=== PATIENT | female | born 1940 | race Caucasian/White ===

== ENCOUNTER → 2017-09-18 07:49 | Day surgery (SDC) | payer MEDICARE, OTHER, SELFPAY ==
--- NOTE | 2017-09-18 | PATH_ITS ---
[facility] Accession Number: [id number] . 01 Material submitted: . PART A: ASCENDING COLON PART B: RECTO-SIGMOID POLYP . 02 Diagnosis: A. Ascending Colon, Biopsy: Colonic mucosa with prominent benign lymphoid aggregate. Negative for active inflammation, granulomata, serrated lesion, dysplasia or malignancy. . B. Rectosigmoid Colon Polyp, Biopsy: Tubular adenoma. MRV/09/20/2017 . 02 Electronically signed: . Kingston Napoles MD, PhD, Pathologist NPI- [id number] . 01 Gross description: . Part A: ASCENDING COLON : Received in formalin is 1 fragment(s) of chou, soft tissue measuring 0.3 x 0.3 x 0.1 cm submitted entirely in 1 cassette(s) Part B: RECTO-SIGMOID POLYP: Received in formalin is 1 fragment(s) of chou, soft tissue measuring 0.8 x 0.5 x 0.4 cm which is inked, bisected and submitted entirely in 1 cassette(s) /TRC /TRC . 02 Pathologist provided ICD-10: D12.7, K63.5 . 02 CPT . 459309, [id number] Performed at: 01 [facility] [address], [place], [place] [id number] MD Manuel Thompson MD Phone: [phone] Performed at: 02 [facility] [address] [place], [place] [id number] MD Pierre Paz MD Phone: [phone]
[2017-09-18 08:07] VITALS: BMI 26.0
[2017-09-18] MEDS: SODIUM CHLORIDE 0.9% 1,000 ML 70 ML IV (08:30)
[2017-09-18 08:39] VITALS: BP 159/82; PULSE 66; RESP 15; TEMP 36; O2SAT 100
--- NOTE | 2017-09-18 09:26 | P.HP_ITS ---
History of Present Illness Chief complaint: [id number] COLONOSCOPY WITH BIOPSY Narrative: Ruth Cornelius is a 77 year old female here for polyp surveillance. The patient was seen on 07/03/2017 at our office due to changes in bowel habit which have now resolved with modifications in her diet [facility] Surgical History History of salpingo-oophorectomy (Resolved 08/19/17) History of knee replacement History of third molar tooth extraction Status post appendectomy Status post hysterectomy Status post tonsillectomy and adenoidectomy Social History household members: spouse Smoking Status: Former smoker Meds Home Medications Medication Instructions Recorded Confirmed Type CA PANTOTHENATE/FOLIC ACID/VIT 1 tab PO Q DAY #0 08/27/11 09/18/17 History (MULTIVITAMIN) Fluticasone Propionate (FLONASE) 1 spray INTRANASAL QDAY #0 08/27/11 09/18/17 History VITAMIN D (Vitamin D3) 1,000 unit PO QDAY #0 08/27/11 09/18/17 History [VITAMIN C] 1,000 mg PO Q DAY #0 08/27/11 09/18/17 History lorazepam [Ativan] 1 mg PO PRN #0 08/28/11 09/18/17 History pravastatin 20 mg PO QDAY #0 08/16/17 09/18/17 History oxybutynin chloride 2.5 mg PO Q DAY 09/18/17 09/18/17 History Generic Name Dose Route Start Last Admin Trade Name Freq PRN Reason Stop Dose Admin Sodium Chloride 1,000 mls @ 70 mls/hr 09/18/17 09:30 Normal Saline 0.9% IV CONT JAIME Allergies Allergy/AdvReac Type Severity Reaction Status Date / Time propranolol [PROPRANOLOL] Allergy Mild TONGUE Unverified 08/19/17 09:14 SWELLING Review of Systems Review of Systems All systems reviewed & are unremarkable except as noted in HPI and below Exam Vital Signs (past 8 hours): Vital Signs - 8 hr 3 09/18/17 08:39 Temperature 96.8 F L Pulse Rate 66 Respiratory Rate 15 Blood Pressure 159/82 H Pulse Oximetry 100 Pulse Oximetry 100 Oxygen Delivery Method Room Air Narrative Exam Narrative: General: Patient is well developed, not in apparent distress Cardiovascular: Regular rate and rhythm, no murmurs, rubs, or gallops; no evidence of edema; no palpable abdominal aortic aneurysm Gastrointestinal: Normoactive bowel sounds, soft, nontender, nondistended, no rebound tenderness, no hepatosplenomegaly, no evidence of hernia Assessment & Plan Plan: Plan: Colonoscopy today
--- NOTE | 2017-09-18 10:02 | PM.OP.ENDO ---
Operative Date/Time/Diagnoses - Date of procedure: 09/18/17 Time of procedure: 09:15 Pre-op diagnosis: Colon polyp surveillance Post-op diagnosis: other (Colon polyp status post polypectomy, sigmoid diverticulosis, grade 1 internal hemorrhoids) Procedure Notes Procedure in detail: Surgeon: Tobin Santiago MD Procedure: Colonoscopy Medications: Conscious sedation using 5 mg IV of Midazolam and 150 mcg IV of Fentanyl Preanesthesia Assessment An H and P was performed/updated and the Px???s ASA class is 2. The procedure was discussed in detail with the patient. The potential risks and complications including infection, bleeding, missed lesions, perforation, need for surgery in case of perforation, prolonged hospital stay, and were explained. A brief question and answer period was allotted and once all questions were answered, informed consent was obtained. The patient was brought back to the procedure room and placed on standard monitoring. The patient???s vital signs were monitored continuously throughout the entire procedure. Prior to starting, a timeout was performed to confirm the patient???s identity, allergies, medications, and procedure. Procedure in detail The patient was placed in left lateral decubitus position and once adequate sedation was obtained a OSCAR was performed. The colonoscope was placed in the anal canal and advanced to the rectosigmoid area where there was difficulty due to fixation of the colon. This area of the colon was eventually traversed with manual pressure in the suprapubic area as well as shortening and torsion of the scope. The cecum was identified by the appendiceal orifice and ileocecal valve. The terminal ileum was intubated to a distance of 5 cm from the ileocecal valve. Careful examination of all villasenor of the colon was performed with irrigation of any residual stool. In the ascending colon there is note of a 3 mm sessile polyp which was removed in its entirety by means of the cold Jumbo forceps with minimal bleeding. Further examination of the colon revealed multiple medium-sized diverticula in the sigmoid colon. In the rectosigmoid colon there was note of a pedunculated polyp measuring 10 mm which was removed by means of a hot snare with no bleeding. Retroflexion was then performed in the rectum which revealed grade 1 internal hemorrhoids. The procedure was then terminated The patient tolerated the procedure well and will be brought back to the recovery area to be discharged once criteria are met. The prep was judged to be good/excellent and adequate to identify polyps less than 5 mm. The withdrawal time was 10 min. The total procedure time from initial sedation was 44 min. Complications There were no complications and estimated blood loss was minimal. Recommendations: Resume previous diet Continue outPx medications Follow up pathology results Repeat colonoscopy in 3 years if polyps are adenomatous An emergency contact number was given to the patient for any complications related to the procedure
[2017-09-18] MEDS: fentaNYL 250 MCG/5 ML INJ IV (10:05)
[2017-09-18] MEDS: MIDAZOLAM 5 MG/5 ML VIAL IV (10:08)
[2017-09-18 10:09] VITALS: BP 132/69; PULSE 80; RESP 16; TEMP 36.9; O2SAT 99
--- NOTE | 2017-09-18 10:16 | SUR.PHASEII ---
Bypassed Phase one due to LOC.
--- NOTE | 2017-09-18 10:16 | PM.DS.1 ---
History of Present Illness Chief complaint: [id number] COLONOSCOPY WITH BIOPSY Narrative: Ruth Cornelius is a 77 year old female who is here for colon polyp surveillance Discharge Providers Primary care physician: Grant Phillips MD Discharge provider: Tobin Santiago MD Summary Time Spent with Patient Total time spent providing and/or coordinating discharge services: Exam Vital Signs (past 8 hours): Vital Signs - 8 hr 09/18/17 08:39 09/18/17 10:09 Temperature 96.8 F L 98.4 F Pulse Rate 66 80 Respiratory Rate 15 16 Blood Pressure 159/82 H 132/69 H Pulse Oximetry 100 99 Pulse Oximetry 99 Oxygen Delivery Method Room Air Narrative Exam Narrative: General: Patient is well developed, not in apparent distress Cardiovascular: Regular rate and rhythm, no murmurs, rubs, or gallops; no evidence of edema; no palpable abdominal aortic aneurysm Gastrointestinal: Normoactive bowel sounds, soft, nontender, nondistended, no rebound tenderness, no hepatosplenomegaly, no evidence of hernia Discharge Plan Discharge Plan Patient Disposition: Home, Self-Care Discharge comment: Remove IV prior to discharge Discharge to home with escort, once the vital signs are stable Discharge Med Rec/Prescriptions Prescriptions: Continue CA PANTOTHENATE/FOLIC ACID/VIT (MULTIVITAMIN) 1 tab PO Q DAY Qty: 0 RF: 0 VITAMIN D (Vitamin D3) 1,000 unit PO QDAY Qty: 0 RF: 0 [VITAMIN C] 1,000 mg PO Q DAY Qty: 0 RF: 0 Fluticasone Propionate (FLONASE) 1 spray Intranasal QDAY Qty: 0 RF: 0 lorazepam [Ativan] 1 MG tablet 1 mg PO PRN Qty: 0 RF: 0 pravastatin 20 MG tablet 20 mg PO QDAY Qty: 0 RF: 0 oxybutynin chloride 5 MG tablet 2.5 mg PO Q DAY RF: 0 Provider Discharge Instructions Diet: Diet as Tolerated Visit Report/Discharge Packet Stand Alone Forms: Surgery Discharge Discharge Data Primary Care Provider: Grant Phillips V Attending Provider: Tobin Santiago
--- NOTE | 2017-09-18 10:19 | SUR.PHASEII ---
Hard copy discharge instructions for colonoscopy given to patient on discharge. She desires discharge home. Is awake and alert.
--- NOTE | 2017-09-18 10:23 | P.DS_ITS ---
History of Present Illness Chief complaint: [id number] COLONOSCOPY WITH BIOPSY Narrative: Ruth Cornelius is a 77 year old female who is here for colon polyp surveillance Discharge Providers Primary care physician: Grant Phillips MD Discharge provider: Tobin Santiago MD Summary Time Spent with Patient Total time spent providing and/or coordinating discharge services: Exam Vital Signs (past 8 hours): Vital Signs - 8 hr 3 09/18/17 08:39 09/18/17 10:09 Temperature 96.8 F L 98.4 F Pulse Rate 66 80 Respiratory Rate 15 16 Blood Pressure 159/82 H 132/69 H Pulse Oximetry 100 99 Pulse Oximetry 99 Oxygen Delivery Method Room Air Narrative Exam Narrative: General: Patient is well developed, not in apparent distress Cardiovascular: Regular rate and rhythm, no murmurs, rubs, or gallops; no evidence of edema; no palpable abdominal aortic aneurysm Gastrointestinal: Normoactive bowel sounds, soft, nontender, nondistended, no rebound tenderness, no hepatosplenomegaly, no evidence of hernia Discharge Plan Discharge Plan Patient Disposition: Home, Self-Care Discharge comment: Remove IV prior to discharge Discharge to home with escort, once the vital signs are stable Discharge Med Rec/Prescriptions Prescriptions: Continue CA PANTOTHENATE/FOLIC ACID/VIT (MULTIVITAMIN) 1 tab PO Q DAY Qty: 0 RF: 0 VITAMIN D (Vitamin D3) 1,000 unit PO QDAY Qty: 0 RF: 0 [VITAMIN C] 1,000 mg PO Q DAY Qty: 0 RF: 0 Fluticasone Propionate (FLONASE) 1 spray Intranasal QDAY Qty: 0 RF: 0 lorazepam [Ativan] 1 MG tablet 1 mg PO PRN Qty: 0 RF: 0 pravastatin 20 MG tablet 20 mg PO QDAY Qty: 0 RF: 0 oxybutynin chloride 5 MG tablet 2.5 mg PO Q DAY RF: 0 Provider Discharge Instructions Diet: Diet as Tolerated Visit Report/Discharge Packet Stand Alone Forms: Surgery Discharge Discharge Data Primary Care Provider: Grant Phillips V Attending Provider: Tobin Santiago
== END | disposition home or self-care (01) ==
PROVIDERS: Family Provider Obstetrics & Gynecology; PCP Internal Medicine; Visit Provider Internal Medicine Gastroenterology
PROC: 0DJD8ZZ Inspection of Lower Intestinal Tract, Via Natural or Artificial Opening Endoscopic (ICD-10-PCS; CPT 45378; principal; 2017-09-18 09:00)
DX: Z12.11 Encounter for screening for malignant neoplasm of colon (principal); K64.0 First degree hemorrhoids; K57.30 Diverticulosis of large intestine without perforation or abscess without bleeding; D12.7 Benign neoplasm of rectosigmoid junction; D12.2 Benign neoplasm of ascending colon
CPT/HCPCS: 45385; 45380; 88305; J2250; J3010

== ENCOUNTER → 2017-10-31 08:00 | Outpatient (CLI) | payer MEDICARE, OTHER, SELFPAY ==
--- NOTE | 2017-10-31 | DI.MG.S_ITS ---
BILATERAL DIGITAL SCREENING MAMMOGRAM 3D/2D WITH CAD: 10/31/2017 CLINICAL: Routine screening. Family history of breast cancer. Comparison is made to exams dated: 10/24/2016 mammogram, 10/19/2015 mammogram, and 10/11/2014 mammogram - [facility]. There are scattered fibroglandular elements in both breasts. Current study was also evaluated with a Computer Aided Detection (CAD) system. No significant masses, calcifications, or other findings are seen in either breast. There has been no significant interval change. IMPRESSION: NEGATIVE There is no mammographic evidence of malignancy. A 1 year screening mammogram is recommended. NOTE: For mammograms, a report in lay terms will be sent to the patient. Approximately 15% of breast malignancies will not be visualized mammographically. In the management of a palpable breast mass, a negative mammogram must not discourage biopsy of a clinically suspicious lesion. Electronically Signed By: Karissa velasquez/wesley:10/31/2017 10:47:57 letter sent: Normal Exam ACR BI-RADS Category 1: Negative [id number]
== END ==
PROVIDERS: Family Provider Obstetrics & Gynecology; PCP Internal Medicine; Visit Provider Internal Medicine
DX: Z12.31 Encounter for screening mammogram for malignant neoplasm of breast (principal); Z80.3 Family history of malignant neoplasm of breast
CPT/HCPCS: 77063; 77067

== ENCOUNTER 2017-12-26 11:15 | Outpatient (RCR) | payer MEDICARE, OTHER, SELFPAY ==
--- NOTE | 2017-11-26 16:00 | PT.OIE ---
Current Diagnoses Unspecified abnormalities of gait and mobility (11/26/17) Past Surgical History (Last Updated 09/09/17 @ 15:27 by Jody Bernstein LPN) History of salpingo-oophorectomy (Resolved 08/19/17) History of knee replacement History of third molar tooth extraction Status post appendectomy Status post hysterectomy Status post tonsillectomy and adenoidectomy Provider Visit Care Team Role Provider Type Berna Mcmahon MD Family Provider Physician Specialty: SNUFF BLENDER Address: [address] [place] [address], [id number] Email: [email or web address] Grant Phillips MD Attending Provider Physician Primary Care Provider Specialty: Internal Medicine Address: [address] [place] [address], [id number] Email: Physical Therapy Initial Evaluation PT-OP-A Visit Information Start: 11/26/17 17:36 Freq: Status: Active Protocol: Document 11/26/17 15:15 DCW (Rec: 11/26/17 17:54 DCW [id number]) Out-Patient Physical Therapy Visit Information Visit Information Visit Type Initial Evaluation Visit Start Time 15:15 Visit Stop Time 16:00 Total Visit Minutes 45 Visit Number 1 Number of OSHA INSPECTOR Visits 0 Evaluation Information Evaluation Date 11/26/17 PT-OP-B Current Condition Start: 11/26/17 17:36 Freq: Status: Active Protocol: Document 11/26/17 15:15 DCW (Rec: 11/26/17 17:54 DC [id number]) Current Condition History of Current Condition Onset Date complains of two year history of declining balance Current Complaints Instability, near falls, imbalance History of Current Condition Pt is a 77 year old female who was seen at this clinic during the free balance screens on 10/22/17. At that time, pt struggled enough that it was recommended she return to skilled therapy for a full evaluation and balance training. Pt reports she has had vertigo in the past, but is not currently symptomatic. Prior Treatments and Tests Balance screen Treatment Goals Patient/Caregiver Goals I want to feel more stable when I'm walking. PT-OP-D Balance Start: 11/26/17 17:36 Freq: Status: Active Protocol: Document 11/26/17 15:15 DCW (Rec: 11/26/17 17:54 DCW [id number]) OP-PT Balance Assessment Standing Balance Static Standing Balance Ability Normal Dynamic Standing Balance Ability Good Balance Tests Vázquez Balance Test Vázquez Balance Test Score 52/56 Vázquez Impairment Rating 1 to 19% Impaired (Score 45-55 ) CTSIB CTSIB Position 1 Mild Sway CTSIB Position 2 Severe Sway CTSIB Position 3 Moderate Sway CTSIB Position 4 Moderate Sway CTSIB Position 5 Fall Reaction CTSIB Position 6 Fall Reaction Vázquez Balance Assessment Evaluation Sitting to Standing Ability Independent w/out Hands Unsupported Stance Safely- 2 minutes Sitting Unsupported, Feet on Floor Safely- 2 minutes Standing to Sitting Ability Safely, Minimal Hand Use Transfer Ability Safely, Minimal Hand Use Unsupported Stance- Eyes Closed Safely, 10 seconds Unsupported Stance- Eyes Open Independent, 1 minute Reaching Forward Standing Safely, 5 inches Pick- Up Object From Floor Independent/Safe Look Behind Shoulder - Standing Shifts Weight Well Turning 360 Degrees Turns Bilateral, < 4 secs Unsupported Stance, Alternating Feet on (I)- 8 Steps in 20 secs Stair Unsupported Tandem Stance Holds Tandem- 30 seconds Unilateral Leg Stance Lifts Leg/Holds > 3 secs Total Score Vázquez Total Score (out of 56 points) 52 Vázquez Impairment Rating 1 to 19% Impaired (Score 45-55 ) Mitchell Fall Scale Copyright Permission Stephen REDDY, Stephen RM, Yanelis SJ. Development of a scale to identify the fall- prone patient. Can J Aging 1989;8;366-7. Abdiel Mitchell (2009). Preventing patient falls. (2nd ed). [place]: Gue[place]. PT-OP-E Functional Tests Start: 11/26/17 17:55 Freq: Status: Active Protocol: Document 11/26/17 15:15 DCW (Rec: 11/27/17 10:53 DCW [id number]) Functional Tests Dynamic Gait Index (DGI) Score 19/24 DGI Impairment Rating 20 to <40% Impaired (Score 15- 19) Functional Gait Assessment Score 19/30 Functional Gait Assessment Impairment 20 to <40% Impaired (Score 19- Rating 24) PT-OP-G Mobility & Gait Start: 11/26/17 17:36 Freq: Status: Active Protocol: Document 11/26/17 15:15 DCW (Rec: 11/27/17 10:53 [facility] [id number]) Stair Climbing Evaluation Evaluation Level of Assist On Stairs Independent Devices Stair Climbing Assistive Devices Right Railing Technique/Endurance Stair Climbing Direction Ascend and Descend Stair Climbing Technique Step Over Step PT-OP-M Strength Start: 11/26/17 17:36 Freq: Status: Active Protocol: Document 11/26/17 15:15 DCW (Rec: 11/27/17 10:53 [facility] [id number]) Hip Strength Hip Manual Muscle Testing Right Flexion (L2) 4+ Good+ Extension (S1) 4+ Good+ Abduction 4+ Good+ Adduction 4+ Good+ External Rotation 4+ Good+ Internal Rotation 4+ Good+ Left Flexion (L2) 4+ Good+ Extension (S1) 4+ Good+ Abduction 4 Good Adduction 4+ Good+ External Rotation 4+ Good+ Internal Rotation 4+ Good+ Knee Strength Knee Manual Muscle Testing Right Flexion (S2) 4+ Good+ Extension (L3) 4+ Good+ Left Flexion (S2) 4+ Good+ Extension (L3) 4+ Good+ PT-OP-Q Treatments Start: 11/26/17 17:36 Freq: Status: Active Protocol: Document 11/26/17 15:15 DCW (Rec: 11/27/17 10:53 [facility] [id number]) Neuro Re-Education Treatment Balance Activities 3 Details Single-leg stance Surface Non-compliant 2 Details Small step stance, eyes closed Surface Non-compliant 1 Details Semi-tandem stance at railing Surface Non-compliant PT-OP-T Assessment and Plan Start: 11/26/17 17:36 Freq: Status: Active Protocol: Document 11/26/17 15:15 DCW (Rec: 11/27/17 10:53 [facility] [id number]) Physical Therapy Assessment Rehab Potential Rehabilitation Potential Good Evaluation Complexity Number of Personal Factors/Comorbidities 1-2 Number of Body Systems Impaired 1-2 Clinical Presentation at Evaluation Stable Impairments Impairments Balance Coordination Strength Goals Three Impairment CTSIB Lead Inspector Goal (LTG) Pt to exhibit at worst Moderate sway in positions II, V, and LTG Duration 12/24/17 Two Impairment Objective balance testing Short Term Goal (STG) Pt to score 22/24 on DGI STG Duration 12/10/17 Prison Goal (LTG) Pt to score 25/30 on FGA LTG Duration 12/24/17 One Impairment Functional Mobility Short Term Goal (STG) Pt to report ability to ambulate around [facility] with no complaints of instability STG Duration 12/10/17 Assessment Summary Assessment Pt testing today revealed that her dynamic balance puts her at an increased falls risk, per her scoring on the DGI and FGA. Pt's Vázquez Balance scale shows she had good static balance. Pt should benefit from skilled therapy focusing on balance training and work toward an independent HEP. Physical Therapy Plan Frequency and Duration Frequency of Treatment 2x/Week Duration of Treatment 8 weeks Plan of Care Start Date 11/26/17 Plan of Care End Date 01/21/18 Therapeutic Interventions Therapeutic Interventions Balance Training Coordination Training Home Exercise Program Manual Therapy Therapeutic Exercises Next Visit Focus/Plan Next Note Type Treatment Note Next Visit Plan Balance training, strengthening
--- NOTE | 2017-11-27 10:54 | PT.OPPOC ---
Current Diagnoses Unspecified abnormalities of gait and mobility (11/26/17) Provider Visit Care Team Role Provider Type Berna Mcmahon MD Family Provider Physician Specialty: CREDIT SUPPORT SPECIALIST Address: [address] [place] [address], [id number] Email: [email or web address] Grant Phillips MD Attending Provider Physician Primary Care Provider Specialty: Internal Medicine Address: [address] [place] [address], [phone] Email: Plan Of Care PT-OP-T Assessment and Plan Start: 11/26/17 17:36 Freq: Status: Active Protocol: Document 11/26/17 15:15 DCW (Rec: 11/27/17 10:53 DCW [id number]) Physical Therapy Assessment Rehab Potential Rehabilitation Potential Good Evaluation Complexity Number of Personal Factors/Comorbidities 1-2 Number of Body Systems Impaired 1-2 Clinical Presentation at Evaluation Stable Impairments Impairments Balance Coordination Strength Goals Three Impairment CTSIB Roller Mill Operator Goal (LTG) Pt to exhibit at worst Moderate sway in positions II, V, and LTG Duration 12/24/17 Two Impairment Objective balance testing Short Term Goal (STG) Pt to score 22/24 on DGI STG Duration 12/10/17 Roller Mill Operator Goal (LTG) Pt to score 25/30 on FGA LTG Duration 12/24/17 One Impairment Functional Mobility Short Term Goal (STG) Pt to report ability to ambulate around [facility] with no complaints of instability STG Duration 12/10/17 Assessment Summary Assessment Pt testing today revealed that her dynamic balance puts her at an increased falls risk, per her scoring on the DGI and FGA. Pt's Vázquez Balance scale shows she had good static balance. Pt should benefit from skilled therapy focusing on balance training and work toward an independent HEP. Physical Therapy Plan Frequency and Duration Frequency of Treatment 2x/Week Duration of Treatment 8 weeks Plan of Care Start Date 11/26/17 Plan of Care End Date 01/21/18 Therapeutic Interventions Therapeutic Interventions Balance Training Coordination Training Home Exercise Program Manual Therapy Therapeutic Exercises Next Visit Focus/Plan Next Note Type Treatment Note Next Visit Plan Balance training, strengthening Plan of Care Dates Plan of Care Start Date 11/26/17 Plan of Care End Date 01/21/18 Please Sign and Return: I have reviewed this Plan of Care and certify that the skilled therapy services above are required to meet the patient?s needs. Physician Signature Date Printed Name and Credentials Clinical Instructor Signature Printed Name and Credentials
--- NOTE | 2017-12-12 16:57 | PT.OTN ---
Current Diagnoses Unspecified abnormalities of gait and mobility (12/12/17) Physical Therapy Treatment Note PT-OP-A Visit Information Start: 11/26/17 17:36 Freq: Status: Active Protocol: Document 12/12/17 13:00 SAK (Rec: 12/12/17 13:08 [facility] [id number]) Out-Patient Physical Therapy Visit Information Visit Information Visit Type Treatment Note Visit Start Time 13:00 Visit Stop Time 13:45 Total Visit Minutes 45 Visit Number 2 Number of STEEL DIVISION SUPERVISOR Visits 0 Evaluation Information Evaluation Date 11/26/17 PT-OP-B Current Condition Start: 11/26/17 17:36 Freq: Status: Active Protocol: Document 11/26/17 15:15 DCW (Rec: 11/26/17 17:54 DCW [id number]) Current Condition History of Current Condition Onset Date complains of two year history of declining balance Current Complaints Instability, near falls, imbalance History of Current Condition Pt is a 77 year old female who was seen at this clinic during the free balance screens on 10/22/17. At that time, pt struggled enough that it was recommended she return to skilled therapy for a full evaluation and balance training. Pt reports she has had vertigo in the past, but is not currently symptomatic. Prior Treatments and Tests Balance screen Treatment Goals Patient/Caregiver Goals I want to feel more stable when I'm walking. PT-OP-C Subjective Start: 11/26/17 17:36 Freq: Status: Active Protocol: Document 12/12/17 13:00 SAK (Rec: 12/12/17 13:08 [facility] [id number]) OP-PT Subjective Patient Comments Patient Comments no new c/o. Can my balance really get better? compliant to HEP. PT-OP-D Balance Start: 11/26/17 17:36 Freq: Status: Active Protocol: Document 11/26/17 15:15 DCW (Rec: 11/26/17 17:54 DCW [id number]) OP-PT Balance Assessment Standing Balance Static Standing Balance Ability Normal Dynamic Standing Balance Ability Good Balance Tests Vázquez Balance Test Vázquez Balance Test Score 52/56 Vázquez Impairment Rating 1 to 19% Impaired (Score 45-55 ) CTSIB CTSIB Position 1 Mild Sway CTSIB Position 2 Severe Sway CTSIB Position 3 Moderate Sway CTSIB Position 4 Moderate Sway CTSIB Position 5 Fall Reaction CTSIB Position 6 Fall Reaction Vázquez Balance Assessment Evaluation Sitting to Standing Ability Independent w/out Hands Unsupported Stance Safely- 2 minutes Sitting Unsupported, Feet on Floor Safely- 2 minutes Standing to Sitting Ability Safely, Minimal Hand Use Transfer Ability Safely, Minimal Hand Use Unsupported Stance- Eyes Closed Safely, 10 seconds Unsupported Stance- Eyes Open Independent, 1 minute Reaching Forward Standing Safely, 5 inches Pick- Up Object From Floor Independent/Safe Look Behind Shoulder - Standing Shifts Weight Well Turning 360 Degrees Turns Bilateral, < 4 secs Unsupported Stance, Alternating Feet on (I)- 8 Steps in 20 secs Stair Unsupported Tandem Stance Holds Tandem- 30 seconds Unilateral Leg Stance Lifts Leg/Holds > 3 secs Total Score Vázquez Total Score (out of 56 points) 52 Vázquez Impairment Rating 1 to 19% Impaired (Score 45-55 ) Stephen Fall Scale Copyright Permission Stephen REDDY, Stephen RM, Yanelis SJ. Development of a scale to identify the fall- prone patient. Can J Aging 1989;8;366-7. Abdiel Mitchell (2009). Preventing patient falls. (2nd ed). [place]: Guevara. PT-OP-E Functional Tests Start: 11/26/17 17:55 Freq: Status: Active Protocol: Document 11/26/17 15:15 DCW (Rec: 11/27/17 10:53 DCW [id number]) Functional Tests Dynamic Gait Index (DGI) Score 19/24 DGI Impairment Rating 20 to <40% Impaired (Score 15- 19) Functional Gait Assessment Score 19/30 Functional Gait Assessment Impairment 20 to <40% Impaired (Score 19- Rating 24) PT-OP-G Mobility & Gait Start: 11/26/17 17:36 Freq: Status: Active Protocol: Document 11/26/17 15:15 DCW (Rec: 11/27/17 10:53 DCW [id number]) Stair Climbing Evaluation Evaluation Level of Assist On Stairs Independent Devices Stair Climbing Assistive Devices Right Railing Technique/Endurance Stair Climbing Direction Ascend and Descend Stair Climbing Technique Step Over Step PT-OP-M Strength Start: 11/26/17 17:36 Freq: Status: Active Protocol: Document 11/26/17 15:15 DCW (Rec: 11/27/17 10:53 DCW [id number]) Hip Strength Hip Manual Muscle Testing Right Flexion (L2) 4+ Good+ Extension (S1) 4+ Good+ Abduction 4+ Good+ Adduction 4+ Good+ External Rotation 4+ Good+ Internal Rotation 4+ Good+ Left Flexion (L2) 4+ Good+ Extension (S1) 4+ Good+ Abduction 4 Good Adduction 4+ Good+ External Rotation 4+ Good+ Internal Rotation 4+ Good+ Knee Strength Knee Manual Muscle Testing Right Flexion (S2) 4+ Good+ Extension (L3) 4+ Good+ Left Flexion (S2) 4+ Good+ Extension (L3) 4+ Good+ PT-OP-Q Treatments Start: 11/26/17 17:36 Freq: Status: Active Protocol: Document 12/12/17 13:00 [facility] (Rec: 12/12/17 16:57 [facility] [id number]) Cardio Equipment Recumbent Elliptical (Biodex) Duration (Minutes) 5 Resistance 1 Gym Equipment Shuttle Balance 1 Details Balance EO, EC, head turns, with perturbations Comments chains yellow Therapeutic Exercises Standing Exercises 1 Standing Exercise Name HC stretch Reps/Minutes 2x Neuro Re-Education Treatment Balance Activities 7 Details tandem gait Comments CGA, minimal UE support 6 Details grapevine walk Comments Patient had difficulty with sequencing of feet, mod UE support 5 Details high steps forward and side Equipment hurdles Comments CGA, minimal UE support 4 Details standing bal EO and EC Equipment foam, tiltboard Comments CGA, minimal UE support 3 Details Single-leg stance Surface Non-compliant 2 Details Small step stance, eyes closed Surface Non-compliant 1 Details Semi-tandem stance at railing Surface Non-compliant PT-OP-T Assessment and Plan Start: 11/26/17 17:36 Freq: Status: Active Protocol: Document 12/12/17 13:00 [facility] (Rec: 12/12/17 16:57 [facility] [id number]) Physical Therapy Assessment Goals Three Impairment CTSIB Senior Care Goal (LTG) Pt to exhibit at worst Moderate sway in positions II, V, and LTG Duration 12/24/17 Two Impairment Objective balance testing Short Term Goal (STG) Pt to score 22/24 on DGI STG Duration 12/10/17 Appliquer Goal (LTG) Pt to score 25/30 on FGA LTG Duration 12/24/17 One Impairment Functional Mobility Short Term Goal (STG) Pt to report ability to ambulate around [facility] with no complaints of instability STG Duration 12/10/17 Assessment Summary Assessment Patient tolerated progression of balance exercises and activities well, with moderate cues for performance, especially with grapevine walk . Compliant to HEP. Physical Therapy Plan Frequency and Duration Frequency of Treatment 2x/Week Duration of Treatment 8 weeks Plan of Care Start Date 11/26/17 Plan of Care End Date 01/21/18 Therapeutic Interventions Therapeutic Interventions Balance Training Coordination Training Home Exercise Program Manual Therapy Therapeutic Exercises Next Visit Focus/Plan Next Note Type Treatment Note Next Visit Plan Evalute response to last treatment, progression ther ex as indicated for balance and strengthening.
--- NOTE | 2017-12-19 12:00 | PT.OTN ---
Current Diagnoses Unspecified abnormalities of gait and mobility (12/19/17) Physical Therapy Treatment Note PT-OP-A Visit Information Start: 11/26/17 17:36 Freq: Status: Active Protocol: Document 12/19/17 11:15 DCW (Rec: 12/19/17 12:00 DCW [id number]) Out-Patient Physical Therapy Visit Information Visit Information Visit Type Treatment Note Visit Start Time 11:15 Visit Stop Time 12:00 Total Visit Minutes 45 Visit Number 3 Number of DEPILATORY PAINTER Visits 0 Evaluation Information Evaluation Date 11/26/17 PT-OP-B Current Condition Start: 11/26/17 17:36 Freq: Status: Active Protocol: Document 11/26/17 15:15 DCW (Rec: 11/26/17 17:54 DCW [id number]) Current Condition History of Current Condition Onset Date complains of two year history of declining balance Current Complaints Instability, near falls, imbalance History of Current Condition Pt is a 77 year old female who was seen at this clinic during the free balance screens on 10/22/17. At that time, pt struggled enough that it was recommended she return to skilled therapy for a full evaluation and balance training. Pt reports she has had vertigo in the past, but is not currently symptomatic. Prior Treatments and Tests Balance screen Treatment Goals Patient/Caregiver Goals I want to feel more stable when I'm walking. PT-OP-C Subjective Start: 11/26/17 17:36 Freq: Status: Active Protocol: Document 12/19/17 11:15 DCW (Rec: 12/19/17 12:00 DCW [id number]) OP-PT Subjective Patient Comments Patient Comments Pt doing well with HEP PT-OP-D Balance Start: 11/26/17 17:36 Freq: Status: Active Protocol: Document 11/26/17 15:15 DCW (Rec: 11/26/17 17:54 DCW [id number]) OP-PT Balance Assessment Standing Balance Static Standing Balance Ability Normal Dynamic Standing Balance Ability Good Balance Tests Vázquez Balance Test Vázquez Balance Test Score 52/56 Vázquez Impairment Rating 1 to 19% Impaired (Score 45-55 ) CTSIB CTSIB Position 1 Mild Sway CTSIB Position 2 Severe Sway CTSIB Position 3 Moderate Sway CTSIB Position 4 Moderate Sway CTSIB Position 5 Fall Reaction CTSIB Position 6 Fall Reaction Vázquez Balance Assessment Evaluation Sitting to Standing Ability Independent w/out Hands Unsupported Stance Safely- 2 minutes Sitting Unsupported, Feet on Floor Safely- 2 minutes Standing to Sitting Ability Safely, Minimal Hand Use Transfer Ability Safely, Minimal Hand Use Unsupported Stance- Eyes Closed Safely, 10 seconds Unsupported Stance- Eyes Open Independent, 1 minute Reaching Forward Standing Safely, 5 inches Pick- Up Object From Floor Independent/Safe Look Behind Shoulder - Standing Shifts Weight Well Turning 360 Degrees Turns Bilateral, < 4 secs Unsupported Stance, Alternating Feet on (I)- 8 Steps in 20 secs Stair Unsupported Tandem Stance Holds Tandem- 30 seconds Unilateral Leg Stance Lifts Leg/Holds > 3 secs Total Score Vázquez Total Score (out of 56 points) 52 Vázquez Impairment Rating 1 to 19% Impaired (Score 45-55 ) Mitchell Fall Scale Copyright Permission Stephen REDDY, Stephen RM, Yanelis SJ. Development of a scale to identify the fall- prone patient. Can J Aging 1989;8;366-7. Abdiel Mitchell (2009). Preventing patient falls. (2nd ed). [place]: Guevara. PT-OP-E Functional Tests Start: 11/26/17 17:55 Freq: Status: Active Protocol: Document 11/26/17 15:15 DCW (Rec: 11/27/17 10:53 DCW [id number]) Functional Tests Dynamic Gait Index (DGI) Score 19/24 DGI Impairment Rating 20 to <40% Impaired (Score 15- 19) Functional Gait Assessment Score 19/30 Functional Gait Assessment Impairment 20 to <40% Impaired (Score 19- Rating 24) PT-OP-G Mobility & Gait Start: 11/26/17 17:36 Freq: Status: Active Protocol: Document 11/26/17 15:15 DCW (Rec: 11/27/17 10:53 DCW [id number]) Stair Climbing Evaluation Evaluation Level of Assist On Stairs Independent Devices Stair Climbing Assistive Devices Right Railing Technique/Endurance Stair Climbing Direction Ascend and Descend Stair Climbing Technique Step Over Step PT-OP-M Strength Start: 11/26/17 17:36 Freq: Status: Active Protocol: Document 11/26/17 15:15 DCW (Rec: 11/27/17 10:53 DCW [id number]) Hip Strength Hip Manual Muscle Testing Right Flexion (L2) 4+ Good+ Extension (S1) 4+ Good+ Abduction 4+ Good+ Adduction 4+ Good+ External Rotation 4+ Good+ Internal Rotation 4+ Good+ Left Flexion (L2) 4+ Good+ Extension (S1) 4+ Good+ Abduction 4 Good Adduction 4+ Good+ External Rotation 4+ Good+ Internal Rotation 4+ Good+ Knee Strength Knee Manual Muscle Testing Right Flexion (S2) 4+ Good+ Extension (L3) 4+ Good+ Left Flexion (S2) 4+ Good+ Extension (L3) 4+ Good+ PT-OP-Q Treatments Start: 11/26/17 17:36 Freq: Status: Active Protocol: Document 12/19/17 11:15 DCW (Rec: 12/19/17 12:00 DCW [id number]) Gym Equipment Shuttle Balance 1 Details Red - Wide ARON, Staggered Stance Therapeutic Exercises Other Exercises 1 Other Exercise Name Resisted Side-stepping Side bilateral Resistance Green Equipment Used T-band Neuro Re-Education Treatment Balance Activities 7 Details tandem gait Comments CGA, minimal UE support 6 Details grapevine walk Comments Patient had difficulty with sequencing of feet, mod UE support 4 Details standing bal EO and EC Equipment foam Comments CGA, minimal UE support 3 Details Single-leg stance Surface Non-compliant 2 Details Small step stance, eyes closed Surface Non-compliant 1 Details Semi-tandem stance, horizontal /vertical head turns Surface Non-compliant PT-OP-T Assessment and Plan Start: 11/26/17 17:36 Freq: Status: Active Protocol: Document 12/19/17 11:15 DCW (Rec: 12/19/17 12:00 DCW [id number]) Physical Therapy Assessment Impairments Impairments Balance Coordination Strength Goals Three Impairment CTSIB Safety Investigator/Cause Analyst Goal (LTG) Pt to exhibit at worst Moderate sway in positions II, V, and LTG Duration 12/24/17 Two Impairment Objective balance testing Short Term Goal (STG) Pt to score 22/24 on DGI STG Duration 12/10/17 Safety Investigator/Cause Analyst Goal (LTG) Pt to score 25/30 on FGA LTG Duration 12/24/17 One Impairment Functional Mobility Short Term Goal (STG) Pt to report ability to ambulate around [facility] with no complaints of instability STG Duration 12/10/17 Assessment Summary Assessment Pt required fewer cues, and was able to perform exercises away from the railing. Physical Therapy Plan Frequency and Duration Frequency of Treatment 2x/Week Duration of Treatment 8 weeks Plan of Care Start Date 11/26/17 Plan of Care End Date 01/21/18 Therapeutic Interventions Therapeutic Interventions Balance Training Coordination Training Home Exercise Program Manual Therapy Therapeutic Exercises Next Visit Focus/Plan Next Note Type Treatment Note Next Visit Plan Evalute response to last treatment, progression ther ex as indicated for balance and strengthening.
--- NOTE | 2017-12-23 12:48 | PT.OTN ---
Current Diagnoses Unspecified abnormalities of gait and mobility (12/23/17) Physical Therapy Treatment Note PT-OP-A Visit Information Start: 11/26/17 17:36 Freq: Status: Active Protocol: Document 12/23/17 12:00 DCW (Rec: 12/23/17 12:48 DCW [id number]) Out-Patient Physical Therapy Visit Information Visit Information Visit Type Treatment Note Visit Start Time 12:00 Visit Stop Time 12:45 Total Visit Minutes 45 Visit Number 4 Number of COMMUNICATIONS ENGINEER Visits 0 Evaluation Information Evaluation Date 11/26/17 PT-OP-B Current Condition Start: 11/26/17 17:36 Freq: Status: Active Protocol: Document 11/26/17 15:15 DCW (Rec: 11/26/17 17:54 DCW [id number]) Current Condition History of Current Condition Onset Date complains of two year history of declining balance Current Complaints Instability, near falls, imbalance History of Current Condition Pt is a 77 year old female who was seen at this clinic during the free balance screens on 10/22/17. At that time, pt struggled enough that it was recommended she return to skilled therapy for a full evaluation and balance training. Pt reports she has had vertigo in the past, but is not currently symptomatic. Prior Treatments and Tests Balance screen Treatment Goals Patient/Caregiver Goals I want to feel more stable when I'm walking. PT-OP-C Subjective Start: 11/26/17 17:36 Freq: Status: Active Protocol: Document 12/23/17 12:00 DCW (Rec: 12/23/17 12:48 DCW [id number]) OP-PT Subjective Patient Comments Patient Comments Pt notes that she works hard at her [employer] strength class this morning. PT-OP-D Balance Start: 11/26/17 17:36 Freq: Status: Active Protocol: Document 11/26/17 15:15 DCW (Rec: 11/26/17 17:54 DCW [id number]) OP-PT Balance Assessment Standing Balance Static Standing Balance Ability Normal Dynamic Standing Balance Ability Good Balance Tests Vázquez Balance Test Vázquez Balance Test Score 52/56 Vázquez Impairment Rating 1 to 19% Impaired (Score 45-55 ) CTSIB CTSIB Position 1 Mild Sway CTSIB Position 2 Severe Sway CTSIB Position 3 Moderate Sway CTSIB Position 4 Moderate Sway CTSIB Position 5 Fall Reaction CTSIB Position 6 Fall Reaction Vázquez Balance Assessment Evaluation Sitting to Standing Ability Independent w/out Hands Unsupported Stance Safely- 2 minutes Sitting Unsupported, Feet on Floor Safely- 2 minutes Standing to Sitting Ability Safely, Minimal Hand Use Transfer Ability Safely, Minimal Hand Use Unsupported Stance- Eyes Closed Safely, 10 seconds Unsupported Stance- Eyes Open Independent, 1 minute Reaching Forward Standing Safely, 5 inches Pick- Up Object From Floor Independent/Safe Look Behind Shoulder - Standing Shifts Weight Well Turning 360 Degrees Turns Bilateral, < 4 secs Unsupported Stance, Alternating Feet on (I)- 8 Steps in 20 secs Stair Unsupported Tandem Stance Holds Tandem- 30 seconds Unilateral Leg Stance Lifts Leg/Holds > 3 secs Total Score Vázquez Total Score (out of 56 points) 52 Vázquez Impairment Rating 1 to 19% Impaired (Score 45-55 ) Mitchell Fall Scale Copyright Permission Stephen REDDY, Stephen RM, Yanelis SJ. Development of a scale to identify the fall- prone patient. Can J Aging 1989;8;366-7. Abdiel Mitchell (2009). Preventing patient falls. (2nd ed). [place]: Guevara. PT-OP-E Functional Tests Start: 11/26/17 17:55 Freq: Status: Active Protocol: Document 11/26/17 15:15 DCW (Rec: 11/27/17 10:53 DCW [id number]) Functional Tests Dynamic Gait Index (DGI) Score 19/24 DGI Impairment Rating 20 to <40% Impaired (Score 15- 19) Functional Gait Assessment Score 19/30 Functional Gait Assessment Impairment 20 to <40% Impaired (Score 19- Rating 24) PT-OP-G Mobility & Gait Start: 11/26/17 17:36 Freq: Status: Active Protocol: Document 11/26/17 15:15 DCW (Rec: 11/27/17 10:53 DCW [id number]) Stair Climbing Evaluation Evaluation Level of Assist On Stairs Independent Devices Stair Climbing Assistive Devices Right Railing Technique/Endurance Stair Climbing Direction Ascend and Descend Stair Climbing Technique Step Over Step PT-OP-M Strength Start: 11/26/17 17:36 Freq: Status: Active Protocol: Document 11/26/17 15:15 DCW (Rec: 11/27/17 10:53 DCW [id number]) Hip Strength Hip Manual Muscle Testing Right Flexion (L2) 4+ Good+ Extension (S1) 4+ Good+ Abduction 4+ Good+ Adduction 4+ Good+ External Rotation 4+ Good+ Internal Rotation 4+ Good+ Left Flexion (L2) 4+ Good+ Extension (S1) 4+ Good+ Abduction 4 Good Adduction 4+ Good+ External Rotation 4+ Good+ Internal Rotation 4+ Good+ Knee Strength Knee Manual Muscle Testing Right Flexion (S2) 4+ Good+ Extension (L3) 4+ Good+ Left Flexion (S2) 4+ Good+ Extension (L3) 4+ Good+ PT-OP-Q Treatments Start: 11/26/17 17:36 Freq: Status: Active Protocol: Document 12/23/17 12:00 DCW (Rec: 12/23/17 12:48 DCW [id number]) Gym Equipment Shuttle Balance 1 Details Red - Wide ARON, Staggered Stance, Lateral weight shift Therapeutic Exercises Other Exercises 2 Other Exercise Name Resisted forward/retro walking Side bilateral Resistance Green Equipment Used T-band 1 Other Exercise Name Resisted Side-stepping Side bilateral Resistance Green Equipment Used T-band Neuro Re-Education Treatment Balance Activities 8 Details Foam stepping stones 7 Details tandem gait Comments CGA, minimal UE support 6 Details grapevine walk 4 Details standing bal EO and EC, X1 viewing Equipment Chaparro foam 3 Details Single-leg stance Surface Green Foam 2 Details Small step stance, eyes closed Surface Non-compliant PT-OP-T Assessment and Plan Start: 11/26/17 17:36 Freq: Status: Active Protocol: Document 12/23/17 12:00 DCW (Rec: 12/23/17 12:48 DCW [id number]) Physical Therapy Assessment Impairments Impairments Balance Coordination Strength Goals Three Impairment CTSIB Mcc Goal (LTG) Pt to exhibit at worst Moderate sway in positions II, V, and LTG Duration 12/24/17 Two Impairment Objective balance testing Short Term Goal (STG) Pt to score 22/24 on DGI STG Duration 12/10/17 Barrel Endshake Adjuster Goal (LTG) Pt to score 25/30 on FGA LTG Duration 12/24/17 One Impairment Functional Mobility Short Term Goal (STG) Pt to report ability to ambulate around [facility] with no complaints of instability STG Duration 12/10/17 Assessment Summary Assessment Pt again showed improvement with ability to perform balance activities with less UE support and increased confidence Physical Therapy Plan Frequency and Duration Frequency of Treatment 2x/Week Duration of Treatment 8 weeks Plan of Care Start Date 11/26/17 Plan of Care End Date 01/21/18 Therapeutic Interventions Therapeutic Interventions Balance Training Coordination Training Home Exercise Program Manual Therapy Therapeutic Exercises Next Visit Focus/Plan Next Note Type Treatment Note Next Visit Plan progression ther ex as indicated for balance and strengthening.
--- NOTE | 2017-12-26 15:17 | PT.OTN ---
Current Diagnoses Unspecified abnormalities of gait and mobility (12/26/17) Physical Therapy Treatment Note PT-OP-A Visit Information Start: 11/26/17 17:36 Freq: Status: Active Protocol: Document 12/26/17 11:15 DCW (Rec: 12/26/17 15:16 DCW [id number]) Out-Patient Physical Therapy Visit Information Visit Information Visit Type Treatment Note Visit Start Time 12:00 Visit Stop Time 12:45 Total Visit Minutes 45 Visit Number 4 Number of TEMPLER HEAD Visits 0 Evaluation Information Evaluation Date 11/26/17 PT-OP-B Current Condition Start: 11/26/17 17:36 Freq: Status: Active Protocol: Document 11/26/17 15:15 DCW (Rec: 11/26/17 17:54 DCW [id number]) Current Condition History of Current Condition Onset Date complains of two year history of declining balance Current Complaints Instability, near falls, imbalance History of Current Condition Pt is a 77 year old female who was seen at this clinic during the free balance screens on 10/22/17. At that time, pt struggled enough that it was recommended she return to skilled therapy for a full evaluation and balance training. Pt reports she has had vertigo in the past, but is not currently symptomatic. Prior Treatments and Tests Balance screen Treatment Goals Patient/Caregiver Goals I want to feel more stable when I'm walking. PT-OP-C Subjective Start: 11/26/17 17:36 Freq: Status: Active Protocol: Document 12/26/17 11:15 DCW (Rec: 12/26/17 15:16 DCW [id number]) OP-PT Subjective Patient Comments Patient Comments Pt concerned that her balance issues may be due to an inner ear problem PT-OP-D Balance Start: 11/26/17 17:36 Freq: Status: Active Protocol: Document 11/26/17 15:15 DCW (Rec: 11/26/17 17:54 DCW [id number]) OP-PT Balance Assessment Standing Balance Static Standing Balance Ability Normal Dynamic Standing Balance Ability Good Balance Tests Vázquez Balance Test Vázquez Balance Test Score 52/56 Vázquez Impairment Rating 1 to 19% Impaired (Score 45-55 ) CTSIB CTSIB Position 1 Mild Sway CTSIB Position 2 Severe Sway CTSIB Position 3 Moderate Sway CTSIB Position 4 Moderate Sway CTSIB Position 5 Fall Reaction CTSIB Position 6 Fall Reaction Vázquez Balance Assessment Evaluation Sitting to Standing Ability Independent w/out Hands Unsupported Stance Safely- 2 minutes Sitting Unsupported, Feet on Floor Safely- 2 minutes Standing to Sitting Ability Safely, Minimal Hand Use Transfer Ability Safely, Minimal Hand Use Unsupported Stance- Eyes Closed Safely, 10 seconds Unsupported Stance- Eyes Open Independent, 1 minute Reaching Forward Standing Safely, 5 inches Pick- Up Object From Floor Independent/Safe Look Behind Shoulder - Standing Shifts Weight Well Turning 360 Degrees Turns Bilateral, < 4 secs Unsupported Stance, Alternating Feet on (I)- 8 Steps in 20 secs Stair Unsupported Tandem Stance Holds Tandem- 30 seconds Unilateral Leg Stance Lifts Leg/Holds > 3 secs Total Score Vázquez Total Score (out of 56 points) 52 Vázquez Impairment Rating 1 to 19% Impaired (Score 45-55 ) Mitchell Fall Scale Copyright Permission Stephen REDDY, Stephen RM, Yanelis SJ. Development of a scale to identify the fall- prone patient. Can J Aging 1989;8;366-7. Abdiel Mitchell (2009). Preventing patient falls. (2nd ed). [place]: Guevara. PT-OP-E Functional Tests Start: 11/26/17 17:55 Freq: Status: Active Protocol: Document 11/26/17 15:15 DCW (Rec: 11/27/17 10:53 DCW [id number]) Functional Tests Dynamic Gait Index (DGI) Score 19/24 DGI Impairment Rating 20 to <40% Impaired (Score 15- 19) Functional Gait Assessment Score 19/30 Functional Gait Assessment Impairment 20 to <40% Impaired (Score 19- Rating 24) PT-OP-G Mobility & Gait Start: 11/26/17 17:36 Freq: Status: Active Protocol: Document 11/26/17 15:15 DCW (Rec: 11/27/17 10:53 DCW [id number]) Stair Climbing Evaluation Evaluation Level of Assist On Stairs Independent Devices Stair Climbing Assistive Devices Right Railing Technique/Endurance Stair Climbing Direction Ascend and Descend Stair Climbing Technique Step Over Step PT-OP-M Strength Start: 11/26/17 17:36 Freq: Status: Active Protocol: Document 11/26/17 15:15 DCW (Rec: 11/27/17 10:53 DCW [id number]) Hip Strength Hip Manual Muscle Testing Right Flexion (L2) 4+ Good+ Extension (S1) 4+ Good+ Abduction 4+ Good+ Adduction 4+ Good+ External Rotation 4+ Good+ Internal Rotation 4+ Good+ Left Flexion (L2) 4+ Good+ Extension (S1) 4+ Good+ Abduction 4 Good Adduction 4+ Good+ External Rotation 4+ Good+ Internal Rotation 4+ Good+ Knee Strength Knee Manual Muscle Testing Right Flexion (S2) 4+ Good+ Extension (L3) 4+ Good+ Left Flexion (S2) 4+ Good+ Extension (L3) 4+ Good+ PT-OP-O Vestibular Start: 12/26/17 15:11 Freq: Status: Active Protocol: Document 12/26/17 11:15 DCW (Rec: 12/26/17 15:16 INW [id number]) Vestibular Assessment Screening Tests Vestibular Artery Screen Negative Auditory Tests Bennett Test Negative Rinne Test Negative Air Conduction Results Equal Visual Testing Smooth Pursuits Horizontal WNL Saccades Horizontal WNL Heave Test Negative Thrust Head Negative PT-OP-Q Treatments Start: 11/26/17 17:36 Freq: Status: Active Protocol: Document 12/26/17 11:15 DCW (Rec: 12/26/17 15:16 DCW [id number]) Gym Equipment Shuttle Balance 1 Details Red - Wide ARON, Staggered Stance, Lateral weight shift Therapeutic Exercises Other Exercises 2 Other Exercise Name Resisted forward/retro walking Side bilateral Resistance Green Equipment Used T-band 1 Other Exercise Name Resisted Side-stepping Side bilateral Resistance Green Equipment Used T-band Neuro Re-Education Treatment Balance Activities 7 Details tandem gait Comments CGA, minimal UE support 6 Details grapevine walk 4 Details standing bal EO and EC, X1 viewing Equipment BOSU PT-OP-T Assessment and Plan Start: 11/26/17 17:36 Freq: Status: Active Protocol: Document 12/26/17 11:15 DCW (Rec: 12/26/17 15:16 INW [id number]) Physical Therapy Assessment Impairments Impairments Balance Coordination Strength Goals Three Impairment CTSIB Trade Economist Goal (LTG) Pt to exhibit at worst Moderate sway in positions II, V, and LTG Duration 12/24/17 Two Impairment Objective balance testing Short Term Goal (STG) Pt to score 22/24 on DGI STG Duration 12/10/17 Alf Goal (LTG) Pt to score 25/30 on FGA LTG Duration 12/24/17 One Impairment Functional Mobility Short Term Goal (STG) Pt to report ability to ambulate around [facility] with no complaints of instability STG Duration 12/10/17 Assessment Summary Assessment Pt vestibular screen negative, will continue with balance training Physical Therapy Plan Frequency and Duration Frequency of Treatment 2x/Week Duration of Treatment 8 weeks Plan of Care Start Date 11/26/17 Plan of Care End Date 01/21/18 Therapeutic Interventions Therapeutic Interventions Balance Training Coordination Training Home Exercise Program Manual Therapy Therapeutic Exercises Next Visit Focus/Plan Next Note Type Treatment Note Next Visit Plan progression ther ex as indicated for balance and strengthening.
--- NOTE | 2018-03-18 11:36 | PT.OPDS ---
Current Diagnoses Unspecified abnormalities of gait and mobility (12/26/17) Provider Visit Care Team Role Provider Type Berna Mcmahon MD Family Provider Physician Specialty: COOK CANDY Address: [address] [place] [address], [id number] Email: [email or web address] Grant Phillips MD Attending Provider Physician Primary Care Provider Specialty: Internal Medicine Address: [address] [place] [address], [id number] Email: Visit Number Visit Number 4 Discharge Summary PT-OP-B Current Condition Start: 11/26/17 17:36 Freq: Status: Active Protocol: Document 11/26/17 15:15 DCW (Rec: 11/26/17 17:54 DCW [id number]) Current Condition History of Current Condition Onset Date complains of two year history of declining balance Current Complaints Instability, near falls, imbalance History of Current Condition Pt is a 77 year old female who was seen at this clinic during the free balance screens on 10/22/17. At that time, pt struggled enough that it was recommended she return to skilled therapy for a full evaluation and balance training. Pt reports she has had vertigo in the past, but is not currently symptomatic. Prior Treatments and Tests Balance screen Treatment Goals Patient/Caregiver Goals I want to feel more stable when I'm walking. PT-OP-D Balance Start: 11/26/17 17:36 Freq: Status: Active Protocol: Document 11/26/17 15:15 DCW (Rec: 11/26/17 17:54 DCW [id number]) OP-PT Balance Assessment Standing Balance Static Standing Balance Ability Normal Dynamic Standing Balance Ability Good Balance Tests Vázquez Balance Test Vázquez Balance Test Score 52/56 Vázquez Impairment Rating 1 to 19% Impaired (Score 45-55 ) CTSIB CTSIB Position 1 Mild Sway CTSIB Position 2 Severe Sway CTSIB Position 3 Moderate Sway CTSIB Position 4 Moderate Sway CTSIB Position 5 Fall Reaction CTSIB Position 6 Fall Reaction Vázquez Balance Assessment Evaluation Sitting to Standing Ability Independent w/out Hands Unsupported Stance Safely- 2 minutes Sitting Unsupported, Feet on Floor Safely- 2 minutes Standing to Sitting Ability Safely, Minimal Hand Use Transfer Ability Safely, Minimal Hand Use Unsupported Stance- Eyes Closed Safely, 10 seconds Unsupported Stance- Eyes Open Independent, 1 minute Reaching Forward Standing Safely, 5 inches Pick- Up Object From Floor Independent/Safe Look Behind Shoulder - Standing Shifts Weight Well Turning 360 Degrees Turns Bilateral, < 4 secs Unsupported Stance, Alternating Feet on (I)- 8 Steps in 20 secs Stair Unsupported Tandem Stance Holds Tandem- 30 seconds Unilateral Leg Stance Lifts Leg/Holds > 3 secs Total Score Vázquez Total Score (out of 56 points) 52 Vázquez Impairment Rating 1 to 19% Impaired (Score 45-55 ) Mitchell Fall Scale Copyright Permission Stephen JM, Stephen RM, Yanelis SJ. Development of a scale to identify the fall- prone patient. Can J Aging 1989;8;366-7. Abdiel Mitchell (2009). Preventing patient falls. (2nd ed). [place]: Guevara. PT-OP-E Functional Tests Start: 11/26/17 17:55 Freq: Status: Active Protocol: Document 11/26/17 15:15 DCW (Rec: 11/27/17 10:53 DCW [id number]) Functional Tests Dynamic Gait Index (DGI) Score 19/24 DGI Impairment Rating 20 to <40% Impaired (Score 15- 19) Functional Gait Assessment Score 19/30 Functional Gait Assessment Impairment 20 to <40% Impaired (Score 19- Rating 24) PT-OP-G Mobility & Gait Start: 11/26/17 17:36 Freq: Status: Active Protocol: Document 11/26/17 15:15 DCW (Rec: 11/27/17 10:53 DCW [id number]) Stair Climbing Evaluation Evaluation Level of Assist On Stairs Independent Devices Stair Climbing Assistive Devices Right Railing Technique/Endurance Stair Climbing Direction Ascend and Descend Stair Climbing Technique Step Over Step PT-OP-M Strength Start: 11/26/17 17:36 Freq: Status: Active Protocol: Document 11/26/17 15:15 DCW (Rec: 11/27/17 10:53 DCW [id number]) Hip Strength Hip Manual Muscle Testing Right Flexion (L2) 4+ Good+ Extension (S1) 4+ Good+ Abduction 4+ Good+ Adduction 4+ Good+ External Rotation 4+ Good+ Internal Rotation 4+ Good+ Left Flexion (L2) 4+ Good+ Extension (S1) 4+ Good+ Abduction 4 Good Adduction 4+ Good+ External Rotation 4+ Good+ Internal Rotation 4+ Good+ Knee Strength Knee Manual Muscle Testing Right Flexion (S2) 4+ Good+ Extension (L3) 4+ Good+ Left Flexion (S2) 4+ Good+ Extension (L3) 4+ Good+ PT-OP-O Vestibular Start: 12/26/17 15:11 Freq: Status: Active Protocol: Document 12/26/17 11:15 DCW (Rec: 12/26/17 15:16 DCW [id number]) Vestibular Assessment Screening Tests Vestibular Artery Screen Negative Auditory Tests Bennett Test Negative Rinne Test Negative Air Conduction Results Equal Visual Testing Smooth Pursuits Horizontal WNL Saccades Horizontal WNL Heave Test Negative Thrust Head Negative PT-OP-T Assessment and Plan Start: 11/26/17 17:36 Freq: Status: Active Protocol: Document 03/18/18 11:33 DCW (Rec: 03/18/18 11:35 DCW [id number]) Physical Therapy Assessment Impairments Impairments Balance Coordination Strength Goals Three Impairment CTSIB Halfway Goal (LTG) Pt to exhibit at worst Moderate sway in positions II, V, and LTG Duration 12/24/17 Two Impairment Objective balance testing Short Term Goal (STG) Pt to score 22/24 on DGI STG Duration 12/10/17 Halfway Goal (LTG) Pt to score 25/30 on FGA LTG Duration 12/24/17 One Impairment Functional Mobility Short Term Goal (STG) Pt to report ability to ambulate around [facility] with no complaints of instability STG Duration 12/10/17 Physical Therapy Plan Discharge Physical Therapy Discharge Reasons No Longer Attending PT Discharge Comments Pt did not schedule any further visits after her last attended visit, and has now not been seen in more than two months. Pt will be discharged from skilled therapy at this time, and will require a new referral in order to return.
== END 2018-04-21 15:01 ==
LOC: PHYS 11:15
PROVIDERS: Family Provider Obstetrics & Gynecology; PCP Internal Medicine; Visit Provider Internal Medicine
DX: R26.9 Unspecified abnormalities of gait and mobility (principal)
CPT/HCPCS: 97110; 97112; 97140; 97161

== ENCOUNTER → 2018-11-05 10:49 | Outpatient (CLI) | payer MEDICARE, OTHER, SELFPAY ==
--- NOTE | 2018-11-05 10:51 | DI.RAD.S_ITS ---
PROCEDURE: XR LUMBAR SPINE MIN 4V INDICATIONS: low back pain TECHNIQUE: 5 views of the lumbar spine were acquired. COMPARISON: [facility], , L-SPINE 2-3 VIEWS, 05/26/2007, 15:33. FINDINGS: Bones: 5 nonrib-bearing vertebrae are present. There is normal bony alignment. Degenerative disc disease is mild superiorly at the thoracolumbar junction and moderately severe at L34 and L5-S1. This is mild at L4-5. Facet osteoarthritis is moderate from L. three fourths through S1. Abnormal subluxation is not present, only mild spinal and foraminal stenosis would be suspected. No vertebral body compression fractures. No suspicious bony lesions. Soft tissues: Overlying bowel gas pattern is normal. No suspicious soft tissue calcifications. Oblique images: No pars defects. IMPRESSION: The degenerative disc disease is relatively mild except at L3-4 and L5-S1. No subluxation is associated. Only a small degree of spinal and foraminal stenosis would be suspected unless a disc herniation is present. Dictated by: Dre Mckinnon M.D. on 11/05/2018 at 12:20 Approved by: Dre Mckinnon M.D. on 11/05/2018 at 12:22
== END ==
PROVIDERS: Family Provider Obstetrics & Gynecology; PCP Internal Medicine; Visit Provider Physical Medicine & Rehabilitation
DX: M47.817 Spondylosis without myelopathy or radiculopathy, lumbosacral region (principal); M54.5 Low back pain; M51.36 Other intervertebral disc degeneration, lumbar region; M51.37 Other intervertebral disc degeneration, lumbosacral region; M48.061 Spinal stenosis, lumbar region without neurogenic claudication; M48.07 Spinal stenosis, lumbosacral region
CPT/HCPCS: 72110

== ENCOUNTER → 2018-11-21 11:40 | Outpatient (CLI) | payer MEDICARE, OTHER, SELFPAY ==
--- NOTE | 2018-11-21 | DI.MG.S_ITS ---
BILATERAL DIGITAL SCREENING MAMMOGRAM 3D/2D WITH CAD: 11/21/2018 CLINICAL: Routine screening. Family history of breast cancer. Comparison is made to exams dated: 10/31/2017 mammogram, 10/24/2016 mammogram, and 10/19/2015 mammogram - [facility]. There are scattered fibroglandular elements in both breasts. Current study was also evaluated with a Computer Aided Detection (CAD) system. There are benign calcifications in both breasts. No significant masses, calcifications, or other findings are seen in either breast. There has been no significant interval change. IMPRESSION: There is no mammographic evidence of malignancy. A 1 year screening mammogram is recommended. This exam was interpreted at Station ID: [id number]. NOTE: For mammograms, a report in lay terms will be sent to the patient. Approximately 15% of breast malignancies will not be visualized mammographically. In the management of a palpable breast mass, a negative mammogram must not discourage biopsy of a clinically suspicious lesion. Electronically Signed By: Belen gamboa/wesley:11/21/2018 12:52:22 copy to: Berna Mcmahon letter sent: Normal Exam ACR BI-RADS Category 2: Benign Finding(s) [id number]
== END ==
PROVIDERS: Family Provider Obstetrics & Gynecology; PCP Internal Medicine; Visit Provider Internal Medicine
DX: Z12.31 Encounter for screening mammogram for malignant neoplasm of breast (principal); Z80.3 Family history of malignant neoplasm of breast
CPT/HCPCS: 77063; 77067

== ENCOUNTER → 2018-12-12 12:37 | Outpatient (CLI) | payer MEDICARE, OTHER, SELFPAY ==
--- NOTE | 2018-12-12 12:39 | DI.MRI.S_ITS ---
PROCEDURE: MR LUMBAR SPINE WO CON INDICATIONS: LOW BACK AND LEFT LEG RADICULAR PAIN TECHNIQUE: Noncontrast sagittal T1 spin echo and T2 fast echo, sagittal STIR, axial T1 and T2 fast spin echo through the lumbar spine. In cases with scoliosis, additional coronal T2 fast spin echo may be performed. COMPARISON: [facility], , L-SPINE WITHOUT CONTRAST, 01/13/2016, 16:39. FINDINGS: Image quality: Excellent. Alignment and Curvature: Levocurvature centered at the L3 level. Straightening of the normal lordotic curvature. Bone Marrow: Marrow is of normal overall signal. No acute vertebral body compression fractures. Scattered chronic appearing small Schmorl's nodes. Multilevel degenerative endplate sclerosis and spurring. Diffuse facet arthropathy. Spinal Cord: Conus medullaris terminates at the L2-L3 level. Visualized cord demonstrates normal signal and size. Paraspinous Soft Tissues: No paravertebral masses. 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 L1-L2: Normal appearance. L2-L3: Broad-based posterior disc bulge and bilateral facet arthropathy. Mild to canal narrowing. Lateral recesses appear grossly patent. Mild left and qjtj-ok-wldmlric right foraminal narrowing. No interval change L3-L4: Broad-based posterior disc bulge bilateral facet disease. No high-grade central canal stenosis. Partial effacement of both lateral recesses with bilaterally symmetric appearance. Mild right and moderate left foraminal narrowing, however no interval change L4-L5: Broad-based posterior disc bulge bilateral facet arthropathy. Mild central canal narrowing. Mild bilateral foraminal stenoses L5-S1: Broad-based posterior disc bulge and bilateral facet arthropathy. No canal stenosis. Partial effacement of both lateral recesses with bilaterally symmetric appearance. Moderate to severe left foraminal narrowing with nerve root compression. Severe right foraminal stenosis with nerve root compression. This is minimally progressed since the prior study on both sides IMPRESSION: Redemonstration of multilevel lumbar spondylosis and facet arthropathy, with minimal progression of bilateral L5-S1 foraminal stenoses. Remainder of the examination grossly unchanged as above. Dictated by: Saeid Montes M.D. on 12/12/2018 at 14:03 Approved by: Saied Montes M.D. on 12/12/2018 at 14:08
== END ==
PROVIDERS: PCP Internal Medicine; Visit Provider Physical Medicine & Rehabilitation
DX: M48.00 Spinal stenosis, site unspecified (principal); M47.817 Spondylosis without myelopathy or radiculopathy, lumbosacral region; G25.0 Essential tremor; M21.619 Bunion of unspecified foot; M20.10 Hallux valgus (acquired), unspecified foot; M47.816 Spondylosis without myelopathy or radiculopathy, lumbar region; M48.061 Spinal stenosis, lumbar region without neurogenic claudication; M48.07 Spinal stenosis, lumbosacral region
CPT/HCPCS: 72148

== ENCOUNTER 2019-02-10 08:06 | Outpatient (CLI) | payer MEDICARE, OTHER, SELFPAY ==
[2019-02-10] VITALS (7 sets, daily range): BP systolic 144–189; BP diastolic 40–87; PULSE 63–78; RESP 16–18; TEMP 36.1; O2SAT 97–99
--- NOTE | 2019-02-10 08:10 | DI.RAD.S_ITS ---
PROCEDURE: PAIN L/S TRANSFORAMINAL INJECT INDICATIONS: SPONDYLOSIS FINDINGS: Fluoroscopic spot filming was performed to verify placement of spinal needles at the L4-L5 level(s), as labeled on the films. Appropriate location(s) of the needle tip(s) was confirmed by injection of iodinated contrast. IMPRESSION: Fluoroscopy guidance for pain management. Dictated by: Jeremy Long M.D. on 02/10/2019 at 13:53 Approved by: Jeremy Long M.D. on 02/10/2019 at 13:53
[2019-02-10] MEDS: MIDAZOLAM 5 MG/5 ML VIAL IV (09:39)
[2019-02-10] MEDS: fentaNYL 100 MCG/2 ML INJ 50 MCG IV (09:39)
[2019-02-10] MEDS: BETAMETHASONE 30 MG/5 ML MDV 6 MG INJ (09:43)
[2019-02-10] MEDS: IOPAMIDOL 15 ML VIAL 3 ML INJ (09:43)
[2019-02-10] MEDS: BUPIVACAINE 0.25% (PF) VIAL 2 ML INJ (09:43)
[2019-02-10] MEDS: DEXAMETHASONE 10 MG/ML VIAL 20 MG INJ (09:43)
--- NOTE | 2019-02-10 09:45 | PC.NURSE ---
ASSISTING PT OFF TABLE AND TRANSPORTING TO POST PROC AREA IN STABLE CONDITION. PASSING RN CARE OFF TO MAYANK Bravo RN.
--- NOTE | 2019-02-10 09:50 | PM.PROC.1 ---
Procedures Date/Time Date of procedure: 02/10/19 Time of procedure: 09:50 General Procedure description: PREOP DIAGNOSIS 1. FORMAINAL STENOSIS WITH LE SYMPTOMS POST OP DIAGNOSIS 1. FORMAINAL STENOSIS WITH LE SYMPTOMS PROCEDURES 1. FLUOROSCOPICALLY GUIDED CONTRAST CONTROLLED TRANSFORAMINAL EPIDURAL STEROID INJECTION - LEFT L4/5 PHYSICIAN: Chuy Mario DO INDICATIONS: Ruth is referred by for treatment of Foraminal Stenosis with Left LE Symptoms FINDINGS Foraminal Nerve Root Compression secondary to disc disease and facet hypertrophy DESCRIPTION OF PROCEDURE: Following review of allergy and review of potential side effects and complications, including, but not necessarily limited to, infection, allergic reaction, local tissue breakdown, stroke, temporary or permanent nerve injury, paralysis, and possible , the patient indicated that the patient understood and agreed to proceed. An informed consent document was signed by the patient, witnessed by a nurse, and placed in the patient's chart. Additionally, other treatment options including medications, modalities, and physical therapy were reviewed with the patient. After review of previous anaesthesic history and IV conscious sedation the patient was deemed safe to proceed with todays procedure with IV conscious sedation as ASA class II designation. Safety time-out was performed to confirm patient ID, procedure to be performed and site of procedure. IV sedation was accomplished with a combination of 2mg of Versed and 50mcg of Fentanyl administered by the RN after DO order, titrated to patient comfort during the course of the procedure while the patient remained responsive to all verbal commands In the prone position following sterile prep and drape of the lumbar region, the left L4/5 posterior neuroforamen was identified fluoroscopically. The skin was anesthetized via a 25-gauge 1.5-inch needle with 1% lidocaine solution. At this point, a 25-gauge 3.5-inch spinal needle was atraumatically introduced and advanced under fluoroscopic guidance through the posterior left L4/5 neuroforamen to approximately the anterior aspect of the canal. Depth was confirmed on lateral view. Following negative aspiration, injection of approximately 1.5 cc of Isovue 200 under live fluoroscopy in the AP view confirmed excellent flow along the nerve root, into the epidural space without vascular or intrathecal uptake observed Radiological data, including multiple fluoroscopic views of the lumbosacral spine, reveal a spinal needle at the left L4/5 posterior neuroforamen. Subsequent views show flow of contrast material flowing superiorly and inferiorly along the nerve root confirming epidural flow. Subsequently, a test dose of 1.5 cc of 1% lidocaine solution was administered and patient was observed for two minutes for signs or symptoms of complications, including abdominal pain, shortness of breath, bilateral upper or lower extremity weakness, nausea and vomiting, prior to steroid injection. At this point, a total of 3cc or 20mg of dexamethasone and 6mg of betamethasone was injected without incident. The procedure tolerated the procedure well without signs or symptoms of complications prior to transfer to the recovery area continued monitoring without incident. The patient was then transferred to the recovery area where they were observed for an appropriate time after the injection. The patient reported a VAS score of 7 prior to the procedure and a post-procedure VAS of 0. Total Fluoroscopy Time: 20.9 seconds Total Conscious Sedation Time: 24min POST OP INSTRUCTIONS The patient was provided a Pain Log to continue to record their response to the target-specific procedure prior to follow-up visit with their referring physician. Additionally, specific post-injection care instructions and a contact number to our office were provided if concerns arise regarding possible complications associated with the procedure are suspected. Chuy Mario DO Complications: none
== END 2019-02-10 10:15 ==
LOC: RAD 08:08
PROVIDERS: PCP Internal Medicine; Visit Provider Physical Medicine & Rehabilitation
DX: M48.061 Spinal stenosis, lumbar region without neurogenic claudication (principal); M51.16 Intervertebral disc disorders with radiculopathy, lumbar region
CPT/HCPCS: 64483; 99152; J0702; J1100; J2250; J3010

== ENCOUNTER → 2019-04-30 11:57 | Outpatient (CLI) | payer MEDICARE, OTHER, SELFPAY ==
--- NOTE | 2019-04-30 | DI.RAD.S_ITS ---
PROCEDURE: XR KNEE RT 1TO2V INDICATIONS: INTERNAL DERANGEMENT OF RIGHT KNEE TECHNIQUE: 2 views of the knee were acquired. COMPARISON: [facility], , KNEE 1-2 VIEWS LEFT, 02/21/2010, 6:06. FINDINGS: Bones: No fractures or dislocations are, and there has been a prior medial unicompartmental right knee hemiarthroplasty. No suspicious bony lesions. Soft tissues: No joint effusion. No suspicious soft tissue calcifications. IMPRESSION: Normal appearance of the medial unicompartmental right knee hemiarthroplasty, no source of new pain is identified. No effusion or loose body found. Dictated by: Dre Mckinnon M.D. on 04/30/2019 at 12:57 Approved by: Dre Mckinnon M.D. on 04/30/2019 at 12:57
== END ==
PROVIDERS: PCP Internal Medicine; Visit Provider Physician Assistant
DX: M25.561 Pain in right knee (principal); M71.21 Synovial cyst of popliteal space [Baker], right knee
CPT/HCPCS: 73560

== ENCOUNTER → 2019-06-03 08:04 | Outpatient (CLI) | payer MEDICARE, OTHER, SELFPAY ==
[2019-06-03 09:10] LABS: Aspartate Aminotransferase 36 IU/L (14-36); Cholesterol 218 mg/dL (140-199); HDL Cholesterol 79 mg/dL (40-60); LDL Cholesterol Calculated 118 mg/dL (<100); Triglycerides 104 mg/dL (35-150)
== END ==
PROVIDERS: PCP Internal Medicine; Visit Provider Internal Medicine
DX: Z00.00 Encounter for general adult medical examination without abnormal findings (principal); E78.2 Mixed hyperlipidemia
CPT/HCPCS: 36415; 80061; 84450

== ENCOUNTER → 2019-09-04 10:53 | Outpatient (CLI) | payer MEDICARE, OTHER, SELFPAY ==
[2019-09-04 12:04] LABS: Add Manual Diff / Slide Review NO; Basophils Absolute Auto 0 /uL (0-100); Basophils Percent Auto 0.9 % (0-2); Eosinophils Absolute Auto 100 /uL (0-450); Eosinophils Percent Auto 3.2 % (2-4); Hematocrit 42.3 % (36-46); Hemoglobin 14.5 g/dL (12.0-16.0); Lymphocytes Absolute Auto 1500 /uL (1100-4500); Lymphocytes Percent Auto 32.4 % (25-40); Mean Corpuscular HGB Conc 34.2 % (30-36); Mean Corpuscular Hemoglobin 34.3 PG (26-34); Mean Corpuscular Volume 100.4 fL (80-100); Monocytes Absolute Auto 400 /uL (0-900); Monocytes Percent Auto 7.9 % (3-14); Neutrophils Absolute Auto 2500 /uL (1500-7000); Neutrophils Percent Auto 55.6 % (50-75); Platelet Count 166 X10^3/uL (150-400); Red Blood Cell Count 4.21 X10^6/uL (4.0-5.2); Red Cell Distribution Width 14.3 % (11.6-14.8); White Blood Cell Count 4.5 X10^3/uL (4.5-11.0)
[2019-09-04 12:09] LABS: Alanine Aminotransferase 24 IU/L (<35); Albumin 4.2 g/dL (3.5-5.0); Albumin Globulin Ratio 1.2 (1.0-2.8); Alkaline Phosphatase 82 U/L (38-126); Aspartate Aminotransferase 39 IU/L (14-36); BUN Creatinine Ratio 23.1 (6-22); Bilirubin Total 0.4 mg/dL (0.2-1.3); Blood Urea Nitrogen 15 mg/dL (7-17); Calcium 9.3 mg/dL (8.4-10.2); Carbon Dioxide 31 mmol/L (22-32); Chloride 101 mmol/L (98-107); Estimated Glomerular Filt Rate > 60.0 mL/min (>60); Globulin 3.6 g/dL (1.7-4.1); Glucose 93 mg/dL (80-110); HEMOLYSIS < 15 (0-50); Magnesium 1.8 mg/dL (1.6-2.3); Potassium 4.6 mmol/L (3.4-5.1); Sodium 136 mmol/L (137-145); Total Protein 7.8 g/dL (6.3-8.2)
[2019-09-04 13:32] LABS: TSH w/ Reflex to FT4 1.63 uIU/mL (0.47-4.68)
== END ==
PROVIDERS: PCP Internal Medicine; Referring Provider Physician Assistant; Visit Provider Physician Assistant
DX: R42 Dizziness and giddiness (principal); E78.2 Mixed hyperlipidemia; R55 Syncope and collapse
CPT/HCPCS: 36415; 80053; 83735; 84443; 85025

== ENCOUNTER → 2019-11-23 11:20 | Outpatient (CLI) | payer MEDICARE, OTHER, SELFPAY ==
--- NOTE | 2019-11-23 | DI.MG.S_ITS ---
BILATERAL DIGITAL SCREENING MAMMOGRAM 3D/2D WITH CAD: 11/23/2019 CLINICAL: Routine screening. Family history of breast cancer. Comparison is made to exams dated: 11/21/2018 mammogram, 10/31/2017 mammogram, and 10/24/2016 mammogram - [facility]. There are scattered fibroglandular elements in both breasts. Current study was also evaluated with a Computer Aided Detection (CAD) system. There are benign calcifications in both breasts. No significant masses, calcifications, or other findings are seen in either breast. There has been no significant interval change. IMPRESSION: There is no mammographic evidence of malignancy. A 1 year screening mammogram is recommended. This exam was interpreted at Station ID: [id number]. NOTE: For mammograms, a report in lay terms will be sent to the patient. Approximately 15% of breast malignancies will not be visualized mammographically. In the management of a palpable breast mass, a negative mammogram must not discourage biopsy of a clinically suspicious lesion. Electronically Signed By: Timothy flores/wesley:11/23/2019 14:30:03 letter sent: Normal Exam ACR BI-RADS Category 2: Benign Finding(s) 3342F
== END ==
PROVIDERS: PCP Internal Medicine; Referring Provider Internal Medicine; Visit Provider Internal Medicine
DX: Z12.31 Encounter for screening mammogram for malignant neoplasm of breast (principal); Z80.3 Family history of malignant neoplasm of breast
CPT/HCPCS: 77063; 77067

== ENCOUNTER → 2019-11-30 14:21 | Outpatient (CLI) | payer MEDICARE, OTHER, SELFPAY ==
[2019-11-30 15:16] LABS: Appearance Urine UA CLEAR; Bilirubin Urine UA NEGATIVE (NEGATIVE); Color Urine UA YELLOW; Glucose Urine UA NEGATIVE (Negative); Ketones Urine UA NEGATIVE (NEGATIVE); Leukocyte Esterase Urine UA NEGATIVE (NEGATIVE); Nitrite Urine UA NEGATIVE (Negative); Occult Blood Urine UA NEGATIVE (Negative); Protein Urine UA NEGATIVE (Negative); Urobilinogen Urine UA 0.2 E.U./dL (0.2)
== END ==
PROVIDERS: PCP Internal Medicine; Referring Provider Specialist; Visit Provider Specialist
DX: R30.0 Dysuria (principal); N39.46 Mixed incontinence; R39.9 Unspecified symptoms and signs involving the genitourinary system; N95.2 Postmenopausal atrophic vaginitis
CPT/HCPCS: 81003; 99214

== ENCOUNTER → 2020-02-18 15:56 | Outpatient (ROUT) | payer MEDICARE, OTHER, SELFPAY ==
[2020-02-18 17:31] LABS: Vitamin D 25 Hydroxy (D3) 46.4 ng/mL (30.0-100.0)
[2020-02-18 18:33] LABS: Vitamin B12 466 pg/mL (239-931)
== END ==
PROVIDERS: PCP Internal Medicine; Visit Provider Internal Medicine
DX: E53.8 Deficiency of other specified B group vitamins (principal); E55.9 Vitamin D deficiency, unspecified
CPT/HCPCS: 82306; 82607

== ENCOUNTER → 2020-05-31 19:11 | Outpatient (ROUT) | payer MEDICARE, OTHER, SELFPAY ==
[2020-05-31 20:26] LABS: Aspartate Aminotransferase 33 IU/L (14-36); BUN Creatinine Ratio 22.2 (6-22); Blood Urea Nitrogen 12 mg/dL (7-17); Calcium 9.3 mg/dL (8.4-10.2); Carbon Dioxide 32 mmol/L (22-32); Chloride 103 mmol/L (98-107); Cholesterol 224 mg/dL (140-199); Estimated Glomerular Filt Rate > 60.0 mL/min (>60); Glucose 86 mg/dL (80-110); HDL Cholesterol 97 mg/dL (40-60); HEMOLYSIS < 15 (0-50); LDL Cholesterol Calculated 104 mg/dL (<100); Potassium 4.8 mmol/L (3.4-5.1); Sodium 138 mmol/L (137-145); Triglycerides 114 mg/dL (35-150)
== END ==
PROVIDERS: PCP Internal Medicine; Visit Provider Internal Medicine
DX: I70.0 Atherosclerosis of aorta (principal); E78.2 Mixed hyperlipidemia
CPT/HCPCS: 80048; 80061; 84450

== ENCOUNTER → 2020-08-22 14:20 | Outpatient (CLI) | payer MEDICARE, OTHER, SELFPAY ==
[2020-08-22 15:18] LABS: COVID19 -Nasal RAPID Negative (Negative)
== END ==
PROVIDERS: PCP Internal Medicine; Visit Provider Physical Medicine & Rehabilitation
DX: Z20.822 Contact with and (suspected) exposure to COVID-19 (principal)
CPT/HCPCS: 87635; C9803

== ENCOUNTER 2020-08-23 13:35 | Outpatient (CLI) | payer MEDICARE, OTHER, SELFPAY ==
[2020-08-23] VITALS (9 sets, daily range): BP systolic 118–167; BP diastolic 63–77; PULSE 64–77; RESP 16–20; TEMP 36.6; O2SAT 95–100
--- NOTE | 2020-08-23 13:39 | DI.RAD.S_ITS ---
PROCEDURE: PAIN L/S TRANSFORAMINAL INJECT INDICATIONS: SPONDYLOSIS COMPARISON: [facility], , PAIN L/S TRANSFORAMINAL INJECT, 02/10/2019, 9:40. FINDINGS: Fluoroscopic spot filming was performed to verify placement of spinal needles at the L5-S1 left neural foramen level(s), as labeled on the films. Appropriate location(s) of the needle tip(s) was confirmed by injection of iodinated contrast. IMPRESSION: Successful needle tip localization for left-sided L5-S1 trans foraminal epidural steroid injection. Dictated by: Dre Mckinnon M.D. on 08/23/2020 at 15:07 Approved by: Dre Mckinnon M.D. on 08/23/2020 at 15:08
[2020-08-23] MEDS: MIDAZOLAM 5 MG/5 ML VIAL IV (14:23)
[2020-08-23] MEDS: fentaNYL 100 MCG/2 ML INJ 50 MCG IV (14:23)
[2020-08-23] MEDS: DEXAMETHASONE 10 MG/ML VIAL 20 MG INJ (14:28)
[2020-08-23] MEDS: BETAMETHASONE 30 MG/5 ML MDV 6 MG INJ (14:28)
[2020-08-23] MEDS: BUPIVACAINE 0.25% (PF) VIAL 2 ML INJ (14:28)
[2020-08-23] MEDS: IOPAMIDOL 15 ML VIAL 3 ML INJ (14:29)
--- NOTE | 2020-08-23 14:39 | P.PCN_ITS ---
Date/Time/Diagnoses Date of procedure: 08/23/20 Time of procedure: 14:39 Pre-procedure diagnosis: 1. FORAMINAL STENOSIS WITH LE SYMPTOMS Post-procedure diagnosis: same Procedure Notes Procedure: 1. FLUOROSCOPICALLY GUIDED CONTRAST CONTROLLED TRANSFORAMINAL EPIDURAL STEROID INJECTION - Left L5/S1 Indications: Ruth is referred by Dr. Phillips for treatment of Foraminal Stenosis with Left LE Symptoms Physician: Chuy Mario Total Fluoroscopy time (seconds): 6 Total sedation minutes: 10 Complications: none Procedure in detail & Post-procedure care: FINDINGS Foraminal Nerve Root Compression secondary to disc disease and facet hypertrophy DESCRIPTION OF PROCEDURE Following review of allergy and review of potential side effects and complications, including, but not necessarily limited to, infection, allergic reaction, local tissue breakdown, stroke, temporary or permanent nerve injury, paralysis, and possible , the patient indicated that the patient understood and agreed to proceed. An informed consent document was signed by the patient, witnessed by a nurse, and placed in the patient's chart. Additionally, other treatment options including medications, modalities, and physical therapy were reviewed with the patient. After review of previous anaesthesic history and IV conscious sedation the patient was deemed safe to proceed with today?s procedure with IV conscious sedation as ASA class II designation. Safety time-out was performed to confirm patient ID, procedure to be performed and site of procedure. IV sedation was accomplished with a combination of 2mg of Versed and 50mcg of Fentanyl was administered by the RN after DO order, titrated to patient comfort during the course of the procedure while the patient remained responsive to all verbal commands In the prone position following sterile prep and drape of the lumbar region, the Left L5/S1 posterior neuroforamen was identified fluoroscopically. The skin was anesthetized via a 25-gauge 1.5-inch needle with 1% lidocaine solution. At this point, a 25-gauge 3.5-inch spinal needle was atraumatically introduced and advanced under fluoroscopic guidance through the posterior Left L5/S1 neurofora men to approximately the anterior aspect of the canal. Depth was confirmed on lateral view. Following negative aspiration, injection of approximately 1.5 cc of Isovue 200 under live fluoroscopy in the AP view confirmed excellent flow along the nerve root, into the epidural space without vascular or intrathecal uptake observed Radiological data, including multiple fluoroscopic views of the lumbosacral spine, reveal a spinal needle at the Left L5/S1 posterior neuroforamen. Subsequent views show flow of contrast material flowing superiorly and inferiorly along the nerve root confirming epidural flow. Subsequently, a test dose of 1.5 cc of 1% lidocaine solution was administered and patient was observed for two minutes for signs or symptoms of complications, including abdominal pain, shortness of breath, bilateral upper or lower extremity weakness, nausea and vomiting, prior to steroid injection. At this point, a total of 3cc or 20mg of dexamethasone and 6mg of betamethasone was i njected without incident. The procedure tolerated the procedure well without signs or symptoms of complications prior to transfer to the recovery area continued monitoring without incident. The patient was then transferred to the recovery area where they were observed for an appropriate time after the injection. The patient reported a VAS score of 7 prior to the procedure and a post-procedure VAS of 0. POST OP INSTRUCTIONS The patient was provided a Pain Log to continue to record their response to the target-specific procedure prior to follow-up visit with their referring physician. Additionally, specific post-injection care instructions and a contact number to our office were provided if concerns arise regarding possible complications associated with the procedure are suspected.
--- NOTE | 2020-08-23 15:03 | PC.NURSE ---
Patient with BLE weakness and numbness. Improved since initial arrival to recovery but remains weak.
--- NOTE | 2020-08-23 15:20 | PC.NURSE ---
Patient is still too weak throught BLE, unsteady when standing and unable to hold weight. Discharge remains delayed.
--- NOTE | 2020-08-23 16:08 | PC.NURSE ---
Dr. Mario assisted patient up from recliner - steady and strong. Able to march in place. Ok to discharge in 10 minutes at 1618.
== END 2020-08-23 16:29 | disposition home or self-care (01) ==
LOC: RAD 13:39
PROVIDERS: PCP Internal Medicine; Referring Provider Physical Medicine & Rehabilitation; Visit Provider Physical Medicine & Rehabilitation
DX: M48.07 Spinal stenosis, lumbosacral region; M51.17 Intervertebral disc disorders with radiculopathy, lumbosacral region
CPT/HCPCS: 64483; 99152; J0702; J1100; J2250; J3010

== ENCOUNTER → 2020-09-28 09:25 | Outpatient (CLI) | payer MEDICARE, OTHER, SELFPAY ==
[2020-09-28 10:13] LABS: COVID19 -Nasal RAPID Negative (Negative)
== END ==
PROVIDERS: PCP Internal Medicine; Visit Provider Surgery
DX: Z01.812 Encounter for preprocedural laboratory examination (principal); Z20.822 Contact with and (suspected) exposure to COVID-19
CPT/HCPCS: 87635; C9803

== ENCOUNTER 2020-09-29 08:04 | Day surgery (SDC) | payer MEDICARE, OTHER, SELFPAY ==
[2020-09-29] VITALS (7 sets, daily range): BP systolic 116–157; BP diastolic 37–84; PULSE 65–79; RESP 13–21; TEMP 36.2–36.8; O2SAT 97–100; BMI 25.4
--- NOTE | 2020-09-29 | PATH_ITS ---
[facility] Accession Number: [id number] . 01 Material submitted: . colon - POLYP @ 45 CM . 01 Clinical history: . DX COLONOSCOPY . 02 Diagnosis: Colon Polyp at 45 cm, Biopsy: Traditional serrated adenoma. MRV 10/05/2020 1044 Local . 02 Electronically signed: . Kingston Napoles MD, PhD, Pathologist NPI- [id number] . 01 Gross description: . The specimen is received in formalin labeled polyp at 45 cm and consists of two chou fragments of soft tissue, measuring 0.3 x 0.3 x 0.2 cm in aggregate. The specimen is entirely submitted in cassette A1. ([id number]) /[facility] 09/30/2020 1652 Local . 02 Pathologist provided ICD-10: D12.6 . 02 CPT . 518139 Performed at: 01 [facility] [address] [facility], [place], [place] [id number] MD Manuel Thompson MD Phone: [phone] Performed at: 02 [facility] [place] [address] [place], [place] [id number] MD Sagrario Bowling MD Phone: [phone]
[2020-09-29] MEDS: SODIUM CHLORIDE 0.9% 1,000 ML 200 ML IV (09:00)
--- NOTE | 2020-09-29 09:01 | PM.PREOP ---
Pre-operative Note COVID-19 COVID-19 status: Negative Result date/Date tested (Pos, Neg/Pending): 09/29/19 Interval Note History & Physical reviewed/Exam performed by Physician: Yes Changes to H&P: No ASA Class (for procedural sedation): II
--- NOTE | 2020-09-29 09:12 | P.OP.ENDO_ITS ---
Operative Date/Time/Diagnoses Date of procedure: 09/29/20 Time of procedure: 09:12 Pre-op diagnosis: Personal history of colon polyps, family history of colon cancer Post-op diagnosis: other (Single small polyp at 45 cm, significant diverticulosis in the descending and sigmoid colon, moderate internal hemorrhoids) Procedure & Clinicians Study performed: Colonoscopy Procedural sedation performed by the endoscopist Polypectomy with Jumbo forceps Same procedure as scheduled: Yes Indications: Personal history of colon polyps found 3 years ago, and 3 years before that. Family history of colon cancer in her father when he was in his 90s. Surgeon: Ange Blankenship Procedure Notes SCOAP/Timeout: Performed Procedure in detail: The patient was brought to the room and placed in left lateral decubitus position with all bony prominences padded. A time-out was performed and then the patient was given procedural sedation starting with 3 mg of Versed and 100 mcg of fentanyl. Vitals were monitored throughout the procedure and remained stable. Once adequately sedated, the procedure was begun. A rectal exam was performed revealing no abnormalities. The colonoscope was then introduced to the rectum and advanced to the cecum in the usual fashion. The cecum was identified by the appendiceal orifice, the mucosal tri- fold, and the ileocecal valve. The scope was then retracted while rotating side to side and examining each mucosal fold. A single polyp was found at 45 cm and removed with Jumbo forceps. Moderate to severe diverticulosis was seen in the descending and sigmoid colon with some chronic fibrosis without stenosis. At the conclusion of the procedure retroflexion was performed and moderate grade 2- 3 internal hemorrhoids without stigmata of bleeding were seen. The scope was then withdrawn from the rectum the procedure was concluded. The patient tolerated the procedure well and was transferred to the PACU in stable condition. Scope withdrawal time: 8 Sedation minutes: 35 Findings: diverticulosis and polyp Specimen(s): other (Polyp from 45 cm) Complications: none Impression: Moderate to severe diverticulosis, single small polyp Post-procedure Recommendations: Colonscopy in 5 years (Due to extensive history. If healthy enough for colonoscopy at that time. Appropriateness based on current state of health should be discussed with primary care doctor prior to referral for scope.) and Other recommendation (Fiber supplement such as Metamucil) Follow up: as needed Disposition: PACU
[2020-09-29] MEDS: fentaNYL 250 MCG/5 ML INJ IV (09:23)
[2020-09-29] MEDS: MIDAZOLAM 5 MG/5 ML VIAL IV (09:23)
== END 2020-09-29 10:35 | disposition home or self-care (01) ==
PROVIDERS: PCP Internal Medicine; Referring Provider Surgery; Visit Provider Surgery
PROC: 0DJD8ZZ Inspection of Lower Intestinal Tract, Via Natural or Artificial Opening Endoscopic (ICD-10-PCS; CPT 45378; principal; 2020-09-29 09:15)
DX: Z12.11 Encounter for screening for malignant neoplasm of colon (principal); Z86.010 Personal history of colon polyps; Z80.0 Family history of malignant neoplasm of digestive organs; K64.1 Second degree hemorrhoids; K57.30 Diverticulosis of large intestine without perforation or abscess without bleeding; D12.6 Benign neoplasm of colon, unspecified
CPT/HCPCS: 45380; 99152; 99153; J2250; J3010

== ENCOUNTER → 2020-11-14 15:11 | Outpatient (CLI) | payer MEDICARE, OTHER, SELFPAY ==
--- NOTE | 2020-11-14 15:14 | DI.MG.S_ITS ---
BILATERAL DIGITAL SCREENING MAMMOGRAM 3D/2D WITH CAD: 11/14/2020 CLINICAL: Routine screening. Family history of breast cancer. Comparison is made to exams dated: 11/23/2019 mammogram, 11/21/2018 mammogram, and 10/31/2017 mammogram - [facility]. The tissue of both breasts is heterogeneously dense. This may lower the sensitivity of mammography. Current study was also evaluated with a Computer Aided Detection (CAD) system. There are benign calcifications in both breasts. No significant masses, calcifications, or other findings are seen in either breast. There has been no significant interval change. IMPRESSION: BENIGN There is no mammographic evidence of malignancy. A 1 year screening mammogram is recommended. This exam was interpreted at Station ID: [id number]. NOTE: For mammograms, a report in lay terms will be sent to the patient. Approximately 15% of breast malignancies will not be visualized mammographically. In the management of a palpable breast mass, a negative mammogram must not discourage biopsy of a clinically suspicious lesion. Electronically Signed By: Manuel eubanks/wesley:11/14/2020 16:37:42 letter sent: Normal Exam ACR BI-RADS Category 2: Benign Finding(s) 3342F
== END ==
PROVIDERS: PCP Internal Medicine; Referring Provider Internal Medicine; Visit Provider Internal Medicine
DX: Z12.31 Encounter for screening mammogram for malignant neoplasm of breast (principal); Z80.3 Family history of malignant neoplasm of breast
CPT/HCPCS: 77063; 77067

== ENCOUNTER → 2021-08-15 15:07 | Outpatient (CLI) | payer MEDICARE, OTHER, SELFPAY | PROVIDERS: PCP Internal Medicine; Referring Provider Internal Medicine; Visit Provider Internal Medicine | DX: Z78.0 Asymptomatic menopausal state (principal); Z13.820 Encounter for screening for osteoporosis; Z92.241 Personal history of systemic steroid therapy; M85.89 Other specified disorders of bone density and structure, multiple sites | CPT/HCPCS: 77080; 77081 ==

== ENCOUNTER → 2021-09-07 09:05 | Outpatient (CLI) | payer MEDICARE, OTHER, SELFPAY ==
[2021-09-07 09:40] LABS: Hemoglobin 13.1 g/dL (12.0-16.0); Mean Corpuscular HGB Conc 34.6 % (30-36); Mean Corpuscular Hemoglobin 33.7 PG (26-34); Mean Corpuscular Volume 97.5 fL (80-100); Platelet Count 191 X10^3/uL (150-400); Red Blood Cell Count 3.89 X10^6/uL (4.0-5.2); Red Cell Distribution Width 12.4 % (11.6-14.8); White Blood Cell Count 5.8 X10^3/uL (4.5-11.0)
[2021-09-07 10:10] LABS: Alanine Aminotransferase 20 IU/L (<35); Albumin 3.9 g/dL (3.5-5.0); Albumin Globulin Ratio 1.1 (1.0-2.8); Alkaline Phosphatase 102 U/L (38-126); Aspartate Aminotransferase 27 IU/L (14-36); BUN Creatinine Ratio 21.5 (6-22); Bilirubin Total 0.5 mg/dL (0.2-1.3); Blood Urea Nitrogen 14 mg/dL (7-17); Calcium 9.2 mg/dL (8.4-10.2); Carbon Dioxide 28 mmol/L (22-32); Chloride 107 mmol/L (98-107); Cholesterol 219 mg/dL (140-199); Estimated Glomerular Filt Rate > 60 mL/min (>60); Globulin 3.5 g/dL (1.7-4.1); Glucose 94 mg/dL (80-110); HDL Cholesterol 107 mg/dL (40-60); HEMOLYSIS < 15 (0-50); LDL Cholesterol Calculated 86 mg/dL (<100); Potassium 4.1 mmol/L (3.4-5.1); Sodium 141 mmol/L (137-145); Total Protein 7.4 g/dL (6.3-8.2); Triglycerides 129 mg/dL (35-150)
[2021-09-07 10:41] LABS: TSH w/ Reflex to FT4 2.39 uIU/mL (0.47-4.68)
== END ==
PROVIDERS: PCP Internal Medicine; Referring Provider Internal Medicine; Visit Provider Internal Medicine
DX: E78.2 Mixed hyperlipidemia (principal); I10 Essential (primary) hypertension; K58.0 Irritable bowel syndrome with diarrhea
CPT/HCPCS: 36415; 80053; 80061; 84443; 85027

== ENCOUNTER → 2021-09-11 13:38 | Outpatient (CLI) | payer MEDICARE, OTHER, SELFPAY | PROVIDERS: PCP Internal Medicine; Referring Provider Internal Medicine; Visit Provider Internal Medicine | DX: R19.7 Diarrhea, unspecified (principal) | CPT/HCPCS: 87493 ==

== ENCOUNTER → 2021-09-26 12:51 | Outpatient (CLI) | payer MEDICARE, OTHER, SELFPAY ==
--- NOTE | 2021-09-26 | DI.RAD.S_ITS ---
PROCEDURE: XR ABDOMEN MIN 2V INDICATIONS: Diarrhea TECHNIQUE: 2 views of the abdomen were acquired. COMPARISON: None. FINDINGS: Surgical changes and devices: None. Bowel: No pneumoperitoneum. The bowel gas pattern is normal. Soft tissues: No masses; visualized solid organ contours appear normal in size. No suspicious abdominal calcifications. Bones: No suspicious bony abnormalities. Right were scoliosis of lumbar spine centered at L2-3 level is seen. Degenerative disc disease throughout lumbar spine is also noted. IMPRESSION: No bowel obstruction or gross free air. No abnormal renal calcifications. Dictated by: Sandeep Wright M.D. on 09/26/2021 at 13:55 Approved by: Sandeep Wright M.D. on 09/26/2021 at 13:55
== END ==
PROVIDERS: PCP Internal Medicine; Referring Provider Internal Medicine Gastroenterology; Visit Provider Internal Medicine Gastroenterology
DX: R19.7 Diarrhea, unspecified (principal); R19.4 Change in bowel habit
CPT/HCPCS: 74019

== ENCOUNTER → 2021-11-10 11:07 | Outpatient (CLI) | payer MEDICARE, OTHER, SELFPAY ==
[2021-11-10 14:07] LABS: COVID19 -Nasal RAPID Negative (Negative)
== END ==
PROVIDERS: PCP Internal Medicine; Visit Provider Surgery
DX: Z20.822 Contact with and (suspected) exposure to COVID-19 (principal); Z01.812 Encounter for preprocedural laboratory examination
CPT/HCPCS: 87635; C9803

== ENCOUNTER 2021-11-13 08:43 | Day surgery (SDC) | payer MEDICARE, OTHER, SELFPAY ==
--- NOTE | 2021-11-13 | PATH_ITS ---
[facility] Accession Number: [id number] . 01 Material submitted: . PART A: colon - RANDOM COLON PART B: colon - TRANSVERSE COLON POLYP . 01 Diagnosis: A. Random Colon, Biopsies: Lymphocytic colitis. Negative for granulomas, dysplasia, and malignancy. . B. Transverse Colon, Polyp, Biopsy: Tubular adenoma. V 11/15/2021 1042 Local . 01 Electronically signed: . Sagrario Bowling MD, Pathologist NPI- [id number] . 01 Gross description: . Part A: RANDOM COLON: Received in formalin are 4 fragment(s) of chou, soft tissue measuring 0.3 x 0.3 x 0.2 cm to 0.1 x 0.1 x 0.1 cm submitted entirely in 1 cassette(s) Part B: TRANSVERSE COLON POLYP: Received in formalin are 2 fragment(s) of chou, soft tissue measuring 0.2 x 0.2 x 0.1 cm to 0.1 x 0.1 x 0.1 cm submitted entirely in 1 cassette(s) /QBJ 11/14/2021 0717 Local . 01 Pathologist provided ICD-10: K52.89, D12.3 . 01 CPT . 996875, 985432 Specimen Comment: A courtesy copy of this report has been sent to [phone] Performed at: [address] [facility] [address] [place] [address], [place], [place] [id number] MD Manuel Thompson MD Phone: [phone]
[2021-11-13] MEDS: SODIUM CHLORIDE 0.9% 1,000 ML 100 ML IV (09:16)
[2021-11-13 09:31] VITALS: BP 174/78; PULSE 60; RESP 16; TEMP 36.6; O2SAT 97; BMI 24.4
--- NOTE | 2021-11-13 09:56 | PM.HP.1 ---
History of Present Illness History of Present Illness Date Patient Seen: 11/13/21 Time Patient Seen: 09:57 Chief complaint: SDC Narrative: I reviewed my recent office note. Diarrhea persists. Patient History Medical History Alcohol use disorder Atherosclerosis of aorta Depression, recurrent Do not resuscitate Essential hypertension Facet arthropathy, lumbar Generalized anxiety disorder Hereditary and idiopathic neuropathy, unspecified Irritable bowel syndrome with diarrhea Lower urinary tract symptoms (LUTS) Mixed hyperlipidemia Mixed incontinence urge and stress Osteopenia 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 Venous insufficiency Surgical History History of knee replacement History of salpingo-oophorectomy (08/19/17) History of third molar tooth extraction Status post appendectomy Status post hysterectomy Status post tonsillectomy and adenoidectomy Family & Social History Social History: household members spouse Tobacco & Substance use: Smoking Status Former smoker alcohol intake current alcohol intake frequency 0-2 drinks per day Substance Use Type does not use Meds Home Medications and Allergies Home Medications Medication Instructions Recorded Confirmed Type [VITAMIN C] 1,000 mg PO Q DAY ##0 08/27/11 09/06/21 History pravastatin 20 mg tablet 20 mg PO QDAY ##0 08/16/17 11/13/21 History cholecalciferol (vitamin D3) 50 2,000 unit PO DAILY 03/09/19 11/13/21 History mcg (2,000 unit) capsule gabapentin 300 mg capsule 300 mg PO BEDTIME #90 caps 03/09/19 11/13/21 Rx ginko biloba 2 100 ml PO DAILY 03/09/19 11/13/21 History clobetasol 0.05 % topical cream 1 applic topical DAILY 08/16/20 11/13/21 History estradiol 0.01% (0.1 mg/gram) 1 g vaginal DAILY #42.5 grams 08/30/20 11/13/21 Rx vaginal cream (Estrace) biotin 5 mg capsule 5 mg PO DAILY 09/22/20 11/13/21 History naproxen sodium 220 mg capsule 220 mg PO BID PRN Pain (Scale 09/22/20 11/13/21 History (Aleve) Score 4-6) amlodipine 2.5 mg tablet 2.5 mg PO DAILY 06/26/21 11/13/21 History calcium acetate 1,000 mg PO DAILY 06/26/21 11/13/21 History latanoprost 0.005 % eye drops 1 drp EYE-BOTH 06/26/21 09/06/21 History multivitamin 1 tab PO DAILY 06/26/21 09/06/21 History primidone 50 mg tablet 50 mg PO .twice weekly 06/26/21 09/06/21 History sertraline 50 mg tablet 50 mg PO DAILY 06/26/21 11/13/21 History lorazepam 1 mg tablet (Ativan) 1 mg PO DAILY PRN anxiety #30 tabs 08/17/21 11/13/21 Rx fluticasone propionate 50 1 spray intranasal DAILY 09/06/21 11/13/21 History mcg/actuation nasal spray,suspension oxybutynin chloride 5 mg tablet 5 mg PO DAILY 09/06/21 11/13/21 History topiramate 100 mg tablet 100 mg PO BID 09/06/21 11/13/21 History Allergies Allergy/AdvReac Type Severity Reaction Status Date / Time propranolol [PROPRANOLOL] Allergy Mild TONGUE Verified 11/13/21 09:17 SWELLING Review of Systems Review of Systems ROS: Yes All systems reviewed with the patient and are negative except as otherwise documented Exam Vital Signs (past 8 hours): - 11/13/21 09:31 Temperature 97.9 F Pulse Rate 60 Respiratory Rate 16 Blood Pressure 174/78 H Pulse Oximetry 97 Oxygen Delivery Method Room Air Oxygen Delivery Method Room Air Const General: cooperative HENMT Head: normal to inspection Eyes General: appearance normal, both eyes and all related structures Neck Neck: normal visual inspection Chest Chest: normal inspection of the chest Resp Effort & Inspection: normal respiratory effort Cardio Rate: regular rate GI Inspection: normal to inspection Skin General: no rashes or lesions noted Neuro General: patient alert and patient awake Extrem General: normal to inspection and no pedal edema Psych Appearance: grossly normal Assessment & Plan Assessment & Plan narrative: 81-year-old female with chronic diarrhea. Colonoscopy is pursued today. Time Spent With Patient Critical Care time: I spent a total of [] minutes of critical care time on this patient's care today; this time is exclusive of procedural time.
--- NOTE | 2021-11-13 10:39 | PM.PREOP ---
Pre-operative Note COVID-19 COVID-19 status: Negative Result date/Date tested (Pos, Neg/Pending): 11/10/21 Criteria for continued procedure: Possibility delay results in more complex future surgery or treatment Interval Note History & Physical reviewed/Exam performed by Physician: Yes Changes to H&P: No ASA Class (for procedural sedation): III
--- NOTE | 2021-11-13 11:14 | P.OP.COLON_ITS ---
Operative Date/Time/Diagnoses Date of procedure: 11/13/21 Time of procedure: 11:14 Pre-op diagnosis: Diarrhea Post-op diagnosis: same Procedure & Clinicians Study performed: Colonoscopy with random biopsies and cold forceps polypectomy Same procedure as scheduled: Yes Indications: Diarrhea Surgeon: Marcos Colno Procedure Notes SCOAP/Timeout: Done Procedure in detail: After the risks and benefits were explained, written and verbal informed consent was obtained. The patient was brought into the procedure room and placed into the left lateral decubitus position. Please see nurse distribution supervisor notes for sedation details. Digital rectal examination was accomplished. The scope was introduced into the patient and advanced under direct visualization to the cecum as identified by the appendiceal orifice and ileocecal valve. The scope was slowly withdrawn to carefully examine the mucosa for any defects or lesions. Comprehensive imaging was accomplished throughout the rectum including the dentate line. The colon was decompressed, the scope was then removed from the patient who tolerated the procedure well. Pediatric colonoscope Bowel prep adequate Scope withdrawal time: 9 minutes Sedation minutes: 32 Complications: none Impression: Patient had some diverticulosis in the sigmoid. There was an exceptionally challenging navigation encountered in the sigmoid due to tortuosity. Navigation took the majority of time during today's procedure. We did change the patient position and apply pressure multiple times in order to achieve cecal intubation. I did not appreciate any macroscopic colitis. Random biopsies were taken for exclusion of microscopic colitis. There was a diminutive polyp in the transverse colon addressed with cold forceps. The patient had grade 3 and grade 4 in 1 column hemorrhoids nonbleeding nonthrombosed. Endoscopic diagnosis 1. Colon polyp 2. Diverticulosis 3. Tortuous colon 4. Grade 3 to grade 4 hemorrhoids Post-procedure Plan for aftercare: 1. Await histopathology. 2. If microscopic colitis is identified then an appropriate therapy will be prescribed Disposition: PACU
[2021-11-13 11:17] VITALS: BP 146/72; PULSE 69; RESP 12; TEMP 36.2; O2SAT 99
[2021-11-13 11:21] VITALS: BP 137/106; PULSE 64; RESP 12; TEMP 36.1; O2SAT 99
[2021-11-13 11:27] VITALS: BP 177/84; PULSE 67; RESP 14; TEMP 36.5; O2SAT 99
[2021-11-13 11:32] VITALS: BP 181/91; PULSE 65; RESP 16; O2SAT 98
[2021-11-13 11:50] VITALS: BP 172/64; PULSE 64; RESP 14; TEMP 36.2; O2SAT 99
== END 2021-11-13 12:04 | disposition home or self-care (01) ==
PROVIDERS: PCP Internal Medicine; Referring Provider Internal Medicine Gastroenterology; Visit Provider Internal Medicine Gastroenterology
PROC: 0DJD8ZZ Inspection of Lower Intestinal Tract, Via Natural or Artificial Opening Endoscopic (ICD-10-PCS; CPT 45378; principal; 2021-11-13 10:00)
DX: K52.832 Lymphocytic colitis (principal); K64.2 Third degree hemorrhoids; K57.30 Diverticulosis of large intestine without perforation or abscess without bleeding; D12.3 Benign neoplasm of transverse colon
CPT/HCPCS: 45380; J2704

== ENCOUNTER → 2021-11-16 11:17 | Outpatient (CLI) | payer MEDICARE, OTHER, SELFPAY ==
--- NOTE | 2021-11-16 | DI.MG.S_ITS ---
BILATERAL DIGITAL SCREENING MAMMOGRAM 3D/2D WITH CAD: 11/16/2021 CLINICAL: Routine screening. Family history of breast cancer. Comparison is made to exams dated: 11/14/2020 mammogram, 11/23/2019 mammogram, and 11/21/2018 mammogram - [facility]. The tissue of both breasts is heterogeneously dense. This may lower the sensitivity of mammography. Current study was also evaluated with a Computer Aided Detection (CAD) system. There are benign calcifications in both breasts. No significant masses, calcifications, or other findings are seen in either breast. There has been no significant interval change. IMPRESSION: BENIGN There is no mammographic evidence of malignancy. A 1 year screening mammogram is recommended. Based on the Tyrer Cuzick model (a risk assessment model) the patient's lifetime risk is 1.6% and her 10 year risk is 0.0%. According to the ACR, ACS, and NCCN guidelines, an annual breast MRI exam along with mammogram is recommended if the patient's lifetime risk is 20% or greater. This exam was interpreted at Station ID: [id number]. NOTE: For mammograms, a report in lay terms will be sent to the patient. Approximately 15% of breast malignancies will not be visualized mammographically. In the management of a palpable breast mass, a negative mammogram must not discourage biopsy of a clinically suspicious lesion. Electronically Signed By: Augusto Jiang M.D., jr/wesley:11/16/2021 12:12:10 letter sent: Normal Exam ACR BI-RADS Category 2: Benign Finding(s) 3342F
== END ==
PROVIDERS: PCP Internal Medicine; Referring Provider Internal Medicine; Visit Provider Internal Medicine
DX: Z12.31 Encounter for screening mammogram for malignant neoplasm of breast (principal); Z80.3 Family history of malignant neoplasm of breast
CPT/HCPCS: 77063; 77067

== ENCOUNTER 2021-11-19 09:55 | Emergency (ER) | payer MEDICARE, OTHER, SELFPAY ==
[2021-11-19 10:02] VITALS: BP 170/80; PULSE 68; RESP 16; TEMP 36.9; O2SAT 100; BMI 24.7
--- NOTE | 2021-11-19 10:04 | DI.CT.S_ITS ---
PROCEDURE: CT LUMBAR SPINE WO CON INDICATIONS: Pain/fall TECHNIQUE: Noncontrast 3 mm thick sections acquired from the T12 level to the sacrum. Sagittal and coronal reformats were constructed. For radiation dose reduction, the following was used: automated exposure control. COMPARISON: None. FINDINGS: Image quality: Excellent. Bones: Acute L2 wedge-shaped compression fracture involves the superior endplate with 10 percent anterior height loss. No retropulsed fracture fragment. Otherwise, there is convex right thoracolumbar scoliosis with right lateral L3-4 spondylolisthesis. Remainder of the vertebral body height and alignment is maintained. At the disc levels, there is disc space narrowing and circumferential disc bulge is present in the lower lumbar spine with hypertrophic facet joints resulting in moderate to severe central stenosis at L4-5 with moderate bilateral foraminal stenosis. Soft tissues: No retroperitoneal masses or hematomas. Visualized aorta is normal in caliber. IMPRESSION: 1. Acute L2 compression fracture with 10 percent anterior height loss and no retropulsed fracture fragment. 2. Multilevel degenerative disc disease and arthropathy results in varying degrees of central and foraminal stenosis including moderate to severe central stenosis at L4-5 Approved by: Sylvester Weston M.D. on 11/19/2021 at 10:13
--- NOTE | 2021-11-19 10:06 | DI.RAD.S_ITS ---
PROCEDURE: XR WRIST LT MIN 3V INDICATIONS: fall with back and B/L hip pain TECHNIQUE: 4 views of the wrist were acquired. COMPARISON: None. FINDINGS: Bones: No fractures or dislocations. No suspicious bony lesions. First carpometacarpal joint space narrowing and subchondral sclerosis. Generalized decrease in osseous mineralization noted. Scaphoid view: Unremarkable Soft tissues: No suspicious soft tissue calcifications. Medial soft tissue swelling IMPRESSION: No acute fracture or foreign body. Osteopenia and 1st [facility] osteoarthritis Approved by: Sylvester Weston M.D. on 11/19/2021 at 10:16
--- NOTE | 2021-11-19 10:15 | ED.FALL ---
HPI - Fall General Chief Complaint: Fall Stated Complaint: Fall yesterday- back pain Time Seen by Provider: 11/19/21 10:08 History of Present Illness HPI Narrative: Patient here with . Patient uses a cane to walk. She states she has bad balance. She states yesterday she was walking into a home, lost her balance and fell back. Is not on blood thinners. She states she bumped her head but no pain. No loss of consciousness. Patient complains bilateral pelvis pain hip pain and lower back pain. Has small skin tear to left wrist at the ulna styloid area. Band-Aid removed. No active bleeding. Has a punctate small skin tear. Able to bear weight but does have pain with bearing weight in taking steps. Related Data Home Medications Medication Instructions Recorded Confirmed pravastatin 20 mg tablet 20 mg PO QDAY ##0 08/16/17 11/29/21 cholecalciferol (vitamin D3) 50 2,000 unit PO DAILY 03/09/19 11/29/21 mcg (2,000 unit) capsule ginNCR Tehchnosolutions biloba 2 100 ml PO DAILY 03/09/19 11/29/21 clobetasol 0.05 % topical cream 1 applic topical DAILY 08/16/20 11/29/21 biotin 5 mg capsule 5 mg PO DAILY 09/22/20 11/29/21 amlodipine 2.5 mg tablet 2.5 mg PO DAILY 06/26/21 11/29/21 latanoprost 0.005 % eye drops 1 drp EYE-BOTH 06/26/21 11/29/21 multivitamin 1 tab PO DAILY 06/26/21 11/29/21 sertraline 50 mg tablet 50 mg PO DAILY 06/26/21 11/29/21 fluticasone propionate 50 1 spray intranasal DAILY 09/06/21 11/29/21 mcg/actuation nasal spray,suspension topiramate 100 mg tablet 100 mg PO BID 09/06/21 11/29/21 ascorbic acid (vitamin C) 1,000 mg 1,000 mg PO DAILY 11/29/21 11/29/21 tablet budesonide 3 mg 3 mg PO .COMPLEX 11/29/21 11/29/21 capsule,delayed,extended release Previous Rx's Medication Instructions Recorded estradiol 0.01% (0.1 mg/gram) 1 g vaginal DAILY #42.5 grams 08/30/20 vaginal cream (Estrace) lorazepam 1 mg tablet (Ativan) 1 mg PO DAILY PRN anxiety #30 tabs 08/17/21 gabapentin 300 mg capsule 300 mg PO BEDTIME #90 caps 11/14/21 hydrocodone 5 mg-acetaminophen 325 1 tab PO Q6H PRN pain #20 tabs 11/19/21 mg tablet ondansetron 4 mg disintegrating 4 mg PO Q8H PRN nausea and 11/19/21 tablet vomiting #10 tabs primidone 250 mg tablet See Rx Instructions PO BID #45 tabs 11/21/21 primidone 50 mg tablet See Rx Instructions PO BID #60 tabs 11/21/21 oxybutynin chloride 5 mg tablet 5 mg PO BID PRN incontinence #180 11/29/21 tabs Allergies Allergy/AdvReac Type Severity Reaction Status Date / Time propranolol [PROPRANOLOL] Allergy Mild TONGUE Verified 11/29/21 13:30 SWELLING Review of Systems Review of Systems Narrative: GENERAL: Denies chills, fatigue, malaise, fever, sweats. HEENT: Denies sinus pain, ear pain, sore throat RESPIRATORY: Denies dyspnea, cough CARDIOVASCULAR: Denies chest pain, palpitations GASTROINTESTINAL: Denies nausea, vomiting, abdominal pain : Denies dysuria, frequency, hematuria MUSCULOSKELETAL: Positive for muscle or bony pain SKIN: Denies rash, skin lesions, positive skin wound NEUROLOGIC: Denies weakness, numbness ROS Unobtainable: All systems reviewed & are unremarkable except as noted in HPI and below Patient History Medical History (Updated 11/29/21 @ 17:25 by Grant Phillips MD) Alcohol use disorder Atherosclerosis of aorta Compression fracture of L2 lumbar vertebra Depression, recurrent Do not resuscitate Essential hypertension Facet arthropathy, lumbar Generalized anxiety disorder Hereditary and idiopathic neuropathy, unspecified Irritable bowel syndrome with diarrhea Lymphocytic colitis Mixed hyperlipidemia Mixed incontinence urge and stress Osteopenia 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 Urinary incontinence Venous insufficiency Surgical History History of knee replacement History of salpingo-oophorectomy (08/19/17) History of third molar tooth extraction Status post appendectomy Status post hysterectomy Status post tonsillectomy and adenoidectomy Social History household members: spouse Smoking Status: Former smoker alcohol intake: current Smoking Status: Former smoker alcohol intake frequency: 0-2 drinks per day Substance Use Type: does not use Exam Narrative Exam Narrative: GENERAL: in no distress, not toxic not dyspneic HEAD: Normocephalic. Nontender scalp and face. No crepitus step-off. No edema or ecchymosis. EYES: Pupils equal round No scleral icterus. ENT: Mucous membranes moist. NECK: Trachea midline. No midline tenderness or step-off of the cervical or thoracic spine CARDIOVASCULAR: Regular rate and rhythm without murmurs RESPIRATORY: Clear to auscultation. Breath sounds equal bilaterally. No wheezes, rales, or rhonchi. GASTROINTESTINAL: Abdomen soft, non-tender EXTREMITIES: No gross deformities. No shortening or rotation of the legs. Able to fully extend both hips and legs without difficulty. Able to flex each knee to 90? in bed without any difficulty. However does complain of lateral pelvis pain right greater than left. Able stand at bedside. Take steps but no foot drop. Has pain with weight-bearing in the lateral pelvis. Examination left upper extremity. Small edema to the ulnar styloid area. But has full flexion extension supination pronation at the wrist strong director of flight operations in radial pulse with light touch intact to fingers and thumb, hand warm soft and pink. Small skin tear at the 6 ulna styloid area. No bone or tendon injury seen base visualized bloodless field no foreign body. No oozing or drainage. Nontender. BACK: No flank tenderness. No bruising or skin injury seen on the skin of the upper and lower back. There is reproducible bilateral paralumbar muscle tenderness. No midline tenderness or step-off of the lumbar spine. NEURO: AOx4. SKIN: Warm and dry PSYCH: Not anxious, is cooperative Initial Vital Signs Initial Vital Signs: Vital Signs Temperature 98.4 F 11/19/21 10:02 Pulse Rate 68 11/19/21 10:02 Respiratory Rate 16 11/19/21 10:02 Blood Pressure 170/80 H 11/19/21 10:02 Pulse Oximetry 100 11/19/21 10:02 Oxygen Delivery Method 11/19/21 10:02 Course Course Course Narrative: No new issues during course of stay Orders Ordered: Discontinued Medications Bacitracin (Bacitracin Oint 0.9 Gm Pckt) 1 applic TOP NOW ONE Stop: 11/19/21 11:52 Last Admin: 11/19/21 11:55 Dose: 1 applic Documented By: CSD Diphtheria/Tetanus/Acell Pertussis (Tet,Diph,Pertuss(Acell),Vac/Pf 0.5 Ml Syringe) 0.5 ml IM .ONCE ONE Stop: 11/19/21 10:25 Last Admin: 11/19/21 10:37 Dose: 0.5 ml Documented By: RLS Reevaluation(s) Reevaluation #1: Reviewed results with patient and . At this time pain is controlled. Will need follow-up with Dr. Wright, ortho Spine. Return precautions reviewed with him. Patient neurovascularly intact. Time: 11:40 Consultations Consultation #1: Spoke with Ortho Spine Dr. Wright, patient can be discharged home. No brace needed. Can follow up with the office this week. Patient is neurovascularly intact Time: 11:38 Vital Signs Vital signs: Vital Signs - 8 hr 11/19/21 10:02 Temperature 98.4 F Pulse Rate 68 Respiratory Rate 16 Blood Pressure 170/80 H Pulse Oximetry 100 Oxygen Delivery Method Room Air MDM - Fall Differential Diagnosis Differential diagnosis: Likely fracture of wrist, compression fracture and other (Wrist sprain/skin tear/pelvis fracture/hip fracture) Imaging Data Extremity x-ray #1: Radiologist's Impression: [place] [address] XRay Report Signed Patient: Ruth Cornelius MR#: [id number] : 1940 Acct:[id number] Age/Sex: 81 / F Date of Service: 11/19/21 Loc: ED Accession Number: [id number] ?? Procedure: XR wrist LT min 3V Ordering Provider: Emeka Carrasco MD PROCEDURE:? XR WRIST LT MIN 3V ? INDICATIONS: fall with back and B/L hip pain ? TECHNIQUE:? 4 views of the wrist were acquired.? ? COMPARISON:? None. ? FINDINGS:? ? Bones:? No fractures or dislocations.? No suspicious bony lesions.? First carpometacarpal joint space narrowing and subchondral sclerosis. Generalized decrease in osseous mineralization noted. ? Scaphoid view:? Unremarkable ? Soft tissues:? No suspicious soft tissue calcifications.? Medial soft tissue swelling ? IMPRESSION:? ? No acute fracture or foreign body. ? Osteopenia and 1st [facility] osteoarthritis ? ? ? Approved by: Sylvester Weston M.D. on 11/19/2021 at 10:16? CT scan pelvis without contrast: Radiologist's Impression: No acute fracture or acute process. CT scan lumbar spine: Radiologist's Impression: [address] [address] [address] Scan Report Signed Patient: Ruth Cornelius MR#: [id number] : 1940 Acct:[id number] Age/Sex: 81 / F Date of Service: 11/19/21 Loc: ED Accession Number: [id number] ?? Procedure: CT pelvis wo con Ordering Provider: Emeka Carrasco MD PROCEDURE:? CT LUMBAR SPINE WO CON ? INDICATIONS:? Pain/fall ? TECHNIQUE:? Noncontrast 3 mm thick sections acquired from the T12 level to the sacrum.? Sagittal and coronal reformats were constructed.? For radiation dose reduction, the following was used:? automated exposure control.? ? COMPARISON:? None. ? FINDINGS:? Image quality:? Excellent.? ? Bones:? Acute L2 wedge-shaped compression fracture involves the superior endplate with 10 percent anterior height loss.? No retropulsed fracture fragment. ? Otherwise, there is convex right thoracolumbar scoliosis with right lateral L3-4 spondylolisthesis.? Remainder of the vertebral body height and alignment is maintained. ? At the disc levels, there is disc space narrowing and circumferential disc bulge is present in the lower lumbar spine with hypertrophic facet joints resulting in moderate to severe central stenosis at L4-5 with moderate bilateral foraminal stenosis. ? Soft tissues:? No retroperitoneal masses or hematomas.? Visualized aorta is normal in caliber.? ? ? IMPRESSION:? ? 1. Acute L2 compression fracture with 10 percent anterior height loss and no retropulsed fracture fragment. ? 2. Multilevel degenerative disc disease and arthropathy results in varying degrees of central and foraminal stenosis including moderate to severe central stenosis at L4-5? Approved by: Sylvester Weston M.D. on 11/19/2021 at 10:13? MDM Narrative Medical decision making narrative: Appropriate for discharge home. Pain controlled. Neurovascularly intact. Otherwise images are reassuring. I did review with or the spine. Patient and agree for discharge home and follow-up with Dr. Wright. Return precautions reviewed with patient and .. Discharge Plan Departure Patient Disposition: Home Clinical Impression: Closed compression fracture of lumbar vertebra, Sprain and strain of left wrist, Skin tear, Contusion of pelvis Instructions: DI for Vertebral Fracture, DI for Wrist Sprain, How to Prevent Falls Activity Restrictions/Additional Instructions: Call provided ortho spine office in the morning to confirm your office appointment this week. No driving operating machinery when taking prescribed pain medication. Return if worsening questions or concerns of any numbness or tingling to the legs or any weakness. Clean skin wound on wrists daily with warm soap and water and apply thin layer of topical antibiotic. Return if any oozing or redness or pain from the wound. Prescriptions: New hydrocodone-acetaminophen 5-325 mg tablet 1 tab PO Q6H PRN (Reason: pain) Qty: 20 0RF ondansetron 4 mg tablet,disintegrating 4 mg PO Q8H PRN (Reason: nausea and vomiting) Qty: 10 0RF No Action pravastatin 20 MG tablet 20 mg PO QDAY Qty: 0 estradiol [Estrace] 0.01 % (0.1 mg/gram) cream 1 g VAG DAILY Qty: 42.5 3RF Rx Instructions: Cream was compounded to 0;0125%. Please compound to [place]. Use twice/week. lorazepam [Ativan] 1 mg tablet 1 mg PO DAILY PRN (Reason: anxiety) Qty: 30 1RF Rx Instructions: usually takes 1/2 or 1/4 for sleep gabapentin 300 mg capsule 300 mg PO BEDTIME Qty: 90 0RF primidone 250 mg tablet See Rx Instructions PO BID Qty: 45 0RF Rx Instructions: 1/2 tab in the morning, full tab in the evening. primidone 50 mg tablet See Rx Instructions PO BID Qty: 60 0RF Rx Instructions: 2 tabs twice daily fluticasone propionate 50 mcg/actuation spray,suspension 1 spray intranasal DAILY topiramate 100 mg tablet 100 mg PO BID amlodipine 2.5 mg tablet 2.5 mg PO DAILY latanoprost 0.005 % drops 1 drp EYE-BOTH sertraline 50 mg tablet 50 mg PO DAILY multivitamin Tablet 1 tab PO DAILY ascorbic acid (vitamin C) 1,000 mg tablet 1,000 mg PO DAILY budesonide 3 mg capsule,delayed,extend.release 3 mg PO .COMPLEX Rx Instructions: 3 capsules daily for 4 weeks, then 2 capsules daily for 2 weeks, then 1 capsule daily for 2 weeks, then stop. oxybutynin chloride 5 mg tablet 5 mg PO BID PRN (Reason: incontinence) Qty: 180 3RF biotin 5 mg capsule 5 mg PO DAILY cholecalciferol (vitamin D3) 2,000 unit capsule 2,000 unit PO DAILY ginko biloba 2 100 ml PO DAILY clobetasol 0.05 % cream 1 applic topical DAILY Referrals: Grant Phillips MD [Primary Care Provider] - Carter Rodgers MD [Physician] - Visit Report Forms: Patient Portal/API
[2021-11-19] MEDS: TET,DIPH,PERTUSS(ACELL),VAC/PF 0.5 ML SYRINGE IM (10:37)
[2021-11-19] MEDS: BACITRACIN OINT 0.9 GM PCKT 1 APPLIC TOP (11:55)
== END 2021-11-19 12:08 | disposition home or self-care (01) ==
PROVIDERS: Emergency Provider Emergency Medicine; PCP Internal Medicine
DX: S32.029A Unspecified fracture of second lumbar vertebra, initial encounter for closed fracture (principal); S30.0XXA Contusion of lower back and pelvis, initial encounter; S61.512A Laceration without foreign body of left wrist, initial encounter; S63.502A Unspecified sprain of left wrist, initial encounter; S66.912A Strain of unspecified muscle, fascia and tendon at wrist and hand level, left hand, initial encounter; W19.XXXA Unspecified fall, initial encounter; Z23 Encounter for immunization
CPT/HCPCS: 72131; 72192; 73110; 90471; 99284; 90715

== ENCOUNTER → 2021-12-28 13:49 | Outpatient (CLI) | payer MEDICARE, OTHER, SELFPAY ==
--- NOTE | 2021-12-28 13:51 | DI.RAD.S_ITS ---
PROCEDURE: XR LUMBAR SPINE MIN 4V INDICATIONS: BACK PAIN TECHNIQUE: 5 views of the lumbar spine acquired, including flexion and extension views. COMPARISON: [facility], CR, L-SPINE 2-3 VIEWS, 05/26/2007, 15:33. [facility], CR, XR THORACOLUMBAR SPINE 2 VIEWS, 11/28/2021, 13:23. [facility], CT, CT LUMBAR SPINE WO CON, 11/19/2021, 10:04. [facility], CR, XR LUMBAR SPINE MIN 4V, 11/05/2018, 11:04. FINDINGS: Bones: 5 nonrib-bearing vertebrae are present. Mild dextrocurvature centered at the L2 level.. No significant change in mild L2 compression fracture compared to prior CT scan dated 11/19/2021. Multilevel disc height loss with endplate sclerosis and spurring, most notably in moderate to severe at the L3-L4 and L5-S1 levels. Moderate L4-L5 and L5-S1 facet joint arthropathy.. No suspicious bony lesions. Soft tissues: Overlying bowel gas pattern is normal. No suspicious soft tissue calcifications. Vascular calcifications indicate atherosclerosis. IMPRESSION: 1. No change in L2 compression fracture and no acute fracture seen. 2. Multilevel spondylosis, most notably at the L3-L4 and L5-S1 level. Dictated by: Vaughn Townsend [facility] Interpreted: Jr Plasencia MD on 12/28/2021 at 14:22 Transcribed by: MARGARITO on 12/28/2021 at 14:25 Approved by: Jr Plasencia M.D. on 12/28/2021 at 21:26
== END ==
PROVIDERS: PCP Internal Medicine; Referring Provider Physical Medicine & Rehabilitation; Visit Provider Physical Medicine & Rehabilitation
DX: S32.020A Wedge compression fracture of second lumbar vertebra, initial encounter for closed fracture (principal); M47.816 Spondylosis without myelopathy or radiculopathy, lumbar region; M47.817 Spondylosis without myelopathy or radiculopathy, lumbosacral region
CPT/HCPCS: 72110

== ENCOUNTER → 2022-01-17 14:29 | Outpatient (CLI) | payer MEDICARE, OTHER, SELFPAY ==
--- NOTE | 2022-01-17 14:31 | DI.RAD.S_ITS ---
PROCEDURE: XR LUMBAR SPINE 2-3V INDICATIONS: Follow-up L2 fracture TECHNIQUE: 3 views of the lumbar spine were acquired. COMPARISON: [facility], CR, XR LUMBAR SPINE MIN 4V, 12/28/2021, 14:06. FINDINGS: Bones: 5 [id number] vertebrae are present. There is mild rightward curvature of lumbar spine centered at L3 level. Loss of disc height and degenerative endplate changes are noted throughout lumbar spine. 5 mm anterolisthesis of L4 on L5 is seen. Chronic appearing anterior wedge compression deformity at L2 level is again noted with up to 30 percent loss of L2 vertebral body height anteriorly unchanged from prior study. No acute vertebral body compression fractures. No suspicious bony lesions. Soft tissues: Overlying bowel gas pattern is normal. No suspicious soft tissue calcifications. IMPRESSION: Degenerative disc disease throughout lumbar spine. 5 mm anterolisthesis of L4 on L5. Chronic appearing anterior wedge compression deformity at L2 level unchanged from prior study. No acute compression fracture. Dictated by: Sandeep Wright M.D. on 01/17/2022 at 17:08 Approved by: Sandeep Wright M.D. on 01/17/2022 at 17:10
== END ==
PROVIDERS: PCP Internal Medicine; Referring Provider Physical Medicine & Rehabilitation; Visit Provider Physical Medicine & Rehabilitation
DX: S32.020D Wedge compression fracture of second lumbar vertebra, subsequent encounter for fracture with routine healing (principal); M51.36 Other intervertebral disc degeneration, lumbar region; M43.16 Spondylolisthesis, lumbar region
CPT/HCPCS: 72100

== ENCOUNTER → 2022-03-20 10:31 | Outpatient (CLI) | payer MEDICARE, OTHER, SELFPAY ==
--- NOTE | 2022-03-20 | DI.MRI.S_ITS ---
PROCEDURE: MR CERVICAL SPINE WO CON INDICATIONS: Spinal stenosis, cervical region TECHNIQUE: Noncontrast sagittal T1 spin echo and T2 fast spin echo, sagittal STIR, foraminal oblique sagittal T2 fast spin echo, and axial gradient echo or T2 fast spin echo through the cervical spine. COMPARISON: [facility], MR, C-SPINE WITHOUT CONTRAST, 03/08/2016, 8:18. [facility], CR, XR CERVICAL SPINE 4V OR 5V, 03/20/2022, 10:32. FINDINGS: Image quality: Excellent. Alignment and Curvature: There is normal bony alignment. There is mild reversal normal cervical spine curvature. Bone Marrow: Mild Modic type 2 reactive endplate changes noted adjacent to the C2-C3, C3-C4, C4-C5, C5-C6, C6-C7 and C7-T1 discs. Spinal Cord: Visualized spinal cord has normal size and signal. No cerebellar tonsillar herniation. Paraspinous Soft Tissues: No paravertebral masses. Prevertebral soft tissues are normal in thickness. C2-C3: Loss of disc signal. No central stenosis. No neural foraminal narrowing. No neural compression. C3-C4: Loss of disc signal and height. Mild, diffuse disc bulge. Mild narrowing of the central canal. Mild bilateral neural foraminal narrowing. No neural compression. C4-C5: Loss of disc signal and height. Mild to moderate diffuse disc bulge. Severe narrowing of the central canal with slight compression of the cervical spinal cord. Mild bilateral facet and uncovertebral joint hypertrophy. Moderate bilateral neural foraminal narrowing. C5-C6: Loss of disc signal and height. Mild to moderate diffuse disc bulge. Moderate narrowing of the central canal. Mild bilateral facet and uncovertebral hypertrophy. Mild right and moderate left neural foraminal narrowing. No neural compression. C6-C7: Loss of disc signal and height. Mild to moderate diffuse disc bulge. Moderate narrowing of the central canal. Mild bilateral facet hypertrophy. Moderate right and mild left uncovertebral joint hypertrophy. Severe right and moderate left neural foraminal narrowing with compression of the exiting right C7 nerve root. C7-T1: Loss of disc signal and height. Mild to moderate diffuse disc bulge. Mild narrowing of the central canal. Mild bilateral facet hypertrophy. Mild bilateral neural foraminal narrowing. No neural compression IMPRESSION: Multilevel degenerative disc disease. Multilevel facet and uncovertebral arthropathy. Severe C4-C5 central canal narrowing with slight compression of the cervical spinal cord. Severe left C6-C7 neural foraminal narrowing with compression of the exiting left C7 nerve root. Dictated by: Caterina Fonseca MD, PhD on 03/20/2022 at 16:09 Approved by: Caterina Fonseca MD, PhD on 03/20/2022 at 16:14
--- NOTE | 2022-03-20 10:32 | DI.RAD.S_ITS ---
PROCEDURE: XR CERVICAL SPINE 4V OR 5V INDICATIONS: NECK PAIN TECHNIQUE: 5 views of the cervical spine acquired. COMPARISON: None. FINDINGS: Bones: No fractures or dislocations to the T1 level. There is straightening of normal cervical lordosis. Loss of disc height, degenerative endplate changes and bilateral facet hypertrophic changes are noted throughout cervical spine. Oblique images demonstrate left-sided bony foraminal stenosis at C4-5 through C6-7 levels. Soft tissues: No prevertebral soft tissue swelling. IMPRESSION: Degenerative disc disease throughout cervical spine. No acute fracture or dislocation. Left-sided bony foraminal stenosis at C4-5 through C6-7 level seen on oblique views. Dictated by: Sandeep Wright M.D. on 03/20/2022 at 12:21 Approved by: Sandeep Wright M.D. on 03/20/2022 at 12:22
== END ==
PROVIDERS: Family Provider Internal Medicine; PCP Internal Medicine; Referring Provider Orthopaedic Surgery Orthopaedic Surgery of the Spine; Visit Provider Orthopaedic Surgery Orthopaedic Surgery of the Spine
DX: M48.02 Spinal stenosis, cervical region; M50.10 Cervical disc disorder with radiculopathy, unspecified cervical region
CPT/HCPCS: 72050; 72141

== ENCOUNTER 2022-04-23 13:31 | Observation (INO) | payer MEDICARE, OTHER, SELFPAY ==
[2022-04-23] VITALS (24 sets, daily range): BP systolic 160–187; BP diastolic 68–82; PULSE 69–91; RESP 16–28; TEMP 36.8; O2SAT 96–100; BMI 22.1; BMI 21.1
--- NOTE | 2022-04-23 13:54 | DI.RAD.S_ITS ---
PROCEDURE: XR CHEST 1V INDICATIONS: suspected sepsis TECHNIQUE: One view of the chest was acquired. COMPARISON: [facility], , CHEST 2 VIEW, 12/18/2013, 14:55. FINDINGS: Surgical changes and devices: None. Lungs and pleura: Lungs are clear. No pleural effusions or pneumothorax. Mediastinum: Mediastinal contours appear normal. Heart size is normal. Bones and chest wall: No suspicious bony lesions. Overlying soft tissues appear unremarkable. IMPRESSION: No acute cardiopulmonary pathology. Dictated by: Sandeep Wright M.D. on 04/23/2022 at 14:48 Approved by: Sandeep Wright M.D. on 04/23/2022 at 14:48
--- NOTE | 2022-04-23 13:55 | DI.CT.S_ITS ---
PROCEDURE: CT HEAD/BRAIN WO CON INDICATIONS: leaning to right side. TECHNIQUE: Noncontrast 4.5 mm thick angled axial sections acquired from the foramen magnum to the vertex, with coronal and sagittal reformats. For radiation dose reduction, the following was used: automated exposure control, adjustment of mA and/or kV according to patient size. COMPARISON: None. FINDINGS: Image quality: Excellent. CSF spaces: Basal cisterns are patent. No extra-axial fluid collections. The ventricles are symmetric in size and shape. Brain: No intracranial bleeds or masses. There is moderate cerebral volume loss for age, with resultant ventricular and sulcal prominence. There are severe periventricular and deep white matter chronic small vessel ischemic changes. Mild dystrophic basal ganglia calcification bilaterally. There is intracranial internal carotid artery and vertebral artery atherosclerosis. Skull and face: Calvarium and visualized facial bones appear intact, without suspicious lesions. Sinuses: Visualized sinuses and mastoids are clear. IMPRESSION: 1. No acute intracranial abnormalities. 2. Cerebral volume loss and chronic microvascular ischemic changes. Dictated by: Jeremy Long M.D. on 04/23/2022 at 14:09 Approved by: Jeremy Long M.D. on 04/23/2022 at 14:10
[2022-04-23 14:07] LABS: Add Manual Diff / Slide Review NO; Basophils Absolute Auto 0 /uL (0-100); Basophils Percent Auto 0.4 % (0-2); Eosinophils Absolute Auto 0 /uL (0-450); Hematocrit 40.2 % (36-46); Hemoglobin 13.5 g/dL (12.0-16.0); Lymphocytes Absolute Auto 400 /uL (1100-4500); Lymphocytes Percent Auto 8.5 % (25-40); Mean Corpuscular HGB Conc 33.6 % (30-36); Mean Corpuscular Hemoglobin 34.4 PG (26-34); Mean Corpuscular Volume 102.2 fL (80-100); Monocytes Absolute Auto 500 /uL (0-900); Monocytes Percent Auto 11.5 % (3-14); Neutrophils Absolute Auto 3400 /uL (1500-7000); Neutrophils Percent Auto 79.6 % (50-75); Platelet Count 157 X10^3/uL (150-400); Red Blood Cell Count 3.93 X10^6/uL (4.0-5.2); Red Cell Distribution Width 13.3 % (11.6-14.8); White Blood Cell Count 4.3 X10^3/uL (4.5-11.0)
[2022-04-23 14:13] LABS: Alanine Aminotransferase 22 IU/L (<35); Albumin 4.2 g/dL (3.5-5.0); Albumin Globulin Ratio 1.1 (1.0-2.8); Alkaline Phosphatase 121 U/L (38-126); Aspartate Aminotransferase 34 IU/L (14-36); Bilirubin Total 0.5 mg/dL (0.2-1.3); Blood Urea Nitrogen 8 mg/dL (7-17); Calcium 8.6 mg/dL (8.4-10.2); Carbon Dioxide 19 mmol/L (22-32); Chloride 102 mmol/L (98-107); Creatine Kinase 56 U/L (30-135); Estimated Glomerular Filt Rate > 60 mL/min (>60); Globulin 3.9 g/dL (1.7-4.1); Glucose 127 mg/dL (80-110); HEMOLYSIS 20 (0-50); INR 1.1 (0.9-1.3); Lipase 46 U/L (23-300); Potassium 3.5 mmol/L (3.4-5.1); Prothrombin Time 12.8 SECONDS (10.1-12.7); Sodium 134 mmol/L (137-145); Total Protein 8.1 g/dL (6.3-8.2)
[2022-04-23 14:16] LABS: Lactate (Lactic Acid) 2.1 mmol/L (0.7-2.1); PTT Partial Thromboplastin Tim 29 SECONDS (26-36)
[2022-04-23 14:24] LABS: Troponin I 0.019 ng/mL (0.01-0.034)
[2022-04-23 14:29] LABS: Procalcitonin 0.06 ng/mL (<0.5)
--- NOTE | 2022-04-23 14:30 | ED.WEAKNESS ---
HPI - Weakness General Chief complaint: Weakness Stated complaint: generalized weakness Time Seen by Provider: 04/23/22 13:57 Source: patient and EMS Mode of arrival: EMS History of Present Illness HPI Narrative: Patient is a 81-year-old female with history of hyperlipidemia, alcohol use disorder, hypertension, anxiety disorder presenting today with generalized weakness and left leg weakness. Both she and her are actually here in the ED as patient is. She states that she was generally weak, so weak she could not get off the toilet. Per EMS she was leaning to the right. She says that she woke up this morning and really felt like her left leg was be quit feels like it might be better now. She denies any chest pain shortness breath nausea vomiting diarrhea. She reports that she had a temperature of 104? yesterday but is afebrile here. Denies any cardiac history although her monitor does show some significant T-wave inversions. reports that she was extremely weak morning. She does not normally need help but she definitely needed help. He does not report any specific unilateral weakness neither does EMS. Related Data Home Medications Medication Instructions Recorded Confirmed cholecalciferol (vitamin D3) 50 2,000 unit PO DAILY 03/09/19 04/11/22 mcg (2,000 unit) capsule clobetasol 0.05 % topical cream 1 applic topical DAILY 08/16/20 04/11/22 latanoprost 0.005 % eye drops 1 drp EYE-BOTH 06/26/21 04/11/22 multivitamin 1 tab PO DAILY 06/26/21 04/11/22 fluticasone propionate 50 1 spray intranasal DAILY 09/06/21 04/11/22 mcg/actuation nasal spray,suspension topiramate 100 mg tablet 100 mg PO BID 09/06/21 04/11/22 ascorbic acid (vitamin C) 1,000 mg 1,000 mg PO DAILY 11/29/21 04/11/22 tablet timolol maleate 0.5 % eye drops 1 drp EYE-BOTH BID 01/03/22 04/11/22 fluocinolone 0.01 % topical 1 applic topical BID 03/05/22 04/11/22 solution lorazepam 1 mg tablet 1 mg PO DAILY 04/11/22 04/11/22 Previous Rx's Medication Instructions Recorded oxybutynin chloride 5 mg tablet 5 mg PO BID PRN incontinence #180 07/27/22 tabs primidone 50 mg tablet See Rx Instructions .Route 12/15/21 .COMPLEX #360 tabs sertraline 50 mg tablet 50 mg PO DAILY #90 tabs 12/15/21 pravastatin 20 mg tablet 20 mg PO QDAY #90 tabs 12/25/21 primidone 250 mg tablet See Rx Instructions .Route 01/15/22 .COMPLEX #135 tabs gabapentin 300 mg capsule 300 mg PO BEDTIME #90 caps 02/19/22 amlodipine 2.5 mg tablet 2.5 mg PO DAILY #90 tabs 03/14/22 valacyclovir 1 gram tablet 1,000 mg PO TID #30 tabs 04/09/22 estradiol 0.05 mg/24 hr weekly See Rx Instructions .Route 04/10/22 transdermal patch .COMPLEX #12 patches Allergies Allergy/AdvReac Type Severity Reaction Status Date / Time propranolol [PROPRANOLOL] Allergy Mild TONGUE Verified 04/11/22 14:08 SWELLING Review of Systems Review of Systems Narrative: GENERAL: See HPI HEENT: Denies sinus pain, ear pain, sore throat, difficulty swallowing, neck pain RESPIRATORY: Denies dyspnea, cough, wheezing, hemoptysis, sputum. CARDIOVASCULAR: See HPI GASTROINTESTINAL: Denies nausea, vomiting, abdominal pain, diarrhea, constipation, melena. : Denies dysuria, frequency, incontinence, hematuria, urinary retention, flank pain. MUSCULOSKELETAL: Denies weakness, joint pain, or bony pain SKIN: No rash, no erythema, no pruritus NEUROLOGIC: Denies weakness, dizziness, headache, numbness, change in speech, confusion PSYCHIATRIC: No concerning psychosocial issues. 12 point review of systems is negative except for those stated above and HPI Patient History Medical History Alcohol use disorder Atherosclerosis of aorta Compression fracture of L2 lumbar vertebra Depression, recurrent Do not resuscitate Essential hypertension Facet arthropathy, lumbar Gait instability Generalized anxiety disorder Hereditary and idiopathic neuropathy, unspecified Irritable bowel syndrome with diarrhea Left cervical radiculopathy Left supraspinatus tendonitis Lymphocytic colitis Medicare annual wellness visit, initial Mixed hyperlipidemia Mixed incontinence urge and stress Osteopenia 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 Urinary incontinence Venous insufficiency Surgical History History of knee replacement History of salpingo-oophorectomy (08/19/17) History of third molar tooth extraction Status post appendectomy Status post hysterectomy Status post tonsillectomy and adenoidectomy Social History household members: spouse Smoking Status: Former smoker alcohol intake: current Smoking Status: Former smoker alcohol intake frequency: a few times a week Alcohol type: wine Substance Use Type: does not use Exam Initial Vital Signs Initial Vital Signs: Vital Signs Temperature 98.2 F 04/23/22 13:42 Pulse Rate 87 04/23/22 13:42 Respiratory Rate 22 04/23/22 13:42 Blood Pressure 177/74 H 04/23/22 13:42 Pulse Oximetry 99 04/23/22 13:42 Oxygen Delivery Method 04/23/22 13:42 GENERAL: Alert 81-year-old female and in no acute distress. HEENT: Head atraumatic,EOMI, pupils reactive, face symmetric, moist mucous membranes CARDIOVASCULAR: Regular rate and rhythm without murmurs, rubs or gallops. RESPIRATORY: Breath sounds equal bilaterally, no wheezes rales or rhonchi. ABDOMEN: Soft, nontender. Normoactive bowel sounds all 4 quadrants. No guarding or rebound. EXTREMITIES: Normal range of motion, no clubbing or edema. Neurovascularly intact NEUROLOGICAL: Alert and oriented x4.Normal gait and speech. Cranial nerves II through XII grossly intact. Good [id number], good [id number], strength equal bilaterally, no dysarthria or aphasia, sensation in tact to soft touch bilaterally, no visual changes, no facial droop SKIN: Warm, dry, no laceration, no petechiae, no rashes or lesions. Course Orders Ordered: ED Orders 04/23/22 13:39 Complete Blood Count AUTO DIFF Stat Comprehensive Metabolic Panel Stat ETOH [Ethanol (ETOH)] Stat Lactate (Lactic Acid) Stat Lipase Stat Partial Thromboplastin Time Stat Procalcitonin Stat Prothrombin Time INR Stat Troponin & CK Cardiac Panel Stat 04/23/22 13:54 XR chest 1V Stat RT Consult Eval and Treat NOW 04/23/22 13:55 CT head/brain wo con Stat 04/23/22 14:05 Covid-19 + FLU A/B + RSV - PCR Stat 04/23/22 14:30 Blood Culture Stat 04/23/22 15:15 EKG-12 Lead Stat 04/23/22 15:51 Trop I [Troponin I] Stat Vital Signs Vital signs: Vital Signs - 8 hr 04/23/22 13:42 04/23/22 13:43 04/23/22 14:05 Temperature 98.2 F Pulse Rate 87 86 69 Respiratory Rate 22 22 Blood Pressure 177/74 H Pulse Oximetry 99 99 Oxygen Delivery Method Room Air Room Air 04/23/22 14:07 04/23/22 14:09 04/23/22 14:09 Temperature Pulse Rate 86 86 Respiratory Rate 22 22 Blood Pressure 187/82 H Pulse Oximetry 99 99 Oxygen Delivery Method Room Air Room Air 04/23/22 14:30 04/23/22 14:40 04/23/22 14:40 Temperature Pulse Rate 81 82 Respiratory Rate 24 28 H Blood Pressure 180/79 H Pulse Oximetry 99 99 Oxygen Delivery Method Room Air 04/23/22 15:00 04/23/22 15:00 04/23/22 15:30 Temperature Pulse Rate 80 Respiratory Rate 26 H Blood Pressure 171/74 H 171/75 H Pulse Oximetry 98 Oxygen Delivery Method Room Air 04/23/22 15:30 04/23/22 16:00 04/23/22 16:00 Temperature Pulse Rate 82 81 Respiratory Rate 24 22 Blood Pressure 166/74 H Pulse Oximetry 98 99 Oxygen Delivery Method Room Air Room Air 04/23/22 16:30 04/23/22 16:30 04/23/22 17:00 Temperature Pulse Rate 86 Respiratory Rate Blood Pressure 165/72 H 162/70 H Pulse Oximetry 98 Oxygen Delivery Method Room Air 04/23/22 17:00 04/23/22 17:30 04/23/22 17:30 Temperature Pulse Rate 81 81 Respiratory Rate 27 H 20 Blood Pressure 179/77 H Pulse Oximetry 98 98 Oxygen Delivery Method Room Air Room Air 04/23/22 18:00 04/23/22 18:00 Temperature Pulse Rate 81 Respiratory Rate 22 Blood Pressure 170/77 H Pulse Oximetry 98 Oxygen Delivery Method Room Air MDM - Weakness Lab Data Result diagrams: 04/23/22 13:39 04/23/22 13:39 Labs: Lab Results 04/23/22 04/23/22 04/23/22 Range/Units 13:39 13:39 13:39 WBC 4.3 L (4.5-11.0) X10^3/uL RBC 3.93 L (4.0-5.2) X10^6/uL Hgb 13.5 (12.0-16.0) g/dL Hct 40.2 (36-46) % MCV 102.2 H (80-100) fL MCH 34.4 H (26-34) PG MCHC 33.6 (30-36) % RDW 13.3 (11.6-14.8) % Plt Count 157 (150-400) X10^3/uL Neut % (Auto) 79.6 H (50-75) % Lymph % (Auto) 8.5 L (25-40) % [place] % (Auto) 11.5 (3-14) % Eos % (Auto) 0.0 L (2-4) % Baso % (Auto) 0.4 (0-2) % Neut # (Auto) 3400 (7417-9550) /uL Lymph # (Auto) 400 L (2401-6353) /uL [place] # (Auto) 500 (0-900) /uL Eos # (Auto) 0 (0-450) /uL Baso # (Auto) 0 (0-100) /uL PT 12.8 H (10.1-12.7) SECONDS INR 1.1 (0.9-1.3) APTT 29 (26-36) SECONDS Sodium 134 L (137-145) mmol/L Potassium 3.5 (3.4-5.1) mmol/L Chloride 102 (98-107) mmol/L Carbon Dioxide 19 L (22-32) mmol/L BUN 8 (7-17) mg/dL Creatinine 0.50 L (0.52-1.04) mg/dL Estimated GFR > 60 (>60) mL/min BUN/Creatinine Ratio 16.0 (6-22) Glucose 127 H (80-110) mg/dL Lactate (0.7-2.1) mmol/L Calcium 8.6 (8.4-10.2) mg/dL Total Bilirubin 0.5 (0.2-1.3) mg/dL AST 34 (14-36) IU/L ALT 22 (<35) IU/L Alkaline Phosphatase 121 (38-126) U/L Total Creatine Kinase (30-135) U/L CK-MB (CK-2) CK-MB (CK-2) Rel Index Troponin I (0.01-0.034) ng/mL Total Protein 8.1 (6.3-8.2) g/dL Albumin 4.2 (3.5-5.0) g/dL Globulin 3.9 (1.7-4.1) g/dL Albumin/Globulin Ratio 1.1 (1.0-2.8) Lipase 46 (23-300) U/L Procalcitonin 0.06 (<0.5) ng/mL Ethyl Alcohol ( - 10) mg/dL SARS-CoV-2 (PCR) (Negative) Influenza A (RT-PCR) (NEGATIVE) Influenza B (RT-PCR) (NEGATIVE) RSV (PCR) (Negative) 04/23/22 04/23/22 04/23/22 Range/Units 13:39 13:39 13:39 WBC (4.5-11.0) X10^3/uL RBC (4.0-5.2) X10^6/uL Hgb (12.0-16.0) g/dL Hct (36-46) % MCV (80-100) fL MCH (26-34) PG MCHC (30-36) % RDW (11.6-14.8) % Plt Count (150-400) X10^3/uL Neut % (Auto) (50-75) % Lymph % (Auto) (25-40) % [place] % (Auto) (3-14) % Eos % (Auto) (2-4) % Baso % (Auto) (0-2) % Neut # (Auto) (8696-0679) /uL Lymph # (Auto) (3416-6361) /uL [place] # (Auto) (0-900) /uL Eos # (Auto) (0-450) /uL Baso # (Auto) (0-100) /uL PT (10.1-12.7) SECONDS INR (0.9-1.3) APTT (26-36) SECONDS Sodium (137-145) mmol/L Potassium (3.4-5.1) mmol/L Chloride (98-107) mmol/L Carbon Dioxide (22-32) mmol/L BUN (7-17) mg/dL Creatinine (0.52-1.04) mg/dL Estimated GFR (>60) mL/min BUN/Creatinine Ratio (6-22) Glucose (80-110) mg/dL Lactate 2.1 (0.7-2.1) mmol/L Calcium (8.4-10.2) mg/dL Total Bilirubin (0.2-1.3) mg/dL AST (14-36) IU/L ALT (<35) IU/L Alkaline Phosphatase (38-126) U/L Total Creatine Kinase 56 (30-135) U/L CK-MB (CK-2) TNP CK-MB (CK-2) Rel Index TNP Troponin I 0.019 (0.01-0.034) ng/mL Total Protein (6.3-8.2) g/dL Albumin (3.5-5.0) g/dL Globulin (1.7-4.1) g/dL Albumin/Globulin Ratio (1.0-2.8) Lipase (23-300) U/L Procalcitonin (<0.5) ng/mL Ethyl Alcohol < 10 ( - 10) mg/dL SARS-CoV-2 (PCR) (Negative) Influenza A (RT-PCR) (NEGATIVE) Influenza B (RT-PCR) (NEGATIVE) RSV (PCR) (Negative) 04/23/22 04/23/22 04/23/22 Range/Units 14:05 15:51 17:20 WBC (4.5-11.0) X10^3/uL RBC (4.0-5.2) X10^6/uL Hgb (12.0-16.0) g/dL Hct (36-46) % MCV (80-100) fL MCH (26-34) PG MCHC (30-36) % RDW (11.6-14.8) % Plt Count (150-400) X10^3/uL Neut % (Auto) (50-75) % Lymph % (Auto) (25-40) % [place] % (Auto) (3-14) % Eos % (Auto) (2-4) % Baso % (Auto) (0-2) % Neut # (Auto) (0209-9027) /uL Lymph # (Auto) (0090-9225) /uL [place] # (Auto) (0-900) /uL Eos # (Auto) (0-450) /uL Baso # (Auto) (0-100) /uL PT (10.1-12.7) SECONDS INR (0.9-1.3) APTT (26-36) SECONDS Sodium (137-145) mmol/L Potassium (3.4-5.1) mmol/L Chloride (98-107) mmol/L Carbon Dioxide (22-32) mmol/L BUN (7-17) mg/dL Creatinine (0.52-1.04) mg/dL Estimated GFR (>60) mL/min BUN/Creatinine Ratio (6-22) Glucose (80-110) mg/dL Lactate 1.0 (0.7-2.1) mmol/L Calcium (8.4-10.2) mg/dL Total Bilirubin (0.2-1.3) mg/dL AST (14-36) IU/L ALT (<35) IU/L Alkaline Phosphatase (38-126) U/L Total Creatine Kinase (30-135) U/L CK-MB (CK-2) CK-MB (CK-2) Rel Index Troponin I 0.027 (0.01-0.034) ng/mL Total Protein (6.3-8.2) g/dL Albumin (3.5-5.0) g/dL Globulin (1.7-4.1) g/dL Albumin/Globulin Ratio (1.0-2.8) Lipase (23-300) U/L Procalcitonin (<0.5) ng/mL Ethyl Alcohol ( - 10) mg/dL SARS-CoV-2 (PCR) Negative (Negative) Influenza A (RT-PCR) Flu a positive H (NEGATIVE) Influenza B (RT-PCR) Flu b negative (NEGATIVE) RSV (PCR) Negative (Negative) Imaging Data CT scan - head: Radiologist Impression: CT Scan Report Signed Patient: Ruth Cornelius MR#: [id number] : 1940 Acct:[id number] Age/Sex: 81 / F Date of Service: 04/23/22 Loc: ED Accession Number: [id number] ?? Procedure: CT head/brain wo con Ordering Provider: Latesha Jonas D.O. PROCEDURE:? CT HEAD/BRAIN WO CON ? INDICATIONS:? leaning to right side. ? TECHNIQUE:? Noncontrast 4.5 mm thick angled axial sections acquired from the foramen magnum to the vertex, with coronal and sagittal reformats.? For radiation dose reduction, the following was used:? automated exposure control, adjustment of mA and/or kV according to patient size.? ? COMPARISON:? None. ? FINDINGS:? Image quality:? Excellent.? ? CSF spaces:? Basal cisterns are patent.? No extra-axial fluid collections.? The ventricles are symmetric in size and shape.? ? Brain:? No intracranial bleeds or masses.? There is moderate cerebral volume loss for age, with resultant ventricular and sulcal prominence.? There are severe periventricular and deep white matter chronic small vessel ischemic changes.? Mild dystrophic basal ganglia calcification bilaterally.? There is intracranial internal carotid artery and vertebral artery atherosclerosis.? ? Skull and face:? Calvarium and visualized facial bones appear intact, without suspicious lesions.? ? Sinuses:? Visualized sinuses and mastoids are clear.? ? IMPRESSION:? ? 1. No acute intracranial abnormalities. ? 2. Cerebral volume loss and chronic microvascular ischemic changes. ? ? ? Dictated by: Jeremy Long M.D. on 04/23/2022 at 14:09 ? ? Approved by: Jeremy Long M.D. on 04/23/2022 at 14:10 ? Chest x-ray: Radiologist Impression: XRay Report Signed Patient: Ruth Cornelius MR#: [id number] : 1940 Acct:[id number] Age/Sex: 81 / F Date of Service: 04/23/22 Loc: ED Accession Number: [id number] ?? Procedure: XR chest 1V Ordering Provider: Latesha Jonas D.O. PROCEDURE:? XR CHEST 1V ? INDICATIONS:? suspected sepsis ? TECHNIQUE:? One view of the chest was acquired.? ? COMPARISON:? [facility], , CHEST 2 VIEW, 12/18/2013, 14:55. ? FINDINGS:? ? Surgical changes and devices:? None.? ? Lungs and pleura:? Lungs are clear.? No pleural effusions or pneumothorax.? ? Mediastinum:? Mediastinal contours appear normal.? Heart size is normal.? ? Bones and chest wall:? No suspicious bony lesions.? Overlying soft tissues appear unremarkable.? ? IMPRESSION:? No acute cardiopulmonary pathology. ? ? Dictated by: Sandeep Wright M.D. on 04/23/2022 at 14:48 ? ? ECG Data Interpretation: Normal sinus rhythm rate 87 MI interval 148 QRS 76 QTC 464 significant T-wave inversion noted in precordial leads V4 V5 and V6 along with lead 2 EKG 2. Persistent T-wave inversions V4 through V6 along with lead to no ST elevations also seen in AVF as seen previously no ST elevation MDM Narrative Medical decision making narrative: Patient is a 81-year-old female who presents with some weakness. states that she was so weak he had to help her which is extremely abnormal. They are both actually positive for influenza A. She did have some left-sided leg weakness but was leaning to the right. NIH is 0. Her weakness has improved now. She is found to be ill with influenza which is probably causing her generalized weakness although TIA and CVA can not be completely ruled out. Head CT is negative.. Her EKG does show significant T-wave inversion and ST depression in precordial leads which is new from 2010. Discussion with Dr. Bryant in regards to abnormal EKG with negative troponins and no chest pain at this time has no recommendations. Patient was leaning to the right she also reports left leg weakness possible TIA versus CVA versus sepsis and illness. She is not hypoxic. She does have abnormal EKG without chest pain or elevated troponins this is likely an incidental finding. Echocardiogram recommended in the morning if needed. states that she is unlikely to be strong enough to go home and he needs to be admitted to the hospital himself. Dr. Bishop accepts patient Discharge Plan Departure Patient Disposition: Admitted as Observation Clinical Impression: Brain TIA, Influenza A Prescriptions: No Action pravastatin 20 mg tablet 20 mg PO QDAY Qty: 90 3RF primidone 250 mg tablet See Rx Instructions .ROUTE .COMPLEX Qty: 135 3RF Dose Instruction: TAKE 1/2 TABLET BY MOUTH EVERY MORNING AND 1 TABLET EVERY EVENING Rx Instructions: TAKE 1/2 TABLET BY MOUTH EVERY MORNING AND 1 TABLET EVERY EVENING gabapentin 300 mg capsule 300 mg PO BEDTIME Qty: 90 3RF amlodipine 2.5 mg tablet 2.5 mg PO DAILY Qty: 90 3RF valacyclovir 1 gram tablet 1,000 mg PO TID Qty: 30 0RF estradiol 0.05 mg/24 hr patch weekly See Rx Instructions .ROUTE .COMPLEX Qty: 12 3RF Dose Instruction: APPLY ONE PATCH EVERY WEEK Rx Instructions: APPLY ONE PATCH EVERY WEEK fluticasone propionate 50 mcg/actuation spray,suspension 1 spray intranasal DAILY topiramate 100 mg tablet 100 mg PO BID primidone 50 mg tablet See Rx Instructions .ROUTE .COMPLEX Qty: 360 3RF Dose Instruction: TAKE 2 TABLETS BY MOUTH TWICE DAILY Rx Instructions: TAKE 2 TABLETS BY MOUTH TWICE DAILY sertraline 50 mg tablet 50 mg PO DAILY Qty: 90 3RF latanoprost 0.005 % drops 1 drp EYE-BOTH multivitamin Tablet 1 tab PO DAILY ascorbic acid (vitamin C) 1,000 mg tablet 1,000 mg PO DAILY oxybutynin chloride 5 mg tablet 5 mg PO BID PRN (Reason: incontinence) Qty: 180 3RF fluocinolone 0.01 % solution 1 applic topical BID lorazepam 1 mg tablet 1 mg PO DAILY timolol maleate 0.5 % drops 1 drp EYE-BOTH BID Label Comments: INSTILL 1 DROP IN BOTH EYES TWICE DAILY cholecalciferol (vitamin D3) 2,000 unit capsule 2,000 unit PO DAILY clobetasol 0.05 % cream 1 applic topical DAILY Referrals: Grant Phillips MD [Primary Care Provider] -
[2022-04-23 15:00] LABS: COVID-19 CEPHEID 4-PLEX PCR Negative (Negative); Influenza A - CEPHEID Flu A POSITIVE (NEGATIVE); Influenza B - CEPHEID Flu B NEGATIVE (NEGATIVE); Respiratory Syncytial Virus Negative (Negative)
[2022-04-23 15:02] LABS: Ethanol (ETOH) < 10 mg/dL
[2022-04-23 15:59] LABS: Reflexed Lactate in 2 Hours Y
[2022-04-23 16:47] LABS: Troponin I 0.027 ng/mL (0.01-0.034)
--- NOTE | 2022-04-23 19:35 | DI.MRI.S_ITS ---
PROCEDURE: MR STROKE Pre- and post-contrast brain MRI, non-contrast brain MR angiogram, pre- and postcontrast neck MR angiogram INDICATIONS: TIA/CVA TECHNIQUE: Brain: Noncontrast axial T1 spin echo, axial T2 fast spin echo, sagittal and axial FLAIR, coronal T2 fast spin echo, axial gradient echo, axial diffusion and ADC through the brain. After the administration of contrast, axial 3D VIBE of the cranial vasculature and brain. Brain MRA: Non-contrast 3-D time of flight MR angiogram, with multiple eosouki-dnralwgjt-uyqidzyeeu (MIP) reformats performed. Neck MRA: Axial and sagittal TruFISP through the neck. Coronal dynamic MR angiogram during administration of contrast in the arterial and venous phases, with 3-dimenstional hntettt-anghxqtte-pdkyfxryqy (MIP) reformats constructed from subtraction images. COMPARISON: [facility], CR, XR CHEST 1V, 04/23/2022, 14:06. [facility], MR, BRAIN (IAC) W&WO CONTRAST, 07/28/2012, 11:02. [facility], MR, BRAIN (PITUITARY) W&WO CONTRAS, 06/22/2016, 14:33. [facility], CT, CT HEAD/BRAIN WO CON, 04/23/2022, 14:03. FINDINGS: Image quality: Excellent. BRAIN: CSF spaces: Ventricles are normal in size and shape. Basal cisterns are patent. No extra-axial fluid collections. Brain: No intracranial bleeds or mass effects. There is moderate to severe cerebral volume loss. Severe periventricular white matter chronic small vessel ischemic changes are present. Lott-white matter interface is normal. Diffusion weighted images show no acute ischemic insults. Brainstem appears normal. Normal intravascular flow voids are present. No abnormal intracranial enhancement. Skull and face: Calvarial marrow signal is normal. Orbits appear normal. Sinuses: There is mild maxillary sinus mucosal thickening. The mastoids are clear. BRAIN MR ANGIOGRAM: Anterior circulation: Intracranial internal carotid arteries are normal in size and enhancement. The A1 segment of the right anterior cerebral artery is not visualized, either congenitally aplastic or severely hypoplastic. There is large left A1 segment. More distally, the flow within the paired anterior cerebral arteries is normal and symmetric. There is a moderate stenosis (70%) in the distal M1 segment of the right middle cerebral artery. The flow within the left middle cerebral artery s normal. The anterior communicating artery is seen. No stenoses, occlusions, or aneurysms. Posterior circulation: There is origin of the right posterior cerebral artery. The left vertebral artery does not appears to connect with the right vertebral artery to form the basilar. The basilar artery is supplied by the right vertebral artery. The visualized portions of the vertebral arteries demonstrate normal caliber. There is mild stenosis of the proximal right posterior cerebral artery. The flow within the posterior cerebral arteries is otherwise symmetric. No high grade stenoses, occlusions, or aneurysms. NECK MR ANGIOGRAM: Carotids: Great vessels demonstrate a conventional anatomy as they arise from the aortic arch. The origins of the common carotid arteries appear patent. The calibers and courses of both common carotid arteries are normal. The bifurcation regions appear normal bilaterally. The internal carotid arteries demonstrate normal course and caliber. Posterior circulation: The origins of the vertebral arteries appear patent. More superior portions of both vertebral arteries demonstrate normal course and caliber, and join to form a normal appearing basilar artery. Miscellaneous: Subclavian arteries appear patent. Pre-contrast images through the neck show no soft tissue abnormalities. IMPRESSION: BRAIN MRI: 1. No acute intracranial abnormalities. 2. Cerebral volume loss and chronic microvascular ischemic changes. BRAIN MR ANGIOGRAM: 1. Approximately 70% stenosis in the distal M1 segment of the right middle cerebral artery. 2. 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 There is large A1 segment of the left anterior cerebral artery. The anterior cerebral artery territory is supplied from the left side. 3. origin of the right posterior cerebral artery. 4. 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 NECK MR ANGIOGRAM: 1. No high-grade significant stenosis or occlusion in cervical carotid arteries or vertebral arteries bilaterally. Dictated by: Jeremy Long M.D. on 04/24/2022 at 11:18 Approved by: Jeremy Long M.D. on 04/24/2022 at 11:47
--- NOTE | 2022-04-23 19:46 | PM.HP.1 ---
History of Present Illness History of Present Illness Date Patient Seen: 04/23/22 Time Patient Seen: 19:46 Chief complaint: generalized weakness Narrative: Ruth Cornelius is a 89-year-old female with a history of hypertension, hyperlipidemia, history of alcohol abuse disorder resulting in frequent falls, L2 compressionfx, depression with anxiety, neuropathy, IBS, essential tremor, recent shingles ( right brow) and venous insufficiency whom both her and her spouse both presented to the ED this evening complaining of generalized weakness, so weak she could not get off the commode, her called EMS for assistance. EMS observe the patient favoring and leaning to the right, she has felt that her legs have been quite weak and wobbly since getting up this morning, notes nasal drainage mild cough, reports fevers as high as 104 at home, and that she frequently falls. She denies any chest pain shortness breath nausea vomiting diarrhea, headache, changes in vision, numbness, tingling, footdrop, no recent fall that resulted in head injury or loss of consciousness, no recent illness, no recent infections, skin injury, or changes to her medication. The patient denies any cardiac or respiratory history.? reports that she was extremely weak morning.? She does not normally need help but she definitely needed help.? He does not report any specific unilateral weakness neither does EMS. He also reported that the patient has been in physical therapy for the past month. In the ED patient was found to be afebrile, and mildly hypertensive. On admit, patient is resting comfortably she is in no respiratory or hemodynamic distress at rest. temp 98.2?, BP 184/75, HR 83, RR 19, O2 saturation 99% on room air. WBC 4.3, sodium 134, bicarb 19, creatinine 0.50, glucose 127, NIH: 0, procalcitonin WNL, lactate 2.1, repeat 1.0, ETOH negative, patient is negative for RSV influenza B, and COVID, positive for influenza A. Troponins normal but slightly elevated 0.019, repeat 0.027, EKG normal sinus rhythm with a rate of 87 significant T-wave inversions in leads V4 V5 V6 and lead 2. Cardiology was consulted and determined no further interventions were required at this time as patient has no chest pain, and troponin levels are likely inside account representative of demand secondary to influenza of possible TIA. Patient's head CT is negative for any intracranial processes, chest x-ray is negative for any acute cardiopulmonary process. Patient is admitted for generalized weakness TIA versus CVA, and positive influenza A. Patient History Medical History (Updated 04/23/22 @ 23:29 by KATLYN Phan-) Alcohol use disorder Atherosclerosis of aorta Compression fracture of L2 lumbar vertebra Depression, recurrent Do not resuscitate Essential hypertension Facet arthropathy, lumbar Gait instability Generalized anxiety disorder Hereditary and idiopathic neuropathy, unspecified Irritable bowel syndrome with diarrhea Left cervical radiculopathy Left supraspinatus tendonitis Lymphocytic colitis Medicare annual wellness visit, initial Mixed hyperlipidemia Mixed incontinence urge and stress Osteopenia 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 Shingles Urinary incontinence Venous insufficiency Surgical History History of knee replacement History of salpingo-oophorectomy (08/19/17) History of third molar tooth extraction Status post appendectomy Status post hysterectomy Status post tonsillectomy and adenoidectomy Family & Social History Family History (Updated 04/23/22 @ 23:10 by KATLYN Phan-RUPERTO) Mother Cancer Father Cancer Social History: household members patient lives with her , they have a assembler for puller over machine that comes in every other week, they have no children and no other family support locally. Safety & Behavioral: Feels Safe in Current Yes Environment Been Physically Hurt or No Threatened By a Person Tobacco & Substance use: Smoking Status Former smoker alcohol intake current alcohol intake frequency a few times a week -history of daily drinking but patient reports that has recently decreased. Substance Use Type does not use Meds Home Medications and Allergies Home Medications Medication Instructions Recorded Confirmed Type cholecalciferol (vitamin D3) 50 2,000 unit PO DAILY 03/09/19 04/23/22 History mcg (2,000 unit) capsule clobetasol 0.05 % topical cream 1 applic topical DAILY 08/16/20 04/23/22 History multivitamin 1 tab PO DAILY 06/26/21 04/23/22 History fluticasone propionate 50 1 spray intranasal DAILY 09/06/21 04/23/22 History mcg/actuation nasal spray,suspension ascorbic acid (vitamin C) 1,000 mg 1,000 mg PO DAILY 11/29/21 04/23/22 History tablet primidone 50 mg tablet See Rx Instructions .Route 12/15/21 04/23/22 Rx .COMPLEX #360 tabs sertraline 50 mg tablet 50 mg PO DAILY #90 tabs 12/15/21 04/23/22 Rx pravastatin 20 mg tablet 20 mg PO QDAY #90 tabs 12/25/21 04/23/22 Rx primidone 250 mg tablet See Rx Instructions .Route 01/15/22 04/23/22 Rx .COMPLEX #135 tabs gabapentin 300 mg capsule 300 mg PO BEDTIME #90 caps 02/19/22 04/23/22 Rx fluocinolone 0.01 % topical 1 applic topical BID 03/05/22 04/23/22 History solution amlodipine 2.5 mg tablet 2.5 mg PO DAILY #90 tabs 03/14/22 04/23/22 Rx estradiol 0.05 mg/24 hr weekly See Rx Instructions .Route 04/10/22 04/23/22 Rx transdermal patch .COMPLEX #12 patches lorazepam 1 mg tablet 1 mg PO DAILY 04/11/22 04/23/22 History Allergies Allergy/AdvReac Type Severity Reaction Status Date / Time propranolol [PROPRANOLOL] Allergy Mild TONGUE Verified 04/11/22 14:08 SWELLING Review of Systems Review of Systems Narrative: All 12 point systems reviewed with the patient and are negative except otherwise documented. Exam Vital Signs (past 8 hours): - 04/23/22 13:42 04/23/22 13:43 04/23/22 14:05 Temperature 98.2 F Pulse Rate 87 86 69 Respiratory Rate Blood Pressure 177/74 H Pulse Oximetry 99 99 Oxygen Delivery Method Room Air Room Air 04/23/22 14:07 04/23/22 14:09 04/23/22 14:09 Temperature Pulse Rate 86 86 Respiratory Rate Blood Pressure 187/82 H Pulse Oximetry 99 99 Oxygen Delivery Method Room Air Room Air 04/23/22 14:30 04/23/22 14:40 04/23/22 14:40 Temperature Pulse Rate 81 82 Respiratory Rate 24 28 H Blood Pressure 180/79 H Pulse Oximetry 99 99 Oxygen Delivery Method Room Air 04/23/22 15:00 04/23/22 15:00 04/23/22 15:30 Temperature Pulse Rate 80 Respiratory Rate 26 H Blood Pressure 171/74 H 171/75 H Pulse Oximetry 98 Oxygen Delivery Method Room Air 04/23/22 15:30 04/23/22 16:00 04/23/22 16:00 Temperature Pulse Rate 82 81 Respiratory Rate 24 22 Blood Pressure 166/74 H Pulse Oximetry 98 99 Oxygen Delivery Method Room Air Room Air 04/23/22 16:30 04/23/22 16:30 04/23/22 17:00 Temperature Pulse Rate 86 Respiratory Rate Blood Pressure 165/72 H 162/70 H Pulse Oximetry 98 Oxygen Delivery Method Room Air 04/23/22 17:00 04/23/22 17:30 04/23/22 17:30 Temperature Pulse Rate 81 81 Respiratory Rate 27 H 20 Blood Pressure 179/77 H Pulse Oximetry 98 98 Oxygen Delivery Method Room Air Room Air 04/23/22 18:00 04/23/22 18:00 04/23/22 18:44 Temperature Pulse Rate 81 91 H Respiratory Rate 22 20 Blood Pressure 170/77 H Pulse Oximetry 98 97 Oxygen Delivery Method Room Air Room Air 04/23/22 18:46 04/23/22 18:46 04/23/22 19:00 Temperature Pulse Rate 83 87 Respiratory Rate 18 20 Blood Pressure 171/80 H Pulse Oximetry 98 99 Oxygen Delivery Method Room Air Room Air 04/23/22 19:01 04/23/22 19:01 Temperature Pulse Rate 83 Respiratory Rate 19 Blood Pressure 184/75 H Pulse Oximetry 99 Oxygen Delivery Method Room Air Oxygen Delivery Method Room Air Narrative Exam Narrative: General: Patient is a well-developed, well-nourished angela elderly female in no distress at this time. HEENT: Normocephalic, atraumatic, extraocular muscles intact, oral pharynx is clear and mucous membranes are moist. Neck is supple and symmetric, trachea is midline, no adenopathy, no thyroid enlargement, nontender, no masses palpated. Negative for JVD Chest: Normal AP diameter and contour without kyphoscoliosis, no nasal flaring, retractions, or tachypneic labored breathing. Lungs: Auscultation of all lung ibrahim are clear without adventitious sounds, wheezes, rhonchi, or rales. Cardio: S1 & S2 with regular rate and rhythm without murmur, rubs, or gallops, no carotid bruit, no cardiac pulsations present. Abdomen: Soft nontender, negative for organomegaly, or masses. Bowel sounds are present in all 4 quadrants without guarding or rebound, no CVA tenderness. Musculoskeletal: Muscle strength and tone are equal within normal limits, no deformity, crepitus, effusions, cyanosis, clubbing or edema present. Full range of motion intact radial and pedal pulses are normal. Skin: Warm dry and intact without rashes, ulcerations or petechiae. Neuro: Alert and orientated x3, strength is +5/5 in all extremities, sensation to touch intact, no gross deficits noted of cranial nerves. NIH:0 Psych: Patient has a well-kept appearance, appropriate affect, mental status attitude thought context and judgment are appropriate for age. Objective Labs Result Diagrams: 04/23/22 13:39 04/23/22 13:39 Labs: Laboratory Results - last 24 hr 04/23/22 04/23/22 04/23/22 13:39 13:39 13:39 WBC 4.3 L RBC 3.93 L Hgb 13.5 Hct 40.2 MCV 102.2 H MCH 34.4 H MCHC 33.6 RDW 13.3 Plt Count 157 Neut % (Auto) 79.6 H Lymph % (Auto) 8.5 L [place] % (Auto) 11.5 Eos % (Auto) 0.0 L Baso % (Auto) 0.4 Neut # (Auto) 3400 Lymph # (Auto) 400 L [place] # (Auto) 500 Eos # (Auto) 0 Baso # (Auto) 0 PT 12.8 H INR 1.1 APTT 29 Sodium 134 L Potassium 3.5 Chloride 102 Carbon Dioxide 19 L BUN 8 Creatinine 0.50 L Estimated GFR > 60 BUN/Creatinine Ratio 16.0 Glucose 127 H Lactate Calcium 8.6 Total Bilirubin 0.5 AST 34 ALT 22 Alkaline Phosphatase 121 Total Creatine Kinase CK-MB (CK-2) CK-MB (CK-2) Rel Index Troponin I Total Protein 8.1 Albumin 4.2 Globulin 3.9 Albumin/Globulin Ratio 1.1 Lipase 46 Procalcitonin 0.06 Ethyl Alcohol SARS-CoV-2 (PCR) Influenza A (RT-PCR) Influenza B (RT-PCR) RSV (PCR) 04/23/22 04/23/22 04/23/22 13:39 13:39 13:39 WBC RBC Hgb Hct MCV MCH MCHC RDW Plt Count Neut % (Auto) Lymph % (Auto) [place] % (Auto) Eos % (Auto) Baso % (Auto) Neut # (Auto) Lymph # (Auto) [place] # (Auto) Eos # (Auto) Baso # (Auto) PT INR APTT Sodium Potassium Chloride Carbon Dioxide BUN Creatinine Estimated GFR BUN/Creatinine Ratio Glucose Lactate 2.1 Calcium Total Bilirubin AST ALT Alkaline Phosphatase Total Creatine Kinase 56 CK-MB (CK-2) TNP CK-MB (CK-2) Rel Index TNP Troponin I 0.019 Total Protein Albumin Globulin Albumin/Globulin Ratio Lipase Procalcitonin Ethyl Alcohol < 10 SARS-CoV-2 (PCR) Influenza A (RT-PCR) Influenza B (RT-PCR) RSV (PCR) 04/23/22 04/23/22 04/23/22 14:05 15:51 17:20 WBC RBC Hgb Hct MCV MCH MCHC RDW Plt Count Neut % (Auto) Lymph % (Auto) [place] % (Auto) Eos % (Auto) Baso % (Auto) Neut # (Auto) Lymph # (Auto) [place] # (Auto) Eos # (Auto) Baso # (Auto) PT INR APTT Sodium Potassium Chloride Carbon Dioxide BUN Creatinine Estimated GFR BUN/Creatinine Ratio Glucose Lactate 1.0 Calcium Total Bilirubin AST ALT Alkaline Phosphatase Total Creatine Kinase CK-MB (CK-2) CK-MB (CK-2) Rel Index Troponin I 0.027 Total Protein Albumin Globulin Albumin/Globulin Ratio Lipase Procalcitonin Ethyl Alcohol SARS-CoV-2 (PCR) Negative Influenza A (RT-PCR) Flu a positive H Influenza B (RT-PCR) Flu b negative RSV (PCR) Negative Assessment & Plan Assessment & Plan narrative: Ruth Cornelius is a 89-year-old female with a history of hypertension, hyperlipidemia, history of alcohol abuse, depression with anxiety, neuropathy, IBS, essential tremor, and venous insufficiency brought in via EMS both her and her have been admitted to the hospital. Patient is admitted for generalized weakness, TIA with a rule out of CVA, and asymptomatic influenza a. 1. Generalized weakness, acute on chronic, TIA versus CVA, acute, present on admission -NIH:0 in ED & on admit -Head CT is negative -NIH and neuro checks Q shift, -stroke MRI ordered for tomorrow -Plavix, ASA, Lipitor -consults: PT/OT/speech -bedside swallow, ortho stats Q 4 while awake -Troponins normal- 0.019, repeat 0.027, -EKG normal sinus rhythm with a rate of 87 significant T-wave inversions in leads V4 V5 V6 and lead 2. Cardiology was consulted and determined no further interventions were required at this time as patient is stable, no chest pain, likely demand. 2. Influenza a, acute, present on admission -patient appears to be predominantly asymptomatic with the exception of generalized weakness. -symptom management -negative for RSV influenza B, and COVID -chest x-ray is negative 3. Alcohol use disorder resulting in gait instability and frequent falls, acute on chronic, present on admission -ETOH was negative -patient's last fall was November 2021 resulting in an L2 compression fracture. -patient reports frequent falls -after reviewing Internal Medicine Dr. Grullon notes He has addressed this issue and the pt reported that she is having one drink per night. -my concern is her continuing frequent falls and risk of significant injury. -placed in [employer] consult for evaluation of safety/in-home services/support care for the patient to go home as both her and her are quite weak they live in a two-story home they have no family or consistent support for ADLs in the home. 4. Essential tremor, chronic, present on admission -continue primidone, topiramate 5. Generalized anxiety with depression, chronic, present on admission -continue sertraline 6. Hypertension, essential, chronic, present on admission -continue amlodipine 7. Neuropathy, chronic, present on admission -continue gabapentin Code status:DNR Surrogate decision maker: Kalyan Cornelius Spouse COVID PCR:Negative DVT/VTE prophylaxis:Plavix, ASA, & SCd's Disposition: Patient admit for observation for TIA CVA rule out, and asymptomatic influenza a, along with gait instability fall risk assessment and weakness evaluation, estimated length of stay less than 2 midnights. I have utilized all available immediate resources to obtain, update, or review the patient's current medications. I confirmed that the patient's advanced care plan is present, Code status is documented and/or surrogate decision maker is listed in the patient's medical record. I have personally reviewed patient's chart notes from PCP, specialists, diagnostic imaging, and laboratory, Time Spent With Patient Critical Care time: I spent a total of [] minutes of critical care time on this patient's care today; this time is exclusive of procedural time.
[2022-04-23 20:21] LABS: Magnesium 1.7 mg/dL (1.6-2.3)
[2022-04-23] MEDS: SENNOSIDES 8.6 MG TABLET 17.2 MG PO (20:22)
[2022-04-23] MEDS: ASPIRIN EC 325 MG TABLET PO (20:22)
[2022-04-23] MEDS: ATORVASTATIN 20 MG TABLET PO (20:22)
--- NOTE | 2022-04-23 20:58 | PC.NURSE ---
Pt reports JASON Ricci toileted pt earlier to the bathroom in wheelchair. Pt declines need of toileting at this time. Call light in reach, warm blanket provided.
[2022-04-23] MEDS: GABAPENTIN 300 MG CAPSULE PO (22:44)
--- NOTE | 2022-04-24 01:22 | PC.ADMIT ---
[email or web address] [facility] Admission Note: The patient,Ruth Cornelius,81 y/o, was given written information regarding hospital policies, unit procedures and contact persons. Patient's smoking status: Former smoker. Vital Signs - 8 hr 04/23/22 17:30 04/23/22 17:30 04/23/22 18:00 Temperature Pulse Rate 81 Respiratory Rate 20 Blood Pressure 179/77 H 170/77 H Pulse Oximetry 98 Oxygen Delivery Method Room Air Oxygen Flow Rate 04/23/22 18:00 04/23/22 18:44 04/23/22 18:46 Temperature Pulse Rate 81 91 H 83 Respiratory Rate 22 20 18 Blood Pressure Pulse Oximetry 98 97 98 Oxygen Delivery Method Room Air Room Air Room Air Oxygen Flow Rate 04/23/22 18:46 04/23/22 19:00 04/23/22 19:01 Temperature Pulse Rate 87 Respiratory Rate 20 Blood Pressure 171/80 H 184/75 H Pulse Oximetry 99 Oxygen Delivery Method Room Air Oxygen Flow Rate 04/23/22 19:01 04/23/22 19:30 04/23/22 19:30 Temperature Pulse Rate 83 78 Respiratory Rate 19 20 Blood Pressure 171/74 H Pulse Oximetry 99 97 Oxygen Delivery Method Room Air Room Air Oxygen Flow Rate 04/23/22 20:00 04/23/22 20:00 04/23/22 20:30 Temperature Pulse Rate 80 Respiratory Rate 22 Blood Pressure 174/77 H 172/74 H Pulse Oximetry 97 Oxygen Delivery Method Room Air Oxygen Flow Rate 04/23/22 20:30 04/23/22 21:00 04/23/22 21:00 Temperature Pulse Rate 84 77 Respiratory Rate 24 24 Blood Pressure 163/68 H Pulse Oximetry 97 96 Oxygen Delivery Method Room Air Room Air Oxygen Flow Rate 04/23/22 21:30 04/23/22 21:30 04/23/22 21:50 Temperature 98.3 F Pulse Rate 79 82 Respiratory Rate 22 16 Blood Pressure 160/69 H 169/72 H Pulse Oximetry 96 100 Oxygen Delivery Method Room Air Oxygen Flow Rate 0 04/23/22 22:30 Temperature Pulse Rate Respiratory Rate Blood Pressure Pulse Oximetry Oxygen Delivery Method Room Air Oxygen Flow Rate Patient admitted at 2150 from ER per stretcher to room 224. Placed on droplet precautions as is positive for influenza A. Is alert and oriented but responses to questions are not always appropriate in context. Breath sounds CTA with RA sat of 100%. Does have a moist sounding, intermittent, non-productive cough. HRR w/admit telemetry reading of SR w/1st degree AVB. BP elevated at 169/72. Denies nausea. BT present and abdomen is soft. Voided in ER and reports no dysuria; does dribble urine so wears a pad. Is able to turn herself in bed. Up to BSC with walker and 2 assists as seems weak and unsteady and needing cues to use walker despite stating she uses a walker at home. Leans to left when sitting up on side of bed. Did endorse some lightheadedness when out of bed. Has chronic bilateral foot neuropathy in distal portion. Also reports chronic back pain related to recent lumbar compression fracture but denied pain at time of assessment; states the back pain causes some difficulty in using left arm. Reports frequent falls so fall risk score is high and bed alarm is activated. Face flushed but afebrile. Oriented to call light and bed controls as well as plan of care.
[2022-04-24 02:00] VITALS: BP 174/84; PULSE 72; RESP 14; TEMP 36.9; O2SAT 97
[2022-04-24 05:00] VITALS: BP 101/69; BP 145/71; BP 147/73; PULSE 72; PULSE 85; PULSE 91; RESP 26; TEMP 37.2; O2SAT 97
[2022-04-24 05:30] LABS: Add Manual Diff / Slide Review NO; Basophils Absolute Auto 0 /uL (0-100); Basophils Percent Auto 0.2 % (0-2); Eosinophils Absolute Auto 0 /uL (0-450); Hematocrit 37.4 % (36-46); Hemoglobin 12.9 g/dL (12.0-16.0); INR 1.2 (0.9-1.3); Lymphocytes Absolute Auto 800 /uL (1100-4500); Lymphocytes Percent Auto 22.7 % (25-40); Mean Corpuscular HGB Conc 34.4 % (30-36); Mean Corpuscular Hemoglobin 34.9 PG (26-34); Mean Corpuscular Volume 101.7 fL (80-100); Monocytes Absolute Auto 400 /uL (0-900); Monocytes Percent Auto 12.5 % (3-14); Neutrophils Absolute Auto 2300 /uL (1500-7000); Neutrophils Percent Auto 64.6 % (50-75); Platelet Count 127 X10^3/uL (150-400); Red Blood Cell Count 3.68 X10^6/uL (4.0-5.2); Red Cell Distribution Width 13.5 % (11.6-14.8); White Blood Cell Count 3.6 X10^3/uL (4.5-11.0)
[2022-04-24 05:44] LABS: BUN Creatinine Ratio 20.8 (6-22); Blood Urea Nitrogen 11 mg/dL (7-17); Calcium 8.2 mg/dL (8.4-10.2); Carbon Dioxide 21 mmol/L (22-32); Chloride 104 mmol/L (98-107); Cholesterol 143 mg/dL (140-199); Estimated Glomerular Filt Rate > 60 mL/min (>60); Glucose 73 mg/dL (80-110); HDL Cholesterol 73 mg/dL (40-60); HEMOLYSIS < 15 (0-50); LDL Cholesterol Calculated 53 mg/dL (<100); Sodium 136 mmol/L (137-145); Triglycerides 86 mg/dL (35-150)
[2022-04-24 05:48] LABS: NT-proBNP (BNP-Adult 18+) 2930 pg/mL (<450)
[2022-04-24 06:15] LABS: Appearance Urine UA CLEAR; Bilirubin Urine UA 1+ (NEGATIVE); Color Urine UA YELLOW; Glucose Urine UA NEGATIVE (Negative); Ketones Urine UA 2+ (NEGATIVE); Leukocyte Esterase Urine UA TRACE (NEGATIVE); Nitrite Urine UA NEGATIVE (Negative); Occult Blood Urine UA NEGATIVE (Negative); Protein Urine UA 1+ (Negative); Specific Gravity Urine UA 1.025 (1.000-1.035); Urobilinogen Urine UA 0.2 E.U./dL (0.2)
[2022-04-24 06:22] LABS: Ictotest Urine Negative (Negative); pH Urine UA 5.5 (4.5-8.0)
[2022-04-24 06:26] LABS: RBC Urine None Seen (0-5/HPF); Squamous Epithelial Cell Urine 5-10 /HPF (0-5/HPF); WBC Urine 0-1/HPF (0-5/HPF)
[2022-04-24 06:27] LABS: Bacteria Urine Moderate (10-30); Culture Indicated Urine Specimen Cultured; Hyaline Casts Urine 1-5/LPF
[2022-04-24 08:44] VITALS: BP 130/68; PULSE 70; RESP 16; TEMP 36.8; O2SAT 98
[2022-04-24] MEDS: MAGNESIUM CHLORIDE 64 MG TABLET 128 MG PO (09:16)
[2022-04-24] MEDS: ASPIRIN EC 81 MG TABLET PO (09:16)
[2022-04-24] MEDS: AMLODIPINE 5 MG TABLET 2.5 MG PO (09:16)
[2022-04-24] MEDS: CLOPIDOGREL 75 MG TABLET PO (09:17)
[2022-04-24] MEDS: SERTRALINE 50 MG TABLET PO (09:17)
[2022-04-24] MEDS: POTASSIUM CHLORIDE 20 MEQ TAB 40 MEQ PO (09:17)
[2022-04-24] MEDS: SODIUM CHLORIDE 0.9% FLUSH 10 ML IV (09:17)
[2022-04-24] MEDS: LORazepam 1 MG TABLET 2 MG PO (09:18)
[2022-04-24] MEDS: PRIMIDONE 50 MG TABLET PO (09:20)
[2022-04-24] MEDS: PRIMIDONE 50 MG TABLET 250 MG PO (09:20)
--- NOTE | 2022-04-24 10:48 | SLP.IPNOTE ---
order received. Attempted to see pt. She was heading to MRI. Discussed speech nd swallowing with nursing who reported that pt is doing well with PO intake without difficulty. Nursing noted that pt is communicating well without s/sx aphasia/dysarthria.
--- NOTE | 2022-04-24 11:20 | PT.IIE ---
Surgical History (Last Reviewed 04/23/22 @ 19:50 [facility] History of knee replacement History of salpingo-oophorectomy (08/19/17) History of third molar tooth extraction Status post appendectomy Status post hysterectomy Status post tonsillectomy and adenoidectomy Medical History (Last Updated 04/23/22 @ 23:29 by [facility] Alcohol use disorder Atherosclerosis of aorta Compression fracture of L2 lumbar vertebra Depression, recurrent Do not resuscitate Essential hypertension Facet arthropathy, lumbar Gait instability Generalized anxiety disorder Hereditary and idiopathic neuropathy, unspecified Irritable bowel syndrome with diarrhea Left cervical radiculopathy Left supraspinatus tendonitis Lymphocytic colitis Medicare annual wellness visit, initial Mixed hyperlipidemia Mixed incontinence urge and stress Osteopenia 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 Shingles Urinary incontinence Venous insufficiency Physical Therapy Inpatient Evaluation/Re-Eval M1 PT/OT-IP Prior Functional Status Start: 04/24/22 13:03 Freq: NEEDED Status: Active Protocol: Document 04/24/22 11:20 AB (Rec: 04/24/22 13:12 AB [id number]) Medical Review Prior Functional Status Medical History Reviewed Yes Communication ablet o make needs known Mobility and Gait pt stated that she is modified independent with all mobilities and ambulation using either a 4WW/FWW and also a SPC for indoor mobility depending on what she is doing per pt; uses a SPC for outdoor mobility Prior Functional Level (Other details) pt stated that she has been going to outpt PT for her balance Social History Household Members spouse Living Arrangements House Number of Floors (Floors) 3 or More Floors Number of Stairs To Enter/Railing? 14 steps to etner L rail from the side door Home Environment High Toilet,Walk in Shower Home Equipment Front Wheel Walker,Four Wheel Walker,Straight Cane,Shower Seat without Backrest,Hand Held Shower,Grab Bars Near Toilet,Grab Bars In Shower Additional Social History Comment pt's spouse currently is also in the hospital and may not be able to assist her much when she goes home M2 PT-IP Current Condition Start: 04/24/22 13:03 Freq: NEEDED Status: Active Protocol: Document 04/24/22 11:20 AB (Rec: 04/24/22 13:12 AB [id number]) Physical Therapy Current Condition Current Condition Evaluation Date 04/24/22 Treatment Diagnosis Inf A; r/o brain TIA; difficulty in walking M3 PT-IP Subjective Start: 04/24/22 13:03 Freq: NEEDED Status: Active Protocol: Document 04/24/22 11:20 AB (Rec: 04/24/22 13:12 [email or web address]) Subjective Physical Therapy Visit Type Type Initial Evaluation Visit Start Time 11:20 Visit Stop Time 11:50 Total Visit Minutes 30 Number of BUSINESS DIVISION CHAIR Visits 0 Physical Therapy Visit Comments Patient Comments agreeable to do PT Therapy Pain Assessment Pain Present Pain Present Denied Pain M4 PT-IP Mobility and Gait Start: 04/24/22 13:03 Freq: NEEDED Status: Active Protocol: Document 04/24/22 11:20 AB (Rec: 04/24/22 13:12 [email or web address]) PT-Bed Mobility Assessment Supine to Sit Supine to Sit Minimal Assistance,Head of Bed Elevated,Bedrails PT-Transfer Assessment Sit to and From Stand Sit to and from Stand Contact Guard Assistance,1 Person Assistance,Use of Upper Extremities Equipment Transfer Assistive Device Gait Belt,Front Wheeled Walker Orthotic/Prosthetic Devices or Brace: No Transfers Transfer Destination Chair Transfer Technique ambulated Transfer Ability Level of Assist Contact Guard Assistance, Minimal Assistance,1 Person Assistance,Use of Upper Extremities Comments Mobility Comments completed bed mobility min A and cues. able to sit on EOB SBA/ O2 sat 99%. completed sit to stand CGA and ambulated towards the chair initially CGA but with unsteady gait and LOB requiring min A using fWW . pt agreed to sit on the chair. positioned on the chair. call light and table placed within reach. pt just came back from CT scan and wanted to rest for now. Gait Assessment Gait Gait Assistance Required: Contact Guard Assist,Minimum Assistance Distance (Feet) 12 Able to Maintain Weight Bearing Status Yes During Gait Assistive Devices Assistive Device Gait Belt,Front Wheeled Walker Orthotic/Prosthetic Devices or Brace: No Gait Deviations General Gait Pattern Decreased Stride Length, Decreased Feet Clearance,Step- to Gait Factors Limiting Gait Function Factors Limiting Gait Function Decreased Activity Tolerance, Decreased Strength,Difficulty Following Directions,Limited Range of Motion,Pain,Poor Balance PT-Balance Assessment Sitting Balance and Reactions Static Sitting Balance Ability Good Dynamic Sitting Balance Ability Fair Standing Balance and Reactions Static Standing Balance Ability Fair Dynamic Standing Balance Ability Poor Device Used FWW M5 PT-IP Objective Assessments Start: 04/24/22 13:03 Freq: NEEDED Status: Active Protocol: Document 04/24/22 11:20 AB (Rec: 04/24/22 13:12 AB [id number]) Orientation Orientation/Cognition Level of Alertness Alert Orientation Name,Place,Situation Language Function Ability Hard of Hearing Safety Awareness Decreased Safety Awareness Memory Description Short Term Impaired Gross Range of Motion Lower Extremity ROM Assessment Within Functional Limits Strength Lower Extremity Strength Assessment Bilaterally Impaired Hip 3+/5 Knee 3+/5 Sensation Assessment Sensation Gross Sensation WNL Muscle Tone Muscle Tone WNL Yes M6 PT-IP Treatment Start: 04/24/22 13:03 Freq: NEEDED Status: Active Protocol: Document 04/24/22 11:20 AB (Rec: 04/24/22 13:12 AB [email or web address]) Physical Therapy Treatment Education Education Provided Safety M7 PT-IP Assessment and Plan Start: 04/24/22 13:03 Freq: NEEDED Status: Active Protocol: Document 04/24/22 11:20 AB (Rec: 04/24/22 13:12 AB [email or web address]) PT Summary Assessment and Plan Potential Rehabilitation Potential Fair Status of Condition at Evaluation Evolving Summary Impairments Pain,ROM,Strength,Balance, Coordination,Sensation,Tone, Cognition,Bed Mobility, Transfers,Gait,Activity Tolerance Assessment Summary pt requiring min A with mobility using FWW with (+) LOB during ambulation requiring min A for recovery. pt also presents with decrease activity tolerance affecting mobility independence. pt's spouse also admitted here in the hospital and will not be able to assist pt. will continue to assess progress but at this time, pt may require SNF rehab. Goals Bed Mobility Goal Standby Assistance Transfer Goal Standby Assistance Gait Goal Standby Assistance,Front Wheel Walker,Four Wheel Walker Gait Distance 150 Other Goals improve bed mobility, transfers, ambulation using SPC SBA 200 ft up/down 14 steps L rail ascending SBA Days to Meet Goals 10 Frequency of Treatment Frequency Of Treatment Once a Day Treatment Plan Physical Therapy Treatment Plan Bed Mobility Training,Transfer Training,Gait Training, Therapeutic Exercise,Balance Retraining,Discharge Planning, Hot or Cold Pack,Neuromuscular Re-ed,Coordination Retraining Precautions Other Precautions droplet precaution (inf A); falls Recommendations To Nursing Amount of Assist Needed 1 Person Assist Discharge Recommendations PT Discharge Recommendations SNF Rehab Transportation Needs at Discharge Private Vehicle,Wheelchair/ Cabulance
[2022-04-24 12:09] VITALS: BP 140/60; PULSE 77; RESP 16; TEMP 36.6; O2SAT 99
[2022-04-24 14:26] VITALS: BP 137/68; BP 140/72; PULSE 70; PULSE 78; PULSE 80
--- NOTE | 2022-04-24 14:28 | PM.DS.1 ---
History of Present Illness History of Present Illness Date Patient Seen: 04/24/22 Chief complaint: generalized weakness Narrative: Ruth Cornelius is a 89-year-old female with a history of hypertension, hyperlipidemia, history of alcohol abuse disorder resulting in frequent falls, L2 compressionfx, depression with anxiety, neuropathy, IBS, essential tremor, recent shingles ( right brow) and venous insufficiency whom both her and her spouse both presented to the ED this evening complaining of generalized weakness, so weak she could not get off the commode, her called EMS for assistance. EMS observe the patient favoring and leaning to the right, she has felt that her legs have been quite weak and wobbly since getting up this morning, notes nasal drainage mild cough, reports fevers as high as 104 at home, and that she frequently falls. She denies any chest pain shortness breath nausea vomiting diarrhea, headache, changes in vision, numbness, tingling, footdrop, no recent fall that resulted in head injury or loss of consciousness, no recent illness, no recent infections, skin injury, or changes to her medication. The patient denies any cardiac or respiratory history.? reports that she was extremely weak morning.? She does not normally need help but she definitely needed help.? He does not report any specific unilateral weakness neither does EMS. He also reported that the patient has been in physical therapy for the past month. In the ED patient was found to be afebrile, and mildly hypertensive. On admit, patient is resting comfortably she is in no respiratory or hemodynamic distress at rest. temp 98.2?, BP 184/75, HR 83, RR 19, O2 saturation 99% on room air. WBC 4.3, sodium 134, bicarb 19, creatinine 0.50, glucose 127, NIH: 0, procalcitonin WNL, lactate 2.1, repeat 1.0, ETOH negative, patient is negative for RSV influenza B, and COVID, positive for influenza A. Troponins normal but slightly elevated 0.019, repeat 0.027, EKG normal sinus rhythm with a rate of 87 significant T-wave inversions in leads V4 V5 V6 and lead 2. Cardiology was consulted and determined no further interventions were required at this time as patient has no chest pain, and troponin levels are likely international representative of demand secondary to influenza of possible TIA. Patient's head CT is negative for any intracranial processes, chest x-ray is negative for any acute cardiopulmonary process. Patient is admitted for generalized weakness TIA versus CVA, and positive influenza A. Discharge Providers Provider Date of admission: 04/23/22 19:25 Discharge Date: 04/24/22 Primary care physician: Grant Phillips MD Consults: 04/23/22 19:38 Consult to Occupational Therapy Evaluate & Treat Comment: weakness/tia Physician Instructions: Evaluate and treat Consult to Physical Therapy Evaluate & Treat Comment: weakness/TIA Physician Instructions: Evaluate and Treat Consult to Speech Therapy Evaluate & Treat Comment: Physician Instructions: Evaluate and treat 04/23/22 22:17 Consult to Dietitian, Adult Routine Comment: Reason For Exam: 30# weight loss in past 3 months Consult to Pastoral Services Routine Comment: patient request welding inspector to visit 04/23/22 23:16 Consult to SCENIC ARTS SUPERVISOR - Principal Database Developer Routine Comment: freq falls, weakness, saefty to go home SCENIC ARTS SUPERVISOR Consult needed for:: [facility] Need Discharge provider: Ruiz Bishop DO Summary Hospital Course Discharge Diagnosis: 1. Generalized weakness, acute on chronic, TIA versus CVA, acute, present on admission 2. Influenza a, acute, present on admission 3. Alcohol use disorder resulting in gait instability and frequent falls, acute on chronic, present on admission 4. Essential tremor, chronic, present on admission 5. Generalized anxiety with depression, chronic, present on admission 6. Hypertension, essential, chronic, present on admission 7. Neuropathy, chronic, present on admission Hospital Course: Ruth Cornelius is a 89-year-old female with a history of hypertension, hyperlipidemia, history of alcohol abuse, depression with anxiety, neuropathy, IBS, essential tremor, and venous insufficiency brought in via EMS both her and her had been admitted to the hospital.? She was admitted over initial concern for possible TIA given unilateral lateral weakness noted by EMS providers in the setting of an influenza a infection. On arrival her NIH was 0, and both head CT and MRI showed no evidence of hemorrhage or ischemic stroke respectively. She felt much improved the following day, and with shared decision-making the patient elected against Tamiflu given improvement today. For a possible TIA she was prescribed aspirin, though with a low ABCD2 score Plavix was not recommended. Statin therapy was also prescribed at the time of discharge. Primary care provider to review her hospitalization and possible TIA within the next month. No other changes are recommended at the time of discharge to her chronic medication. Exam Vital Signs (past 8 hours): - 04/24/22 08:44 04/24/22 12:09 04/24/22 08:00 Temperature 98.3 F 98 F Pulse Rate 70 77 Pulse Rate [Orthostatic Lying] Pulse Rate [Orthostatic Sitting] Pulse Rate [Orthostatic Standing] Respiratory Rate 16 16 Blood Pressure 130/68 140/60 Blood Pressure [Orthostatic Lying] Blood Pressure [Orthostatic Sitting] Blood Pressure [Orthostatic Standing] Pulse Oximetry 98 99 Oxygen Delivery Method Room Air Oxygen Flow Rate 0 0 04/24/22 14:26 Temperature Pulse Rate Pulse Rate [Orthostatic Lying] 70 Pulse Rate [Orthostatic Sitting] 78 Pulse Rate [Orthostatic Standing] 80 Respiratory Rate Blood Pressure Blood Pressure [Orthostatic Lying] 137/68 Blood Pressure [Orthostatic Sitting] 140/72 Blood Pressure [Orthostatic Standing] 137/68 Pulse Oximetry Oxygen Delivery Method Oxygen Flow Rate Oxygen Delivery Method Room Air Oxygen Flow Rate 0 Narrative Exam Narrative: General: Patient is a well-developed, well-nourished angela elderly female in no distress at this time. HEENT: Normocephalic, atraumatic, extraocular muscles intact, oral pharynx is clear and mucous membranes are moist. Neck is supple and symmetric, trachea is midline, no adenopathy, no thyroid enlargement, nontender, no masses palpated. Negative for JVD Chest: Normal AP diameter and contour without kyphoscoliosis, no nasal flaring, retractions, or tachypneic labored breathing. Lungs: Auscultation of all lung ibrahim are clear without adventitious sounds, wheezes, rhonchi, or rales. Cardio: S1 & S2 with regular rate and rhythm without murmur, rubs, or gallops, no carotid bruit, no cardiac pulsations present. Abdomen: Soft nontender, negative for organomegaly, or masses. Bowel sounds are present in all 4 quadrants without guarding or rebound, no CVA tenderness. Musculoskeletal: Muscle strength and tone are equal within normal limits, no deformity, crepitus, effusions, cyanosis, clubbing or edema present. Full range of motion intact radial and pedal pulses are normal. Skin: Warm dry and intact without rashes, ulcerations or petechiae. Neuro: Alert and orientated x3, strength is +5/5 in all extremities, sensation to touch intact, no gross deficits noted of cranial nerves. NIH:0 Psych: Patient has a well-kept appearance, appropriate affect, mental status attitude thought context and judgment are appropriate for age. Objective Labs Result Diagrams: 04/24/22 04:47 04/24/22 04:47 Labs: Laboratory Results - last 24 hr 04/23/22 04/23/22 04/23/22 13:39 13:39 13:39 WBC RBC Hgb Hct MCV MCH MCHC RDW Plt Count Neut % (Auto) Lymph % (Auto) [place] % (Auto) Eos % (Auto) Baso % (Auto) Neut # (Auto) Lymph # (Auto) [place] # (Auto) Eos # (Auto) Baso # (Auto) PT 12.8 H INR 1.1 APTT 29 Sodium Potassium Chloride Carbon Dioxide BUN Creatinine Estimated GFR BUN/Creatinine Ratio Glucose Hemoglobin A1c Lactate Calcium Magnesium Troponin I NT-Pro-B Natriuret Pep Triglycerides Cholesterol LDL Cholesterol, Calc HDL Cholesterol Procalcitonin 0.06 Urine Color Urine Appearance Urine pH Ur Specific [place] Urine Protein Urine Glucose (UA) Urine Ketones Urine Occult Blood Urine Nitrate Urine Bilirubin Ur Bilirubin Confirm Urine Urobilinogen Ur Leukocyte Esterase Urine RBC Urine WBC Ur Squamous Epith Cells Urine Bacteria Hyaline Casts Ur Culture Indicated? Ethyl Alcohol < 10 SARS-CoV-2 (PCR) Influenza A (RT-PCR) Influenza B (RT-PCR) RSV (PCR) 04/23/22 04/23/22 04/23/22 13:39 14:05 15:51 WBC RBC Hgb Hct MCV MCH MCHC RDW Plt Count Neut % (Auto) Lymph % (Auto) [place] % (Auto) Eos % (Auto) Baso % (Auto) Neut # (Auto) Lymph # (Auto) [place] # (Auto) Eos # (Auto) Baso # (Auto) PT INR APTT Sodium Potassium Chloride Carbon Dioxide BUN Creatinine Estimated GFR BUN/Creatinine Ratio Glucose Hemoglobin A1c Lactate Calcium Magnesium 1.7 Troponin I 0.027 NT-Pro-B Natriuret Pep Triglycerides Cholesterol LDL Cholesterol, Calc HDL Cholesterol Procalcitonin Urine Color Urine Appearance Urine pH Ur Specific [place] Urine Protein Urine Glucose (UA) Urine Ketones Urine Occult Blood Urine Nitrate Urine Bilirubin Ur Bilirubin Confirm Urine Urobilinogen Ur Leukocyte Esterase Urine RBC Urine WBC Ur Squamous Epith Cells Urine Bacteria Hyaline Casts Ur Culture Indicated? Ethyl Alcohol SARS-CoV-2 (PCR) Negative Influenza A (RT-PCR) Flu a positive H Influenza B (RT-PCR) Flu b negative RSV (PCR) Negative 04/23/22 04/23/22 04/24/22 15:51 17:20 04:47 WBC 3.6 L RBC 3.68 L Hgb 12.9 Hct 37.4 MCV 101.7 H MCH 34.9 H MCHC 34.4 RDW 13.5 Plt Count 127 L Neut % (Auto) 64.6 Lymph % (Auto) 22.7 L [place] % (Auto) 12.5 Eos % (Auto) 0.0 L Baso % (Auto) 0.2 Neut # (Auto) 2300 Lymph # (Auto) 800 L [place] # (Auto) 400 Eos # (Auto) 0 Baso # (Auto) 0 PT INR APTT Sodium Potassium Chloride Carbon Dioxide BUN Creatinine Estimated GFR BUN/Creatinine Ratio Glucose Hemoglobin A1c 5.0 Lactate 1.0 Calcium Magnesium Troponin I NT-Pro-B Natriuret Pep Triglycerides Cholesterol LDL Cholesterol, Calc HDL Cholesterol Procalcitonin Urine Color Urine Appearance Urine pH Ur Specific [place] Urine Protein Urine Glucose (UA) Urine Ketones Urine Occult Blood Urine Nitrate Urine Bilirubin Ur Bilirubin Confirm Urine Urobilinogen Ur Leukocyte Esterase Urine RBC Urine WBC Ur Squamous Epith Cells Urine Bacteria Hyaline Casts Ur Culture Indicated? Ethyl Alcohol SARS-CoV-2 (PCR) Influenza A (RT-PCR) Influenza B (RT-PCR) RSV (PCR) 04/24/22 04/24/22 04/24/22 04:47 04:47 05:05 WBC RBC Hgb Hct MCV MCH MCHC RDW Plt Count Neut % (Auto) Lymph % (Auto) [place] % (Auto) Eos % (Auto) Baso % (Auto) Neut # (Auto) Lymph # (Auto) [place] # (Auto) Eos # (Auto) Baso # (Auto) PT 14.0 H INR 1.2 APTT Sodium 136 L Potassium 3.0 L Chloride 104 Carbon Dioxide 21 L BUN 11 Creatinine 0.53 Estimated GFR > 60 BUN/Creatinine Ratio 20.8 Glucose 73 L Hemoglobin A1c Lactate Calcium 8.2 L Magnesium Troponin I NT-Pro-B Natriuret Pep 2930 H Triglycerides 86 Cholesterol 143 LDL Cholesterol, Calc 53 HDL Cholesterol 73 H Procalcitonin Urine Color Yellow Urine Appearance Clear Urine pH 5.5 Ur Specific [place] 1.025 Urine Protein 1+ H Urine Glucose (UA) Negative Urine Ketones 2+ H Urine Occult Blood Negative Urine Nitrate Negative Urine Bilirubin 1+ H Ur Bilirubin Confirm Negative Urine Urobilinogen 0.2 Ur Leukocyte Esterase Trace H Urine RBC None seen Urine WBC 0-1/hpf Ur Squamous Epith Cells 5-10 /hpf H Urine Bacteria Moderate (10-30) H Hyaline Casts 1-5/lpf Ur Culture Indicated? Specimen cultured Ethyl Alcohol SARS-CoV-2 (PCR) Influenza A (RT-PCR) Influenza B (RT-PCR) RSV (PCR) [facility] Medical History (Updated 04/23/22 @ 23:29 by KATLYN Phan-) Alcohol use disorder Atherosclerosis of aorta Compression fracture of L2 lumbar vertebra Depression, recurrent Do not resuscitate Essential hypertension Facet arthropathy, lumbar Gait instability Generalized anxiety disorder Hereditary and idiopathic neuropathy, unspecified Irritable bowel syndrome with diarrhea Left cervical radiculopathy Left supraspinatus tendonitis Lymphocytic colitis Medicare annual wellness visit, initial Mixed hyperlipidemia Mixed incontinence urge and stress Osteopenia 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 Shingles Urinary incontinence Venous insufficiency Surgical History History of knee replacement History of salpingo-oophorectomy (08/19/17) History of third molar tooth extraction Status post appendectomy Status post hysterectomy Status post tonsillectomy and adenoidectomy Family History (Updated 04/23/22 @ 23:10 by KATLYN Phan-) Mother Cancer Father Cancer Social History household members: spouse Smoking Status: Former smoker alcohol intake: current Discharge Plan Discharge Plan Patient Disposition: Home Provider Discharge Comment: You were admitted to the hospital with flu and concern for possible stroke. You are being treated for a possible TIA. Please follow up with your PCP in the next 2-4 weeks to review hospitalization. Discharge orders & Medications Prescriptions: New aspirin 81 mg Tablet,Delayed Release (Dr/Ec) 81 mg PO DAILY 30 Days Qty: 30 0RF atorvastatin [Lipitor] 20 mg Tablet 20 mg PO BEDTIME 30 Days Qty: 30 0RF Continued pravastatin 20 mg tablet 20 mg PO QDAY Qty: 90 3RF primidone 250 mg tablet See Rx Instructions .ROUTE .COMPLEX Qty: 135 3RF Dose Instruction: TAKE 1/2 TABLET BY MOUTH EVERY MORNING AND 1 TABLET EVERY EVENING Rx Instructions: TAKE 1/2 TABLET BY MOUTH EVERY MORNING AND 1 TABLET EVERY EVENING gabapentin 300 mg capsule 300 mg PO BEDTIME Qty: 90 3RF amlodipine 2.5 mg tablet 2.5 mg PO DAILY Qty: 90 3RF estradiol 0.05 mg/24 hr patch weekly See Rx Instructions .ROUTE .COMPLEX Qty: 12 3RF Dose Instruction: APPLY ONE PATCH EVERY WEEK Rx Instructions: APPLY ONE PATCH EVERY WEEK fluticasone propionate 50 mcg/actuation spray,suspension 1 spray intranasal DAILY primidone 50 mg tablet See Rx Instructions .ROUTE .COMPLEX Qty: 360 3RF Dose Instruction: TAKE 2 TABLETS BY MOUTH TWICE DAILY Rx Instructions: TAKE 2 TABLETS BY MOUTH TWICE DAILY sertraline 50 mg tablet 50 mg PO DAILY Qty: 90 3RF multivitamin Tablet 1 tab PO DAILY ascorbic acid (vitamin C) 1,000 mg tablet 1,000 mg PO DAILY fluocinolone 0.01 % solution 1 applic topical BID lorazepam 1 mg tablet 1 mg PO DAILY cholecalciferol (vitamin D3) 2,000 unit capsule 2,000 unit PO DAILY clobetasol 0.05 % cream 1 applic topical DAILY Follow up/Referrals: Grant Phillips MD [Primary Care Provider] - Diet/Activity/Treatments Diet: Diet as Tolerated Activity: As tolerated Visit Report/Discharge Packet Instructions: DI for Influenza -- Adult Discharge Data Primary Care Provider: Grant Phillips V Attending Provider: Ruiz Bishop
--- NOTE | 2022-04-24 16:08 | OT.IP.EVAL ---
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 Shingles Urinary incontinence Venous insufficiency Surgical History (Last Reviewed 04/23/22 @ 19:50 by KATLYN Phan-RUPERTO) History of knee replacement History of salpingo-oophorectomy (08/19/17) History of third molar tooth extraction Status post appendectomy Status post hysterectomy Status post tonsillectomy and adenoidectomy Occupational Therapy Inpatient Evaluation/Re-Eval M1 PT/OT-IP Prior Functional Status Start: 04/24/22 13:03 Freq: NEEDED Status: Discharge Protocol: Document 04/24/22 16:16 [facility] (Rec: 04/24/22 16:31 [facility] [id number]) Medical Review Prior Functional Status Medical History Reviewed Yes Communication able to make needs known Mobility and Gait pt stated that she is modified independent with all mobilities and ambulation using either a 4WW/FWW and also a SPC for indoor mobility depending on what she is doing per pt; uses a SPC for outdoor mobility Prior Functional Level (Other details) pt stated that she has been going to outpt PT for her balance Social History Household Members spouse Living Arrangements House Number of Floors (Floors) 3 or More Floors Number of Stairs To Enter/Railing? 14 steps to enter L rail from the side door Home Environment High Toilet,Walk in Shower Home Equipment Front Wheel Walker,Four Wheel Walker,Straight Cane,Shower Seat without Backrest,Hand Held Shower,Grab Bars Near Toilet,Grab Bars In Shower Additional Social History Comment Pt also here in the hospital and may not be able to assist her. M2 OT-IP Current Condition Start: 04/24/22 16:15 Freq: Status: Discharge Protocol: Document 04/24/22 16:16 [facility] (Rec: 04/24/22 16:31 [facility] [id number]) Occupational Therapy Current Condition Current Condition Evaluation Date 04/24/22 Treatment Diagnosis Infuenza A, weakness Diagnosis Onset Date 04/23/22 M3 OT- IP Subjective and Pain Start: 04/24/22 16:15 Freq: Status: Discharge Protocol: Document 04/24/22 16:16 [facility] (Rec: 04/24/22 16:31 [facility] [id number]) OT- Subjective Occupational Therapy Visit Type Type Initial Evaluation Visit Start Time 15:23 Visit Stop Time 16:08 Total Visit Minutes 45 Occupational Therapy Visit Comments Patient Comments Pt agreed to get up thinking about going home versus staying as being discharge as well as her who also had Influenza A. Patient/Caregiver Goals To go home. OT Pain Assessment Pain When Pain Assessed At Rest Pain Present Pain Present Pain Reported M4 OT- IP ADL's Start: 04/24/22 16:15 Freq: Status: Discharge Protocol: Document 04/24/22 16:16 [facility] (Rec: 04/24/22 16:31 [facility] [id number]) OT [id number] Comments OT Self-Feeding Comments Not at meal time OT ADL-Grooming General Evaluation Areas Needing Assistance Retrieving/Set-up of Grooming Items Comments OT Grooming Comments Pt able to do while standing at the sink. OT ADL-Oral Care General Eval Oral Care Ability Independent Areas of Assistance Retrieving/Set-Up of Items Comments Oral Care Comments Able to do while standing at this sink with FWW. Assist to open the toothpaste tube OT ADL-Dressing General Eval Lower Body Dressing Ability Minimal Assistance Comments OT Dressing Comments MARK to yaneth her right sock over her foot. OT ADL-Toileting General Evaluation Toileting Ability Standby Assistance Comments OT Toileting Comments Pt able to do brief and hygiene with SBA , but CGA for balance. OT ADL-Bathing Comments OT Bathing Comments Due to pt's weakness, best for pt to have a shower chair for showering needs and that he to assist if able. M5 OT- IP IADL's Start: 04/24/22 16:15 Freq: Status: Discharge Protocol: Document 04/24/22 16:16 [facility] (Rec: 04/24/22 16:31 [facility] [id number]) OT-Instrumental Activities of Daily Living Home Safety Awareness Ability to Problem Solve Emergency Able to Problem Solve Situations Medication Management Medication Management Comments Pt states does her own. Money Management Money Management Caregiver Provides Assistance Meal Preparation Meal Preparation Comments Pt would benefit from assist due to weakness and decreased balance. Instructor Programmable Controllers Instructor Programmable Controllers Comments Pt would benefit from assist due to weakness and decreased balance. M6 OT- IP Functional Cognition Start: 04/24/22 16:15 Freq: Status: Discharge Protocol: Document 04/24/22 16:16 [facility] (Rec: 04/24/22 16:31 [facility] [id number]) Cognitive Factors Limiting Selfcare Function Cognitive Ability Level of Alertness Alert Patient Orientation Name,Place,Situation Attention Span Ability Capable of Focused Attention, Capable of Sustained Attention Ability to Follow Commands Able to Follow One Step Commands Safety Awareness Underestimates Need for Assistance Cognitive Comments Cognitive Assessment Comments Pt needing vc for safety awareness as easily distracted and trying to pickling grader tissue from the floor, letting go of the FWW to straighten the green pad on the bed, the needing cues to reach back with her hands to help lower her descent to the bed. OT- Vision and Hearing OT- Hearing Assessment OT- Hearing Assessment WFL OT- Vision Assessment Visual Acuity Glasses For Reading M7 OT- IP Mobility and Balance Start: 04/24/22 16:15 Freq: Status: Discharge Protocol: Document 04/24/22 16:16 [facility] (Rec: 04/24/22 16:31 [facility] [id number]) OT- Bed Mobility Assessment Supine to Sit Supine to Sit Assist Standby Assistance Sit to Supine Sit to Supine Assist Standby Assistance OT-Transfer Assessment Sit to and From Stand Sit to and from Stand Contact Guard Assistance Transfers Transfer Ability Contact Guard Assistance Technique Transfer Destination Bed,Toilet Devices Transfer Assistive Devices Gait Belt,Front Wheeled Walker Comments Mobility Comments CGA to stand , pt a little unsteady on her feet and with the FWW. Pt needing MARK to help lower her down to the toilet and bed. OT- Balance Assessment Sitting Balance and Reactions Static Sitting Balance Ability Good Dynamic Sitting Balance Ability Fair Standing Balance and Reactions Static Standing Balance Ability Fair Dynamic Standing Balance Ability Poor M8 OT- IP Objective Assessments Start: 04/24/22 16:15 Freq: Status: Discharge Protocol: Document 04/24/22 16:16 [facility] (Rec: 04/24/22 16:31 [facility] [id number]) OT Strength Upper Extremity Strength Assessment Bilaterally Impaired Comments Strength Comments Pt having difficulty with opening items for grooming needs. M9 OT- IP Assessment and Plan Start: 04/24/22 16:15 Freq: Status: Discharge Protocol: Document 04/24/22 16:31 [facility] (Rec: 04/24/22 16:39 [facility] [id number]) OT Summary Assessment and Plan Potential Rehabilitation Potential Good Analytic Complexity at Evaluation Low Summary OT Impairments Strength,Balance,Functional Mobility,Dressing,Toileting, Bathing,Toilet Transfers, Shower Transfers,Activity Tolerance Progress Towards Goals Progressing Toward Goals Assessment Summary Pt main barriers are decreased balance activity tolerance and now needing CGA/MARK for ADL and mobility needs. Pt's also has Influenza A and may not be able to adequately her at this time. Pt would benefit from more time here in the hospital or short rehab stay prior to going home. Goals Grooming Goal Independent Dressing Goal Independent Toileting Goal Independent Bathing Goal Independent Toilet Transfer Goal Independent Shower Transfer Goal Independent Days to Meet Goals 5 Frequency of Treatment Frequency Of Treatment Once a Day Treatment Plan OT Treatment Plan ADL Training,Functional Mobility,Patient/Family Education,Discharge Planning Other Treatment Recommendations and Next shower if still here Treatment Focus Discharge Recommendations OT Discharge Recommendations Home with Assistance & HH,SNF Rehab ,Home vs SNF Home Equipment Needs showr chair Transportation Needs at Discharge Private Vehicle,Wheelchair/ Cabulance
--- NOTE | 2022-04-24 16:20 | PC.NURSE ---
Patient's in to see patient and is ready to take patient home. They state they have help if they need it and a walker and will have her stay downstairs where there are less stairs to climb. Discharge instructions and home care handout reviewed with patient, she states understanding and has no further questions or concerns at this time. Patient instructed to follow up with her PCP Dr. Phillips. Patient escorted out via wheelchair by PORCELAIN TECHNICIAN with all her belongings to discharge to home with her .
--- NOTE | 2022-04-24 16:38 | CM.DANOTE ---
DC assessment note: Patient is 81 yr old female here with potential CVA VS TIA needing MRI and work up. Patient is A&O x4 at time of CM visit. Patient currently lives in [place] with her kalyan. Patient states she is independent at her baseline with all ADLS but does have her do most of the driving. Patient lives in a single level home and doesn't feel she will need any services at DC. CM discussed possible HH services and she declined stating that she didnt feel it would be needed. I: Medicare and Plan: DC home with family when medically stable. Colleen Alvarenga RNsecurities counselor Discharge Planning/Care Management Discharge Assessment Start: 04/24/22 13:03 Freq: Status: Discharge Protocol: Document 04/24/22 13:03 (Rec: 04/24/22 13:04 [id number]) Discharge Planning Assessment Assigned Casing Fluid Tender Colleen Alvarenga RNsecurities counselor DPOA/Assigned Designee Name Kalyan Cornelius Contact Information [phone] Advance Directives? Yes Advance Directives on File Yes History Provided By Patient,Medical Record Prior Living Arrangements House Household Members spouse Type of transporation used prior to Relies on Others admit Comment usually does the driving Independent with ADL's Yes Is patient alert and oriented? Yes Caregiver for Another No DME Already Rented / Owned FWW / Walker,Cane Barriers to Discharge No Discharge Plan Home Referrals Initiated None needed Whiteboard Updated in Patient Room with Yes name and ext. # of Casing Fluid Tender Review Status In Process Next Review Type Continued Stay Review
== END 2022-04-24 16:23 | disposition home or self-care (01) ==
LOC: ED 19:09 → AC 19:26
PROVIDERS: Nurse Practitioner Family; Admitting Provider Internal Medicine; Emergency Provider Emergency Medicine; Family Provider Internal Medicine; PCP Internal Medicine; Visit Provider Internal Medicine
DX: R53.1 Weakness (principal); R29.700 NIHSS score 0; J10.1 Influenza due to other identified influenza virus with other respiratory manifestations; F10.90 Alcohol use, unspecified, uncomplicated; Y90.0 Blood alcohol level of less than 20 mg/100 ml; R29.6 Repeated falls; Z91.81 History of falling; R26.89 Other abnormalities of gait and mobility; G25.0 Essential tremor; F41.9 Anxiety disorder, unspecified; F32.A Depression, unspecified; I10 Essential (primary) hypertension; G62.9 Polyneuropathy, unspecified; Z20.822 Contact with and (suspected) exposure to COVID-19
CPT/HCPCS: 0241U; 36415; 70450; 70548; 70553; 71045; 80048; 80053; 80061; 80320; 81001; 82550; 83036; 83605; 83690; 83735; 83880; 84145; 84484; 85025; 85610; 85730; 87040; 87086; 93005; 97162; 97165; 97535; 99284; G0378; A9579

== ENCOUNTER 2022-05-17 14:08 | Emergency (ER) | payer MEDICARE, OTHER, SELFPAY ==
[2022-04-27 16:13] VITALS: BMI 21.1
[2022-05-17] VITALS (26 sets, daily range): BP systolic 114–157; BP diastolic 56–79; PULSE 59–77; RESP 11–28; TEMP 36.6; O2SAT 96–100; BMI 21.0
--- NOTE | 2022-05-17 | DI.CT.S_ITS ---
PROCEDURE: CT ANGIO HEAD AND NECK INDICATIONS: Postive BE-Fast, stroke symptoms TECHNIQUE: After the administration of intravenous contrast, 1 mm thick sections acquired from the aortic arch through the [place] of [place]. Post-contrast 4.5 mm thick sections then re-acquired from the foramen magnum to the vertex. 3-dimensional lqsfvxb-flnvgtwuv-medrxfzwln (MIP) and/or volume rendering reformats were acquired of the central intracranial vasculature and neck separately. For radiation dose reduction, the following was used: automated exposure control, adjustment of mA and/or kV according to patient size. COMPARISON: [facility], , MR STROKE, 04/24/2022, 10:12. FINDINGS: Image quality: Excellent. BRAIN: CSF spaces: Ventricles are normal in size and shape. Basal cisterns are patent. No extra-axial fluid collections. Brain: No midline shift. No intracranial bleeds or masses. Lott-white matter interface appears intact. Skull and face: Calvarium and facial bones appear intact, without suspicious lesions. Orbits appear normal. Sinuses: Sinuses and mastoids are clear. HEAD CT ANGIOGRAPHY: Anterior circulation: Intracranial internal carotid arteries are normal in size and flow. Heavy right distal ICA atherosclerotic calcification and mild left. The right A1 segment is hypoplastic, normal variant. Anterior cerebral arteries arise from the distal left A1 segment. The flow within the paired anterior cerebral arteries is normal and symmetric. Mid to distal right M1 segment demonstrates tandem stenoses, the more proximal one is more severe, greater than 50%. The remainder of the right MCA is normal caliber.. The flow within the middle cerebral arteries is normal and symmetric. The anterior communicating artery is seen. No aneurysms are seen. Posterior circulation: Visualized portions of the vertebral arteries demonstrate normal caliber, and join to form a normal appearing basilar artery. There is a origin of the right posterior cerebral artery arising from the right ICA. Flow within the posterior cerebral arteries is normal and symmetric. No aneurysms are seen. NECK CT ANGIOGRAPHY: Carotid system: The great vessels demonstrate a conventional anatomy as they arise from the aortic arch. The origins of the common carotid arteries appear patent. The common carotid arteries demonstrate normal caliber and courses. There is heavy calcification at the right carotid bulb and internal carotid artery for segment about 2.1 cm in length resulting in stenosis estimated to be about 50%. There is mild calcific plaque of the left carotid bulb and left internal carotid artery The internal carotid arteries demonstrate normal courses. Posterior circulation: Calcification at the origins of both vertebral arteries. The more superior extracranial portions of both vertebral arteries also demonstrate normal courses and calibers. They join to form a normal appearing basilar artery. Soft tissues: Visualized neck soft tissues demonstrate no suspicious abnormalities. Bones: No suspicious bony lesions. Visualized cervical spine appears normally aligned. Mild multilevel disc degeneration. IMPRESSION: 1. 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 Stenosis was noted on prior brain MRA. 2. Diffuse moderate to high-grade stenosis at the right carotid bulb extending into the right internal carotid artery measuring greater than 50%. Correlate with carotid duplex ultrasound. 3. Anatomic variants of intracranial circulation. Any quantitative measurements of stenosis were performed using NASCET criteria. Dictated by: Belen Canela M.D. on 05/17/2022 at 15:21 Approved by: Belen Canela M.D. on 05/17/2022 at 15:47
--- NOTE | 2022-05-17 14:18 | DI.RAD.S_ITS ---
PROCEDURE: XR CHEST 1V INDICATIONS: Possible stroke TECHNIQUE: One view of the chest was acquired. COMPARISON: [facility], , XR CHEST 1V, 04/23/2022, 14:06. FINDINGS: Surgical changes and devices: None. Lungs and pleura: Lungs are hyperlucent but clear. No pleural effusions or pneumothorax. Mediastinum: Mediastinal contours appear normal. Heart size is normal. Bones and chest wall: No suspicious bony lesions. Overlying soft tissues appear unremarkable. IMPRESSION: No acute cardiopulmonary disease. Dictated by: Belen Canela M.D. on 05/17/2022 at 15:17 Approved by: Belen Canela M.D. on 05/17/2022 at 15:17
--- NOTE | 2022-05-17 14:18 | DI.CT.S_ITS ---
PROCEDURE: CT HEAD/BRAIN WO CON INDICATIONS: Positive BE-FAST, Stroke symptoms TECHNIQUE: Noncontrast 4.5 mm thick angled axial sections acquired from the foramen magnum to the vertex, with coronal and sagittal reformats. For radiation dose reduction, the following was used: automated exposure control, adjustment of mA and/or kV according to patient size. COMPARISON: [facility], CT, CT HEAD/BRAIN WO CON, 04/23/2022, 14:03. FINDINGS: Image quality: Excellent. CSF spaces: Basal cisterns are patent. No extra-axial fluid collections. The ventricles are symmetric in size and shape. Brain: No intracranial bleeds or masses. There is moderate cerebral volume loss for age, with resultant ventricular and sulcal prominence. There are moderate periventricular and deep white matter chronic small vessel ischemic changes. There is intracranial internal carotid artery atherosclerosis. Skull and face: Calvarium and visualized facial bones appear intact, without suspicious lesions. Sinuses: Visualized sinuses and mastoids are clear. IMPRESSION: 1. No CT evidence of acute intracranial process. 2. Age-appropriate cerebral cortical volume loss and chronic microvascular ischemic changes. Dictated by: Belen Canela M.D. on 05/17/2022 at 15:17 Approved by: Belen Canela M.D. on 05/17/2022 at 15:21
--- NOTE | 2022-05-17 14:26 | ED_ITS ---
HPI - Neuro Symptoms/Deficit General Chief Complaint: Neuro Symptoms/Deficit Stated Complaint: Weakness,slurred speech LKW [id number],sx gone now Time Seen by Provider: 05/17/22 14:20 Source: patient and EMS Mode of arrival: EMS History of Present Illness HPI Narrative: Patient is a 81-year-old female history of TIA, hypertension, hyperlipidemia, presenting with increasing weakness over last 3 days. She normally is able to get herself dressed however today her had to help her. reports that she actually is requiring more assistance and has had steady decline of her health. He reports that last week she froze and was unable to sit down or stand up and had confusion for about 45 minutes and then it went away. 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 Things have gotten just worse over last 3 days. She is not had any fever she chills. She denies any abdominal pain nausea or vomiting chest pain or shortness of breath. She was previously admitted in 04/23/2022 for TIA she was thought to have some slurring of speech today and EMS was called. Not having slurring of speech Related Data Home Medications Medication Instructions Recorded Confirmed cholecalciferol (vitamin D3) 50 2,000 unit PO DAILY 03/09/19 05/04/22 mcg (2,000 unit) capsule clobetasol 0.05 % topical cream 1 applic topical DAILY 08/16/20 05/04/22 multivitamin 1 tab PO DAILY 06/26/21 05/04/22 fluticasone propionate 50 1 spray intranasal DAILY 09/06/21 05/04/22 mcg/actuation nasal spray,suspension ascorbic acid (vitamin C) 1,000 mg 1,000 mg PO DAILY 11/29/21 05/04/22 tablet fluocinolone 0.01 % topical 1 applic topical BID 03/05/22 05/04/22 solution lorazepam 1 mg tablet 1 mg PO DAILY 04/11/22 05/04/22 Previous Rx's Medication Instructions Recorded primidone 50 mg tablet See Rx Instructions .Route 12/15/21 .COMPLEX #360 tabs sertraline 50 mg tablet 50 mg PO DAILY #90 tabs 12/15/21 primidone 250 mg tablet See Rx Instructions .Route 01/15/22 .COMPLEX #135 tabs gabapentin 300 mg capsule 300 mg PO BEDTIME #90 caps 02/19/22 amlodipine 2.5 mg tablet 2.5 mg PO DAILY #90 tabs 03/14/22 estradiol 0.05 mg/24 hr weekly See Rx Instructions .Route 04/10/22 transdermal patch .COMPLEX #12 patches aspirin 81 mg tablet,delayed 81 mg PO DAILY 30 days #30 tabs 04/24/22 release atorvastatin 20 mg tablet (Lipitor) 20 mg PO BEDTIME 30 days #30 tabs 04/24/22 Allergies Allergy/AdvReac Type Severity Reaction Status Date / Time propranolol [PROPRANOLOL] Allergy Mild TONGUE Verified 05/04/22 08:55 SWELLING Review of Systems Review of Systems ROS Unobtainable: All systems reviewed & are unremarkable except as noted in HPI and below Patient History Medical History Alcohol use disorder Atherosclerosis of aorta Cerebrovascular disease Compression fracture of L2 lumbar vertebra Depression, recurrent Do not resuscitate Essential hypertension Facet arthropathy, lumbar Gait instability Generalized anxiety disorder Hereditary and idiopathic neuropathy, unspecified Irritable bowel syndrome with diarrhea Left cervical radiculopathy Left supraspinatus tendonitis Lymphocytic colitis Mixed hyperlipidemia Mixed incontinence urge and stress Osteopenia 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 Shingles Urinary incontinence Venous insufficiency Surgical History History of knee replacement History of salpingo-oophorectomy (08/19/17) History of third molar tooth extraction Status post appendectomy Status post hysterectomy Status post tonsillectomy and adenoidectomy Family History Mother Cancer Father Cancer Social History household members: spouse Smoking Status: Former smoker alcohol intake: current Smoking Status: Former smoker alcohol intake frequency: 0-2 drinks per day Alcohol type: wine Substance Use Type: marijuana Exam Initial Vital Signs Initial Vital Signs: Vital Signs Pulse Rate 65 05/17/22 14:12 Pulse Oximetry 99 05/17/22 14:12 GENERAL: Alert week pleasant 81-year-old female and in no acute distress. HEENT: Head atraumatic,EOMI, pupils reactive, face symmetric, moist mucous membranes CARDIOVASCULAR: Regular rate and rhythm without murmurs, rubs or gallops. RESPIRATORY: Breath sounds equal bilaterally, no wheezes rales or rhonchi. ABDOMEN: Soft, nontender. Normoactive bowel sounds all 4 quadrants. No gu arding or rebound. EXTREMITIES: Normal range of motion, no clubbing or edema. Neurovascularly intact NEUROLOGICAL: Alert and oriented x4.Normal gait and speech. Cranial nerves II through XII grossly intact. Good [id number], good [id number], strength equal bilaterally, no dysarthria or aphasia, sensation in tact to soft touch bilaterally, no visual changes, no facial droop SKIN: Warm, dry, no laceration, no petechiae, no rashes or lesions. Course Orders Ordered: Discontinued Medications Sodium Chloride (Normal Saline 0.9%) 1,000 mls @ 1,000 mls/hr IV BOLUS ONE Stop: 05/17/22 18:33 Last Infusion: 05/17/22 18:50 Dose: 0 mls/hr Documented By: Admin: 05/17/22 18:20 Dose: 1,000 mls/hr Documented By: RB Ondansetron HCl (Ondansetron 4 Mg/2 Ml Inj) 4 mg IV NOW PRN PRN Reason: Nausea And Vomiting Ondansetron HCl (Ondansetron 4 Mg Odt) 4 mg SL NOW PRN PRN Reason: Nausea And Vomiting Vital Signs Vital signs: Vital Signs - 8 hr 05/17/22 14:16 05/17/22 14:12 05/17/22 14:47 Temperature 97.9 F Pulse Rate 66 65 67 Respiratory Rate 17 Blood Pressure 120/58 L Pulse Oximetry 99 99 100 Oxygen Delivery Method Room Air 05/17/22 15:00 05/17/22 15:07 05/17/22 15:07 Temperature Pulse Rate 66 67 Respiratory Rate 22 Blood Pressure 129/79 Pulse Oximetry 99 98 Oxygen Delivery Method 05/17/22 15:08 05/17/22 15:08 05/17/22 15:15 Temperature Pulse Rate 68 64 Respiratory Rate 24 21 Blood Pressure 114/57 L Pulse Oximetry 98 97 Oxygen Delivery Method 05/17/22 15:30 05/17/22 15:45 05/17/22 16:00 Temperature Pulse Rate 62 67 65 Respiratory Rate 28 H 22 16 Blood Pressure Pulse Oximetry 97 97 97 Oxygen Delivery Method 05/17/22 16:15 05/17/22 16:23 05/17/22 16:23 Temperature Pulse Rate 66 68 Respiratory Rate 22 21 Blood Pressure 120/56 L Pulse Oximetry 97 97 Oxygen Delivery Method 05/17/22 16:30 05/17/22 16:31 05/17/22 16:31 Temperature Pulse Rate 66 77 Respiratory Rate 16 20 Blood Pressure 130/60 Pulse Oximetry 96 96 Oxygen Delivery Method 05/17/22 16:45 05/17/22 16:45 05/17/22 17:00 Temperature Pulse Rate 63 68 Respiratory Rate 17 21 Blood Pressure 132/60 Pulse Oximetry 96 98 Oxygen Delivery Method 05/17/22 17:15 05/17/22 17:30 05/17/22 17:36 Temperature Pulse Rate 59 L 60 59 L Respiratory Rate 20 22 24 Blood Pressure Pulse Oximetry 98 98 98 Oxygen Delivery Method 05/17/22 17:36 05/17/22 17:45 05/17/22 17:46 Temperature Pulse Rate 59 L 59 L Respiratory Rate 18 18 Blood Pressure 137/58 L Pulse Oximetry 98 98 Oxygen Delivery Method 05/17/22 17:46 05/17/22 18:09 05/17/22 18:10 Temperature Pulse Rate 61 60 Respiratory Rate 18 13 Blood Pressure 141/61 H Pulse Oximetry 99 99 Oxygen Delivery Method 05/17/22 18:10 05/17/22 18:15 05/17/22 18:15 Temperature Pulse Rate 62 Respiratory Rate 17 Blood Pressure 157/74 H 134/61 Pulse Oximetry 98 Oxygen Delivery Method MDM - Neuro Symptoms/Deficit Lab Data Result diagrams: 05/17/22 14:10 05/17/22 14:10 Labs: Lab Results 05/17/22 05/17/22 05/17/22 Range/Units 14:10 14:10 14:10 WBC 4.5 (4.5-11.0) X10^3/uL RBC 3.63 L (4.0-5.2) X10^6/uL Hgb 12.6 (12.0-16.0) g/dL Hct 36.9 (36-46) % MCV 101.7 H (80-100) fL MCH 34.6 H (26-34) PG MCHC 34.1 (30-36) % RDW 13.5 (11.6-14.8) % Plt Count 155 (150-400) X10^3/uL Neut % (Auto) 61.8 (50-75) % Lymph % (Auto) 27.4 (25-40) % Canyon % (Auto) 7.0 (3-14) % Eos % (Auto) 2.9 (2-4) % Baso % (Auto) 0.9 (0-2) % Neut # (Auto) 2800 (4027-9233) /uL Lymph # (Auto) 1200 (2464-3422) /uL [place] # (Auto) 300 (0-900) /uL Eos # (Auto) 100 (0-450) /uL Baso # (Auto) 0 (0-100) /uL PT 12.6 (10.1-12.7) SECONDS INR 1.1 (0.9-1.3) APTT 29 (26-36) SECONDS Sodium 141 (137-145) mmol/L Potassium 4.1 (3.4-5.1) mmol/L Chloride 107 (98-107) mmol/L Carbon Dioxide 25 (22-32) mmol/L BUN 12 (7-17) mg/dL Creatinine 0.67 (0.52-1.04) mg/dL Estimated GFR > 60 (>60) mL/min BUN/Creatinine Ratio 17.9 (6-22) Glucose 89 (80-110) mg/dL Lactate (0.7-2.1) mmol/L Calcium 8.7 (8.4-10.2) mg/dL Magnesium 1.8 (1.6-2.3) mg/dL Total Bilirubin 0.3 (0.2-1.3) mg/dL AST 25 (14-36) IU/L ALT 18 (<35) IU/L Alkaline Phosphatase 106 (38-126) U/L Ammonia (9-30) umol/L Total Creatine Kinase 54 (30-135) U/L CK-MB (CK-2) TNP CK-MB (CK-2) Rel Index TNP Troponin I < 0.012 (0.01-0.034) ng/mL Total Protein 7.4 (6.3-8.2) g/dL Albumin 3.7 (3.5-5.0) g/dL Globulin 3.7 (1.7-4.1) g/dL Albumin/Globulin Ratio 1.0 (1.0-2.8) Procalcitonin (<0.5) ng/mL Urine Color Urine Appearance Urine pH (4.5-8.0) Ur Specific Adam[place] (1.000-1.035) Urine Protein (Negative) Urine Glucose (UA) (Negative) g/dL Urine Ketones (NEGATIVE) Urine Occult Blood (Negative) Urine Nitrate (Negative) Urine Bilirubin (NEGATIVE) Urine Urobilinogen (0.2) E.U./dL Ur Leukocyte Esterase (NEGATIVE) Urine RBC (0-5/HPF) Urine WBC (0-5/HPF) Ur Squamous Epith Cells (0-5/HPF) Urine Bacteria (None) Ur Culture Indicated? Salicylates (<20) mg/dL U Opiates 300ng/mL cut (Negative) Ur Oxycodone Screen (Negative) Urine Methadone Screen (Negative) Acetaminophen (10-30) ug/mL Ur Barbiturates Screen (Negative) U Tricyclic Antidepress (Negative) Ur Phencyclidine Scrn (Negative) Ur Amphetamines Screen (Negative) U Methamphetamines Scrn (Negative) Ur MDMA Scrn (Ecstasy) (Negative) U Benzodiazepines Scrn (Negative) Urine Cocaine Screen (Negative) U Marijuana (THC) Screen (Negative) Ethyl Alcohol ( - 10) mg/dL Chlamy pneumoniae PCR (Not Detect) Adenovirus (PCR) (Not Detect) B. pertussis DNA (PCR) (Not Detecte) B.parapertussis DNA PCR (Not Detecte) Coronavirus OC43 (PCR) (Not Detect) Coronavirus HKU1 (PCR) (Not Detect) Coronavirus 229E (PCR) (Not Detect) SARS-CoV-2 (PCR) (Negative) Coronavirus NL63 (PCR) (Not Detect) Human Metapneumovir PCR (Not Detect) Influenza Type A (PCR) (Not Detect) Influenza Type B (PCR) (Not Detect) M. pneumoniae (PCR) (Not Detect) Parainfluenza 1 (PCR) (Not Detect) Parainfluenza 2 (PCR) (Not Detect) Parainfluenza 3 (PCR) (Not Detect) Parainfluenza 4 (PCR) (Not Detect) RSV (PCR) (Not Detect) Entero/Rhino (PCR) (Not Detect) 01/12/23 01/12/23 01/12/23 Range/Units 14:10 14:10 14:10 WBC (4.5-11.0) X10^3/uL RBC (4.0-5.2) X10^6/uL Hgb (12.0-16.0) g/dL Hct (36-46) % MCV (80-100) fL MCH (26-34) PG MCHC (30-36) % RDW (11.6-14.8) % Plt Count (150-400) X10^3/uL Neut % (Auto) (50-75) % Lymph % (Auto) (25-40) % Canyon % (Auto) (3-14) % Eos % (Auto) (2-4) % Baso % (Auto) (0-2) % Neut # (Auto) (8023-7740) /uL Lymph # (Auto) (7361-3111) /uL Canyon # (Auto) (0-900) /uL Eos # (Auto) (0-450) /uL Baso # (Auto) (0-100) /uL PT (10.1-12.7) SECONDS INR (0.9-1.3) APTT (26-36) SECONDS Sodium (137-145) mmol/L Potassium (3.4-5.1) mmol/L Chloride (98-107) mmol/L Carbon Dioxide (22-32) mmol/L BUN (7-17) mg/dL Creatinine (0.52-1.04) mg/dL Estimated GFR (>60) mL/min BUN/Creatinine Ratio (6-22) Glucose (80-110) mg/dL Lactate 1.4 (0.7-2.1) mmol/L Calcium (8.4-10.2) mg/dL Magnesium (1.6-2.3) mg/dL Total Bilirubin (0.2-1.3) mg/dL AST (14-36) IU/L ALT (<35) IU/L Alkaline Phosphatase (38-126) U/L Ammonia (9-30) umol/L Total Creatine Kinase (30-135) U/L CK-MB (CK-2) CK-MB (CK-2) Rel Index Troponin I (0.01-0.034) ng/mL Total Protein (6.3-8.2) g/dL Albumin (3.5-5.0) g/dL Globulin (1.7-4.1) g/dL Albumin/Globulin Ratio (1.0-2.8) Procalcitonin 0.03 (<0.5) ng/mL Urine Color Urine Appearance Urine pH (4.5-8.0) Ur Specific [place] (1.000-1.035) Urine Protein (Negative) Urine Glucose (UA) (Negative) g/dL Urine Ketones (NEGATIVE) Urine Occult Blood (Negative) Urine Nitrate (Negative) Urine Bilirubin (NEGATIVE) Urine Urobilinogen (0.2) E.U./dL Ur Leukocyte Esterase (NEGATIVE) Urine RBC (0-5/HPF) Urine WBC (0-5/HPF) Ur Squamous Epith Cells (0-5/HPF) Urine Bacteria (None) Ur Culture Indicated? Salicylates < 1.0 (<20) mg/dL U Opiates 300ng/mL cut (Negative) Ur Oxycodone Screen (Negative) Urine Methadone Screen (Negative) Acetaminophen < 10 (10-30) ug/mL Ur Barbiturates Screen (Negative) U Tricyclic Antidepress (Negative) Ur Phencyclidine Scrn (Negative) Ur Amphetamines Screen (Negative) U Methamphetamines Scrn (Negative) Ur MDMA Scrn (Ecstasy) (Negative) U Benzodiazepines Scrn (Negative) Urine Cocaine Screen (Negative) U Marijuana (THC) Screen (Negative) Ethyl Alcohol < 10 ( - 10) mg/dL Chlamy pneumoniae PCR (Not Detect) Adenovirus (PCR) (Not Detect) B. pertussis DNA (PCR) (Not Detecte) B.parapertussis DNA PCR (Not Detecte) Coronavirus OC43 (PCR) (Not Detect) Coronavirus HKU1 (PCR) (Not Detect) Coronavirus 229E (PCR) (Not Detect) SARS-CoV-2 (PCR) (Negative) Coronavirus NL63 (PCR) (Not Detect) Human Metapneumovir PCR (Not Detect) Influenza Type A (PCR) (Not Detect) Influenza Type B (PCR) (Not Detect) M. pneumoniae (PCR) (Not Detect) Parainfluenza 1 (PCR) (Not Detect) Parainfluenza 2 (PCR) (Not Detect) Parainfluenza 3 (PCR) (Not Detect) Parainfluenza 4 (PCR) (Not Detect) RSV (PCR) (Not Detect) Entero/Rhino (PCR) (Not Detect) 05/17/22 05/17/22 05/17/22 Range/Units 14:27 14:46 15:21 WBC (4.5-11.0) X10^3/uL RBC (4.0-5.2) X10^6/uL Hgb (12.0-16.0) g/dL Hct (36-46) % MCV (80-100) fL MCH (26-34) PG MCHC (30-36) % RDW (11.6-14.8) % Plt Count (150-400) X10^3/uL Neut % (Auto) (50-75) % Lymph % (Auto) (25-40) % Canyon % (Auto) (3-14) % Eos % (Auto) (2-4) % Baso % (Auto) (0-2) % Neut # (Auto) (0577-1788) /uL Lymph # (Auto) (3536-7858) /uL Canyon # (Auto) (0-900) /uL Eos # (Auto) (0-450) /uL Baso # (Auto) (0-100) /uL PT (10.1-12.7) SECONDS INR (0.9-1.3) APTT (26-36) SECONDS Sodium (137-145) mmol/L Potassium (3.4-5.1) mmol/L Chloride (98-107) mmol/L Carbon Dioxide (22-32) mmol/L BUN (7-17) mg/dL Creatinine (0.52-1.04) mg/dL Estimated GFR (>60) mL/min BUN/Creatinine Ratio (6-22) Glucose (80-110) mg/dL Lactate (0.7-2.1) mmol/L Calcium (8.4-10.2) mg/dL Magnesium (1.6-2.3) mg/dL Total Bilirubin (0.2-1.3) mg/dL AST (14-36) IU/L ALT (<35) IU/L Alkaline Phosphatase (38-126) U/L Ammonia < 9 L (9-30) umol/L Total Creatine Kinase (30-135) U/L CK-MB (CK-2) CK-MB (CK-2) Rel Index Troponin I (0.01-0.034) ng/mL Total Protein (6.3-8.2) g/dL Albumin (3.5-5.0) g/dL Globulin (1.7-4.1) g/dL Albumin/Globulin Ratio (1.0-2.8) Procalcitonin (<0.5) ng/mL Urine Color Urine Appearance Urine pH (4.5-8.0) Ur Specific Adam[place] (1.000-1.035) Urine Protein (Negative) Urine Glucose (UA) (Negative) g/dL Urine Ketones (NEGATIVE) Urine Occult Blood (Negative) Urine Nitrate (Negative) Urine Bilirubin (NEGATIVE) Urine Urobilinogen (0.2) E.U./dL Ur Leukocyte Esterase (NEGATIVE) Urine RBC (0-5/HPF) Urine WBC (0-5/HPF) Ur Squamous Epith Cells (0-5/HPF) Urine Bacteria (None) Ur Culture Indicated? Salicylates (<20) mg/dL U Opiates 300ng/mL cut (Negative) Ur Oxycodone Screen (Negative) Urine Methadone Screen (Negative) Acetaminophen (10-30) ug/mL Ur Barbiturates Screen (Negative) U Tricyclic Antidepress (Negative) Ur Phencyclidine Scrn (Negative) Ur Amphetamines Screen (Negative) U Methamphetamines Scrn (Negative) Ur MDMA Scrn (Ecstasy) (Negative) U Benzodiazepines Scrn (Negative) Urine Cocaine Screen (Negative) U Marijuana (THC) Screen (Negative) Ethyl Alcohol ( - 10) mg/dL Chlamy pneumoniae PCR Not detected (Not Detect) Adenovirus (PCR) Not detected (Not Detect) B. pertussis DNA (PCR) Not detected (Not Detecte) B.parapertussis DNA PCR Not detected (Not Detecte) Coronavirus OC43 (PCR) Not detected (Not Detect) Coronavirus HKU1 (PCR) Not detected (Not Detect) Coronavirus 229E (PCR) Not detected (Not Detect) SARS-CoV-2 (PCR) Negative Not detected (Negative) Coronavirus NL63 (PCR) Not detected (Not Detect) Human Metapneumovir PCR Not detected (Not Detect) Influenza Type A (PCR) Not detected (Not Detect) Influenza Type B (PCR) Not detected (Not Detect) M. pneumoniae (PCR) Not detected (Not Detect) Parainfluenza 1 (PCR) Not detected (Not Detect) Parainfluenza 2 (PCR) Not detected (Not Detect) Parainfluenza 3 (PCR) Not detected (Not Detect) Parainfluenza 4 (PCR) Not detected (Not Detect) RSV (PCR) Not detected (Not Detect) Entero/Rhino (PCR) Not detected (Not Detect) 05/17/22 05/17/22 05/17/22 Range/Units 17:10 17:55 17:55 WBC (4.5-11.0) X10^3/uL RBC (4.0-5.2) X10^6/uL Hgb (12.0-16.0) g/dL Hct (36-46) % MCV (80-100) fL MCH (26-34) PG MCHC (30-36) % RDW (11.6-14.8) % Plt Count (150-400) X10^3/uL Neut % (Auto) (50-75) % Lymph % (Auto) (25-40) % Canyon % (Auto) (3-14) % Eos % (Auto) (2-4) % Baso % (Auto) (0-2) % Neut # (Auto) (4326-1900) /uL Lymph # (Auto) (5473-1778) /uL Canyon # (Auto) (0-900) /uL Eos # (Auto) (0-450) /uL Baso # (Auto) (0-100) /uL PT (10.1-12.7) SECONDS INR (0.9-1.3) APTT (26-36) SECONDS Sodium (137-145) mmol/L Potassium (3.4-5.1) mmol/L Chloride (98-107) mmol/L Carbon Dioxide (22-32) mmol/L BUN (7-17) mg/dL Creatinine (0.52-1.04) mg/dL Estimated GFR (>60) mL/min BUN/Creatinine Ratio (6-22) Glucose (80-110) mg/dL Lactate (0.7-2.1) mmol/L Calcium (8.4-10.2) mg/dL Magnesium (1.6-2.3) mg/dL Total Bilirubin (0.2-1.3) mg/dL AST (14-36) IU/L ALT (<35) IU/L Alkaline Phosphatase (38-126) U/L Ammonia (9-30) umol/L Total Creatine Kinase (30-135) U/L CK-MB (CK-2) CK-MB (CK-2) Rel Index Troponin I < 0.012 (0.01-0.034) ng/mL Total Protein (6.3-8.2) g/dL Albumin (3.5-5.0) g/dL Globulin (1.7-4.1) g/dL Albumin/Globulin Ratio (1.0-2.8) Procalcitonin (<0.5) ng/mL Urine Color Yellow Urine Appearance Clear Urine pH 7.0 (4.5-8.0) Ur Specific Adamant 1.010 (1.000-1.035) Urine Protein Negative (Negative) Urine Glucose (UA) Negative (Negative) g/dL Urine Ketones Negative (NEGATIVE) Urine Occult Blood Trace-intact (Negative) Urine Nitrate Negative (Negative) Urine Bilirubin Negative (NEGATIVE) Urine Urobilinogen 0.2 (0.2) E.U./dL Ur Leukocyte Esterase Negative (NEGATIVE) Urine RBC 1-5/hpf (0-5/HPF) Urine WBC None seen (0-5/HPF) Ur Squamous Epith Cells None seen (0-5/HPF) Urine Bacteria None seen (None) Ur Culture Indicated? Cult not indicated Salicylates (<20) mg/dL U Opiates 300ng/mL cut Negative (Negative) Ur Oxycodone Screen Negative (Negative) Urine Methadone Screen Negative (Negative) Acetaminophen (10-30) ug/mL Ur Barbiturates Screen Positive H (Negative) U Tricyclic Antidepress Negative (Negative) Ur Phencyclidine Scrn Negative (Negative) Ur Amphetamines Screen Negative (Negative) U Methamphetamines Scrn Negative (Negative) Ur MDMA Scrn (Ecstasy) Negative (Negative) U Benzodiazepines Scrn Negative (Negative) Urine Cocaine Screen Negative (Negative) U Marijuana (THC) Screen Negative (Negative) Ethyl Alcohol ( - 10) mg/dL Chlamy pneumoniae PCR (Not Detect) Adenovirus (PCR) (Not Detect) B. pertussis DNA (PCR) (Not Detecte) B.parapertussis DNA PCR (Not Detecte) Coronavirus OC43 (PCR) (Not Detect) Coronavirus HKU1 (PCR) (Not Detect) Coronavirus 229E (PCR) (Not Detect) SARS-CoV-2 (PCR) (Negative) Coronavirus NL63 (PCR) (Not Detect) Human Metapneumovir PCR (Not Detect) Influenza Type A (PCR) (Not Detect) Influenza Type B (PCR) (Not Detect) M. pneumoniae (PCR) (Not Detect) Parainfluenza 1 (PCR) (Not Detect) Parainfluenza 2 (PCR) (Not Detect) Parainfluenza 3 (PCR) (Not Detect) Parainfluenza 4 (PCR) (Not Detect) RSV (PCR) (Not Detect) Entero/Rhino (PCR) (Not Detect) Point of Care Testing Glucose POC 84 Imaging Data CTA - brain/neck: Radiologist's Impression: CT Scan Report Signed Patient: Ruth Cornelius MR#: [id number] : 1940 Acct:[id number] Age/Sex: 81 / F Date of Service: 05/17/22 Loc: ED Accession Number: [id number] ?? Procedure: CT angio head and neck Ordering Provider: Latesha Jonas D.O. PROCEDURE:? CT ANGIO HEAD AND NECK ? INDICATIONS:? Postive BE-Fast, stroke symptoms ? TECHNIQUE:? After the administration of intravenous contrast, 1 mm thick sections acquired from the aortic arch through the [place] of [place].? Post-contrast 4.5 mm thick sections then re-acquired from the foramen magnum to the vertex.? 3-dimensional koayktt-rgceqhgir-zlbguckajs (MIP) and/or volume rendering reformats were ac quired of the central intracranial vasculature and neck separately. For radiation dose reduction, the following was used:? automated exposure control, adjustment of mA and/or kV according to patient size.? ? COMPARISON:? [facility], MR, MR STROKE, 04/24/2022, 10:12. ? FINDINGS:? Image quality:? Excellent.? ? BRAIN:? CSF spaces:? Ventricles are normal in size and shape.? Basal cisterns are pat ent.? No extra-axial fluid collections.? ? Brain:? No midline shift.? No intracranial bleeds or masses.? Lott-white matter interface appears intact.? ? Skull and face:? Calvarium and facial bones appear intact, without suspicious lesions.? Orbits appear normal.? ? Sinuses:? Sinuses and mastoids are clear.? ? HEAD CT ANGIOGRAPHY:? Anterior circulation:? Intracranial internal carotid arteries are normal in size and flow.? Heavy right distal ICA atherosclerotic calcification and mild left.? The right A1 segment is hypoplastic, normal variant.? Anterior cerebral arteries arise from the distal left A1 segment.? The flow within the paired anterior cerebral arteries is normal and symmetric.? Mid to distal right M1 segment demonstrates tandem stenoses, the more proximal one is more severe, greater than 50%.? The remainder of the right MCA is normal caliber..? The flow within the middle cerebral arteries is normal and symmetric.? The anterior communicating artery is seen.? No aneurysms are seen.? ? Posterior circulation:? Visualized portions of the vertebral arteries demonstrate normal caliber, and join to form a normal appearing basilar artery.? There is a origin of the right posterior cerebral artery arising from the right ICA.? Flow within the posterior cerebral arteries is normal and symmetric.? No aneurysms are seen.? ? NECK CT ANGIOGRAPHY:? Carotid system:? The great vessels demonstrate a conventional anatomy as they arise from the aortic arch.? The origins of the common carotid arteries appear patent.? The common carotid arteries demonstrate normal caliber and courses.? There is heavy calcification at the right carotid bulb and internal carotid artery for segment about 2.1 cm in length resulting in stenosis estimated to be about 50%.? There is mild calcific plaque of the left carotid bulb and left internal carotid artery? The internal carotid arteries demonstrate normal courses.? ? Posterior circulation:? Calcification at the origins of both vertebral arteries. The more superior extracranial portions of both vertebral arteries also demonstrate normal courses and calibers.? They join to form a normal appearing basilar artery.? ? Soft tissues:? Visualized neck soft tissues demonstrate no suspicious abnormalities.? ? Bones:? No suspicious bony lesions.? Visualized cervical spine appears normally aligned.? Mild multilevel disc degeneration. ? ? IMPRESSION:? ? 1. 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 Stenosis was noted on prior brain MRA. ? 2. Diffuse moderate to high-grade stenosis at the right carotid bulb extending into the right internal carotid artery measuring greater than 50%.? Correlate with carotid duplex ultrasound. ? 3. Anatomic variants of intracranial circulation. ? Any quantitative measurements of stenosis were performed using NASCET criteria.? ? ? Dictated by: Belen Canela M.D. on 05/17/2022 at 15:21 ? ? Chest x-ray: Radiologist's Impression: XRay Report Signed Patient: Ruth Cornelius MR#: [id number] : 1940 Acct:[id number] Age/Sex: 81 / F Date of Service: 05/17/22 Loc: ED Accession Number: [id number] ?? Procedure: XR chest 1V Ordering Provider: Latesha Jonas D.O. PROCEDURE:? XR CHEST 1V ? INDICATIONS:? Possible stroke ? TECHNIQUE:? One view of the chest was acquired.? ? COMPARISON:? [facility], CR, XR CHEST 1V, 04/23/2022, 14:06. ? FINDINGS:? ? Surgical changes and devices:? None.? ? Lungs and pleura:? Lungs are hyperlucent but clear.? No pleural effusions or pneumothorax.? ? Mediastinum:? Mediastinal contours appear normal.? Heart size is normal.? ? Bones and chest wall:? No suspicious bony lesions.? Overlying soft tissues appear unremarkable.? ? IMPRESSION:? No acute cardiopulmonary disease.? ? ? Dictated by: Belen Canela M.D. on 05/17/2022 at 15:17 ? CT scan - head: Radiologist's Impression: CT Scan Report Signed Patient: Ruth Cornelius MR#: [id number] : 1940 Acct:[id number] Age/Sex: 81 / F Date of Service: 05/17/22 Loc: ED Accession Number: [id number] ?? Procedure: CT head/brain wo con Ordering Provider: Latesha oJnas D.O. PROCEDURE:? CT HEAD/BRAIN WO CON ? INDICATIONS:? Positive BE-FAST, Stroke symptoms ? TECHNIQUE:? Noncontrast 4.5 mm thick angled axial sections acquired from the foramen magnum to the vertex, with coronal and sagittal reformats.? For radiation dose reduction, the following was used:? automated exposure control, adjustment of mA and/or kV according to patient size.? ? COMPARISON:? [facility], CT, CT HEAD/BRAIN WO CON, 04/23/2022, 14:03. ? FINDINGS:? Image quality:? Excellent.? ? CSF spaces:? Basal cisterns are patent.? No extra-axial fluid collections.? The ventricles are symmetric in size and shape.? ? Brain:? No intracranial bleeds or masses.? There is moderate cerebral volume loss for age, with resultant ventricular and sulcal prominence.? There are moderate periventricular and deep white matter chronic small vessel ischemic changes.? There is intracranial internal carotid artery atherosclerosis.? ? Skull and face:? Calvarium and visualized facial bones appear intact, without suspicious lesions.? ? Sinuses:? Visualized sinuses and mastoids are clear.? ? IMPRESSION:? ? 1. No CT evidence of acute intracranial process.? ? 2. Age-appropriate cerebral cortical volume loss and chronic microvascular ischemic changes. ? ? ? Dictated by: Belen Canela M.D. on 05/17/2022 at 15:17 ? ? ECG Data Interpretation: Normal sinus rhythm rate 69 AL interval 146 QRS 70 QTC 473 significant T-wave inversions noted in precordial leads V3 through V6 along with inferior leads 2 [address] changes all her present from previous EKG in 04/23/2022 although T-wave inversions are slightly more pronounced today than previously MDM Narrative Medical decision making narrative: Patient 81-year-old female history of alcohol abuse, TIA hypertension presenting today with increasing weakness. According to patient has had a steady decline in strength over last 6 months. No evidence of infection today. Viral panel is negative urinalysis negative blood work is reassuring without leukocytosis elevated lactate a procalcitonin. Normal electrolytes as well. CT angio shows consistent stenosis in mid and distal M1 as seen previously on the MRA last month. This is not likely causing her symptoms today. Patient is able to ambulate with a walker both patient and feel comfortable going home. Social work was in to speak with patient and help get home health care set. At this time no indication to stay in the hospital. Discharge Plan Departure Patient Disposition: Home Clinical Impression: Weakness Instructions: DI for Muscle Weakness Activity Restrictions/Additional Instructions: *You have been diagnosed with weakness *What to do: At this time we are getting home health care set up his may take couple of weeks. Use a walker at all times to ambulate. *Continue to take medications as directed *Follow up with your primary care provider in 2-3 days or call [phone] *Return to ER if you should have increasing weakness, falling worsening confusion or any new, worsening or concerning symptoms Prescriptions: No Action primidone 250 mg tablet See Rx Instructions .ROUTE .COMPLEX Qty: 135 3RF Dose Instruction: TAKE 1/2 TABLET BY MOUTH EVERY MORNING AND 1 TABLET EVERY EVENING Rx Instructions: TAKE 1/2 TABLET BY MOUTH EVERY MORNING AND 1 TABLET EVERY EVENING gabapentin 300 mg capsule 300 mg PO BEDTIME Qty: 90 3RF amlodipine 2.5 mg tablet 2.5 mg PO DAILY Qty: 90 3RF estradiol 0.05 mg/24 hr patch weekly See Rx Instructions .ROUTE .COMPLEX Qty: 12 3RF Dose Instruction: APPLY ONE PATCH EVERY WEEK Rx Instructions: APPLY ONE PATCH EVERY WEEK fluticasone propionate 50 mcg/actuation spray,suspension 1 spray intranasal DAILY primidone 50 mg tablet See Rx Instructions .ROUTE .COMPLEX Qty: 360 3RF Dose Instruction: TAKE 2 TABLETS BY MOUTH TWICE DAILY Rx Instructions: TAKE 2 TABLETS BY MOUTH TWICE DAILY sertraline 50 mg tablet 50 mg PO DAILY Qty: 90 3RF multivitamin Tablet 1 tab PO DAILY ascorbic acid (vitamin C) 1,000 mg tablet 1,000 mg PO DAILY fluocinolone 0.01 % solution 1 applic topical BID lorazepam 1 mg tablet 1 mg PO DAILY aspirin 81 mg Tablet,Delayed Release (Dr/Ec) 81 mg PO DAILY 30 Days Qty: 30 0RF atorvastatin [Lipitor] 20 mg Tablet 20 mg PO BEDTIME 30 Days Qty: 30 0RF cholecalciferol (vitamin D3) 2,000 unit capsule 2,000 unit PO DAILY clobetasol 0.05 % cream 1 applic topical DAILY Referrals: Grant Phillips MD [Primary Care Provider] - Stand Alone Forms: Patient Portal/API
[2022-05-17 14:29] LABS: Add Manual Diff / Slide Review NO; Basophils Absolute Auto 0 /uL (0-100); Basophils Percent Auto 0.9 % (0-2); Eosinophils Absolute Auto 100 /uL (0-450); Eosinophils Percent Auto 2.9 % (2-4); Hematocrit 36.9 % (36-46); Hemoglobin 12.6 g/dL (12.0-16.0); Lymphocytes Absolute Auto 1200 /uL (1100-4500); Lymphocytes Percent Auto 27.4 % (25-40); Mean Corpuscular HGB Conc 34.1 % (30-36); Mean Corpuscular Hemoglobin 34.6 PG (26-34); Mean Corpuscular Volume 101.7 fL (80-100); Monocytes Absolute Auto 300 /uL (0-900); Neutrophils Absolute Auto 2800 /uL (1500-7000); Neutrophils Percent Auto 61.8 % (50-75); Platelet Count 155 X10^3/uL (150-400); Red Blood Cell Count 3.63 X10^6/uL (4.0-5.2); Red Cell Distribution Width 13.5 % (11.6-14.8); White Blood Cell Count 4.5 X10^3/uL (4.5-11.0)
[2022-05-17 14:38] LABS: INR 1.1 (0.9-1.3); Prothrombin Time 12.6 SECONDS (10.1-12.7)
[2022-05-17 14:40] LABS: PTT Partial Thromboplastin Tim 29 SECONDS (26-36)
[2022-05-17 14:49] LABS: Lactate (Lactic Acid) 1.4 mmol/L (0.7-2.1)
[2022-05-17 14:52] LABS: Alanine Aminotransferase 18 IU/L (<35); Albumin 3.7 g/dL (3.5-5.0); Alkaline Phosphatase 106 U/L (38-126); Aspartate Aminotransferase 25 IU/L (14-36); BUN Creatinine Ratio 17.9 (6-22); Bilirubin Total 0.3 mg/dL (0.2-1.3); Blood Urea Nitrogen 12 mg/dL (7-17); Calcium 8.7 mg/dL (8.4-10.2); Carbon Dioxide 25 mmol/L (22-32); Chloride 107 mmol/L (98-107); Creatine Kinase 54 U/L (30-135); Estimated Glomerular Filt Rate > 60 mL/min (>60); Globulin 3.7 g/dL (1.7-4.1); Glucose 89 mg/dL (80-110); HEMOLYSIS < 15 (0-50); Magnesium 1.8 mg/dL (1.6-2.3); Potassium 4.1 mmol/L (3.4-5.1); Sodium 141 mmol/L (137-145); Total Protein 7.4 g/dL (6.3-8.2)
[2022-05-17 14:53] LABS: COVID19 -Nasal RAPID Negative (Negative)
[2022-05-17 14:53] LABS: Acetaminophen < 10 ug/mL (10-30); Ethanol (ETOH) < 10 mg/dL; Salicylate < 1.0 mg/dL (<20)
[2022-05-17 15:02] LABS: Troponin I < 0.012 ng/mL (0.01-0.034)
[2022-05-17 15:07] LABS: Procalcitonin 0.03 ng/mL (<0.5)
[2022-05-17 15:30] LABS: Ammonia (NH3) < 9 umol/L (9-30)
[2022-05-17 15:45] LABS: Adenovirus Not Detected (Not Detect); B. parapertussis Not Detected (Not Detecte); Bordetella pertussis Not Detected (Not Detecte); Chlamydophila pneumoniae Not Detected (Not Detect); Coronavirus 229E Not Detected (Not Detect); Coronavirus HKU1 Not Detected (Not Detect); Coronavirus NL 63 Not Detected (Not Detect); Coronavirus OC43 Not Detected (Not Detect); Human Metapneumovirus Not Detected (Not Detect); Human Rhinovirus/Enterovirus Not Detected (Not Detect); Influenza A Not Detected (Not Detect); Influenza B Not Detected (Not Detect); Mycoplasma pneumoniae Not Detected (Not Detect); Parainfluenza Virus 1 Not Detected (Not Detect); Parainfluenza Virus 2 Not Detected (Not Detect); Parainfluenza Virus 3 Not Detected (Not Detect); Parainfluenza Virus 4 Not Detected (Not Detect); Respiratory Syncytial Virus Not Detected (Not Detect); SARS- CoV-2 Not Detected (Not Detecte)
[2022-05-17 18:01] LABS: Troponin I < 0.012 ng/mL (0.01-0.034)
[2022-05-17] MEDS: SODIUM CHLORIDE 0.9% 1,000 ML 1000 ML IV (18:20)
[2022-05-17 18:25] LABS: Appearance Urine UA CLEAR; Bilirubin Urine UA NEGATIVE (NEGATIVE); Color Urine UA YELLOW; Glucose Urine UA NEGATIVE (Negative); Ketones Urine UA NEGATIVE (NEGATIVE); Leukocyte Esterase Urine UA NEGATIVE (NEGATIVE); Nitrite Urine UA NEGATIVE (Negative); Occult Blood Urine UA TRACE-INTACT (Negative); Protein Urine UA NEGATIVE (Negative); Urobilinogen Urine UA 0.2 E.U./dL (0.2)
--- NOTE | 2022-05-17 18:27 | CM.DANOTE ---
Patient is a 81-year-old female history of TIA, hypertension, hyperlipidemia, presenting with increasing weakness over last 3 days. Pt has Medicare A+B and supplement. Pt's PCP is Grant Phillips. SW consulted to assist with safe discharge planning. Pt was recently engaged in outpatient physical therapy but recently reached the end of her sessions. Pt has been experiencing increasing weakness over last two weeks and has not been able to go up or down full flight of stairs inside house. SW observes while pt does ambulation trial. Pt able to ambulate with contact guard assist. SW suggests Home Health referral and pt's reports that he was recently introduced to [employer] but is not sure if he has an active referral. SW explains that she can provide referral from ED. SW discussed with ED Provider, who is agreeable with plan for pt to discharge with home health. YADIRA Garza Discharge Planning/Care Management CM Discharge Assessment Start: 05/17/22 18:22 Freq: Status: Active Protocol: Document 05/17/22 18:22 TM (Rec: 05/17/22 18:27 [id number]) Discharge Planning Assessment Assigned Multimedia Assistant Hina Kimble DPOA/Assigned Designee Name Kalyan Cornelius, /DPOA Contact Information [phone] Advance Directives? Yes Advance Directives on File Yes History Provided By Patient,Medical Record Has Patient been admitted in last 30 Yes days? Prior Living Arrangements House Comment Pt lives in 2 story home with spouse. There are 3 steps to enter home. Inside of home, there are 19 stairs. Household Members spouse Type of transporation used prior to Relies on Others admit Independent with ADL's No Is patient alert and oriented? Yes Needs Assistance With Bathing,Toileting,Home Chores / Shopping Comment Pt needs assistance dressing lower body, transferring out of bed, and showering. Caregiver for Another No Community Services used prior to Physical Therapy admission: DME Already Rented / Owned Bath Bench,FWW / Walker,Cane, Other Comment grab bars in bathroom. Patient/Family Preference Home with Home Health Comment Pt would benefit from home health referral for PT and OT. Barriers to Discharge No Discharge Plan Home with Home Health Community Services Physical Therapy Transportation Arrangement Pt's will provide ride home. Referrals Initiated Home Health If patient plan is home with home health Yes : Has signed face to face form been completed? Medicare Choice List Provided Yes Medicare choice list reviewed on patient electronic tablet with SNF/HH Preference [facility] Whiteboard Updated in Patient Room with Yes name and ext. # of Multimedia Assistant Please Provide Date Initial DC 05/17/22 Assessment Was Performed
[2022-05-17 18:30] LABS: UR Morphine/Opiate cutoff 300 Negative (Negative); Ur Creatinine Normal (Normal); Ur Specific Gravity Normal (Normal); Urine Amphetamines Negative (Negative); Urine Barbiturates Positive (Negative); Urine Benzodiazepines Negative (Negative); Urine Cocaine Negative (Negative); Urine MDMA Negative (Negative); Urine Methadone Negative (Negative); Urine Methamphetamines Negative (Negative); Urine Oxycodone Negative (Negative); Urine Phencyclidine Negative (Negative); Urine Tetrahydrocannabinol Negative (Negative); Urine Tricyclic Antidepressant Negative (Negative); Urine pH Normal (Normal)
[2022-05-17 18:39] LABS: Bacteria Urine None Seen; Culture Indicated Urine Cult Not Indicated; RBC Urine 1-5/HPF (0-5/HPF); Squamous Epithelial Cell Urine None Seen (0-5/HPF); WBC Urine None Seen (0-5/HPF)
== END 2022-05-17 19:00 | disposition home or self-care (01) ==
PROVIDERS: Emergency Provider Emergency Medicine; Family Provider Internal Medicine; PCP Internal Medicine
DX: R53.1 Weakness (principal); R29.818 Other symptoms and signs involving the nervous system; Z79.899 Other long term (current) drug therapy; Z20.822 Contact with and (suspected) exposure to COVID-19; Z86.73 Personal history of transient ischemic attack (TIA), and cerebral infarction without residual deficits
CPT/HCPCS: 51701; 51798; 70450; 70496; 70498; 71045; 80053; 80305; 80320; 80329; 81001; 82140; 82550; 82962; 83605; 83735; 84145; 84484; 85025; 85610; 85730; 87040; 87633; 87635; 93005; 93010; 99284; 99285; C9803; G0480; Q9967

== ENCOUNTER → 2022-07-06 14:47 | Outpatient (CLI) | payer MEDICARE, OTHER, SELFPAY ==
[2022-06-07 14:23] VITALS: BMI 21.1
[2022-07-06 15:44] LABS: Appearance Urine UA CLOUDY; Bilirubin Urine UA NEGATIVE (NEGATIVE); Color Urine UA YELLOW; Glucose Urine UA NEGATIVE (Negative); Ketones Urine UA NEGATIVE (NEGATIVE); Leukocyte Esterase Urine UA 3+ (NEGATIVE); Nitrite Urine UA NEGATIVE (Negative); Occult Blood Urine UA 1+ (Negative); Protein Urine UA TRACE (Negative); Urobilinogen Urine UA 0.2 E.U./dL (0.2); pH Urine UA 6.5 (4.5-8.0)
[2022-07-06 16:19] LABS: Amorphous Sediment Urine 2+; Bacteria Urine Few (2-10); Culture Indicated Urine Specimen Cultured; RBC Urine 5-10/HPF (0-5/HPF); Squamous Epithelial Cell Urine 5-10 /HPF (0-5/HPF); WBC Urine 10-30/HPF (0-5/HPF)
== END ==
PROVIDERS: Family Provider Internal Medicine; PCP Internal Medicine; Referring Provider Obstetrics & Gynecology; Visit Provider Obstetrics & Gynecology
DX: N39.0 Urinary tract infection, site not specified (principal)
CPT/HCPCS: 81003; 81015; 87086

== ENCOUNTER 2022-07-10 08:41 | Outpatient (CLI) | payer MEDICARE, OTHER, SELFPAY ==
[2022-06-07 14:23] VITALS: BMI 21.1
[2022-07-10] VITALS (7 sets, daily range): BP systolic 145–191; BP diastolic 58–88; PULSE 66–83; RESP 14–20; TEMP 36.1; O2SAT 96–100
--- NOTE | 2022-07-10 08:45 | DI.RAD.S_ITS ---
PROCEDURE: PAIN C/T INTERLAMINAR INJECT INDICATIONS: SPINAL STENOSIS COMPARISON: None. FINDINGS: Fluoroscopic spot filming was performed to verify placement of spinal needles at the C6-7 level(s), as labeled on the films. Appropriate location(s) of the needle tip(s) was confirmed by injection of iodinated contrast. IMPRESSION: Fluoroscopic guidance Approved by: Sylvester Weston M.D. on 07/10/2022 at 11:52
[2022-07-10] MEDS: MIDAZOLAM 2 MG/2 ML VIAL IV (09:40)
[2022-07-10] MEDS: DEXAMETHASONE 10 MG/ML VIAL 30 MG INJ (09:46)
[2022-07-10] MEDS: BUPIVACAINE 0.25% (PF) VIAL 2 ML INJ (09:46)
[2022-07-10] MEDS: IOPAMIDOL 15 ML VIAL 3 ML INJ (09:46)
--- NOTE | 2022-07-10 09:56 | P.PCN_ITS ---
Date/Time/Diagnoses Date of procedure: 07/10/22 Time of procedure: 09:56 Pre-procedure diagnosis: 1. CERVICAL STENOSIS, 2. CERVICAL HNP WITH UPPER EXTREMITY RADICULAR FEATURES Post-procedure diagnosis: same Procedure Notes Procedure: 1. FLUORSCOPICALLY GUIDED CONTRAST CONTROLLED INTERLAMINAR EPIDURAL STEROID INJECTION - C6/7 TL JAKE Indications: Ruth is referred by Dr. Phillips for treatment of Cervical HNP with Upper Extremity Paresthesias. Physician: Chuy Mario Total Fluoroscopy time (seconds): 31 Total sedation minutes: 12 Complications: none Procedure in detail & Post-procedure care: FINDINGS Cervical Stenosis due to disc deterioration and nerve root irritation and nerve root irritation DESCRIPTION OF PROCEDURE Fluoroscopically guided, contrast-controlled C6/7 translaminar epidural steroid injection with conscious sedation. Following review of allergy and review of potential side effects and complications, including, but not necessarily limited to, infection, allergic reaction, local tissue breakdown, temporary as well as permanent nerve injury, stroke, paralysis, and possible , the patient indicated that patient understood and agreed to proceed. An informed consent document was signed by the patient, witnessed by a nurse, and placed in the patient's chart. Additionally, other treatment options including modalities, medications, and physical therapy were reviewed with the patient. After review of previous anaesthesic history and IV conscious sedation the patient was deemed safe to proceed with today?s procedure with IV conscious sedation as ASA class II designation. Safety time-out was performed to confirm patient ID, procedure to be performed and site of procedure. IV sedation was accomplished with a combination of 2mg of Versed administered by the RN after DO order, titrated to patient comfort during the course of the procedure while the patient remained responsive to all verbal commands. In the prone position, following sterile prep and drape of the cervical region, the C6/7 translaminar space was identified fluoroscopically. The skin was anesthetized via a 25-gauge 1.5-inch needle with 1% lidocaine solution. At this point, a 25-gauge, 2.5-inch short bevel spinal needle was atraumatically introduced and advanced under fluoroscopic guidance into epidural space at the C6/7 translaminar space. Depth was confirmed on lateral view. Radiological data, including multiple fluoroscopic views of the cervical spine, reveal a spinal needle at the C6/7 translaminar space. Lateral views then show placement of the needle in the epidural space. Subsequent views show contrast material flowing superiorly and inferiorly in the epidural space. DSA fluoroscopy with live contrast injection, once again, confirmed no vascular or intrathecal uptake. At this point, using loss of resistance technique with saline and air, the epidural space was entered. Following negative aspiration, injection of approximately 1.5 cc of Isovue-200 with live fluoroscopy in the AP view confirmed epidural flow in the epidural space without vascular or intrathecal uptake observed. Subsequently, a test dose of 1 cc of 1% lidocaine solution was injected and patient was observed for two minutes without signs or symptoms of complications, including abdominal pain, shortness of breath, bilateral upper or lower extremity weakness, nausea and vomiting, prior to steroid injection. At this point, 3cc or 30mg of dexamethasone was then injected without incident. The patient tolerated the procedure well without signs or symptoms of complica tions prior to being transferred to the recovery area for further monitoring, The patient was then transferred to the recovery area where they were observed for an appropriate period of time after the injection. The patient reported a VAS score of 6 prior to the procedure and a post-procedure VAS of 0. POST OP INSTRUCTIONS The patient was provided a Pain Log to continue to record their response to the target-specific procedure prior to follow-up visit with the referring provider. Additionally, specific post-injection care instructions and a contact number to our office were provided if concerns arise regarding possible complications associated with the procedure are suspected.
== END 2022-07-10 10:16 | disposition home or self-care (01) ==
LOC: RAD 08:44
PROVIDERS: Family Provider Internal Medicine; PCP Internal Medicine; Referring Provider Physical Medicine & Rehabilitation; Visit Provider Physical Medicine & Rehabilitation
DX: M48.02 Spinal stenosis, cervical region (principal); M50.123 Cervical disc disorder at C6-C7 level with radiculopathy
CPT/HCPCS: 62321; 99152; J1100; J2250; J3490

== ENCOUNTER → 2022-08-17 15:34 | Outpatient (CLI) | payer MEDICARE, OTHER, SELFPAY ==
[2022-06-07 14:23] VITALS: BMI 21.1
[2022-08-17 16:17] LABS: Appearance Urine UA CLOUDY; Bilirubin Urine UA NEGATIVE (NEGATIVE); Color Urine UA YELLOW; Glucose Urine UA NEGATIVE (Negative); Ketones Urine UA NEGATIVE (NEGATIVE); Leukocyte Esterase Urine UA 3+ (NEGATIVE); Nitrite Urine UA NEGATIVE (Negative); Occult Blood Urine UA TRACE-INTACT (Negative); Protein Urine UA NEGATIVE (Negative); Urobilinogen Urine UA 0.2 E.U./dL (0.2)
[2022-08-17 16:19] LABS: pH Urine UA 7.5 (4.5-8.0)
[2022-08-17 16:28] LABS: RBC Urine 0-1/HPF (0-5/HPF); Squamous Epithelial Cell Urine 1-5 /HPF (0-5/HPF); WBC Urine 5-10/HPF (0-5/HPF)
[2022-08-17 16:29] LABS: Amorphous Sediment Urine 1+; Bacteria Urine Moderate (10-30); Culture Indicated Urine Specimen Cultured
== END ==
PROVIDERS: Family Provider Internal Medicine; PCP Internal Medicine; Referring Provider Obstetrics & Gynecology; Visit Provider Obstetrics & Gynecology
DX: N39.0 Urinary tract infection, site not specified (principal)
CPT/HCPCS: 81003; 81015; 87086

== ENCOUNTER → 2022-10-05 11:33 | Outpatient (CLI) | payer MEDICARE, OTHER, SELFPAY ==
[2022-06-07 14:23] VITALS: BMI 21.1
--- NOTE | 2022-10-05 11:35 | DI.RAD.S_ITS ---
PROCEDURE: XR SHOULDER LT MIN 2V INDICATIONS: left shoulder impingement TECHNIQUE: 3 views of the shoulder were acquired. COMPARISON: None. FINDINGS: Bones: No fractures or dislocations. No suspicious bony lesions. Visualized ribs appear intact. Mild glenohumeral joint degenerative change. Soft tissues: No suspicious soft tissue calcifications. IMPRESSION: Mild glenohumeral joint degenerative change. No evidence acute bony abnormality. If clinical suspicion and/or symptoms persist, further assessment with repeat plain films, or advanced imaging (e.g., CT, MRI, or bone scan) may be helpful for further assessment. Dictated by: Armani Wu M.D. on 10/05/2022 at 12:15 Approved by: Armani Wu M.D. on 10/05/2022 at 12:17
== END ==
PROVIDERS: Family Provider Internal Medicine; PCP Internal Medicine; Referring Provider Physical Medicine & Rehabilitation; Visit Provider Physical Medicine & Rehabilitation
DX: M19.012 Primary osteoarthritis, left shoulder (principal); M75.42 Impingement syndrome of left shoulder
CPT/HCPCS: 73030

== ENCOUNTER → 2022-10-23 10:09 | Outpatient (CLI) | payer MEDICARE, OTHER, SELFPAY ==
[2022-06-07 14:23] VITALS: BMI 21.1
--- NOTE | 2022-10-23 10:10 | DI.MG.S_ITS ---
BILATERAL DIGITAL DIAGNOSTIC MAMMOGRAM 3D/2D: 10/23/2022 CLINICAL: Left lump. Comparison is made to exams dated: 11/16/2021 mammogram, 11/14/2020 mammogram, 11/23/2019 mammogram, and 11/21/2018 mammogram - [facility]. Both breasts are heterogeneously dense, which may obscure small masses (category c / 51-75% glandular tissue). No significant masses, calcifications, or other findings are seen in either breast. Benign calcifications in both breasts. IMPRESSION: INCOMPLETE: NEEDS ADDITIONAL IMAGING EVALUATION No mammographic evidence of malignancy. A targeted ultrasound is recommended and will immediately follow. Based on the Tyrer Cuzick model (a risk assessment model) the patient's lifetime risk is 0.9% and her 10 year risk is 0.0%. According to the ACR, ACS, and NCCN guidelines, an annual breast MRI exam along with mammogram is recommended if the patient's lifetime risk is 20% or greater. This exam was interpreted at Station ID: [id number]. NOTE: For mammograms, a report in lay terms will be sent to the patient. Approximately 15% of breast malignancies will not be visualized mammographically. In the management of a palpable breast mass, a negative mammogram must not discourage biopsy of a clinically suspicious lesion. Electronically Signed By: Gerard Dyer M.D. slc/:10/23/2022 11:42:49 ACR BI-RADS Category 0: Incomplete 3340F
--- NOTE | 2022-10-23 10:10 | DI.US.S_ITS ---
LIMITED ULTRASOUND OF LEFT BREAST: 10/23/2022 CLINICAL: Palpable left breast lump. Comparison is made to exams dated: 10/23/2022 mammogram, 11/16/2021 mammogram, 11/14/2020 mammogram, 11/23/2019 mammogram, and 11/21/2018 mammogram - [facility]. Color flow and real-time ultrasound of the left breast 1-2 o'clock region were performed. Lott scale images of the real-time examination were reviewed. No significant abnormalities were seen sonographically in the left breast in the region of the palpable abnormality. IMPRESSION: NEGATIVE There is no sonographic evidence of malignancy. No mass in the region of the palpable abnormality. Exam findings were conveyed to the patient. Patient is advised to monitor for significant change. Clinical follow-up as needed. A 1 year screening mammogram is recommended. This exam was interpreted at Station ID: [id number]. Electronically Signed By: Gerard Dyer M.D. slc/:10/23/2022 11:46:48 letter sent: Normal Exam Ultrasound BI-RADS: 1 Negative
== END ==
PROVIDERS: Family Provider Internal Medicine; PCP Internal Medicine; Referring Provider Obstetrics & Gynecology; Visit Provider Obstetrics & Gynecology
DX: R92.2 Inconclusive mammogram (principal); N63.20 Unspecified lump in the left breast, unspecified quadrant
CPT/HCPCS: 76642; 77066; G0279

== ENCOUNTER → 2023-02-05 15:09 | Outpatient (CLI) | payer MEDICARE, OTHER, SELFPAY ==
[2022-06-07 14:23] VITALS: BMI 21.1
[2023-02-05 15:31] LABS: Hemoglobin 12.4 g/dL (12.0-16.0); Mean Corpuscular HGB Conc 33.6 % (30-36); Mean Corpuscular Hemoglobin 33.7 PG (26-34); Mean Corpuscular Volume 100.3 fL (80-100); Platelet Count 184 X10^3/uL (150-400); Red Blood Cell Count 3.69 X10^6/uL (4.0-5.2); Red Cell Distribution Width 13.6 % (11.6-14.8); White Blood Cell Count 5.6 X10^3/uL (4.5-11.0)
[2023-02-05 15:53] LABS: Alanine Aminotransferase 18 IU/L (<35); Albumin 3.8 g/dL (3.5-5.0); Alkaline Phosphatase 95 U/L (38-126); Aspartate Aminotransferase 24 IU/L (14-36); BUN Creatinine Ratio 21.4 (6-22); Bilirubin Total 0.4 mg/dL (0.2-1.3); Blood Urea Nitrogen 15 mg/dL (7-17); Calcium 9.1 mg/dL (8.4-10.2); Carbon Dioxide 26 mmol/L (22-32); Chloride 105 mmol/L (98-107); Cholesterol 150 mg/dL (140-199); Estimated Glomerular Filt Rate > 60 mL/min (>60); Globulin 3.8 g/dL (1.7-4.1); Glucose 93 mg/dL (80-110); HDL Cholesterol 89 mg/dL (40-60); HEMOLYSIS < 15 (0-50); LDL Cholesterol Calculated 45 mg/dL (<100); Potassium 4.1 mmol/L (3.4-5.1); Sodium 137 mmol/L (137-145); Total Protein 7.6 g/dL (6.3-8.2); Triglycerides 81 mg/dL (35-150)
== END ==
PROVIDERS: Family Provider Internal Medicine; PCP Internal Medicine; Referring Provider Internal Medicine; Visit Provider Internal Medicine
DX: E78.2 Mixed hyperlipidemia (principal); I10 Essential (primary) hypertension; I67.9 Cerebrovascular disease, unspecified
CPT/HCPCS: 36415; 80053; 80061; 85027

== ENCOUNTER 2023-04-02 09:15 | Outpatient (CLI) | payer MEDICARE, OTHER, SELFPAY ==
[2022-06-07 14:23] VITALS: BMI 21.1
[2023-04-02] VITALS (8 sets, daily range): BP systolic 154–187; BP diastolic 65–85; PULSE 58–61; RESP 14–17; TEMP 36.4; O2SAT 95–100
--- NOTE | 2023-04-02 10:15 | DI.RAD.S_ITS ---
PROCEDURE: PAIN L/S FACET INJ/BLK 1ST NATHANIEL INDICATIONS: SPONDYLOSIS COMPARISON: [facility], CR, XR LUMBAR SPINE 2 OR 3 VIEWS, 02/13/2022, 14:43. FINDINGS: Fluoroscopic spot filming was performed to verify placement of spinal needles on both sides at the L3, L4, and L5 levels, as labeled on the films. Appropriate location of the needle tips was confirmed by injection of iodinated contrast. IMPRESSION: Intraprocedural examination demonstrating appropriate positions of the needles. Dictated by: William Crews M.D. on 04/02/2023 at 12:17 Approved by: William Crews M.D. on 04/02/2023 at 12:17
[2023-04-02] MEDS: MIDAZOLAM 2 MG/2 ML VIAL 1 MG IV (10:40)
[2023-04-02] MEDS: iopamidoL 15 ML VIAL 3 ML INJ (10:43)
[2023-04-02] MEDS: BUPIVACAINE 0.5% (PF) 10 ML VIAL 5 ML INJ (10:44)
[2023-04-02] MEDS: LIDOCAINE 1% 20 ML 5 ML INJ (10:44)
--- NOTE | 2023-04-02 10:58 | P.PCN_ITS ---
Date/Time/Diagnoses Date of procedure: 04/02/23 Time of procedure: 10:58 Pre-procedure diagnosis: FACET ARTHROPATHY Post-procedure diagnosis: same Procedure Notes Procedure: 1. BILATERAL L3, L4 AND L5 DIAGNOSTIC MB BLOCKS Indications: Ruth is referred by Dr. Phillips for treatment of Bilateral Axial LBP. Physician: Chuy Mario Total Fluoroscopy time (seconds): 9 Total sedation minutes: 11 Complications: none Procedure in detail & Post-procedure care: DESCRIPTION OF PROCEDURE Fluoroscopically guided, contrast-controlled bilateral L3, L4 AND L5 medial branch blocks with 0.5cc of 0.5% Marcaine. Following review of allergy and review of potential side effects and complications, including, but not necessarily limited to, infection, allergic reaction, local tissue breakdown, nerve injury, paralysis, stroke and possible , the patient indicated that the patient understood and agreed to proceed. An informed consent document was signed by the patient, witnessed by a nurse, and placed in the patient's chart. After review of previous anaesthesic history and IV conscious sedation the patient was deemed safe to proceed with today's procedure with IV conscious sedation as ASA class II designation. Safety time-out was performed to confirm patient ID, procedure to be performed and site of procedure. IV sedation was accomplished with a combination of 1mg of Versed was administered by the RN aft er DO order, titrated to patient comfort during the course of the procedure while the patient remained responsive to all verbal commands In the prone position, following sterile prep and drape of the lumbar region, the right L3, L4 AND L5 anatomical location of the medial branch of the dorsal ramus was identified fluoroscopically. Subsequently an anesthetic skin wheal using 1% lidocaine solution was initiated at each of the anatomical spots. Subsequently then a 22-gauge 3.5-inch spinal needle was atraumatically introduced and advanced under fluoroscopic guidance at each of the corresponding sites at the right L3, L4 and L5 MB. After negative aspiration, 0.2cc of Isovue 200 was injected, confirming placement without vascular or intrathecal uptake. Subsequently then 0.5cc of 0.5% Marcaine solution was injected at each of the corresponding sites at the right L3, L4 and L5 medial branch locations. The identical procedure was replicated on the left. The patient tolerated the procedure well without signs or symptoms of complications. The patient tolerated the procedure well without signs or symptoms of complications prior to transfer to the recovery area continued monitoring wit hout incident. Post-procedure, the patient was monitored initiating provocative activities to measure the amount of relief from block of the facetogenic pain. The patient reported a VAS of 7 prior to the procedure and a post-procedure VAS of 1. It has been a pleasure to assist in the diagnostic and therapeutic care of your patient. POST OP INSTRUCTIONS The patient was provided with a Pain Log to complete over the next several hours and subsequent days prior to the patient's follow up with the ordering physician. 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 The patient is aware, was provided, once again, with a Pain Log and will follow up with the referring physician for review and clinical correlation
== END 2023-04-02 11:19 | disposition home or self-care (01) ==
LOC: RAD 09:16
PROVIDERS: Family Provider Internal Medicine; PCP Internal Medicine; Referring Provider Physical Medicine & Rehabilitation; Visit Provider Physical Medicine & Rehabilitation
DX: M47.816 Spondylosis without myelopathy or radiculopathy, lumbar region (principal); M41.9 Scoliosis, unspecified
CPT/HCPCS: 64493; 64494; 99152; J2250

== ENCOUNTER → 2023-08-05 14:40 | Outpatient (CLI) | payer MEDICARE, OTHER, SELFPAY ==
[2022-06-07 14:23] VITALS: BMI 21.1
[2023-08-05 15:59] LABS: Appearance Urine UA CLEAR; Bilirubin Urine UA NEGATIVE (NEGATIVE); Color Urine UA YELLOW; Glucose Urine UA NEGATIVE (Negative); Ketones Urine UA NEGATIVE (NEGATIVE); Leukocyte Esterase Urine UA 1+ (NEGATIVE); Nitrite Urine UA NEGATIVE (Negative); Occult Blood Urine UA NEGATIVE (Negative); Protein Urine UA NEGATIVE (Negative); Specific Gravity Urine UA 1.015 (1.000-1.035); Urobilinogen Urine UA 0.2 E.U./dL (0.2)
[2023-08-05 16:06] LABS: Bacteria Urine Few (2-10); Culture Indicated Urine Specimen Cultured; Mucus Urine 1+ (Negative); RBC Urine 0-1/HPF (0-5/HPF); Squamous Epithelial Cell Urine >30 /HPF (0-5/HPF); Urine Volume 10mL (spun); WBC Urine 0-1/HPF (0-5/HPF)
== END ==
PROVIDERS: Family Provider Internal Medicine; PCP Internal Medicine; Referring Provider Internal Medicine; Visit Provider Internal Medicine
DX: N39.0 Urinary tract infection, site not specified (principal)
CPT/HCPCS: 81001; 87077; 87086; 87186

== ENCOUNTER 2023-08-17 15:53 | Emergency (ER) | payer MEDICARE, OTHER, SELFPAY ==
[2022-06-07 14:23] VITALS: BMI 21.1
[2023-08-17 15:58] VITALS: BP 218/100; PULSE 55; RESP 18; TEMP 37; O2SAT 99; BMI 19.8
--- NOTE | 2023-08-17 16:06 | DI.CT.S_ITS ---
PROCEDURE: CT CERVICAL SPINE WO CON INDICATIONS: fall/hit head TECHNIQUE: Noncontrast 3 mm thick sections acquired from the skull base to the T4 level. Sagittal and coronal reformats were then constructed. For radiation dose reduction, the following was used: automated exposure control, adjustment of mA and/or kV according to patient size. COMPARISON: None. FINDINGS: Image quality: This examination is somewhat limited by quantum mottle artifact. Bones: No fractures or dislocations. Visualized superior ribs are intact. Focal degenerative change is seen involving the C1-C2 interface anteriorly. There is at least moderate disc space narrowing seen at C3-C4, C4-C5, C5-C6, C6-C7, and C7-T1. Posteriorly directed endplate osteophytes can be seen, which are overall worst at C5-C6. Soft tissues: Prevertebral soft tissues are normal in thickness. No paravertebral hematomas. No apical pneumothoraces. IMPRESSION: No displaced fracture or traumatic subluxation. Multiple levels of significant cervical spine degenerative change can be seen. Dictated by: William Crews M.D. on 08/17/2023 at 15:56 Approved by: William Crews M.D. on 08/17/2023 at 15:57
--- NOTE | 2023-08-17 16:06 | DI.RAD.S_ITS ---
PROCEDURE: XR SHOULDER LT MIN 2V INDICATIONS: fall/pain/felt a pop TECHNIQUE: 3 views of the shoulder were acquired. COMPARISON: [facility], CT, CT HEAD/BRAIN WO CON, 08/17/2023, 16:21. [facility], CT, CT CERVICAL SPINE WO CON, 08/17/2023, 16:21. [facility], CR, XR HUMERUS LT 2V, 08/17/2023, 16:17. [facility], CR, XR SHOULDER LT MIN 2V, 10/05/2022, 11:34. FINDINGS: Bones: There is a comminuted, impacted fracture seen of the left humeral head and neck, with moderate displacement. There is no glenohumeral dislocation seen. No scapular fracture can be seen. No fracture of the clavicle is seen. The visualized ribs appear intact. Soft tissues: No suspicious soft tissue calcifications. Atherosclerotic calcification of the aortic arch is noted. IMPRESSION: Comminuted, impacted fracture of the left humeral head and neck, with moderate displacement. Dictated by: William Crews M.D. on 08/17/2023 at 16:09 Approved by: William Crews M.D. on 08/17/2023 at 16:09
--- NOTE | 2023-08-17 16:06 | DI.RAD.S_ITS ---
PROCEDURE: XR HUMERUS LT 2V INDICATIONS: fall/pain/felt a pop TECHNIQUE: 2 views of the humerus were acquired. COMPARISON: [facility], CR, XR SHOULDER LT MIN 2V, 10/05/2022, 11:34. [facility], CT, CT HEAD/BRAIN WO CON, 08/17/2023, 16:21. [facility], CT, CT CERVICAL SPINE WO CON, 08/17/2023, 16:21. [facility], CR, XR SHOULDER LT MIN 2V, 08/17/2023, 16:17. FINDINGS: Bones: There is a comminuted, impacted fracture seen involving the left humeral head and neck. No shoulder dislocation can be seen. The visualized ribs appear intact. Underlying degenerative changes and osteopenia can be seen. Soft tissues: No suspicious soft tissue calcifications. IMPRESSION: Comminuted, impacted fracture the left humeral head and neck. Dictated by: William Crews M.D. on 08/17/2023 at 16:07 Approved by: William Crews M.D. on 08/17/2023 at 16:08
--- NOTE | 2023-08-17 16:06 | DI.CT.S_ITS ---
PROCEDURE: CT HEAD/BRAIN WO CON INDICATIONS: fall/hit head TECHNIQUE: Noncontrast 4.5 mm thick angled axial sections acquired from the foramen magnum to the vertex, with coronal and sagittal reformats. For radiation dose reduction, the following was used: automated exposure control, adjustment of mA and/or kV according to patient size. COMPARISON: [facility], CT, CT HEAD/BRAIN WO CON, 04/23/2022, 14:03. [facility], CT, CT CERVICAL SPINE WO CON, 08/17/2023, 16:21. [facility], CT, CT HEAD/BRAIN WO CON, 05/17/2022, 14:27. FINDINGS: Image quality: Mild streak artifact can be seen through the skull base. CSF spaces: Basal cisterns are patent. No extra-axial fluid collections. The ventricles are symmetric in size and shape. Brain: No intracranial bleeds or masses. There is cerebral volume loss for age, with resultant ventricular and sulcal prominence. There are periventricular and deep white matter chronic small vessel ischemic changes. There is intracranial internal carotid artery atherosclerosis. Skull and face: Calvarium and visualized facial bones appear intact, without suspicious lesions. Sinuses: Visualized sinuses and mastoids are clear. IMPRESSION: No acute intracranial hemorrhage is seen. No acute intracranial pathology. Dictated by: William Crews M.D. on 08/17/2023 at 15:54 Approved by: William Crews M.D. on 08/17/2023 at 15:56
--- NOTE | 2023-08-17 16:40 | ED_ITS ---
HPI - Fall <Pamela Aj PA-C - Last Filed: 08/17/23 19:09> General Chief Complaint: Fall Stated Complaint: Fall, LT Shoulder Injury Time Seen by Provider: 08/17/23 16:38 Source: patient and family Mode of arrival: Wheelchair History of Present Illness HPI Narrative: 83-year-old female here today for an injury to her left shoulder which occurred several hours prior to arrival. Patient tripped near her car and fell with her left upper arm impacting the concrete curb directly. She also sustained a small abrasion to the left cheek. She did not hit her head or have any LOC. she does have some neck pain which she thinks is from twisting her neck while she was falling. She has severe pain in the left upper arm and is unable to move it or use it at all. She denies any numbness or tingling in the affected extremity. She does not have any changes in mental status, confusion, changes in behavior. She has had no nausea or vomiting. No vision changes headaches. No medication taken so far. She has not on any blood thinners Related Data Home Medications Medication Instructions Recorded Confirmed cholecalciferol (vitamin D3) 50 2,000 unit PO DAILY 03/09/19 08/07/23 mcg (2,000 unit) capsule multivitamin 1 tab PO DAILY 06/26/21 08/07/23 ascorbic acid (vitamin C) 1,000 mg 1,000 mg PO DAILY 11/29/21 08/07/23 tablet fluocinolone 0.01 % topical 1 applic topical BID 03/05/22 08/07/23 solution lorazepam 1 mg tablet 1 mg PO DAILY 04/11/22 08/07/23 topiramate 100 mg tablet 100 mg PO BID 05/23/22 08/07/23 triamcinolone acetonide 0.1 % 1 applic topical DAILY 06/28/22 08/07/23 topical ointment timolol maleate 0.5 % eye drops 1 drp EYE-BOTH DAILY 07/11/22 08/07/23 solifenacin 10 mg tablet 10 mg PO DAILY 10/03/22 08/07/23 acetaminophen 500 mg tablet 1,000 mg PO DAILY PRN 10/11/22 08/07/23 (Tylenol Extra Strength) calcium carbonate 500 mg calcium 500 mg PO BID 10/11/22 08/07/23 (1,250 mg) tablet Previous Rx's Medication Instructions Recorded primidone 250 mg tablet See Rx Instructions .Route 07/05/22 .COMPLEX #135 tabs phenazopyridine 100 mg tablet 100 mg PO TID PRN pain 6 doses #6 08/20/22 (Pyridium) tabs estradiol 0.05 mg/24 hr weekly See Rx Instructions .Route 09/07/22 transdermal patch .COMPLEX #12 patches fluticasone propionate 50 1 spray intranasal DAILY #16 grams 10/26/22 mcg/actuation nasal spray,suspension sertraline 50 mg tablet 50 mg PO DAILY #90 tabs 01/16/23 pravastatin 20 mg tablet 20 mg PO QDAY #90 tabs 02/05/23 diazepam 5 mg tablet 5 mg PO ONCE #1 tab 03/25/23 clobetasol 0.05 % topical cream 1 applic topical DAILY PRN 04/25/23 occasional shingles attack #30 grams atorvastatin 20 mg tablet 20 mg PO BEDTIME #90 tabs 07/16/23 amlodipine 5 mg tablet 5 mg PO DAILY #90 tabs 08/07/23 gabapentin 300 mg capsule 300 mg PO BEDTIME #90 caps 08/07/23 sulfamethoxazole 800 1 tab PO BID #14 tabs 08/07/23 mg-trimethoprim 160 mg tablet hydrocodone 5 mg-acetaminophen 325 1 tab PO Q8H PRN pain #7 tabs 08/17/23 mg tablet Allergies Allergy/AdvReac Type Severity Reaction Status Date / Time propranolol [PROPRANOLOL] Allergy Mild TONGUE Verified 08/07/23 12:49 SWELLING Review of Systems <Pamela Aj PA-C - Last Filed: 08/17/23 19:09> Review of Systems ROS Unobtainable: All systems reviewed & are unremarkable except as noted in HPI and below Patient History <Pamela Aj PA-C - Last Filed: 08/17/23 19:09> Medical History (Updated 08/17/23 @ 17:56 by Pamela Aj PA-C) Scoliosis DJD of left shoulder Impingement syndrome of left shoulder Cerebrovascular disease Shingles Left cervical radiculopathy Left supraspinatus tendonitis Gait instability Lymphocytic colitis Do not resuscitate Osteopenia Atherosclerosis of aorta Alcohol use disorder Hereditary and idiopathic neuropathy, unspecified Generalized anxiety disorder Irritable bowel syndrome with diarrhea Depression, recurrent Venous insufficiency Mixed hyperlipidemia Essential hypertension Facet arthropathy, lumbar 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 Mixed incontinence urge and stress Surgical History History of salpingo-oophorectomy (08/19/17) History of knee replacement Status post tonsillectomy and adenoidectomy Status post appendectomy History of third molar tooth extraction Status post hysterectomy Family History Mother Cancer Father Cancer Social History household members: spouse Smoking Status: Former smoker alcohol intake: current Smoking Status: Former smoker alcohol intake frequency: 0-2 drinks per day Alcohol type: wine Substance Use Type: marijuana Exam <Pamela Aj PA-C - Last Filed: 08/17/23 19:09> Narrative Exam Narrative: GENERAL: Well-developed, well-nourished, appears stated age. In no acute distress HEAD: Atraumatic. Normocephalic. EYES: Pupils equal round and reactive. Extraocular motions intact. No scleral icterus. No injection or drainage. ENT: Nose without bleeding, purulent drainage. Airway patent. NECK: Trachea midline. Non tender RESPIRATORY: Respiratory rate and effort normal EXTREMITIES: Left upper arm with impaired range of motion due to pain. Diffusely tender to the proximal humeral area. No clavicular deformity or tenderness. No elbow or wrist deformity or tenderness. Distal pulses, cap refill, sensation intact. NEURO: AOx3. No focal neurologic deficits. Answers all questions appropriately no amnesia to the event. SKIN: No rash or erythema of visible areas Initial Vital Signs Initial Vital Signs: Vital Signs Temperature 98.6 F 08/17/23 15:58 Pulse Rate 55 L 08/17/23 15:58 Respiratory Rate 18 08/17/23 15:58 Blood Pressure 218/100 H 08/17/23 15:58 Pulse Oximetry 99 08/17/23 15:58 Oxygen Delivery Method Room Air 08/17/23 15:58 <Candelaria Barnhart DO - Last Filed: 08/18/23 09:20> Initial Vital Signs Initial Vital Signs: Vital Signs Temperature 98.6 F 08/17/23 15:58 Pulse Rate 55 L 08/17/23 15:58 Respiratory Rate 18 08/17/23 15:58 Blood Pressure 218/100 H 08/17/23 15:58 Pulse Oximetry 99 08/17/23 15:58 Oxygen Delivery Method Room Air 08/17/23 15:58 Course <Pamela Aj PA-C - Last Filed: 08/17/23 19:09> Orders Ordered: Discontinued Medications Hydrocodone Bitart/Acetaminophen (Hydrocodone/Acet 5/325 Tablet) 1 tab PO NOW ONE Stop: 08/17/23 17:39 Last Admin: 08/17/23 17:43 Dose: 1 tab Documented By: AB Hydrocodone Bitart/Acetaminophen (Hydrocodone/Acet 5/325 Prepack) 1 bottle MISC DIRECTED ONE Stop: 08/17/23 17:39 Last Admin: 08/17/23 18:02 Dose: 1 bottle Documented By: AB Vital Signs Vital signs: Vital Signs - 8 hr 08/17/23 15:58 08/17/23 18:13 Temperature 98.6 F Pulse Rate 55 L 60 Respiratory Rate 18 18 Blood Pressure 218/100 H 190/94 H Pulse Oximetry 99 99 Oxygen Delivery Method Room Air Room Air <Candelaria Barnhart DO - Last Filed: 08/18/23 09:20> Orders Ordered: Discontinued Medications Hydrocodone Bitart/Acetaminophen (Hydrocodone/Acet 5/325 Tablet) 1 tab PO NOW ONE Stop: 08/17/23 17:39 Last Admin: 08/17/23 17:43 Dose: 1 tab Documented By: AB Hydrocodone Bitart/Acetaminophen (Hydrocodone/Acet 5/325 Prepack) 1 bottle MISC DIRECTED ONE Stop: 08/17/23 17:39 Last Admin: 08/17/23 18:02 Dose: 1 bottle Documented By: AB Vital Signs Vital signs: Vital Signs - 8 hr 08/17/23 15:58 08/17/23 18:13 Temperature 98.6 F Pulse Rate 55 L 60 Respiratory Rate 18 18 Blood Pressure 218/100 H 190/94 H Pulse Oximetry 99 99 Oxygen Delivery Method Room Air Room Air MDM - Fall <Pamela Aj PA-C - Last Filed: 08/17/23 19:09> Imaging Data CT scan - head: Radiologist's Impression: [address] [address] [address] Scan Report Signed Patient: Ruth Cornelius MR#: [id number] : 1940 Acct:[id number] Age/Sex: 83 / F Date of Service: 08/17/23 Loc: ED Accession Number: [id number] Procedure: CT head/brain wo con Ordering Provider: Candelaria Barnhart D.O. PROCEDURE: CT HEAD/BRAIN WO CON INDICATIONS: fall/hit head TECHNIQUE: Noncontrast 4.5 mm thick angled axial sections acquired from the foramen magnum to the vertex, with coronal and sagittal reformats. For radiation dose reduction, the following was used: automated exposure control, adjustment of mA and/or kV according to patient size. COMPARISON: [facility], CT, CT HEAD/BRAIN WO CON, 04/23/2022, 14:03. [facility], CT, CT CERVICAL SPINE WO CON, 08/17/2023, 16:21. [facility], CT, CT HEAD/BRAIN WO CON, 05/17/2022, 14:27. FINDINGS: Image quality: Mild streak artifact can be seen through the skull base. CSF spaces: Basal cisterns are patent. No extra-axial fluid collections. The ventricles are symmetric in size and shape. Brain: No intracranial bleeds or masses. There is cerebral volume loss for age, with resultant ventricular and sulcal prominence. There are periventricular and deep white matter chronic small vessel ischemic changes. There is intracranial internal carotid artery atherosclerosis. Skull and face: Calvarium and visualized facial bones appear intact, without suspicious lesions. Sinuses: Visualized sinuses and mastoids are clear. IMPRESSION: No acute intracranial hemorrhage is seen. No acute intracranial pathology. Dictated by: William Crews M.D. on 08/17/2023 at 15:54 Approved by: William Crews M.D. on 08/17/2023 at 15:[address] : Radiologist's Impression: [address] [address] [address] Scan Report Signed Patient: Ruth Cornelius MR#: [id number] : 1940 Acct:[id number] Age/Sex: 83 / F Date of Service: 08/17/23 Loc: ED Accession Number: [id number] Procedure: CT cervical spine wo con Ordering Provider: Candelaria Barnhart D.O. PROCEDURE: CT CERVICAL SPINE WO CON INDICATIONS: fall/hit head TECHNIQUE: Noncontrast 3 mm thick sections acquired from the skull base to the T4 level. Sagittal and coronal reformats were then constructed. For radiation dose reduction, the following was used: automated exposure control, adjustment of mA and/or kV according to patient size. COMPARISON: None. FINDINGS: Image quality: This examination is somewhat limited by quantum mottle artifact. Bones: No fractures or dislocations. Visualized superior ribs are intact. Focal degenerative change is seen involving the C1-C2 interface anteriorly. There is at least moderate disc space narrowing seen at C3-C4, C4-C5, C5-C6, C6-C7, and C7- T1. Posteriorly directed endplate osteophytes can be seen, which are overall worst at C5-C6. Soft tissues: Prevertebral soft tissues are normal in thickness. No paravertebral hematomas. No apical pneumothoraces. IMPRESSION: No displaced fracture or traumatic subluxation. Multiple levels of significant cervical spine degenerative change can be seen. Dictated by: William Crews M.D. on 08/17/2023 at 15:56 Approved by: William Crews M.D. on 08/17/2023 at 15:57 humerus xray: Radiologist's Impression: [place] [address] XRay Report Signed Patient: Ruth Cornelius MR#: [id number] : 1940 Acct:[id number] Age/Sex: 83 / F Date of Service: 08/17/23 Loc: ED Accession Number: [id number] Procedure: XR humerus LT 2V Ordering Provider: Candelaria Barnhart D.O. PROCEDURE: XR HUMERUS LT 2V INDICATIONS: fall/pain/felt a pop TECHNIQUE: 2 views of the humerus were acquired. COMPARISON: [facility], CR, XR SHOULDER LT MIN 2V, 10/05/2022, 11:34. [facility], CT, CT HEAD/BRAIN WO CON, 08/17/2023, 16:21. [facility], CT, CT CERVICAL SPINE WO CON, 08/17/2023, 16:21. [facility], CR, XR SHOULDER LT MIN 2V, 08/17/2023, 16:17. FINDINGS: Bones: There is a comminuted, impacted fracture seen involving the left humeral head and neck. No shoulder dislocation can be seen. The visualized ribs appear intact. Underlying degenerative changes and osteopenia can be seen. Soft tissues: No suspicious soft tissue calcifications. IMPRESSION: Comminuted, impacted fracture the left humeral head and neck. Dictated by: William Crews M.D. on 08/17/2023 at 16:07 Approved by: William Crews M.D. on 08/17/2023 at 16:08 shoulder xray: Radiologist's Impression: [place] [address] XRay Report Signed Patient: Ruth Cornelius MR#: [id number] : 1940 Acct:[id number] Age/Sex: 83 / F Date of Service: 08/17/23 Loc: ED Accession Number: [id number] Procedure: XR shoulder LT min 2V Ordering Provider: Candelaria Barnhart D.O. PROCEDURE: XR SHOULDER LT MIN 2V INDICATIONS: fall/pain/felt a pop TECHNIQUE: 3 views of the shoulder were acquired. COMPARISON: [facility], CT, CT HEAD/BRAIN WO CON, 08/17/2023, 16:21. [facility], CT, CT CERVICAL SPINE WO CON, 08/17/2023, 16:21. [facility], CR, XR HUMERUS LT 2V, 08/17/2023, 16:17. [facility], CR, XR SHOULDER LT MIN 2V, 10/05/2022, 11:34. FINDINGS: Bones: There is a comminuted, impacted fracture seen of the left humeral head and neck, with moderate displacement. There is no glenohumeral dislocation seen. No scapular fracture can be seen. No fracture of the clavicle is seen. The visualized ribs appear intact. Soft tissues: No suspicious soft tissue calcifications. Atherosclerotic calcification of the aortic arch is noted. IMPRESSION: Comminuted, impacted fracture of the left humeral head and neck, with moderate displacement. Dictated by: William Crews M.D. on 08/17/2023 at 16:09 Approved by: William Crews M.D. on 08/17/2023 at 16:09 [facility] Narrative Medical decision making narrative: Patient presented after a ground level fall in which she struck her left upper arm directly onto the concrete curb. She sustained a minor abrasion to the left cheek but otherwise no head injury, LOC. She has no loss of consciousness, changes in mental status, confusion, or amnesia to the event. She is unable to use her left arm due to pain. Her head and C-spine CT were negative. Her shoulder x-ray shows a comminuted impacted fracture of the left humeral head and neck with moderate displacement. She is neurovascularly intact. Discussed w [facility] orthopedist on-call with [employer] who recommends patient be placed in a sling and follow up [facility] outpatient. Patient will need to call the orthopedic clinic on Saturday to arrange this follow up appointment. She has no evidence of unstable or emergent fracture, no open fracture. Patient tolerated sling and was given [place] 5/325 here in the ED with a prescription for additional [place] to be taken as needed for severe pain at home. We discussed fall risk and ways to reduce this risk. Discharge Plan Departure Patient Disposition: Home Clinical Impression: Fracture, humerus closed Qualifiers: Encounter type: initial encounter Humerus Location: proximal Fracture morphology: other fracture Fracture alignment: displaced Laterality: left Qualified Code(s): S42.292A - Other displaced fracture of upper end of left humerus, initial encounter for closed fracture Instructions: DI for Humeral Fracture Activity Restrictions/Additional Instructions: Thank you for choosing us to care for you today. You were evaluated after a fall today. On your x-ray you have a fracture of your left humerus which is the bone that makes up your shoulder and upper arm. The treatment for this is a sling and you will need to follow up with an orthopedic clinic as soon as possible next week. Please call them on Saturday to arrange a follow up appointment. You have been given a medication for pain here in the ER and a prescription for the same medication called [place]. This medication may cause you to feel unsteady and tired so please have your help you move around the house while taking this medication. Please remove any loose rugs or carpet that may be a tripping hazard. Prescriptions: New hydrocodone-acetaminophen 5-325 mg tablet 1 tab PO Q8H PRN (Reason: pain) Qty: 7 0RF No Action primidone 250 mg tablet See Rx Instructions .ROUTE .COMPLEX Qty: 135 3RF Dose Instruction: TAKE 1/2 TABLET BY MOUTH EVERY MORNING AND 1 TABLET EVERY EVENING Rx Instructions: TAKE 1/2 TABLET BY MOUTH EVERY MORNING AND 1 TABLET EVERY EVENING phenazopyridine [Pyridium] 100 mg tablet 100 mg PO TID PRN (Reason: pain) Qty: 6 0RF estradiol 0.05 mg/24 hr patch weekly See Rx Instructions .ROUTE .COMPLEX Qty: 12 3RF Dose Instruction: APPLY ONE PATCH EVERY WEEK Rx Instructions: APPLY ONE PATCH EVERY WEEK fluticasone propionate 50 mcg/actuation spray,suspension 1 spray intranasal DAILY Qty: 16 3RF sertraline 50 mg tablet 50 mg PO DAILY Qty: 90 3RF diazepam 5 mg tablet 5 mg PO ONCE Qty: 1 0RF Rx Instructions: 1 hour prior to injection clobetasol 0.05 % cream 1 applic topical DAILY PRN (Reason: occasional shingles attack) Qty: 30 0RF atorvastatin 20 mg tablet 20 mg PO BEDTIME Qty: 90 3RF timolol maleate 0.5 % drops 1 drp EYE-BOTH DAILY multivitamin Tablet 1 tab PO DAILY ascorbic acid (vitamin C) 1,000 mg tablet 1,000 mg PO DAILY fluocinolone 0.01 % solution 1 applic topical BID lorazepam 1 mg tablet 1 mg PO DAILY topiramate 100 mg tablet 100 mg PO BID acetaminophen [Tylenol Extra Strength] 500 mg tablet 1,000 mg PO DAILY PRN calcium carbonate 500 mg calcium (1,250 mg) tablet 500 mg PO BID pravastatin 20 mg tablet 20 mg PO QDAY Qty: 90 3RF sulfamethoxazole-trimethoprim 800-160 mg tablet 1 tab PO BID Qty: 14 2RF amlodipine 5 mg tablet 5 mg PO DAILY Qty: 90 3RF gabapentin 300 mg capsule 300 mg PO BEDTIME Qty: 90 3RF triamcinolone acetonide 0.1 % ointment 1 applic topical DAILY cholecalciferol (vitamin D3) 2,000 unit capsule 2,000 unit PO DAILY solifenacin 10 mg tablet 10 mg PO DAILY Referrals: Grant Phillips MD [Primary Care Provider] - Bernabe Yadav MD [Physician] - (displaced humeral head/neck fracture ) Stand Alone Forms: Patient Portal/API ED Sign-out <Candelaria Barnhart, - Last Filed: 08/18/23 09:20> Cosign ED Attending Cosignature Attestation: I was immediately available in the department for consultation. Imaging was reviewed agree with Radiology read. Agree with orthopedic plan.
[2023-08-17] MEDS: HYDROCODONE/ACET 5/325 TABLET 1 TAB PO (17:43)
[2023-08-17] MEDS: HYDROCODONE/ACET 5/325 PREPACK 1 BOTTLE MISC (18:02)
[2023-08-17 18:13] VITALS: BP 190/94; PULSE 60; RESP 18; O2SAT 99
== END 2023-08-17 18:14 | disposition home or self-care (01) ==
PROVIDERS: Emergency Provider Physician Assistant; Family Provider Internal Medicine; PCP Internal Medicine
DX: S42.292A Other displaced fracture of upper end of left humerus, initial encounter for closed fracture (principal); W01.0XXA Fall on same level from slipping, tripping and stumbling without subsequent striking against object, initial encounter
CPT/HCPCS: 70450; 72125; 73030; 73060; 99283; 99284

== ENCOUNTER → 2023-10-22 11:30 | Outpatient (CLI) | payer MEDICARE, OTHER, SELFPAY ==
[2022-06-07 14:23] VITALS: BMI 21.1
[2023-10-22 12:51] LABS: Hematocrit 36.8 % (36-46); Hemoglobin 12.1 g/dL (12.0-16.0); Mean Corpuscular Hemoglobin 33.6 PG (26-34); Mean Corpuscular Volume 101.7 fL (80-100); Platelet Count 167 X10^3/uL (150-400); Red Blood Cell Count 3.61 X10^6/uL (4.0-5.2); Red Cell Distribution Width 12.3 % (11.6-14.8); White Blood Cell Count 4.5 X10^3/uL (4.5-11.0)
[2023-10-22 13:18] LABS: Alanine Aminotransferase 11 IU/L (<35); Albumin 3.8 g/dL (3.5-5.0); Albumin Globulin Ratio 1.1 (1.0-2.8); Alkaline Phosphatase 107 U/L (38-126); Aspartate Aminotransferase 23 IU/L (14-36); BUN Creatinine Ratio 16.9 (6-22); Bilirubin Total 0.4 mg/dL (0.2-1.3); Blood Urea Nitrogen 14 mg/dL (7-17); Calcium 8.8 mg/dL (8.4-10.2); Carbon Dioxide 27 mmol/L (22-32); Chloride 109 mmol/L (98-107); Estimated Glomerular Filt Rate > 60 mL/min (>60); Globulin 3.5 g/dL (1.7-4.1); Glucose 97 mg/dL (80-110); HEMOLYSIS < 15 (0-50); Potassium 4.1 mmol/L (3.4-5.1); Sodium 140 mmol/L (137-145); Total Protein 7.3 g/dL (6.3-8.2)
[2023-10-22 13:46] LABS: TSH w/ Reflex to FT4 1.78 uIU/mL (0.47-4.68)
== END ==
PROVIDERS: Family Provider Internal Medicine; PCP Internal Medicine; Referring Provider Internal Medicine; Visit Provider Internal Medicine
DX: E78.2 Mixed hyperlipidemia (principal); I10 Essential (primary) hypertension
CPT/HCPCS: 36415; 80053; 84443; 85027

== ENCOUNTER 2023-11-21 16:00 | Outpatient (RCR) | payer MEDICARE, OTHER, SELFPAY ==
[2022-06-07 14:23] VITALS: BMI 21.1
--- NOTE | 2023-11-19 18:01 | PT.OIE ---
Current Diagnoses Pain in left shoulder (11/19/23) Stiffness of left shoulder, not elsewhere classified (11/19/23) Other displaced fracture of upper end of left humerus, subsequent encounter for fracture with routine healing (11/19/23) Past Medical History (Last Updated 09/24/23 @ 14:33 by Grant Phillips MD) Alcohol use disorder Atherosclerosis of aorta Cerebrovascular disease Depression, recurrent DJD of left shoulder Do not resuscitate Essential hypertension Facet arthropathy, lumbar Gait instability Generalized anxiety disorder Hereditary and idiopathic neuropathy, unspecified Impingement syndrome of left shoulder Irritable bowel syndrome with diarrhea Left cervical radiculopathy Left supraspinatus tendonitis Lymphocytic colitis Mixed hyperlipidemia Mixed incontinence urge and stress Osteopenia Scoliosis 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 Shingles Venous insufficiency Past Surgical History (Last Reviewed 09/24/23 @ 05:53 by Grant Phillips MD) History of knee replacement History of salpingo-oophorectomy (08/19/17) History of third molar tooth extraction Status post appendectomy Status post hysterectomy Status post tonsillectomy and adenoidectomy Visit Care Team Role Provider Type Grant Phillips MD Attending Provider Physician Family Provider Primary Care Provider Referring Provider Specialty: Internal Medicine Address: [address] [place] [address] Email: [email or web address] Physical Therapy Initial Evaluation PT-OP-A Visit Information Start: 11/19/23 17:36 Freq: Status: Active Protocol: Document 11/19/23 16:00 DCW (Rec: 11/19/23 18:01 DC [id number]) Out-Patient Physical Therapy Visit Information Visit Information Visit Type Initial Evaluation Visit Start Time 16:00 Visit Stop Time 16:45 Visit Number 1 Number of SUPERINTENDENT PRESSURE Visits 0 Evaluation Information Evaluation Date 11/19/23 PT-OP-B Current Condition Start: 11/19/23 17:36 Freq: Status: Active Protocol: Document 11/19/23 16:00 DCW (Rec: 11/19/23 18:01 DC [id number]) Current Condition History of Current Condition Onset Date 08/17/23 Current Complaints L Humeral head/neck fracture History of Current Condition Pt is an 83 year old female presenting three months s/p L humerus fracture. Pt suffered a fall stepping off a curb on 08/17/23, resulting in landing on her left shoulder. Pt presented to the ED a few hours later, and was found to have a comminuted, impacted fracture the left humeral head and neck. Pt has been under the care of an Ortho, had a follow-up on 11/12/23, and was told overall her healing is going very well, and to start with PT to help with aggressive stretching to improve ROM and strength. Pt has been doing wall slides and table slides at home so far. Reports she was instructed to minimal use of sling, only ~1 week, and then as needed in crowded places. Pt notes that since she is right-hand dominant, it hasn't impacted her as much as it could have, but that she hasn't been able to reach up and wash her hair with er left arm. Prior Treatments and Tests Shoulder X-ray: IMPRESSION: Comminuted, impacted fracture of the left humeral head and neck, with moderate displacement. per William Crews M.D. on 08/17/2023 PT-OP-C Subjective Start: 11/19/23 17:36 Freq: Status: Active Protocol: Document 11/19/23 16:00 DCW (Rec: 11/19/23 18:01 DCW [id number]) OP-PT Subjective Patient Comments Patient Comments I'm just glad it was my left arm. I'd be useless if this happened to the right. Patient Questionnaires Quick Dash- Upper Extremity Quick Dash UE Score 65.91% Quick Dash UE Impairment 60 to 79% Impaired (Score 60- 79) PT-OP-J Posture/Palpation/Skin Start: 11/19/23 17:36 Freq: Status: Active Protocol: Document 11/19/23 16:00 DCW (Rec: 11/19/23 18:01 DCW [id number]) Posture Evaluation Position Sitting Evaluation View Anterior Shoulder Posture (L) Forward PT-OP-K Range of Motion Start: 11/19/23 17:36 Freq: Status: Active Protocol: Document 11/19/23 16:00 DCW (Rec: 11/19/23 18:01 DCW [id number]) Shoulder Goniometric Range of Motion Shoulder Right Passive Shoulder ROM WFL Yes Testing Position Supine Flexion 180 Abduction 180 External Rotation at 0 degrees Abduction 85 Right Active Testing Position Sitting Flexion 144 Abduction 132 External Rotation at 0 degrees Abduction 75 Internal Rotation Behind Back (text) T4 Left Passive Shoulder ROM WFL No Testing Position Supine Flexion 90 Abduction 85 External Rotation at 0 degrees Abduction 65 Left Active Shoulder ROM WFL No Testing Position Sitting Flexion 61 Abduction 44 External Rotation at 0 degrees Abduction 50 Internal Rotation Behind Back (text) L PSIS PT-OP-M Strength Start: 11/19/23 17:36 Freq: Status: Active Protocol: Document 11/19/23 16:00 DCW (Rec: 11/19/23 18:01 [facility] [id number]) Shoulder Strength Shoulder Manual Muscle Testing Right Flexion 4 Good Abduction (C5) 4 Good External Rotation 4 Good Internal Rotation 4 Good Left Flexion 2 Poor Abduction (C5) 2 Poor External Rotation 2 Poor Internal Rotation 2+ Poor+ PT-OP-Q Treatments Start: 11/19/23 17:36 Freq: Status: Active Protocol: Document 11/19/23 16:00 DCW (Rec: 11/19/23 18:01 [facility] [id number]) Therapeutic Exercises Supine Exercises Flexion Supine Exercise Name L AAROM Flexion /c Cane Comments HEP Sitting Exercises Abduction Sitting Exercise Name L PROM Abduction /c cane Comments HEP Standing Exercises Pec Stretch Standing Exercise Name Doorway Pec Stretch Side left Comments HEP PT-OP-T Assessment and Plan Start: 11/19/23 17:36 Freq: Status: Active Protocol: Document 11/19/23 16:00 DCW (Rec: 11/19/23 18:01 [facility] [id number]) Physical Therapy Assessment Rehab Potential Rehabilitation Potential Good Evaluation Complexity Number of Personal Factors/Comorbidities 1-2 Number of Body Systems Impaired 4 or More Clinical Presentation at Evaluation Stable Impairments Impairments Activity Tolerance,Functional Activities,Functional Mobility ,Pain,Posture,ROM,Soft Tissue Mobility,Strength,Tone Goals Two Impairment Left shoulder AROM limited to 61? flexion and 44? abduction Long-Term Goal (LTG) Pt to demonstrate improved left shoulder AROM to 120? in both flexion and abduction in order to improve ability to wash hair LTG Duration 01/20/24 One Impairment Pt does not have an appropriate home exercise program Short Term Goal (STG) Pt to be independent and compliant with an appropriate HEP STG Duration 12/20/23 Assessment Summary Assessment PT presents with signs and symptoms consistent with referring diagnosis. Pt is three months s/p comminuted, impacted fracture of the left humeral head and neck secondary to GLF. Pt is doing well with recovery, has been compliant with initial home stretches, however is now at the point where she should benefit from more aggressive stretching and strengthening in order to increase ROM and return to prior level of functioning. Pt AROM currently significantly restricted, AROM measured at 61? flexion and 44? abduction, and pt presents with a left forward shoulder positioning secondary to protective positioning and left pec tightness over past few months of recovery. Work toward both passive and active ROM gains, strengthening, posture, and return to PLOF. Physical Therapy Plan Frequency and Duration Frequency of Treatment 2x/Week Plan of Care Start Date 11/19/23 Plan of Care End Date 01/20/24 Therapeutic Interventions Therapeutic Interventions Home Exercise Program,Joint Mobilizations,Manual Therapy, Neuromuscular Re-education, Patient/Caregiver Education, Self-Care/Home Management,Soft Tissue Mobilization, Therapeutic Activities, Therapeutic Exercises, Vestibular Rehabilitation Modalities Cold Pack/Ice Massage,Electric Stimulation,Hot Packs, Ultrasound Next Visit Focus/Plan Next Note Type Treatment Note Next Visit Plan Pulleys, PROM/AROM, shoulder retraction, shrugs
--- NOTE | 2023-11-19 18:04 | PT.OPPOC ---
Physical, Occupational & Speech Therapy At [facility] Current Diagnoses Pain in left shoulder (11/19/23) Stiffness of left shoulder, not elsewhere classified (11/19/23) Other displaced fracture of upper end of left humerus, subsequent encounter for fracture with routine healing (11/19/23) Visit Care Team Role Provider Type Grant Phillips MD Attending Provider Physician Family Provider Primary Care Provider Referring Provider Specialty: Internal Medicine Address: [address] [place] [address], [employer] Email: [email or web address] Plan Of Care PT-OP-T Assessment and Plan Start: 11/19/23 17:36 Freq: Status: Active Protocol: Document 11/19/23 16:00 DCW (Rec: 11/19/23 18:01 DCW [id number]) Physical Therapy Assessment Rehab Potential Rehabilitation Potential Good Evaluation Complexity Number of Personal Factors/Comorbidities 1-2 Number of Body Systems Impaired 4 or More Clinical Presentation at Evaluation Stable Impairments Impairments Activity Tolerance,Functional Activities,Functional Mobility ,Pain,Posture,ROM,Soft Tissue Mobility,Strength,Tone Goals Two Impairment Left shoulder AROM limited to 61? flexion and 44? abduction Skilled Nursing Goal (LTG) Pt to demonstrate improved left shoulder AROM to 120? in both flexion and abduction in order to improve ability to wash hair LTG Duration 01/20/24 One Impairment Pt does not have an appropriate home exercise program Short Term Goal (STG) Pt to be independent and compliant with an appropriate HEP STG Duration 12/20/23 Assessment Summary Assessment Pt presents with signs and symptoms consistent with referring diagnosis. Pt is three months s/p comminuted, impacted fracture of the left humeral head and neck secondary to GLF. Pt is doing well with recovery, has been compliant with initial home stretches, however is now at the point where she should benefit from more aggressive stretching and strengthening in order to increase ROM and return to prior level of functioning. Pt AROM currently significantly restricted, AROM measured at 61? flexion and 44? abduction, and pt presents with a left forward shoulder positioning secondary to protective positioning and left pec tightness over past few months of recovery. Work toward both passive and active ROM gains, strengthening, posture, and return to PLOF. Physical Therapy Plan Frequency and Duration Frequency of Treatment 2x/Week Plan of Care Start Date 11/19/23 Plan of Care End Date 01/20/24 Therapeutic Interventions Therapeutic Interventions Home Exercise Program,Joint Mobilizations,Manual Therapy, Neuromuscular Re-education, Patient/Caregiver Education, Self-Care/Home Management,Soft Tissue Mobilization, Therapeutic Activities, Therapeutic Exercises, Vestibular Rehabilitation Modalities Cold Pack/Ice Massage,Electric Stimulation,Hot Packs, Ultrasound Next Visit Focus/Plan Next Note Type Treatment Note Next Visit Plan Pulleys, PROM/AROM, shoulder retraction, shrugs Plan of Care Dates Plan of Care Start Date 11/19/23 Plan of Care End Date 01/20/24 Electronically Signed by: Nguyễn Gonzalez, PT 11/19/23 6876 If you are in agreement with this Plan of Care, please return a signed and dated copy. I have reviewed this Plan of Care and certify that the skilled therapy services above are required to meet the patient?s needs. Physician Signature Date Printed Name and Credentials Clinical Instructor Signature Printed Name and Credentials
--- NOTE | 2023-11-21 16:47 | PT.OTN ---
Current Diagnoses Pain in left shoulder (11/21/23) Stiffness of left shoulder, not elsewhere classified (11/21/23) Other displaced fracture of upper end of left humerus, subsequent encounter for fracture with routine healing (11/21/23) Physical Therapy Treatment Note PT-OP-A Visit Information Start: 11/19/23 17:36 Freq: Status: Active Protocol: Document 11/21/23 16:00 DCW (Rec: 11/21/23 16:47 DCW [id number]) Out-Patient Physical Therapy Visit Information Visit Information Visit Type Treatment Note Visit Start Time 16:00 Visit Stop Time 16:45 Visit Number [address] WORKER Visits 0 Evaluation Information Evaluation Date 11/19/23 PT-OP-B Current Condition Start: 11/19/23 17:36 Freq: Status: Active Protocol: Document 11/19/23 16:00 DCW (Rec: 11/19/23 18:01 DCW [id number]) Current Condition History of Current Condition Onset Date 08/17/23 Current Complaints L Humeral head/neck fracture History of Current Condition Pt is an 83 year old female presenting three months s/p L humerus fracture. Pt suffered a fall stepping off a curb on 08/17/23, resulting in landing on her left shoulder. Pt presented to the ED a few hours later, and was found to have a comminuted, impacted fracture the left humeral head and neck. Pt has been under the care of an Ortho, had a follow-up on 11/12/23, and was told overall her healing is going very well, and to start with PT to help with aggressive stretching to improve ROM and strength. Pt has been doing wall slides and table slides at home so far. Reports she was instructed to minimal use of sling, only ~1 week, and then as needed in crowded places. Pt notes that since she is right-hand dominant, it hasn't impacted her as much as it could have, but that she hasn't been able to reach up and wash her hair with er left arm. Prior Treatments and Tests Shoulder X-ray: IMPRESSION: Comminuted, impacted fracture of the left humeral head and neck, with moderate displacement. per William Crews M.D. on 08/17/2023 PT-OP-C Subjective Start: 11/19/23 17:36 Freq: Status: Active Protocol: Document 11/21/23 16:00 DCW (Rec: 11/21/23 16:47 DCW [id number]) OP-PT Subjective Patient Comments Patient Comments I haven't made any shocking improvements. PT-OP-J Posture/Palpation/Skin Start: 11/19/23 17:36 Freq: Status: Active Protocol: Document 11/19/23 16:00 DCW (Rec: 11/19/23 18:01 DCW [id number]) Posture Evaluation Position Sitting Evaluation View Anterior Shoulder Posture (L) Forward PT-OP-K Range of Motion Start: 11/19/23 17:36 Freq: Status: Active Protocol: Document 11/19/23 16:00 DCW (Rec: 11/19/23 18:01 DCW [id number]) Shoulder Goniometric Range of Motion Shoulder Right Passive Shoulder ROM WFL Yes Testing Position Supine Flexion 180 Abduction 180 External Rotation at 0 degrees Abduction 85 Right Active Testing Position Sitting Flexion 144 Abduction 132 External Rotation at 0 degrees Abduction 75 Internal Rotation Behind Back (text) T4 Left Passive Shoulder ROM WFL No Testing Position Supine Flexion 90 Abduction 85 External Rotation at 0 degrees Abduction 65 Left Active Shoulder ROM WFL No Testing Position Sitting Flexion 61 Abduction 44 External Rotation at 0 degrees Abduction 50 Internal Rotation Behind Back (text) L PSIS PT-OP-M Strength Start: 11/19/23 17:36 Freq: Status: Active Protocol: Document 11/19/23 16:00 DCW (Rec: 11/19/23 18:01 DCW [id number]) Shoulder Strength Shoulder Manual Muscle Testing Right Flexion 4 Good Abduction (C5) 4 Good External Rotation 4 Good Internal Rotation 4 Good Left Flexion 2 Poor Abduction (C5) 2 Poor External Rotation 2 Poor Internal Rotation 2+ Poor+ PT-OP-Q Treatments Start: 11/19/23 17:36 Freq: Status: Active Protocol: Document 11/21/23 16:00 DCW (Rec: 11/21/23 16:47 DCW [id number]) Cardio Equipment Upper Body Ergometer (UBE) Duration (Minutes) 5 RPM 15 Seat Position 9 Height 2.5 Therapeutic Exercises Sitting Exercises Biceps Curls Sitting Exercise Name Curls/Reverse Curls Side bilateral Resistance 2# Sup/Pronation Sitting Exercise Name Forearm supination/pronation / c hammer Side left AAROM Sitting Exercise Name Pulleys - Flexion, Abduction Standing Exercises Wall slides Standing Exercise Name Wall slides - Flexion Side left Shoulder Extension Standing Exercise Name Shoulder Extension Side bilateral Resistance Hinckley Rows Standing Exercise Name Rows Side bilateral Resistance Hinckley Shoulder Circles Standing Exercise Name Shoulder rolls Side bilateral Shrugs Standing Exercise Name Shoulder shrugs Side bilateral Resistance 2# PT-OP-T Assessment and Plan Start: 11/19/23 17:36 Freq: Status: Active Protocol: Document 11/21/23 16:00 DCW (Rec: 11/21/23 16:47 DCW [id number]) Physical Therapy Assessment Impairments Impairments Activity Tolerance,Functional Activities,Functional Mobility ,Pain,Posture,ROM,Soft Tissue Mobility,Strength,Tone Goals Two Impairment Left shoulder AROM limited to 61? flexion and 44? abduction Instructor Creeler Goal (LTG) Pt to demonstrate improved left shoulder AROM to 120? in both flexion and abduction in order to improve ability to wash hair LTG Duration 01/20/24 One Impairment Pt does not have an appropriate home exercise program Short Term Goal (STG) Pt to be independent and compliant with an appropriate HEP STG Duration 12/20/23 Assessment Summary Assessment Very good response to activity today, tolerated well. Pt demonstrated improved mobility in shoulder with repeated motion. Physical Therapy Plan Frequency and Duration Frequency of Treatment 2x/Week Plan of Care Start Date 11/19/23 Plan of Care End Date 01/20/24 Therapeutic Interventions Therapeutic Interventions Home Exercise Program,Joint Mobilizations,Manual Therapy, Neuromuscular Re-education, Patient/Caregiver Education, Self-Care/Home Management,Soft Tissue Mobilization, Therapeutic Activities, Therapeutic Exercises, Vestibular Rehabilitation Modalities Cold Pack/Ice Massage,Electric Stimulation,Hot Packs, Ultrasound Next Visit Focus/Plan Next Note Type Treatment Note Next Visit Plan Pulleys, PROM/AROM, shoulder retraction, shrugs
--- NOTE | 2023-11-25 14:23 | PT.OPDS ---
Current Diagnoses Pain in left shoulder (11/21/23) Stiffness of left shoulder, not elsewhere classified (11/21/23) Other displaced fracture of upper end of left humerus, subsequent encounter for fracture with routine healing (11/21/23) Visit Care Team Role Provider Type Grant Phillips MD Attending Provider Physician Family Provider Primary Care Provider Referring Provider Specialty: Internal Medicine Address: [address] [place] [address], [facility] Email: [email or web address] Visit Number Visit Number 2 Discharge Summary PT-OP-B Current Condition Start: 11/19/23 17:36 Freq: Status: Active Protocol: Document 11/19/23 16:00 DCW (Rec: 11/19/23 18:01 DCW [id number]) Current Condition History of Current Condition Onset Date 08/17/23 Current Complaints L Humeral head/neck fracture History of Current Condition Pt is an 83 year old female presenting three months s/p L humerus fracture. Pt suffered a fall stepping off a curb on 08/17/23, resulting in landing on her left shoulder. Pt presented to the ED a few hours later, and was found to have a comminuted, impacted fracture the left humeral head and neck. Pt has been under the care of an Ortho, had a follow-up on 11/12/23, and was told overall her healing is going very well, and to start with PT to help with aggressive stretching to improve ROM and strength. Pt has been doing wall slides and table slides at home so far. Reports she was instructed to minimal use of sling, only ~1 week, and then as needed in crowded places. Pt notes that since she is right-hand dominant, it hasn't impacted her as much as it could have, but that she hasn't been able to reach up and wash her hair with er left arm. Prior Treatments and Tests Shoulder X-ray: IMPRESSION: Comminuted, impacted fracture of the left humeral head and neck, with moderate displacement. per William Crews M.D. on 08/17/2023 PT-OP-C Subjective Start: 11/19/23 17:36 Freq: Status: Active Protocol: Document 11/21/23 16:00 DCW (Rec: 11/21/23 16:47 DCW [id number]) OP-PT Subjective Patient Comments Patient Comments I haven't made any shocking improvements. PT-OP-J Posture/Palpation/Skin Start: 11/19/23 17:36 Freq: Status: Active Protocol: Document 11/19/23 16:00 DCW (Rec: 11/19/23 18:01 DCW [id number]) Posture Evaluation Position Sitting Evaluation View Anterior Shoulder Posture (L) Forward PT-OP-K Range of Motion Start: 11/19/23 17:36 Freq: Status: Active Protocol: Document 11/19/23 16:00 DCW (Rec: 11/19/23 18:01 DCW [id number]) Shoulder Goniometric Range of Motion Shoulder Right Passive Shoulder ROM WFL Yes Testing Position Supine Flexion 180 Abduction 180 External Rotation at 0 degrees Abduction 85 Right Active Testing Position Sitting Flexion 144 Abduction 132 External Rotation at 0 degrees Abduction 75 Internal Rotation Behind Back (text) T4 Left Passive Shoulder ROM WFL No Testing Position Supine Flexion 90 Abduction 85 External Rotation at 0 degrees Abduction 65 Left Active Shoulder ROM WFL No Testing Position Sitting Flexion 61 Abduction 44 External Rotation at 0 degrees Abduction 50 Internal Rotation Behind Back (text) L PSIS PT-OP-M Strength Start: 11/19/23 17:36 Freq: Status: Active Protocol: Document 11/19/23 16:00 DCW (Rec: 11/19/23 18:01 DCW [id number]) Shoulder Strength Shoulder Manual Muscle Testing Right Flexion 4 Good Abduction (C5) 4 Good External Rotation 4 Good Internal Rotation 4 Good Left Flexion 2 Poor Abduction (C5) 2 Poor External Rotation 2 Poor Internal Rotation 2+ Poor+ PT-OP-T Assessment and Plan Start: 11/19/23 17:36 Freq: Status: Active Protocol: Document 11/25/23 14:20 DCW (Rec: 11/25/23 14:23 DCW [id number]) Physical Therapy Assessment Assessment Summary Assessment Pt discussed with schedulers today pt also being treated at different clinic for same body part, which was not previously disclosed. Pt informed she could not be treated at two different clinics for the same issue. PT elected to finish therapy at original clinic. Pt discharged from skilled therapy in this clinic at this time. Physical Therapy Plan Discharge Physical Therapy Discharge Comments Pt being treated at a different clinic Next Visit Focus/Plan Next Note Type Discharge Summary
== END 2023-12-13 09:20 ==
LOC: PHYS 16:00
PROVIDERS: Family Provider Internal Medicine; PCP Internal Medicine; Referring Provider Internal Medicine; Visit Provider Internal Medicine
DX: M25.512 Pain in left shoulder (principal); M25.612 Stiffness of left shoulder, not elsewhere classified; S42.292D Other displaced fracture of upper end of left humerus, subsequent encounter for fracture with routine healing
CPT/HCPCS: 97110; 97162

== ENCOUNTER → 2023-12-14 15:51 | Outpatient (CLI) | payer MEDICARE, OTHER, SELFPAY ==
[2022-06-07 14:23] VITALS: BMI 21.1
--- NOTE | 2023-12-14 15:53 | DI.RAD.S_ITS ---
PROCEDURE: XR RIBS LT MIN 3V W CXR1V INDICATIONS: Left rib injury TECHNIQUE: 3 views of the ribs were acquired, along with a single view chest. COMPARISON: None. FINDINGS: Surgical changes and devices: None. Bones and chest wall: There is no displaced rib fracture. There is a subacute humeral neck fracture which is incompletely imaged. No suspicious bony lesions. Overlying soft tissues appear unremarkable. Lungs and pleura: No pleural effusions or pneumothorax. Lungs appear clear. Mediastinum: Mediastinal contours appear normal. Heart size is normal. IMPRESSION: 1. No displaced rib fracture or underlying pulmonary injury. 2. Subacute humeral neck fracture. Dictated by: Eliane Alexander M.D. on 12/14/2023 at 16:11 Approved by: Eliane Alexander M.D. on 12/14/2023 at 16:13
--- NOTE | 2023-12-14 15:53 | DI.RAD.S_ITS ---
PROCEDURE: XR SHOULDER LT MIN 2V INDICATIONS: Left shoulder injury TECHNIQUE: 3 views of the shoulder were acquired. COMPARISON: [facility], CR, XR SHOULDER LT MIN 2V, 08/17/2023, 16:17. [facility], CR, XR SHOULDER LT MIN 2V, 10/05/2022, 11:34. FINDINGS: Bones: There is a subacute fracture of the humeral neck which shows grossly anatomic alignment on the internal rotation view with approximately 1/2 cortex with of medial displacement of the humeral diaphysis on the external rotation view. Glenohumeral alignment is maintained. Mineralization is normal without obvious underlying pathologic lesion. Soft tissues: No suspicious soft tissue calcifications. IMPRESSION: Subacute humeral neck fracture as described. Dictated by: Eliane Alexander M.D. on 12/14/2023 at 16:13 Approved by: Eliane Alexander M.D. on 12/14/2023 at 16:15
== END ==
PROVIDERS: Family Provider Internal Medicine; PCP Internal Medicine; Referring Provider Registered Nurse; Visit Provider Registered Nurse
DX: S42.212A Unspecified displaced fracture of surgical neck of left humerus, initial encounter for closed fracture (principal); M25.512 Pain in left shoulder; R07.81 Pleurodynia; X58.XXXA Exposure to other specified factors, initial encounter
CPT/HCPCS: 71101; 73030

== ENCOUNTER → 2024-02-13 15:33 | Outpatient (CLI) | payer MEDICARE, OTHER, SELFPAY ==
[2022-06-07 14:23] VITALS: BMI 21.1
--- NOTE | 2024-02-13 15:35 | DI.RAD.S_ITS ---
PROCEDURE: XR SACRUM COCCYX MIN 2V INDICATIONS: Sacral pain after fall TECHNIQUE: 3 views of the sacrum and coccyx acquired. COMPARISON: None. FINDINGS: Bones: No fractures or dislocations. No suspicious bony lesions. Soft tissues: Visualized bowel gas pattern is normal. No suspicious soft tissue densities. IMPRESSION: No visualized acute fracture or dislocation. However, if clinical concern and/or pain persist, short interval imaging followup in 7-10 days is recommended, as occult injury cannot be definitively excluded. Dictated by: Kimberly Goodman M.D. on 02/13/2024 at 16:31 Approved by: Kimberly Goodman M.D. on 02/13/2024 at 16:31
== END ==
PROVIDERS: Family Provider Internal Medicine; PCP Internal Medicine; Referring Provider Physician Assistant Medical; Visit Provider Physician Assistant Medical
DX: M53.3 Sacrococcygeal disorders, not elsewhere classified (principal)
CPT/HCPCS: 72220

== ENCOUNTER 2024-02-27 09:55 | Outpatient (CLI) | payer MEDICARE, OTHER, SELFPAY ==
[2022-06-07 14:23] VITALS: BMI 21.1
[2024-02-27] VITALS (8 sets, daily range): BP systolic 120–207; BP diastolic 73–99; PULSE 63–72; RESP 15–19; TEMP 36.3; O2SAT 96–100
--- NOTE | 2024-02-27 10:45 | DI.RAD.S_ITS ---
PROCEDURE: PAIN L/S FACET INJ/BLK 1ST NATHANIEL INDICATIONS: SPONDYLOSIS COMPARISON: [facility], , PAIN L/S FACET INJ/BLK 1ST NATHANIEL, 04/02/2023, 11:43. FINDINGS: Fluoroscopic spot filming was performed to verify placement of spinal needles at the bilateral L3, L4 and L5 level(s), as labeled on the films. Appropriate location(s) of the needle tip(s) was confirmed by injection of iodinated contrast. IMPRESSION: Intra procedural examination demonstrating appropriate positions of the needles. Dictated by: Horace Magana M.D. on 02/27/2024 at 12:35 Approved by: Horace Magana M.D. on 02/27/2024 at 12:36
[2024-02-27] MEDS: MIDAZOLAM 2 MG/2 ML VIAL 1 MG IV (11:25)
[2024-02-27] MEDS: iopamidoL 15 ML VIAL 3 ML INJ (11:31)
[2024-02-27] MEDS: LIDOCAINE 1% 20 ML 5 ML INJ (11:31)
[2024-02-27] MEDS: LIDOCAINE 2% INJ MDV 20ML 5 ML INJ (11:32)
--- NOTE | 2024-02-27 11:48 | P.PCN_ITS ---
Date/Time/Diagnoses Date of procedure: 02/27/24 Time of procedure: 11:48 Pre-procedure diagnosis: 1. FACET ARTHROPATHY Post-procedure diagnosis: same Procedure Notes Procedure: 1. BILATERAL L3, L4 AND L5 DIAGNOSTIC MB BLOCKS Indications: Ruth is referred by Dr. Phillips for treatment of Bilateral Axial LBP. Physician: Chuy Mario Total Fluoroscopy time (seconds): 11 Total sedation minutes: 16 Complications: none Procedure in detail & Post-procedure care: DESCRIPTION OF PROCEDURE Fluoroscopically guided, contrast-controlled bilateral L3, L4 AND L5 medial branch blocks with 0.5cc of 2% Lidocaine. Following review of allergy and review of potential side effects and complications, including, but not necessarily limited to, infection, allergic reaction, local tissue breakdown, nerve injury, paralysis, stroke and possible , the patient indicated that the patient understood and agreed to proceed. An informed consent document was signed by the patient, witnessed by a nurse, and placed in the patient's chart. After review of previous anaesthesic history and IV conscious sedation the patient was deemed safe to proceed with today's procedure with IV conscious sedation as ASA class II designation. Safety time-out was performed to confirm patient ID, procedure to be performed and site of procedure. IV sedation was accomplished with a combination of 1mg of Versed was administered by the RN after DO order, titrated to patient comfort during the course of the procedure while the patient remained responsive to all verbal commands In the prone position, following sterile prep and drape of the lumbar region, the right L3, L4 AND L5 anatomical location of the medial branch of the dorsal ramus was identified fluoroscopically. Subsequently an anesthetic skin wheal using 1% lidocaine solution was initiated at each of the anatomical spots. Subsequently then a 22-gauge 3.5-inch spinal needle was atraumatically introduced and advanced under fluoroscopic guidance at each of the corresponding sites at the right L3, L4 and L5 MB. After negative aspiration, 0.2cc of Isovue 200 was injected, confirming placement without vascular or intrathecal uptake. Subsequently then 0.5cc of 2% Lidocaine solution was injected at each of the corresponding sites at the right L3, L4 and L5 medial branch locations. The identical procedure was replicated on the left. The patient tolerated the proced ure well without signs or symptoms of complications. The patient tolerated the procedure well without signs or symptoms of complications prior to transfer to the recovery area continued monitoring without incident. Post-procedure, the patient was monitored initiating provocative activities to measure the amount of relief from block of the facetogenic pain. The patient reported a VAS of 7 prior to the procedure and a post-procedure VAS of 1. It has been a pleasure to assist in the diagnostic and therapeutic care of your patient. POST OP INSTRUCTIONS The patient was provided with a Pain Log to complete over the next several hours and subsequent days prior to the patient's follow up with the ordering physician. If the patient has occupational psychologist relief to the solution applied, then they may be a candidate for medial branch rhizotomy. The patient is aware, was provided, once again, with a Pain Log and will follow up with the referring physician for review and clinical correlation
== END 2024-02-27 12:25 | disposition home or self-care (01) ==
LOC: RAD 09:56
PROVIDERS: Family Provider Internal Medicine; PCP Internal Medicine; Referring Provider Physical Medicine & Rehabilitation; Visit Provider Physical Medicine & Rehabilitation
DX: M47.816 Spondylosis without myelopathy or radiculopathy, lumbar region (principal)
CPT/HCPCS: 64493; 64494; 99152; J2250

== ENCOUNTER → 2024-03-11 14:28 | Outpatient (CLI) | payer MEDICARE, OTHER, SELFPAY ==
[2022-06-07 14:23] VITALS: BMI 21.1
[2024-03-11 15:46] LABS: Blood Urea Nitrogen 16 mg/dL (7-17); Calcium 9.3 mg/dL (8.4-10.2); Carbon Dioxide 27 mmol/L (22-32); Chloride 103 mmol/L (98-107); Estimated Glomerular Filt Rate > 60 mL/min (>60); Glucose 80 mg/dL (80-110); HEMOLYSIS < 15 (0-50); Potassium 4.1 mmol/L (3.4-5.1); Sodium 138 mmol/L (137-145)
== END ==
PROVIDERS: Family Provider Internal Medicine; PCP Internal Medicine; Referring Provider Internal Medicine; Visit Provider Internal Medicine
DX: I10 Essential (primary) hypertension (principal); I67.9 Cerebrovascular disease, unspecified; I70.0 Atherosclerosis of aorta; E78.2 Mixed hyperlipidemia; I87.2 Venous insufficiency (chronic) (peripheral)
CPT/HCPCS: 36415; 80048

== ENCOUNTER → 2024-03-21 10:41 | Outpatient (CLI) | payer MEDICARE, OTHER, SELFPAY ==
[2022-06-07 14:23] VITALS: BMI 21.1
--- NOTE | 2024-03-21 10:43 | DI.MG.S_ITS ---
BILATERAL DIGITAL SCREENING MAMMOGRAM 3D/2D WITH CAD: 03/21/2024 CLINICAL: Routine screening. Family history of breast cancer. Comparison is made to exams dated: 10/23/2022 mammogram, 11/16/2021 mammogram, and 11/14/2020 mammogram - [facility]. The breasts are heterogeneously dense, which may obscure small masses (category c / 51-75% glandular tissue). Current study was also evaluated with a Computer Aided Detection (CAD) system. There are benign calcifications in both breasts. No significant masses, calcifications, or other findings are seen in either breast. There has been no significant interval change. IMPRESSION: BENIGN There is no mammographic evidence of malignancy. A 1 year screening mammogram is recommended. This exam was interpreted at Station ID: [id number]. NOTE: For mammograms, a report in lay terms will be sent to the patient. Approximately 15% of breast malignancies will not be visualized mammographically. In the management of a palpable breast mass, a negative mammogram must not discourage biopsy of a clinically suspicious lesion. Electronically Signed By: Timothy flores/wesley:03/23/2024 07:36:30 letter sent: Normal Exam ACR BI-RADS Category 2: Benign
== END ==
PROVIDERS: Family Provider Internal Medicine; PCP Internal Medicine; Referring Provider Internal Medicine; Visit Provider Internal Medicine
DX: Z12.31 Encounter for screening mammogram for malignant neoplasm of breast (principal); R92.1 Mammographic calcification found on diagnostic imaging of breast; R92.333 Mammographic heterogeneous density, bilateral breasts; Z80.3 Family history of malignant neoplasm of breast
CPT/HCPCS: 77063; 77067

== ENCOUNTER 2024-04-15 11:30 | Outpatient (RCR) | payer MEDICARE, OTHER, SELFPAY ==
[2022-06-07 14:23] VITALS: BMI 21.1
--- NOTE | 2023-11-11 14:15 | OT.OP.EVAL ---
Visit Care Team Role Provider Type Grant Phillips MD Family Provider Physician Primary Care Provider Specialty: Internal Medicine Address: [address] [place] [address], [id number] Email: [email or web address] Jose Maria Bell MD Attending Provider Non-Staff Referring Provider Specialty: Neurology Address: [address] [place] [address], [id number] Email: Occupational Therapy Initial Evaluation OT Outpatient Adult Evaluation Start: 11/11/23 09:50 Freq: Status: Active Protocol: Document 11/11/23 13:37 SAM (Rec: 11/11/23 14:14 SAM [id number]) General Information - Adult Visit Number 1 Plan of Care Dates 11/11/2023 - 01/20/24 Insurance Information Medicare; [place] modifer required after 19 OT visits per calendar year Visit Start Date 11/11/23 Visit Start Time 09:45 Visit Stop Time 10:30 Treatment Setting Outpatient Care Note Type Initial Evaluation Referring Physician Jose Maria Bell Reason for Referral essential tremor; pain in L hand Identification Confirmed Yes Previous Therapy/Therapies Yes History of Therapy Pt is having PT for her L shoulder and has previously had it for her balance, per pt . Patient Questionnaires Quick Dash UE Score 75 Quick Dash UE Impairment 60 to 79% Impaired (Score 60- 79) OT Pain Assessment When Pain Assessed After Treatment Pain Present Pain Reported Left Hand Intensity 6 Scale Used Numeric (0 - 10) Left Lower Arm Intensity 6 Scale Used Numeric (0 - 10) Goals Short Term Goals 1.Pt will tolerate PROM L hand /wrist to WFL. 2.Pt will demonstrate FM functional task for 10 trials without guarding. 3.Pt will report overall pain at 4/10 or less following tx. 4.Pt will increase L product evangelist strength to 15# or> Residential Goals 1.Pt will increase L hand/ wrist AROM to WFL for all flexion movements. 2.Pt will be I with HEP. 3.Pt will use L hand to assist in opening container without an increase in c/o pain. 4.Pt will report being able to put away dishes without having to slide them on counter. Assessment/Plan Patient Response Excellent Rehabilitation Potential Excellent Impairments Identified Body Mechanics,Coordination/ Dexterity,Flexibility, Functional Activities,Motor Function,Pain,Weakness,Posture ,Range of Motion,Meaningful Activities,Stiffness,Swelling Treatment Assessment Ruth is an 83 yo F who fell against a curb and fractured her L shoulder on August 16. She has been having therapy for her L shoulder, but reports she?s been having difficulty with her L hand and forearm. She c/o pain, swelling, decreased BADL/IADLs , and requires increased assistance from her spouse. She is R hand dominant. Prior to shoulder fx, pt reports she was I with all BADL/IADL, light housework, and cooking. Ruth states that her primary goal is for ?My hand to be more flexible and to work better? as well as no longer having pain when she closes her hand or grasps something. Pt reports that her pain is worse at night and she always has some pain. Pmhx: falls, osteopenia, TIA, L shoulder fx , essential tremors. Current level of function: She reports that she has been needing assistance with cutting her food, and she feels embarrassed asking for help. She needs assistance with prescription eye drops twice a day. She has modified how she is performing dressing, completing it with mod I. She is sleeping on a couch with a pillow under her L UE. She has been taking sponge baths in between showers. Pt?s spouse, Kalyan, has been standing outside of the shower while she bathes. She has a shower stool for washing her LEs. She reports having difficulty washing the L side of her head because of her L shoulder, but she does the best she can. Kalyan assists with drying Ruth?s back following shower. She is having difficulty using her L hand to hold objects steady while trying to open things. Prior to shoulder fx she was the primary cook, her spouse now performs. She has been able to make the salads including chopping and slicing . She can unload the supervisor home restoration service, but has to do it one item at a time because they are heavy. She is sliding items along the counter to help with carrying. ROM: Pt?s L elbow and forearm are equal to non-affected side . She demonstrates decreased AROM for wrist and digits ( Active flexion, extension WFL) as follows: L wrist flexion 42A/50P; L wrist extension 38A/60P 2nd digit MP flex 48, PIP flex 92, DIP flex 64 3rd digit MP flex 72, PIP 90, DIP 64 4th digit MP flex 60, PIP 72, DIP 70 5th digit MP 84, PIP 86, DIP 78 Applications Coordinator strength: R 30#, L 5# Pt keeps her L UE in guarded position. Her skin is purple in hue throughout forearm, palm and digits. Her L hand has visible edema compared to R, no pitting noted. Light touch and deep pressure sensation is intact. Pt would benefit from skilled OT services to address existing deficits and promote return toward PLOF. Reviewed with Patient Goals Patient Understanding Excellent Length of treatment (weeks) 10 Plan of Care Start Date 11/11/23 Plan of Care End Date 01/20/24 Comment 1-2x/wk Treatment Duration 45 Minutes Therapeutic Contents Active Range of Motion,Client Education,Functional Activities,Home Exercise Program,Manual Therapy, Education,Neuromuscular Re- Education,Self-Care,Stretching /Flexibility Activities, Therapeutic Activities, Therapeutic Exercises Additional Areas of Treatment mirror therapy Types of Modalities Contrast Bath Additional Types of Modalities paraffin bath, CP Patient Instruction Plan of Care,Questions/ Concerns Patient Recommendations Continue with Current Program
--- NOTE | 2023-11-11 14:21 | OT.OPPOC ---
Physical, Occupational & Speech Therapy At [facility] Ruth Cornelius [id number] Visit Care Team Role Provider Type Grant Phillips MD Family Provider Physician Primary Care Provider Address: [address] [place] [address], [id number] Jose Maria Bell MD Attending Provider Non-Staff Referring Provider Address: [address] [place] [address], [phone] Occupational Therapy Plan of Care OT Outpatient Adult Evaluation Start: 11/11/23 09:50 Freq: Status: Active Protocol: Document 11/11/23 13:37 SAM (Rec: 11/11/23 14:14 SAM [id number]) General Information - Adult Visit Information Visit Number 1 Plan of Care Dates 11/11/2023 - 01/20/24 Insurance Information Medicare; [place] bunchifer required after 19 OT visits per calendar year Session Time Visit Start Date 11/11/23 Visit Start Time 09:45 Visit Stop Time 10:30 Setting Treatment Setting Outpatient Care Visit Type Note Type Initial Evaluation Referral Referring Physician Jose Maria Bell Reason for Referral essential tremor; pain in L hand Identification Identification Confirmed Yes Previous Therapy Previous Therapy/Therapies Yes History of Therapy Pt is having PT for her L shoulder and has previously had it for her balance, per pt . Patient Questionnaires Quick Dash- Upper Extremity Quick Dash UE Score 75 Quick Dash UE Impairment 60 to 79% Impaired (Score 60- 79) OT Pain Assessment Pain When Pain Assessed After Treatment Pain Present Pain Present Pain Reported Location Left Hand Intensity 6 Scale Used Numeric (0 - 10) Left Lower Arm Intensity 6 Scale Used Numeric (0 - 10) Goals Short Term Goals Short Term Goals 1.Pt will tolerate PROM L hand /wrist to WFL. 2.Pt will demonstrate FM functional task for 10 trials without guarding. 3.Pt will report overall pain at 4/10 or less following tx. 4.Pt will increase L mortgage protection specialist strength to 15# or> Senior Administrative Associate Goals Custodial Goals 1.Pt will increase L hand/ wrist AROM to WFL for all flexion movements. 2.Pt will be I with HEP. 3.Pt will use L hand to assist in opening container without an increase in c/o pain. 4.Pt will report being able to put away dishes without having to slide them on counter. Assessment/Plan Assessment Patient Response Excellent Rehabilitation Potential Excellent Impairments Identified Body Mechanics,Coordination/ Dexterity,Flexibility, Functional Activities,Motor Function,Pain,Weakness,Posture ,Range of Motion,Meaningful Activities,Stiffness,Swelling Treatment Assessment Ruth is an 83 yo F who fell against a curb and fractured her L shoulder on August 16. She has been having therapy for her L shoulder, but reports she?s been having difficulty with her L hand and forearm. She c/o pain, swelling, decreased BADL/IADLs , and requires increased assistance from her spouse. She is R hand dominant. Prior to shoulder fx, pt reports she was I with all BADL/IADL, light housework, and cooking. Ruth states that her primary goal is for ?My hand to be more flexible and to work better? as well as no longer having pain when she closes her hand or grasps something. Pt reports that her pain is worse at night and she always has some pain. Pmhx: falls, osteopenia, TIA, L shoulder fx , essential tremors. Current level of function: She reports that she has been needing assistance with cutting her food, and she feels embarrassed asking for help. She needs assistance with prescription eye drops twice a day. She has modified how she is performing dressing, completing it with mod I. She is sleeping on a couch with a pillow under her L UE. She has been taking sponge baths in between showers. Pt?s spouse, Kalyan, has been standing outside of the shower while she bathes. She has a shower stool for washing her LEs. She reports having difficulty washing the L side of her head because of her L shoulder, but she does the best she can. Kalyan assists with drying Ruth?s back following shower. She is having difficulty using her L hand to hold objects steady while trying to open things. Prior to shoulder fx she was the primary cook, her spouse now performs. She has been able to make the salads including chopping and slicing . She can unload the fiberline supervisor, but has to do it one item at a time because they are heavy. She is sliding items along the counter to help with carrying. ROM: Pt?s L elbow and forearm are equal to non-affected side . She demonstrates decreased AROM for wrist and digits ( Active flexion, extension WFL) as follows: L wrist flexion 42A/50P; L wrist extension 38A/60P 2nd digit MP flex 48, PIP flex 92, DIP flex 64 3rd digit MP flex 72, PIP 90, DIP 64 4th digit MP flex 60, PIP 72, DIP 70 5th digit MP 84, PIP 86, DIP 78 [employer] Member strength: R 30#, L 5# Pt keeps her L UE in guarded position. Her skin is purple in hue throughout forearm, palm and digits. Her L hand has visible edema compared to R, no pitting noted. Light touch and deep pressure sensation is intact. Pt would benefit from skilled OT services to address existing deficits and promote return toward PLOF. Reviewed with Patient Goals Patient Understanding Excellent Plan Length of treatment (weeks) 10 Plan of Care Start Date 11/11/23 Plan of Care End Date 01/20/24 Comment 1-2x/wk Treatment Duration 45 Minutes Therapeutic Contents Active Range of Motion,Client Education,Functional Activities,Home Exercise Program,Manual Therapy, Education,Neuromuscular Re- Education,Self-Care,Stretching /Flexibility Activities, Therapeutic Activities, Therapeutic Exercises Additional Areas of Treatment mirror therapy Types of Modalities Contrast Bath Additional Types of Modalities paraffin bath, CP Patient Instruction Plan of Care,Questions/ Concerns Patient Recommendations Continue with Current Program Functional Wrist/Hand Scan Hand Side Sensory Assessment Sensory Profile2 Electronically Signed by: Mona Hays OT 11/11/23 3284 If you are in agreement with this Plan of Care, please return a signed and dated copy. I have reviewed this Plan of Care and certify that the skilled therapy services above are required to meet the patient?s needs. Physician Signature Date Printed Name and Credentials Clinical Instructor Signature Printed Name and Credentials
--- NOTE | 2023-11-20 12:14 | OT.OP.TRT ---
Visit Care Team Role Provider Type Grant Phillips MD Family Provider Physician Primary Care Provider Specialty: Internal Medicine Address: [address] [place] [address], [id number] Email: [email or web address] Jose Maria Bell MD Attending Provider Non-Staff Referring Provider Specialty: Neurology Address: [address] [place] [address], [place], [address] Email: Occupational Therapy Treatment Note OT Outpatient Treatment Note - Adult Start: 11/11/23 09:50 Freq: Status: Active Protocol: Document 11/20/23 11:23 SAM (Rec: 11/20/23 11:26 SAM [id number]) OT Outpatient Adult Treatment Note Session Time Visit Start Date 11/20/23 Visit Start Time 11:15 Visit Stop Time 12:00 Visit Information Visit Number 07/13- Plan of Care Dates 11/11/2023 - 01/20/24 Insurance Information Medicare; FELIX heck required after visit Setting Treatment Setting Outpatient Care Visit Type Note Type Treatment Note - Subjective Identification Type Name Observations After therapy, pt states ?I like feeling like I accomplished something.? She c /o ?residual pain in the thumb ? at 2/10, but otherwise denies pain in L hand. - Objective Short Term Goals 1.Pt will tolerate PROM L hand /wrist to WFL. 2.Pt will demonstrate FM functional task for 10 trials without guarding. 3.Pt will report overall pain at 4/10 or less following tx. MET 11/20/23 4.Pt will increase L direct customer service representative strength to 15# or> Jewellery Designer Goals 1.Pt will increase L hand/ wrist AROM to WFL for all flexion movements. 2.Pt will be I with HEP. 3.Pt will use L hand to assist in opening container without an increase in c/o pain. 4.Pt will report being able to put away dishes without having to slide them on counter. - Treatment 1 Descriptor Paraffin bath to L hand x 6 dips for increased extensibility and decreased pain prior manual therapy. Exercises 3 Descriptor towel squeeze x10 towel gathers (wrist stabilized on table) x10 wringing out towel (on lap) B x10 2 Descriptor tendon glide sequence x10 1 Descriptor AROM: composite fisting and opening of left hand (with elbow flexed) x20 thumb to finger tips of left hand (with elbow flexed) x20 Manual Therapy Manual Therapy PROM: Pt tolerates PROM to L wrist and digits, all planes of movement. Pt tolerates wrist to near contralateral side and digits to nearly full fist. Pt able to actively hold position following stretch. OT reviewed education pt on swelling massage. OT performs swelling massage to L digits, palm, wrist, and forearm. - Assessment Patient Response to Treatment Excellent Rehabilitation Potential Excellent Impairments Identified Body Mechanics,Coordination/ Dexterity,Flexibility, Functional Activities,Motor Function,Pain,Weakness,Range of Motion,Stiffness,Tremors, Swelling Progress Towards Goals Excellent Progress Assessment of Overall Progress Improving Assessment of Improvement Pt tolerate PROM very well today, nearly tolerating full composite fist. Pt is able to maintain max composite fist position actively for about 5- 10 seconds after OT released extended hold. Pt tolerated addition of AROM and gentle strengthening exercises today. She has met STG #3 and makes progress toward STG #1. Pt progressing well per established POC, cont POC. Home Exercise Program reviewed- continue to need more review Reviewed with Patient/Caregiver Goals,Progress Being Made - Plan Therapy Recommendations Continue with Current Program Amount of Therapy Recommended 2-3 Months Comment 1-2x/wk Length of Session 45 Minutes Therapeutic Contents Active Range of Motion, Functional Activities,Home Exercise Program,Joint Protection,Manual Therapy, Education,Self-Care,Stretching /Flexibility Activities, Therapeutic Activities, Therapeutic Exercises, Modalities Modalities As Needed Types of Modalities Contrast Bath Additional Types of Modalities paraffin bath, CP
--- NOTE | 2023-11-27 12:28 | OT.OP.TRT ---
Visit Care Team Role Provider Type Grant Phillips MD Family Provider Physician Primary Care Provider Specialty: Internal Medicine Address: [address] [place] [address], [id number] Email: [email or web address] Jose Maria Bell MD Attending Provider Non-Staff Referring Provider Specialty: Neurology Address: [address] [place] [address], [place], [address] Email: Occupational Therapy Treatment Note OT Outpatient Treatment Note - Adult Start: 11/11/23 09:50 Freq: Status: Active Protocol: Document 11/27/23 09:20 SAM (Rec: 11/27/23 09:25 SAM [id number]) OT Outpatient Adult Treatment Note Session Time Visit Start Date 11/27/23 Visit Start Time 10:30 Visit Stop Time 11:15 Visit Information Visit Number 08/13- Plan of Care Dates 11/11/2023 - 01/20/24 Insurance Information Medicare; FELIX bunchifer required after visit Setting Treatment Setting Outpatient Care Visit Type Note Type Treatment Note - Subjective Identification Type Name Identification Reconciled With Medical Record Observations My hand is really stiff today . I can wash both sides of my head now. - Objective Short Term Goals 1.Pt will tolerate PROM L hand /wrist to WFL. MET 11/26 2.Pt will demonstrate FM functional task for 10 trials without guarding. 3.Pt will report overall pain at 4/10 or less following tx. MET 11/20/23 4.Pt will increase L [employer] worker strength to 15# or> Assisted Goals 1.Pt will increase L hand/ wrist AROM to WFL for all flexion movements. 2.Pt will be I with HEP. 3.Pt will use L hand to assist in opening container without an increase in c/o pain. 4.Pt will report being able to put away dishes without having to slide them on counter. - Treatment 1 Descriptor Paraffin bath to L hand x 6 dips for increased extensibility and decreased pain prior manual therapy. Exercises 3 Descriptor towel squeeze x10 towel gathers (wrist stablized on table) x10 wringing out towel (on lap) B x0 2 Descriptor tendon glide sequence x10 1 Descriptor AROM: composite fisting and opening of left hand (with elbow flexed) x20 thumb to finger tips of left hand (with elbow flexed) x20 Manual Therapy Manual Therapy PROM: Pt tolerates PROM to L wrist and digits, all planes of movement. Pt tolerates wrist to near contralateral side and digits to functional fist. Pt performs place and hold at end range functional fist x5 reps OT performs milking massage for swelling management to L digits, palm, wrist, and forearm. Pt tolerates well. - Assessment Patient Response to Treatment Excellent Rehabilitation Potential Excellent Impairments Identified Body Mechanics,Coordination/ Dexterity,Flexibility, Functional Activities,Motor Function,Pain,Weakness,Range of Motion,Stiffness,Tremors, Swelling Progress Towards Goals Excellent Progress Assessment of Overall Progress Improving Assessment of Improvement Pt tolerate PROM very well today, tolerating to WFL for fist and maintaining position during place and hold. Pt has met STG #1. Pt enjoys tendon glides and was issued these for additional HEP. OT will review as pt needs demonstration and vcs to perform sequence correctly. Pt progressing well per established POC, cont POC. Home Exercise Program OT issued tendon gliding HEP, to encourage active use of L hand. Pt is instructed to perform with elbow supported on surface and hand above heart for passive swelling benefit. OT will review. Reviewed with Patient/Caregiver Goals,Progress Being Made - Plan Therapy Recommendations Continue with Current Program Amount of Therapy Recommended 2-3 Months Comment 1-2x/wk Length of Session 45 Minutes Therapeutic Contents Active Range of Motion, Functional Activities,Home Exercise Program,Joint Protection,Manual Therapy, Education,Self-Care,Stretching /Flexibility Activities, Therapeutic Activities, Therapeutic Exercises, Modalities Modalities As Needed Types of Modalities Contrast Bath Additional Types of Modalities paraffin bath, CP
--- NOTE | 2023-12-02 12:21 | OT.OP.TRT ---
Visit Care Team Role Provider Type Gratn Phillips MD Family Provider Physician Primary Care Provider Specialty: Internal Medicine Address: [address] [place] [address], [address] Email: [email or web address] Jose Maria Bell MD Attending Provider Non-Staff Referring Provider Specialty: Neurology Address: [address] [place] [address], [place], [address] Email: Occupational Therapy Treatment Note OT Outpatient Treatment Note - Adult Start: 11/11/23 09:50 Freq: Status: Active Protocol: Document 12/02/23 11:25 SAM (Rec: 12/02/23 12:20 SAM [id number]) OT Outpatient Adult Treatment Note Session Time Visit Start Date 12/02/23 Visit Start Time 11:25 Visit Stop Time 12:10 Visit Information Visit Number 09/12- Plan of Care Dates 11/11/2023 - 01/20/24 Insurance Information Medicare; FELIX bunchifer required after visit Setting Treatment Setting Outpatient Care Visit Type Note Type Treatment Note - Subjective Identification Type Name Identification Reconciled With Medical Record Observations ?I was able to wash my hair today. I cannot wring out my washcloth sufficiently after my shower. I want to be able to do that better.? Pt also reports that she wants to be able to open a jar with both hands, like a Boost. Pt also reports she isn't able to use her L hand to pump her lotion out of bottle. I can tie my own shoes now. - Objective Short Term Goals 1.Pt will tolerate PROM L hand /wrist to WFL. MET 11/26 2.Pt will demonstrate FM functional task for 10 trials without guarding. 3.Pt will report overall pain at 4/10 or less following tx. MET 11/20/23 4.Pt will increase L sail repairer strength to 15# or> Senior Living Goals 1.Pt will increase L hand/ wrist AROM to WFL for all flexion movements. 2.Pt will be I with HEP. 3.Pt will use L hand to assist in opening container without an increase in c/o pain. 4.Pt will report being able to put away dishes without having to slide them on counter. - Exercises 4 Descriptor tputty (purple-pt owned light resistance) composite sail repairer digit extension withrolling hook curl (with putty log) 3 jaw pulls 2 Descriptor pt issued tendon glides as HEP last tx. Pt completes correctly this visit. 1 Descriptor AROM: composite fisting and opening of left hand (with elbow flexed) x20 thumb to finger tips of left hand (with elbow flexed) x20 digit abd/add x20 Manual Therapy Manual Therapy PROM: Pt tolerates PROM to L wrist and digits, all planes of movement. Pt tolerates wrist to near contralateral side and digits to functional fist. Pt performs place and hold at end range functional fist x5 reps OT performs milking massage for swelling management to L digits, palm, wrist, and forearm. Pt tolerates well. - Assessment Patient Response to Treatment Excellent Rehabilitation Potential Excellent Impairments Identified Body Mechanics,Coordination/ Dexterity,Flexibility, Functional Activities,Motor Function,Pain,Weakness,Range of Motion,Stiffness,Tremors, Swelling Progress Towards Goals Excellent Progress Assessment of Overall Progress Improving Assessment of Improvement Pt presents with decreased swelling in digits and dorsal hand, as evidenced by increased visibility of tendons and veins. Pt reports that she has been doing her HEP often. Pt performs AROM exercises for warm up and with hand elevate when possible to further aid in reduction of swelling. Pt tolerates PROM to L hand and edema massage well . Pt tolerates to nearly full fist. OT initiated tputty exercises and will continue to address these for strengthening needs. Pt progressing well per POC. Cont per existing POC. Home Exercise Program Pt demonstrates I with tendon glide HEP Reviewed with Patient/Caregiver Goals,Progress Being Made - Plan Therapy Recommendations Continue with Current Program Amount of Therapy Recommended 2-3 Months Comment 1-2x/wk Length of Session 45 Minutes Therapeutic Contents Active Range of Motion, Functional Activities,Home Exercise Program,Joint Protection,Manual Therapy, Education,Self-Care,Stretching /Flexibility Activities, Therapeutic Activities, Therapeutic Exercises, Modalities Modalities As Needed Types of Modalities Contrast Bath Additional Types of Modalities paraffin bath, CP
--- NOTE | 2023-12-04 12:49 | OT.OP.TRT ---
Visit Care Team Role Provider Type Grant Phillips MD Family Provider Physician Primary Care Provider Specialty: Internal Medicine Address: [address] [place] [address], [address] Email: [email or web address] Jose Maria Bell MD Attending Provider Non-Staff Referring Provider Specialty: Neurology Address: [address] [place] [address], [place], [address] Email: Occupational Therapy Treatment Note OT Outpatient Treatment Note - Adult Start: 11/11/23 09:50 Freq: Status: Active Protocol: Document 12/04/23 11:44 SAM (Rec: 12/04/23 11:48 SAM [id number]) OT Outpatient Adult Treatment Note Session Time Visit Start Date 12/04/23 Visit Start Time 11:25 Visit Stop Time 12:10 Visit Information Visit Number 10/13- Plan of Care Dates 11/11/2023 - 01/20/24 Insurance Information Medicare; FELIX heck required after visit Setting Treatment Setting Outpatient Care Visit Type Note Type Treatment Note - Subjective Identification Type Name Identification Reconciled With Medical Record Observations ?It?s not as stiff as some mornings? ?I drove myself today.? ?I can see more of my veins on the back of my hand and on my wrist too.? - Objective Short Term Goals 1.Pt will tolerate PROM L hand /wrist to WFL. MET 11/26 2.Pt will demonstrate FM functional task for 10 trials without guarding. 3.Pt will report overall pain at 4/10 or less following tx. MET 11/20/23 4.Pt will increase L ballroom dance instructor strength to 15# or> Assisted Goals 1.Pt will increase L hand/ wrist AROM to WFL for all flexion movements. 2.Pt will be I with HEP. 3.Pt will use L hand to assist in opening container without an increase in c/o pain. 4.Pt will report being able to put away dishes without having to slide them on counter. - Exercises 5 Descriptor isometeric: wrist flex, wrist extension, radial deviation, ulnar deviation x10 with 3-5 second holds 4 Descriptor tputty (purple-pt owned light resistance) composite ballroom dance instructor; digit extension with rolling; hook curl (with putty log); 3 jaw pulls; digit abd and add 1 Descriptor AROM: composite fisting and opening of left hand (with elbow flexed) x20 thumb to finger tips of left hand (with elbow flexed) x20 digit abd/add x20 - Assessment Patient Response to Treatment Excellent Rehabilitation Potential Excellent Impairments Identified Body Mechanics,Coordination/ Dexterity,Flexibility, Functional Activities,Motor Function,Pain,Weakness,Range of Motion,Stiffness,Tremors, Swelling Progress Towards Goals Excellent Progress Assessment of Overall Progress Improving Assessment of Improvement Pt continues to have reduced swelling in her digits and now extending into her forearm. She tolerated treatment well, including the addition of new tputty exercises and isometeric exercises for her wrist. Pt is somewhat guarded and stiff when using her L hand functionally, such as when carrying her purse. Pt continues to benefit from continued skilled OT services to promote return to PLOF with use of her L hand. OT to increase focus on improving overall strength and dexterity of L hand. Cont per established POC. Reviewed with Patient/Caregiver Goals,Progress Being Made - Plan Therapy Recommendations Continue with Current Program Amount of Therapy Recommended 2-3 Months Comment 1-2x/wk Length of Session 45 Minutes Therapeutic Contents Active Range of Motion, Functional Activities,Home Exercise Program,Joint Protection,Manual Therapy, Education,Self-Care,Stretching /Flexibility Activities, Therapeutic Activities, Therapeutic Exercises, Modalities Modalities As Needed Types of Modalities Contrast Bath Additional Types of Modalities paraffin bath, CP
--- NOTE | 2023-12-18 11:31 | OT.OP.TRT ---
Visit Care Team Role Provider Type Grant Phillips MD Family Provider Physician Primary Care Provider Specialty: Internal Medicine Address: [address] [place] [address], [address] Email: [email or web address] Jose Maria Bell MD Attending Provider Non-Staff Referring Provider Specialty: Neurology Address: [address] [place] [address], [place], [address] Email: Occupational Therapy Treatment Note OT Outpatient Treatment Note - Adult Start: 11/11/23 09:50 Freq: Status: Active Protocol: Document 12/18/23 10:30 SAM (Rec: 12/18/23 09:16 SAM [id number]) OT Outpatient Adult Treatment Note Session Time Visit Start Date 12/18/23 Visit Start Time 10:30 Visit Stop Time 11:15 Visit Information Visit Number 11/12- Plan of Care Dates 11/11/2023 - 01/20/24 Insurance Information Medicare; FELIX bunchifer required after visit Setting Treatment Setting Outpatient Care Visit Type Note Type Treatment Note - Subjective Identification Type Name Identification Reconciled With Medical Record Observations I'm getting more veins, so that's good. Sometimes it is stiff when I wake up, but warm water helps. I am working hard at opening bottles. Sometimes I can and sometimes I have to go for the pliers Chief Complaint(s) Loss of Motion/Stiffness - Objective Short Term Goals 1.Pt will tolerate PROM L hand /wrist to WFL. MET 11/26 2.Pt will demonstrate FM functional task for 10 trials without guarding. MET 12/18/23 3.Pt will report overall pain at 4/10 or less following tx. MET 11/20/23 4.Pt will increase L digital traffic coordinator strength to 15# or> Lard Mixer Goals 1.Pt will increase L hand/ wrist AROM to WFL for all flexion movements. 2.Pt will be I with HEP. 3.Pt will use L hand to assist in opening container without an increase in c/o pain. 4.Pt will report being able to put away dishes without having to slide them on counter. - Treatment 2 Descriptor in hand manipulation with distal finger control rotating cylinder foam x 60 seconds 1 Descriptor graded clothespins with perpendicular dowel activity for FMC and dexterity. Pt placed and removed 20 clothespins yellow-black. Exercises 7 Descriptor flex bar: wrist flex and extension x 60 seconds proprioceptive wiggle x 60 seconds 6 Descriptor digi flex, yellow, alternating digits x10 each 4 Descriptor tputty (purple-pt owned light resistance) composite digital traffic coordinator; hook curl (with putty log); 3 jaw pulls 3 Descriptor towel gathers (wrist stablized on table) x10 1 Descriptor AROM: composite fisting and opening of left hand (with elbow flexed) x20 thumb to finger tips of left hand (with elbow flexed) x20 digit abd/add x20 - Assessment Patient Response to Treatment Excellent Rehabilitation Potential Excellent Impairments Identified Body Mechanics,Coordination/ Dexterity,Flexibility, Functional Activities,Motor Function,Pain,Weakness,Range of Motion,Stiffness,Tremors, Swelling Progress Towards Goals Excellent Progress Assessment of Overall Progress Improving Assessment of Improvement Pt's L hand had no noticeable swelling when compared to her R hand and forearm. She tolerated treatment well, including the addition of new exercises for strength and FMC . Pt is still somewhat guarded and stiff when using her L hand functionally, such as when carrying her purse. Pt has met STG #2. Pt continues to benefit from continued skilled OT services to promote return to PLOF with use of her L hand. OT to increase focus on improving overall strength and dexterity of L hand. Cont per established POC. Reviewed with Patient/Caregiver Goals,Progress Being Made - Plan Therapy Recommendations Continue with Current Program Amount of Therapy Recommended 2-3 Months Comment 1-2x/wk Length of Session 45 Minutes Therapeutic Contents Active Range of Motion, Functional Activities,Home Exercise Program,Joint Protection,Manual Therapy, Education,Self-Care,Stretching /Flexibility Activities, Therapeutic Activities, Therapeutic Exercises, Modalities Modalities As Needed Types of Modalities Contrast Bath Additional Types of Modalities paraffin bath, CP
--- NOTE | 2023-12-30 16:34 | OT.OPPOC ---
Physical, Occupational & Speech Therapy At [facility] Ruth Cornelius [id number] 1940 Visit Care Team Role Provider Type Grant Phillips MD Family Provider Physician Primary Care Provider Address: [address] [place] [address], [address] Jose Maria Bell MD Attending Provider Non-Staff Referring Provider Address: [address] [place] [address], [phone] Occupational Therapy Plan of Care OT Outpatient Treatment Note - Adult Start: 11/11/23 09:50 Freq: Status: Active Protocol: Document 12/30/23 16:12 SAM (Rec: 12/30/23 16:26 SAM [id number]) OT Outpatient Adult Treatment Note Visit Information Visit Number 11/12- Plan of Care Dates 11/11/2023 - 01/20/24 Insurance Information Medicare; FELIX heck required after visit Setting Treatment Setting Outpatient Care Visit Type Note Type Progress Note - Subjective Chief Complaint(s) Loss of Motion/Stiffness - Objective Short Term Goals 1.Pt will tolerate PROM L hand /wrist to WFL. MET 11/26 2.Pt will demonstrate FM functional task for 10 trials without guarding. MET 12/18/23 3.Pt will report overall pain at 4/10 or less following tx. MET 11/20/23 4.Pt will increase L protective services social worker strength to 15# or> Skilled Nursing Goals 1.Pt will increase L hand/ wrist AROM to WFL for all flexion movements. 2.Pt will be I with HEP. 3.Pt will use L hand to assist in opening container without an increase in c/o pain. 4.Pt will report being able to put away dishes without having to slide them on counter. - - Assessment Rehabilitation Potential Excellent Impairments Identified Body Mechanics,Coordination/ Dexterity,Flexibility, Functional Activities,Motor Function,Pain,Weakness,Range of Motion,Stiffness,Tremors, Swelling Progress Towards Goals Excellent Progress Assessment of Overall Progress Improving Assessment of Improvement Pt is a pleasant, cooperative, and eager to regain functional use of her L hand. Pt was last seen for OT on . Pt reports improvements in function including returning to driving, using her L hand to assist in washing her hair, and tying her shoes. Pt continues to be unable to use her L hand to open bottles, pump lotion, or wring out a wash cloth. Pt has made good progress with respect to edema. At last tx, pt had no notable edema in her L hand or wrist. Pt tolerates PROM to WFL for L hand composite flexion and can maintain flexed position with place hold. Pt is unable to full flex her L hand without assistance. Pt is I with tendon glides and putty exercises for her L hand. Pt continues to benefit from skilled OT services for FMC, hand and finger strengthening and dexterity, and to promote increased I with BADL/IADLs. - Plan Therapy Recommendations Continue with Current Program Amount of Therapy Recommended 2 Months Comment 1-2x/wk Length of Session 45 Minutes Therapeutic Contents Active Range of Motion, Functional Activities,Home Exercise Program,Joint Protection,Manual Therapy, Education,Neuromuscular Re- Education,Self-Care,Stretching /Flexibility Activities, Therapeutic Activities, Therapeutic Exercises, Modalities Modalities As Needed Types of Modalities Contrast Bath Additional Types of Modalities paraffin bath, CP Electronically Signed by: Mona Hays, OT 12/30/23 [id number] If you are in agreement with this Plan of Care, please return a signed and dated copy. I have reviewed this Plan of Care and certify that the skilled therapy services above are required to meet the patient?s needs. Physician Signature Date Printed Name and Credentials Clinical Instructor Signature Printed Name and Credentials
--- NOTE | 2024-02-05 12:47 | OT.OP.TRT ---
Visit Care Team Role Provider Type Grant Phillips MD Family Provider Physician Primary Care Provider Specialty: Internal Medicine Address: [address] [place] [address], [id number] Email: [email or web address] Jose Maria Bell MD Attending Provider Non-Staff Referring Provider Specialty: Neurology Address: [address] [place] [address], [id number] Email: Occupational Therapy Treatment Note OT Outpatient Treatment Note - Adult Start: 11/11/23 09:50 Freq: Status: Active Protocol: Document 02/05/24 11:34 SAM (Rec: 02/05/24 12:16 SAM [id number]) OT Outpatient Adult Treatment Note Session Time Visit Start Date 02/05/24 Visit Start Time 11:30 Visit Stop Time 12:15 Visit Information Visit Number 05/13- Plan of Care Dates (8 visits between 11/10-01/19) - 02/24/24 Insurance Information Medicare; FELIX heck required after th visit Setting Treatment Setting Outpatient Care - Subjective Identification Type Name Identification Reconciled With Medical Record Observations I still don't have a lot of power in my wrist. Pt reports she can use her R hand to support containers when opening them with her L hand, but she does not have the power to use the R hand to open them. Chief Complaint(s) Loss of Motion/Stiffness Patient/Caregiver Compliance with Home Good Exercise Program - Objective Objective Measurements AROM: L wrist flexion 46A, L wrist extension 65A; 2nd digit MP flex 78A, PIP flex 92, DIP flex 60; 3rd digit MP flex 85A, PIP flex 91A, DIP 60A; 4th digit MP flex 78A, PIP 95A , DIP 61A; 5th digit MP flex 91A, PIP flex 90A, DIP flex 60A Board Certified Arts Therapist: R 25#, 26#, 21# (Avg 24# ); L 10#, 12#, 8# (Avg 10#) MMT L wrist flex and ext 4-/5 Short Term Goals 1.Pt will tolerate PROM L hand /wrist to WFL. MET 11/26 2.Pt will demonstrate FM functional task for 10 trials without guarding. MET 12/18/23 3.Pt will report overall pain at 4/10 or less following tx. MET 11/20/23 4.Pt will increase L corset fitter strength to 15# or> Service Operations Manager Goals 1.Pt will increase L hand/ wrist AROM to WFL for all flexion movements. MET 02/05/24 2.Pt will be I with HEP. 3.Pt will use L hand to assist in opening container without an increase in c/o pain. 4.Pt will report being able to put away dishes without having to slide them on counter. 5. Pt will increase L wrist strength to 4/5 or greater. - Treatment 2 Descriptor in hand manipulation with distal finger control rotating cylinder foam x 60 seconds Exercises 7 Descriptor flex bar: wrist flex and extension 60 seconds x 2 both hands supination 60 seconds both hands pronation 60 seconds proprioceptive wiggle x 60 seconds 6 Descriptor digi flex, yellow, alternating digits x10 each 5 Descriptor isometeric: wrist flex, wrist extension x10 with 3-5 second holds - Assessment Patient Response to Treatment Excellent Rehabilitation Potential Excellent Impairments Identified Body Mechanics,Coordination/ Dexterity,Flexibility, Functional Activities,Motor Function,Pain,Weakness,Range of Motion,Stiffness,Tremors, Swelling Progress Towards Goals Excellent Progress Assessment of Overall Progress Improving Assessment of Improvement Pt has made good progress with respect to ROM and strength. Please see objective section of tx note for measureable details. Pt has gained over 30 degrees of total motion in her L wrist and has full functional grasp of L hand. Pt has doubled her L hand strength to a 10# average. Pt continues to c/o difficulty using her L hand functionally. Pt tolerated the addition of new strength exercises today. Pt needs min tc/vc to perform correctly without compensating. Pt makes progress per established POC. Cont per POC. Reviewed with Patient/Caregiver Goals,Progress Being Made Patient/Caregiver Understanding Excellent - Plan Therapy Recommendations Continue with Current Program Amount of Therapy Recommended 2 Months Comment 1-2x/wk Length of Session 45 Minutes Therapeutic Contents Active Range of Motion, Functional Activities,Home Exercise Program,Joint Protection,Manual Therapy, Education,Neuromuscular Re- Education,Self-Care,Stretching /Flexibility Activities, Therapeutic Activities, Therapeutic Exercises, Modalities Modalities As Needed Types of Modalities Contrast Bath Additional Types of Modalities paraffin bath, CP
--- NOTE | 2024-02-24 08:52 | OT.OPPN ---
Current Diagnoses Essential tremor (02/05/24) OT Progress Note OT Outpatient Treatment Note - Adult Start: 11/11/23 09:50 Freq: Status: Active Protocol: Document 02/05/24 SAM (Rec: 02/05/24 12:16 SAM [id number]) OT Outpatient Adult Progress Note Plan of Care Dates (8 visits between 11/10-01/19) - 02/24/24 Insurance Information Medicare; FELIX maria r required after 19th visit Setting Treatment Setting Outpatient Care - Subjective Identification Type Name Identification Reconciled With Medical Record Observations I still don't have a lot of power in my wrist. Pt reports she can use her R hand to support containers when opening them with her L hand, but she does not have the power to use the R hand to open them. Chief Complaint(s) Loss of Motion/Stiffness Patient/Caregiver Compliance with Home Good Exercise Program - Objective Objective Measurements AROM: L wrist flexion 46A, L wrist extension 65A; 2nd digit MP flex 78A, PIP flex 92, DIP flex 60; 3rd digit MP flex 85A, PIP flex 91A, DIP 60A; 4th digit MP flex 78A, PIP 95A , DIP 61A; 5th digit MP flex 91A, PIP flex 90A, DIP flex 60A Metal Filer: R 25#, 26#, 21# (Avg 24# ); L 10#, 12#, 8# (Avg 10#) MMT L wrist flex and ext 4-/5 Short Term Goals 1.Pt will tolerate PROM L hand /wrist to WFL. MET 11/26 2.Pt will demonstrate FM functional task for 10 trials without guarding. MET 12/18/23 3.Pt will report overall pain at 4/10 or less following tx. MET 11/20/23 4.Pt will increase L deicer kit assembler strength to 15# or> Alf Goals 1.Pt will increase L hand/ wrist AROM to WFL for all flexion movements. MET 02/05/24 2.Pt will be I with HEP. 3.Pt will use L hand to assist in opening container without an increase in c/o pain. 4.Pt will report being able to put away dishes without having to slide them on counter. 5. Pt will increase L wrist strength to 4/5 or greater. - - Assessment Patient Response to Treatment Excellent Rehabilitation Potential Excellent Impairments Identified Body Mechanics,Coordination/ Dexterity,Flexibility, Functional Activities,Motor Function,Pain,Weakness,Range of Motion,Stiffness,Tremors, Swelling Progress Towards Goals Excellent Progress Assessment of Overall Progress Improving Assessment of Improvement Pt has made good progress with respect to ROM and strength. Please see objective section of tx note for measureable details. Pt has gained over 30 degrees of total motion in her L wrist and has full functional grasp of L hand. Pt has doubled her L hand strength to a 10# average. Pt continues to c/o difficulty using her L hand functionally. Pt tolerated the addition of new strength exercises today. Pt needs min tc/vc to perform correctly without compensating. Pt makes progress per established POC. Pt has not been seen in therapy clinic since 02/05/24. She had to cancel her most recent appointment and is now outside the window of the established POC. It is the professional opinion of this skilled OT therapist that pt would benefit from continued skilled services to promote return to function. OT recommends an additional 1-2x/wk x 2 months. Pt was only able to make 1 appointment on last POC. Reviewed with Patient/Caregiver Goals,Progress Being Made Patient/Caregiver Understanding Excellent - Plan Therapy Recommendations Continue with Current Program Amount of Therapy Recommended 2 Months Comment 1-2x/wk Length of Session 45 Minutes Therapeutic Contents Active Range of Motion, Functional Activities,Home Exercise Program,Joint Protection,Manual Therapy, Education,Neuromuscular Re- Education,Self-Care,Stretching /Flexibility Activities, Therapeutic Activities, Therapeutic Exercises, Modalities Modalities As Needed Types of Modalities Contrast Bath Additional Types of Modalities paraffin bath, CP If you are in agreement with this Plan of Care, please return a signed and dated copy. I have reviewed this Plan of Care and certify that the skilled therapy services above are required to meet the patient?s needs. Physician Signature Date Printed Name and Credentials Clinical Instructor Signature Printed Name and Credentials
--- NOTE | 2024-03-04 12:42 | OT.OP.TRT ---
Visit Care Team Role Provider Type Grant Phillips MD Family Provider Physician Primary Care Provider Specialty: Internal Medicine Address: [address] [place] [address], [address] Email: [email or web address] Jose Maria Bell MD Attending Provider Non-Staff Referring Provider Specialty: Neurology Address: [address] [place] [address], [phone] Email: Occupational Therapy Treatment Note OT Outpatient Treatment Note - Adult Start: 11/11/23 09:50 Freq: Status: Active Protocol: Document 03/04/24 10:52 SAM (Rec: 03/04/24 11:24 SAM [id number]) OT Outpatient Adult Treatment Note Session Time Visit Start Date 03/04/24 Visit Start Time 10:45 Visit Stop Time 11:30 Visit Information Visit Number 05/25 Plan of Care Dates 02/24/24 - 04/24/24 (9 of 19) Insurance Information Medicare; FELIX heck required after visit Setting Treatment Setting Outpatient Care Visit Type Note Type Treatment Note - Subjective Identification Type Name Identification Reconciled With Medical Record Observations Pt reports difficulty making a full fist. Pt reports it is not good when opening bottles . Chief Complaint(s) Loss of Motion/Stiffness Patient/Caregiver Compliance with Home Good Exercise Program - Objective Short Term Goals 1.Pt will tolerate PROM L hand /wrist to WFL. MET 11/26 2.Pt will demonstrate FM functional task for 10 trials without guarding. MET 12/18/23 3.Pt will report overall pain at 4/10 or less following tx. MET 11/20/23 4.Pt will increase L linux network administrator strength to 15# or> Snow Blower Goals 1.Pt will increase L hand/ wrist AROM to WFL for all flexion movements. MET 02/05/24 2.Pt will be I with HEP. 3.Pt will use L hand to assist in opening container without an increase in c/o pain. 4.Pt will report being able to put away dishes without having to slide them on counter. 5. Pt will increase L wrist strength to 4/5 or greater. - Treatment 1 Descriptor graded clothespins with perpendicular dowel activity for FMC and dexterity. Pt placed and removed 20 clothespins yellow-black. Exercises 7 Descriptor flex bar: wrist flex and extension 60 seconds x 2 both hands supination 60 seconds x2 both hands pronation 60 seconds x2 proprioceptive wiggle x 60 seconds 6 Descriptor digi flex, yellow, alternating digits x 2 min - Assessment Patient Response to Treatment Excellent Rehabilitation Potential Excellent Impairments Identified Body Mechanics,Coordination/ Dexterity,Flexibility, Functional Activities,Motor Function,Pain,Weakness,Range of Motion,Stiffness,Tremors, Swelling Progress Towards Goals Excellent Progress Assessment of Overall Progress Improving Assessment of Improvement Pt tolerated linux network administrator, pinch, and forearm strengthening tasks well. She required occasional vcs to avoid holding her breath, but otherwise performed exercises with deliberate precision. Pt reports having light weights at home. OT to progress pt to having a weighted HEP in next several visits in order for pt to continue to improve her strength and function on her own as well. Cont pt per established POC. - Plan Therapy Recommendations Continue with Current Program Amount of Therapy Recommended 2 Months Comment 1-2x/wk Length of Session 45 Minutes Therapeutic Contents Active Range of Motion, Functional Activities,Home Exercise Program,Joint Protection,Manual Therapy, Education,Neuromuscular Re- Education,Self-Care,Stretching /Flexibility Activities, Therapeutic Activities, Therapeutic Exercises, Modalities Modalities As Needed Types of Modalities Contrast Bath Additional Types of Modalities paraffin bath, CP
--- NOTE | 2024-04-08 09:52 | OT.OP.TRT ---
Visit Care Team Role Provider Type Grant Phillips MD Family Provider Physician Primary Care Provider Specialty: Internal Medicine Address: [address] [place] [address], [id number] Email: [email or web address] Jose Maria Bell MD Attending Provider Non-Staff Referring Provider Specialty: Neurology Address: [address] [place] [address], [phone] Email: Occupational Therapy Treatment Note OT Outpatient Treatment Note - Adult Start: 11/11/23 09:50 Freq: Status: Active Protocol: Document 04/08/24 09:06 SAM (Rec: 04/08/24 09:44 SAM [id number]) OT Outpatient Adult Treatment Note Session Time Visit Start Date 04/08/24 Visit Start Time 09:05 Visit Stop Time 09:45 Visit Information Visit Number 06/25 Plan of Care Dates 02/24/24 - 04/24/24 (9 of 19) Insurance Information Medicare; FELIX heck required after visit Setting Treatment Setting Outpatient Care Visit Type Note Type Treatment Note - Subjective Identification Type Name Identification Reconciled With Medical Record Observations Pt reports that her L middle finger has been getting stuck and this wrist seems to be getting a little weak. Pt reports that she continues to have difficulty opening jars and that she still slides dishes along the counter when putting them away If I have a lot of them. Chief Complaint(s) Loss of Motion/Stiffness - Objective Objective Measurements Oncology Physician: R 21#, 20#, 21# (Avg 20. 6#); L 15#, 14#, 12# (Avg 13.7 #) Short Term Goals 1.Pt will tolerate PROM L hand /wrist to WFL. MET 11/26 2.Pt will demonstrate FM functional task for 10 trials without guarding. MET 12/18/23 3.Pt will report overall pain at 4/10 or less following tx. MET 11/20/23 4.Pt will increase L cashier checker strength to 15# or> Glycerin Operator Goals 1.Pt will increase L hand/ wrist AROM to WFL for all flexion movements. MET 02/05/24 2.Pt will be I with HEP. 3.Pt will use L hand to assist in opening container without an increase in c/o pain. 4.Pt will report being able to put away dishes without having to slide them on counter. 5. Pt will increase L wrist strength to 4/5 or greater. - Treatment 1 Descriptor graded clothespins with perpendicular dowel activity for FMC and dexterity. Pt placed and removed 20 clothespins yellow-black. Exercises 7 Descriptor flex bar: wrist flex and extension 60 seconds x 2 both hands supination 60 seconds x2 both hands pronation 60 seconds x2 proprioceptive wiggle 60 seconds x2 6 Descriptor digi flex, red, x 2 min - Assessment Patient Response to Treatment Excellent Rehabilitation Potential Excellent Impairments Identified Body Mechanics,Coordination/ Dexterity,Flexibility, Functional Activities,Motor Function,Pain,Weakness,Range of Motion,Stiffness,Tremors, Swelling Progress Towards Goals Excellent Progress Assessment of Overall Progress Improving Assessment of Improvement Pt was last treated by OT on 03/04. Pt has cancelled or no showed for multiple appointments. When asked about it pt says she has had a lot of appointments. Pt tolerated tx well today with min vc and demonstration to maintain desired form. Pt required increased transition times between tasks today. Pt tolerated increased resistance with digi flex today. OT plans on adding weighted wrist strengthening next tx session if pt can tolerate it. Pt continues to be appropriate for skilled OT services and would most benefit from consistent attendance. OT stresses importance of attendance. Cont per established POC. Reviewed with Patient/Caregiver Goals,Progress Being Made Patient/Caregiver Understanding Excellent - Plan Therapy Recommendations Continue with Current Program Amount of Therapy Recommended 2 Months Comment 1-2x/wk Length of Session 45 Minutes Therapeutic Contents Active Range of Motion, Functional Activities,Home Exercise Program,Joint Protection,Manual Therapy, Education,Neuromuscular Re- Education,Self-Care,Stretching /Flexibility Activities, Therapeutic Activities, Therapeutic Exercises, Modalities Modalities As Needed Types of Modalities Contrast Bath Additional Types of Modalities paraffin bath, CP
--- NOTE | 2024-04-15 12:57 | OT.OP.TRT ---
Visit Care Team Role Provider Type Grant Phillips MD Family Provider Physician Primary Care Provider Specialty: Internal Medicine Address: [address] [place] [address], [id number] Email: [email or web address] Jose Maria Bell MD Attending Provider Non-Staff Referring Provider Specialty: Neurology Address: [address] [place] [address], [id number] Email: Occupational Therapy Treatment Note OT Outpatient Treatment Note - Adult Start: 11/11/23 09:50 Freq: Status: Active Protocol: Document 04/15/24 11:26 SHEEBALESLIE (Rec: 04/15/24 11:48 [email or web address] [id number]) OT Outpatient Adult Treatment Note Session Time Visit Start Date 04/15/24 Visit Start Time 11:30 Visit Stop Time 12:15 Visit Information Visit Number 07/23 Plan of Care Dates 02/24/24 - 04/24/24 (11 of 19) Insurance Information Medicare; FELIX heck required after visit Setting Treatment Setting Outpatient Care Visit Type Note Type Treatment Note - Subjective Identification Type Name Identification Reconciled With Medical Record Observations Pt reports that she still has difficulty opening containers. Pt reports she is no longer sliding dishes along the counter to put them away, instead she is taking fewer items at a time. Pt reports she currently carries up to four items at a time. Pt reports previously she would have carried about 10 plates at a time. Chief Complaint(s) Loss of Motion/Stiffness Patient/Caregiver Compliance with Home Good Exercise Program - Objective Short Term Goals 1.Pt will tolerate PROM L hand /wrist to WFL. MET 11/26 2.Pt will demonstrate FM functional task for 10 trials without guarding. MET 12/18/23 3.Pt will report overall pain at 4/10 or less following tx. MET 11/20/23 4.Pt will increase L sales porter strength to 15# or> Senior Living Goals 1.Pt will increase L hand/ wrist AROM to WFL for all flexion movements. MET 02/05/24 2.Pt will be I with HEP. 3.Pt will use L hand to assist in opening container without an increase in c/o pain. 4.Pt will report being able to put away dishes without having to slide them on counter. 5. Pt will increase L wrist strength to 4/5 or greater. - Treatment 2 Descriptor in hand manipulation with distal finger control rotating cylinder foam x 60 seconds FMC: threading nuts on bolts to assist with mvmt pattern for opening containers 1 Descriptor graded clothespins with perpendicular dowel activity for FMC and dexterity. Pt placed and removed 20 clothespins yellow-black. Exercises 7 Descriptor flex bar yellow: wrist flex and extension 60 seconds x 2 both hands supination 60 seconds x2 both hands pronation 60 seconds x2 proprioceptive wiggle 60 seconds x2 6 Descriptor digi flex, red, x 2 min 5 Descriptor free weight: wrist flex, wrist extension, radial and ulnar deviation 10x2 - Assessment Patient Response to Treatment Excellent Rehabilitation Potential Excellent Impairments Identified Body Mechanics,Coordination/ Dexterity,Flexibility, Functional Activities,Motor Function,Pain,Weakness,Range of Motion,Stiffness,Tremors, Swelling Progress Towards Goals Good Progress Assessment of Overall Progress Improving Assessment of Improvement Pt is pleasant and cooperative . Pt requires occasional vcs to perform desired exercise correctly. Often pt leads with her R hand during a B task as opposed to performing the majority of the work with her L. She is able to correct this with cues. Pt tolerated addition of free weights for wrist strengthening with min vcs. OT issued pt a HEP with these wrist exercises to initiate at home. OT will review pt's I with these at next tx. Cont per established POC. Reviewed with Patient/Caregiver Goals,Home Exercise Program Patient/Caregiver Understanding Excellent - Plan Therapy Recommendations Continue with Current Program Amount of Therapy Recommended 2 Months Comment 1-2x/wk Length of Session 45 Minutes Therapeutic Contents Active Range of Motion, Functional Activities,Home Exercise Program,Joint Protection,Manual Therapy, Education,Neuromuscular Re- Education,Self-Care,Stretching /Flexibility Activities, Therapeutic Activities, Therapeutic Exercises, Modalities Modalities As Needed Types of Modalities Contrast Bath Additional Types of Modalities paraffin bath, CP
--- NOTE | 2024-05-04 08:41 | OT.OP.DC ---
Visit Care Team Role Provider Type Grant Phillips MD Family Provider Physician Primary Care Provider Address: [address] [place] [address], [id number] Email: [email or web address] Jose Maria Bell MD Attending Provider Non-Staff Referring Provider Address: [address] [place], [address] Email: OT Outpatient OT Outpatient Adult Evaluation Start: 11/11/23 09:50 Freq: Status: Active Protocol: Document 11/11/23 13:37 SAM (Rec: 11/11/23 14:14 SAM [id number]) General Information - Adult Visit Information Visit Number 1 Plan of Care Dates 11/11/2023 - 01/20/24 Insurance Information Medicare; [place] modifer required after 19 OT visits per calendar year Session Time Visit Start Date 11/11/23 Visit Start Time 09:45 Visit Stop Time 10:30 Setting Treatment Setting Outpatient Care Visit Type Note Type Initial Evaluation Referral Referring Physician Jose Maria Bell Reason for Referral essential tremor; pain in L hand Identification Identification Confirmed Yes Previous Therapy Previous Therapy/Therapies Yes History of Therapy Pt is having PT for her L shoulder and has previously had it for her balance, per pt . Patient Questionnaires Quick Dash- Upper Extremity Quick Dash UE Score 75 Quick Dash UE Impairment 60 to 79% Impaired (Score 60- 79) OT Pain Assessment Pain When Pain Assessed After Treatment Pain Present Pain Present Pain Reported Location Left Hand Intensity 6 Scale Used Numeric (0 - 10) Left Lower Arm Intensity 6 Scale Used Numeric (0 - 10) Goals Short Term Goals Short Term Goals 1.Pt will tolerate PROM L hand /wrist to WFL. 2.Pt will demonstrate FM functional task for 10 trials without guarding. 3.Pt will report overall pain at 4/10 or less following tx. 4.Pt will increase L roll builder strength to 15# or> Lead Housekeeper Goals Fdc Goals 1.Pt will increase L hand/ wrist AROM to WFL for all flexion movements. 2.Pt will be I with HEP. 3.Pt will use L hand to assist in opening container without an increase in c/o pain. 4.Pt will report being able to put away dishes without having to slide them on counter. Assessment/Plan Assessment Patient Response Excellent Rehabilitation Potential Excellent Impairments Identified Body Mechanics,Coordination/ Dexterity,Flexibility, Functional Activities,Motor Function,Pain,Weakness,Posture ,Range of Motion,Meaningful Activities,Stiffness,Swelling Treatment Assessment Ruth is an 83 yo F who fell against a curb and fractured her L shoulder on August 16. She has been having therapy for her L shoulder, but reports she?s been having difficulty with her L hand and forearm. She c/o pain, swelling, decreased BADL/IADLs , and requires increased assistance from her spouse. She is R hand dominant. Prior to shoulder fx, pt reports she was I with all BADL/IADL, light housework, and cooking. Ruth states that her primary goal is for ?My hand to be more flexible and to work better? as well as no longer having pain when she closes her hand or grasps something. Pt reports that her pain is worse at night and she always has some pain. Pmhx: falls, osteopenia, TIA, L shoulder fx , essential tremors. Current level of function: She reports that she has been needing assistance with cutting her food, and she feels embarrassed asking for help. She needs assistance with prescription eye drops twice a day. She has modified how she is performing dressing, completing it with mod I. She is sleeping on a couch with a pillow under her L UE. She has been taking sponge baths in between showers. Pt?s spouse, Kalyan, has been standing outside of the shower while she bathes. She has a shower stool for washing her LEs. She reports having difficulty washing the L side of her head because of her L shoulder, but she does the best she can. Kalyan assists with drying Ruth?s back following shower. She is having difficulty using her L hand to hold objects steady while trying to open things. Prior to shoulder fx she was the primary cook, her spouse now performs. She has been able to make the salads including chopping and slicing . 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 She is sliding items along the counter to help with carrying. ROM: Pt?s L elbow and forearm are equal to non-affected side . She demonstrates decreased AROM for wrist and digits ( Active flexion, extension WFL) as follows: L wrist flexion 42A/50P; L wrist extension 38A/60P 2nd digit MP flex 48, PIP flex 92, DIP flex 64 3rd digit MP flex 72, PIP 90, DIP 64 4th digit MP flex 60, PIP 72, DIP 70 5th digit MP 84, PIP 86, DIP 78 Marine Photographer strength: R 30#, L 5# Pt keeps her L UE in guarded position. Her skin is purple in hue throughout forearm, palm and digits. Her L hand has visible edema compared to R, no pitting noted. Light touch and deep pressure sensation is intact. Pt would benefit from skilled OT services to address existing deficits and promote return toward PLOF. Reviewed with Patient Goals Patient Understanding Excellent Plan Length of treatment (weeks) 10 Plan of Care Start Date 11/11/23 Plan of Care End Date 01/20/24 Comment 1-2x/wk Treatment Duration 45 Minutes Therapeutic Contents Active Range of Motion,Client Education,Functional Activities,Home Exercise Program,Manual Therapy, Education,Neuromuscular Re- Education,Self-Care,Stretching /Flexibility Activities, Therapeutic Activities, Therapeutic Exercises Additional Areas of Treatment mirror therapy Types of Modalities Contrast Bath Additional Types of Modalities paraffin bath, CP Patient Instruction Plan of Care,Questions/ Concerns Patient Recommendations Continue with Current Program Functional Wrist/Hand Scan Hand Side Sensory Assessment Sensory Profile2 OT Outpatient Treatment Note - Adult Start: 11/11/23 09:50 Freq: Status: Active Protocol: Document 05/04/24 08:38 SAM (Rec: 05/04/24 08:40 SAM [id number]) OT Outpatient Adult Treatment Note Visit Type Note Type Discharge Summary General Information General Information Pt was last tx by OT on . Pt cancelled last appointment. OT called and spoke with pt on 05/04/24. Pt states that she has a lot going on and that my hand is doing well and I am able to do my exercises. Pt says she would like to be d/c from OT at this time and says that she will contact her PCP if she needs additional therapy in the future. D/C from skilled OT services at this time. - - Objective Short Term Goals 1.Pt will tolerate PROM L hand /wrist to WFL. MET 11/26 2.Pt will demonstrate FM functional task for 10 trials without guarding. MET 12/18/23 3.Pt will report overall pain at 4/10 or less following tx. MET 11/20/23 4.Pt will increase L roll builder strength to 15# or> Lead Housekeeper Goals 1.Pt will increase L hand/ wrist AROM to WFL for all flexion movements. MET 02/05/24 2.Pt will be I with HEP. 3.Pt will use L hand to assist in opening container without an increase in c/o pain. 4.Pt will report being able to put away dishes without having to slide them on counter. 5. Pt will increase L wrist strength to 4/5 or greater. - - -
== END 2024-05-14 14:39 | disposition home or self-care (01) ==
LOC: OT 11:30
PROVIDERS: Family Provider Internal Medicine; PCP Internal Medicine; Referring Provider Psychiatry & Neurology Neurology; Visit Provider Psychiatry & Neurology Neurology
DX: G25.0 Essential tremor (principal)
CPT/HCPCS: 97018; 97110; 97140; 97165; 97530

== ENCOUNTER 2024-04-23 10:27 | Outpatient (CLI) | payer MEDICARE, OTHER, SELFPAY ==
[2022-06-07 14:23] VITALS: BMI 21.1
[2024-04-23] VITALS (14 sets, daily range): BP systolic 155–214; BP diastolic 65–92; PULSE 64–71; RESP 12–20; TEMP 37.1; O2SAT 97–100
--- NOTE | 2024-04-23 10:30 | DI.RAD.S_ITS ---
PROCEDURE: PAIN L/S MED/LAT N RFA BILAT INDICATIONS: Bilateral L3, L4 and L5 RFA COMPARISON: None. FINDINGS/IMPRESSION: Fluoroscopic spot filming was performed to verify placement of spinal needles at the bilateral L3, L4, and L5 level(s), as labeled on the films. Appropriate location(s) of the needle tip(s) was confirmed by injection of iodinated contrast. Dictated by: Demond Silvestre M.D. on 04/24/2024 at 21:16 Approved by: Demond Silvestre M.D. on 04/24/2024 at 21:16
[2024-04-23] MEDS: MIDAZOLAM 2 MG/2 ML VIAL 1 MG IV ×2 (12:03→12:15)
[2024-04-23] MEDS: LIDOCAINE 1% 20 ML 5 ML INJ (12:06)
[2024-04-23] MEDS: BUPIVACAINE 0.5% (PF) 10 ML VIAL 5 ML INJ (12:07)
--- NOTE | 2024-04-23 13:01 | P.PCN_ITS ---
Date/Time/Diagnoses Date of procedure: 04/23/24 Time of procedure: 13:01 Pre-procedure diagnosis: 1. RECALCITRANT FACET ARTHROPATHY Post-procedure diagnosis: same Procedure Notes Procedure: 1. BILATERAL L3, L4 AND L5 MEDIAL BRANCH RADIOFREQUENCY NEUROTOMY Indications: Ruth is referred by Dr. Phillips for treatment of facet arthropathy. Physician: Chuy Mario Total Fluoroscopy time (seconds): 16 Total sedation minutes: 34 Complications: none Procedure in detail & Post-procedure care: DESCRIPTION OF PROCEDURE Bilateral L3, L4 and L5 medial branch radiofrequency neurotomy The patient is well known to this clinic having undergone previous facet injections with good but temporary relief. The patient has experienced appropriate, concordant relief with previous facet and median branch blocks but the patient's pain has been recalcitrant to further conservative measures. Therefore, based upon the patient's relief and persistent symptoms, the patient is considered an appropriate candidate for facet rhizotomy. All of the patient's questions regarding the risks versus benefits of the procedure, including, but not limited to, bleeding, infection, temporary as well as lasting nerve injury, paralysis, stroke, and , as well treatment alternatives were answered to satisfaction. After obtaining informed consent, denial of pertinent drug allergies, as well as being made aware of the potential risks of bleeding, infection, spinal cord trauma, paralysis, temporary and permanent nerve damage, seizure, stroke, and possible , the patient was brought to the fluoroscopy suite and positioned prone on the fluoroscopy table. After review of previous anaesthesic history and IV conscious sedation the patient was deemed safe to proceed with today's procedure with IV conscious sedation as ASA class II designation. Safety time-out was performed to confirm patient ID, procedure to be performed and site of procedure. IV sedation was accomplished with a combination of 2mg of Versed administered by the RN after DO order, titrated to patient comfort during the course of the procedure while the patient remained responsive to all verbal commands. The lumbar region was prepped in usual sterile fashion and covered with a fenestrated drape in the usual sterile fashion. Appropriate monitors applied including pulse oximeter, pulse, and blood pressure for regular monitoring throughout the procedure. After local infiltration using 1% lidocaine, under fluoroscopic guidance, a 10- cm RF insulated needle with a 10-mm active tip was positioned parallel to the junction of the right the superior articulating process where the L5 medial branch resides. Needle placement was confirmed with motor stimulation of .5v on the right which produced local stimulation without radicular component. The stimulation was then increased to 2v with, once again, only local multifidus stimulation without radicular component. The needle was then removed and the identical procedure was performed along the length of the right L4 medial branch with motor stimulation at .7v on the right. The identical procedure was once again performed along the length of the right L3 and medial branch with motor stimulation of .5v on the right. The medial branches were then anesthetised with 0.5% marcaine. This was then followed by two discreet lesions performed at 80 degrees Celsius for 90 seconds each. The identical procedures were repeated on the left. The patient tolerated the procedure well without signs or symptoms of complications prior to transfer to the recovery area continued monitoring without incident. The patient was then transferred to the recovery area where they were observed for an appropriate period of time after the injection. The patient reported a VAS score of 9 prior to the procedure and a post-procedure VAS of 0. POST OP INSTRUCTIONS The patient was provided a Pain Log to continue to record the patient's response to the target-specific procedure prior to the patient's follow-up visit with the referring physician. Additionally, specific post-injection care instructions and a contact number to our office were provided if concerns arise regarding possible complications associated with the procedure are suspected.
== END 2024-04-23 13:03 | disposition home or self-care (01) ==
LOC: RAD 10:29
PROVIDERS: Family Provider Internal Medicine; PCP Internal Medicine; Referring Provider Physical Medicine & Rehabilitation; Visit Provider Physical Medicine & Rehabilitation
DX: M47.816 Spondylosis without myelopathy or radiculopathy, lumbar region (principal)
CPT/HCPCS: 64635; 64636; 99152; 99153; J2250

== ENCOUNTER 2024-05-15 11:30 | Outpatient (RCR) | payer MEDICARE, OTHER, SELFPAY ==
[2022-06-07 14:23] VITALS: BMI 21.1
--- NOTE | 2024-01-24 15:15 | PT.OIE ---
Current Diagnoses Other displaced fracture of upper end of left humerus, subsequent encounter for fracture with routine healing (01/24/24) Past Medical History (Last Reviewed 01/23/24 @ 15:13 by Chuy Mario DO) Alcohol use disorder Atherosclerosis of aorta Cerebrovascular disease Depression, recurrent DJD of left shoulder Do not resuscitate Essential hypertension Facet arthropathy, lumbar Gait instability Generalized anxiety disorder Hereditary and idiopathic neuropathy, unspecified Impingement syndrome of left shoulder Irritable bowel syndrome with diarrhea Left cervical radiculopathy Left supraspinatus tendonitis Lymphocytic colitis Mixed hyperlipidemia Mixed incontinence urge and stress Osteopenia Scoliosis 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 Shingles Venous insufficiency Past Surgical History (Last Reviewed 01/23/24 @ 15:13 by Chuy Mario DO) History of knee replacement History of salpingo-oophorectomy (08/19/17) History of third molar tooth extraction Status post appendectomy Status post hysterectomy Status post tonsillectomy and adenoidectomy Visit Care Team Role Provider Type Grant Phillips MD Family Provider Physician Primary Care Provider Specialty: Internal Medicine Address: [address] [place] [address], [address] Email: [email or web address] Guilherme Fung MD Attending Provider Non-Staff Referring Provider Specialty: Orthopedic Surgery Address: [address] [place] [address], [address] Email: Physical Therapy Initial Evaluation PT-OP-A Visit Information Start: 01/24/24 15:10 Freq: Status: Active Protocol: Document 01/24/24 14:30 DCW (Rec: 01/24/24 15:13 DCW [id number]) Out-Patient Physical Therapy Visit Information Visit Information Visit Type Initial Evaluation Visit Start Time 14:30 Visit Stop Time 15:10 Visit Number 1 Number of PALEOLOGY PROFESSOR Visits 0 Evaluation Information Evaluation Date 01/24/24 PT-OP-B Current Condition Start: 01/24/24 15:10 Freq: Status: Active Protocol: Document 01/24/24 14:30 DCW (Rec: 01/27/24 09:41 DCW [id number]) Current Condition History of Current Condition Onset Date 08/17/23 Current Complaints L humeral head/neck fracture History of Current Condition Pt is an 83 year old female presenting five months s/p L humerus fracture. Pt came to be seen for treatment at this facility two months ago, but due so some confusion, was at the same time being seen in PT for the same injury at a different facility. Pt at the time decided to continue with her ongoing appointments at the other facility, and was discharged from therapy here. Since that time, unfortunately , pt was having difficulty getting scheduled at the other clinic, and decided to discharge from them and restart at this facility. Pt's original injury was caused by stepping off a curb and landing on her left shoulder, resuylting in a comminuted, impacted fracture of the left humeral head/neck. Pt reports she saw her ortho shortly before this evaluation, and was released from care, but instructed to continue to work on shoulder mobility with PT. Admits she does have some stuff she can try to do at home, but I want to do it right. Pt notes continued swelling in her left hand. Was sleeping on her couch, but has recently returned to her bed, although still has sleep disturbances due to shoulder pain. Feels continued tenderness and weakness in her biceps, and notes ham trimmer weakness in left, although is working with OT to regain. Prior Treatments and Tests Humerus x-ray: IMPRESSION: Comminuted, impacted fracture the left humeral head and neck . per William Crews M.D. on 08/17/2023 PT-OP-C Subjective Start: 01/24/24 15:10 Freq: Status: Active Protocol: Document 01/24/24 14:30 DCW (Rec: 01/24/24 15:13 DCW [id number]) OP-PT Subjective Patient Comments Patient Comments I can do some stuff at home, but I want to make sure I'm doing it right. Patient Reported Progress Improving Patient Questionnaires Quick Dash- Upper Extremity Quick Dash UE Score 45.45% Quick Dash UE Impairment 40 to 59% Impaired (Score 40- 59) PT-OP-F Manual Assessment Start: 01/24/24 15:10 Freq: Status: Active Protocol: Document 01/24/24 14:30 DCW (Rec: 01/27/24 10:32 DCW [id number]) Manual Assessments Soft Tissue Assessment Soft Tissue Mobility Assessment Increased parascapular tone with tenderness to palpation 2 /4: Pain with wincing Joint Mobility Assessment Joint Mobility Assessment Restriction of passive and active joint mobility PT-OP-J Posture/Palpation/Skin Start: 01/24/24 15:10 Freq: Status: Active Protocol: Document 01/24/24 14:30 DCW (Rec: 01/27/24 10:32 DCW [id number]) Posture Evaluation Position Sitting Evaluation View Anterior Shoulder Posture (L) Rounded,(L) Forward PT-OP-K Range of Motion Start: 01/24/24 15:10 Freq: Status: Active Protocol: Document 01/24/24 14:30 DCW (Rec: 01/27/24 10:32 DCW [id number]) Shoulder Goniometric Range of Motion Shoulder Right Passive Testing Position Supine Flexion 168 Abduction 180 External Rotation at 0 degrees Abduction 75 Right Active Testing Position Sitting Flexion 162 Abduction 152 External Rotation at 0 degrees Abduction 75 Internal Rotation Behind Back (text) T3 Left Passive Testing Position Supine Flexion 116 Abduction 98 External Rotation at 0 degrees Abduction 41 Left Active Testing Position Sitting Flexion 91 Abduction 74 External Rotation at 0 degrees Abduction 68 Internal Rotation Behind Back (text) L3 PT-OP-M Strength Start: 01/24/24 15:10 Freq: Status: Active Protocol: Document 01/24/24 14:30 DCW (Rec: 01/27/24 13:13 DCW [id number]) Shoulder Strength Shoulder Manual Muscle Testing Right Flexion 4 Good Extension 4 Good Abduction (C5) 4 Good External Rotation 4 Good Internal Rotation 4 Good Left Flexion 3- Fair- Extension 3- Fair- Abduction (C5) 3- Fair- External Rotation 3- Fair- Internal Rotation 3- Fair- PT-OP-Q Treatments Start: 01/24/24 15:10 Freq: Status: Active Protocol: Document 01/24/24 14:30 DCW (Rec: 01/24/24 15:15 DCW [id number]) Therapeutic Exercises Supine Exercises Shoulder Flexion Supine Exercise Name PROM/AAROM Shoulder Flexion /c wand Side bilateral Serratus Punch Supine Exercise Name Serratus Punch /c wand Side bilateral Sitting Exercises Shoulder Rolls Sitting Exercise Name Shoulder Rolls Side bilateral Comments Fwd, Bkwd Scapular Retraction Sitting Exercise Name Scapular Retraction Side bilateral PT-OP-T Assessment and Plan Start: 01/24/24 15:10 Freq: Status: Active Protocol: Document 01/24/24 14:30 DCW (Rec: 01/27/24 13:13 [facility] [id number]) Physical Therapy Assessment Rehab Potential Rehabilitation Potential Good Evaluation Complexity Number of Personal Factors/Comorbidities 1-2 Number of Body Systems Impaired 4 or More Clinical Presentation at Evaluation Evolving Impairments Impairments Activity Tolerance,Functional Activities,Functional Mobility ,Posture,ROM,Strength,Tone Goals Two Impairment Left shoulder AROM limited to 91? flexion and 74? abduction Nursing Home Goal (LTG) Pt to demonstrate improved left shoulder AROM to 120? in both flexion and abduction in order to improve ability to wash hair LTG Duration 03/25/24 One Impairment Pt does not have an appropriate home exercise program Short Term Goal (STG) Pt to be independent and compliant with an appropriate HEP STG Duration 02/23/24 Assessment Summary Assessment Pt presents with signs and symptoms consistent with referring diagnosis. Pt is five months s/p comminuted, impacted fracture of the left humeral head and neck secondary to GLF. Pt has already undergone PT at a different facility, but feels like she is still very limited with functional mobility. Notes limited strength and ROM of her left shoulder, as well as worsening ham trimmer strength and biceps weakness. Pt is doing well with recovery, however will benefit from more aggressive stretching and strengthening in order to increase ROM and return to prior level of functioning. Skilled therapeutic intervention should focus on improving active and passive ROM, strength, functional mobility, and return to PLOF Physical Therapy Plan Frequency and Duration Frequency of Treatment 2x/Week Plan of Care Start Date 01/24/24 Plan of Care End Date 03/25/24 Therapeutic Interventions Therapeutic Interventions Home Exercise Program,Joint Mobilizations,Manual Therapy, Neuromuscular Re-education, Patient/Caregiver Education, Self-Care/Home Management,Soft Tissue Mobilization, Therapeutic Activities, Therapeutic Exercises Next Visit Focus/Plan Next Note Type Treatment Note Next Visit Plan Pulleys, PROM/AROM, shoulder retraction, shrugs
--- NOTE | 2024-01-24 15:15 | PT.OPPOC ---
Physical, Occupational & Speech Therapy At [facility] Current Diagnoses Other displaced fracture of upper end of left humerus, subsequent encounter for fracture with routine healing (01/24/24) Visit Care Team Role Provider Type Grant Phillips MD Family Provider Physician Primary Care Provider Specialty: Internal Medicine Address: [address] [place] [address], [id number] Email: [email or web address] Guilherme Fung MD Attending Provider Non-Staff Referring Provider Specialty: Orthopedic Surgery Address: [address] [place] [address], [place], [address] Email: Plan Of Care PT-OP-B Current Condition Start: 01/24/24 15:10 Freq: Status: Active Protocol: Document 01/24/24 14:30 DCW (Rec: 01/27/24 09:41 DCW [id number]) Current Condition History of Current Condition Onset Date 08/17/23 Current Complaints L humeral head/neck fracture History of Current Condition Pt is an 83 year old female presenting five months s/p L humerus fracture. Pt came to be seen for treatment at this facility two months ago, but due so some confusion, was at the same time being seen in PT for the same injury at a different facility. Pt at the time decided to continue with her ongoing appointments at the other facility, and was discharged from therapy here. Since that time, unfortunately , pt was having difficulty getting scheduled at the other clinic, and decided to discharge from them and restart at this facility. Pt's original injury was caused by stepping off a curb and landing on her left shoulder, resuylting in a comminuted, impacted fracture of the left humeral head/neck. Pt reports she saw her ortho shortly before this evaluation, and was released from care, but instructed to continue to work on shoulder mobility with PT. Admits she does have some stuff she can try to do at home, but I want to do it right. Pt notes continued swelling in her left hand. Was sleeping on her couch, but has recently returned to her bed, although still has sleep disturbances due to shoulder pain. Feels continued tenderness and weakness in her biceps, and notes special trackwork blacksmith weakness in left, although is working with OT to regain. Prior Treatments and Tests Humerus x-ray: IMPRESSION: Comminuted, impacted fracture the left humeral head and neck . per William Crews M.D. on 08/17/2023 PT-OP-T Assessment and Plan Start: 01/24/24 15:10 Freq: Status: Active Protocol: Document 01/24/24 14:30 DCW (Rec: 01/27/24 13:13 DCW [id number]) Physical Therapy Assessment Rehab Potential Rehabilitation Potential Good Evaluation Complexity Number of Personal Factors/Comorbidities 1-2 Number of Body Systems Impaired 4 or More Clinical Presentation at Evaluation Evolving Impairments Impairments Activity Tolerance,Functional Activities,Functional Mobility ,Posture,ROM,Strength,Tone Goals Two Impairment Left shoulder AROM limited to 91? flexion and 74? abduction Usp Goal (LTG) Pt to demonstrate improved left shoulder AROM to 120? in both flexion and abduction in order to improve ability to wash hair LTG Duration 03/25/24 One Impairment Pt does not have an appropriate home exercise program Short Term Goal (STG) Pt to be independent and compliant with an appropriate HEP STG Duration 02/23/24 Assessment Summary Assessment Pt presents with signs and symptoms consistent with referring diagnosis. Pt is five months s/p comminuted, impacted fracture of the left humeral head and neck secondary to GLF. Pt has already undergone PT at a different facility, but feels like she is still very limited with functional mobility. Notes limited strength and ROM of her left shoulder, as well as worsening special trackwork blacksmith strength and biceps weakness. Pt is doing well with recovery, however will benefit from more aggressive stretching and strengthening in order to increase ROM and return to prior level of functioning. Skilled therapeutic intervention should focus on improving active and passive ROM, strength, functional mobility, and return to PLOF Physical Therapy Plan Frequency and Duration Frequency of Treatment 2x/Week Plan of Care Start Date 01/24/24 Plan of Care End Date 03/25/24 Therapeutic Interventions Therapeutic Interventions Home Exercise Program,Joint Mobilizations,Manual Therapy, Neuromuscular Re-education, Patient/Caregiver Education, Self-Care/Home Management,Soft Tissue Mobilization, Therapeutic Activities, Therapeutic Exercises Next Visit Focus/Plan Next Note Type Treatment Note Next Visit Plan Pulleys, PROM/AROM, shoulder retraction, shrugs Plan of Care Dates Plan of Care Start Date 01/24/24 Plan of Care End Date 03/25/24 Electronically Signed by: Nguyễn Gonzalez, PT 01/27/24 4999 If you are in agreement with this Plan of Care, please return a signed and dated copy. I have reviewed this Plan of Care and certify that the skilled therapy services above are required to meet the patient?s needs. Physician Signature Date Printed Name and Credentials Clinical Instructor Signature Printed Name and Credentials
--- NOTE | 2024-01-27 15:17 | PT.OTN ---
Current Diagnoses Other displaced fracture of upper end of left humerus, subsequent encounter for fracture with routine healing (01/27/24) Physical Therapy Treatment Note PT-OP-A Visit Information Start: 01/24/24 15:10 Freq: Status: Active Protocol: Document 01/27/24 14:30 DCW (Rec: 01/27/24 15:17 DCW [id number]) Out-Patient Physical Therapy Visit Information Visit Information Visit Type Treatment Note Visit Start Time 14:30 Visit Stop Time 15:15 Visit Number 2 Number of RN PERINATAL Visits 0 Evaluation Information Evaluation Date 01/24/24 PT-OP-B Current Condition Start: 01/24/24 15:10 Freq: Status: Active Protocol: Document 01/24/24 14:30 DCW (Rec: 01/27/24 09:41 DCW [id number]) Current Condition History of Current Condition Onset Date 08/17/23 Current Complaints L humeral head/neck fracture History of Current Condition Pt is an 83 year old female presenting five months s/p L humerus fracture. Pt came to be seen for treatment at this facility two months ago, but due so some confusion, was at the same time being seen in PT for the same injury at a different facility. Pt at the time decided to continue with her ongoing appointments at the other facility, and was discharged from therapy here. Since that time, unfortunately , pt was having difficulty getting scheduled at the other clinic, and decided to discharge from them and restart at this facility. Pt's original injury was caused by stepping off a curb and landing on her left shoulder, resuylting in a comminuted, impacted fracture of the left humeral head/neck. Pt reports she saw her ortho shortly before this evaluation, and was released from care, but instructed to continue to work on shoulder mobility with PT. Admits she does have some stuff she can try to do at home, but I want to do it right. Pt notes continued swelling in her left hand. Was sleeping on her couch, but has recently returned to her bed, although still has sleep disturbances due to shoulder pain. Feels continued tenderness and weakness in her biceps, and notes on air director weakness in left, although is working with OT to regain. Prior Treatments and Tests Humerus x-ray: IMPRESSION: Comminuted, impacted fracture the left humeral head and neck . per William Crews M.D. on 08/17/2023 PT-OP-C Subjective Start: 01/24/24 15:10 Freq: Status: Active Protocol: Document 01/27/24 14:30 DCW (Rec: 01/27/24 15:17 DCW [id number]) OP-PT Subjective Patient Comments Patient Comments Psjairo has been working on her HEP, her arm is feeling much better. PT-OP-F Manual Assessment Start: 01/24/24 15:10 Freq: Status: Active Protocol: Document 01/24/24 14:30 DCW (Rec: 01/27/24 10:32 DCW [id number]) Manual Assessments Soft Tissue Assessment Soft Tissue Mobility Assessment Increased parascapular tone with tenderness to palpation 2 /4: Pain with wincing Joint Mobility Assessment Joint Mobility Assessment Restriction of passive and active joint mobility PT-OP-J Posture/Palpation/Skin Start: 01/24/24 15:10 Freq: Status: Active Protocol: Document 01/24/24 14:30 DCW (Rec: 01/27/24 10:32 DCW [id number]) Posture Evaluation Position Sitting Evaluation View Anterior Shoulder Posture (L) Rounded,(L) Forward PT-OP-K Range of Motion Start: 01/24/24 15:10 Freq: Status: Active Protocol: Document 01/24/24 14:30 DCW (Rec: 01/27/24 10:32 DCW [id number]) Shoulder Goniometric Range of Motion Shoulder Right Passive Testing Position Supine Flexion 168 Abduction 180 External Rotation at 0 degrees Abduction 75 Right Active Testing Position Sitting Flexion 162 Abduction 152 External Rotation at 0 degrees Abduction 75 Internal Rotation Behind Back (text) T3 Left Passive Testing Position Supine Flexion 116 Abduction 98 External Rotation at 0 degrees Abduction 41 Left Active Testing Position Sitting Flexion 91 Abduction 74 External Rotation at 0 degrees Abduction 68 Internal Rotation Behind Back (text) L3 PT-OP-M Strength Start: 01/24/24 15:10 Freq: Status: Active Protocol: Document 01/24/24 14:30 DCW (Rec: 01/27/24 13:13 DCW [id number]) Shoulder Strength Shoulder Manual Muscle Testing Right Flexion 4 Good Extension 4 Good Abduction (C5) 4 Good External Rotation 4 Good Internal Rotation 4 Good Left Flexion 3- Fair- Extension 3- Fair- Abduction (C5) 3- Fair- External Rotation 3- Fair- Internal Rotation 3- Fair- PT-OP-Q Treatments Start: 01/24/24 15:10 Freq: Status: Active Protocol: Document 01/27/24 14:30 DCW (Rec: 01/27/24 15:17 DCW [id number]) Cardio Equipment Upper Body Ergometer (UBE) Duration (Minutes) 5 RPM 30 Seat Position 10 Height 2.5 Therapeutic Exercises Sitting Exercises Supination Sitting Exercise Name Supination/Pronation /c hammer Side left Curls Sitting Exercise Name Curls/Reverse Curls Side bilateral Resistance 2# Press Up Sitting Exercise Name Press up /c PVC Side bilateral Pulleys Sitting Exercise Name Sade PROM - Flexion, Abduction Side bilateral Manual Therapy Treatment Consent Patient gave verbal consent for manual Yes treatment Joint Mobilizations GH Joint L GH Direction Inf, Circumduction Grade III Body Position Sitting PT-OP-T Assessment and Plan Start: 01/24/24 15:10 Freq: Status: Active Protocol: Document 01/27/24 14:30 DCW (Rec: 01/27/24 15:17 DCW [id number]) Physical Therapy Assessment Impairments Impairments Activity Tolerance,Functional Activities,Functional Mobility ,Posture,ROM,Strength,Tone Goals Two Impairment Left shoulder AROM limited to 91? flexion and 74? abduction Robotic Machine Tender Production Goal (LTG) Pt to demonstrate improved left shoulder AROM to 120? 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 Still limited with AROM and PROM of left shoulder, focus on mobility, strength, and activity tolerance Physical Therapy Plan Frequency and Duration Frequency of Treatment 2x/Week Plan of Care Start Date 01/24/24 Plan of Care End Date 03/25/24 Therapeutic Interventions Therapeutic Interventions Home Exercise Program,Joint Mobilizations,Manual Therapy, Neuromuscular Re-education, Patient/Caregiver Education, Self-Care/Home Management,Soft Tissue Mobilization, Therapeutic Activities, Therapeutic Exercises Next Visit Focus/Plan Next Note Type Treatment Note Next Visit Plan Pulleys, PROM/AROM, shoulder retraction, shrugs
--- NOTE | 2024-01-30 16:33 | PT.OTN ---
Current Diagnoses Other displaced fracture of upper end of left humerus, subsequent encounter for fracture with routine healing (01/30/24) Physical Therapy Treatment Note PT-OP-A Visit Information Start: 01/24/24 15:10 Freq: Status: Active Protocol: Document 01/30/24 13:33 AB (Rec: 01/30/24 16:33 AB [id number]) Out-Patient Physical Therapy Visit Information Visit Information Visit Type Treatment Note Visit Note Visit [email or web address]: [email or web address] Visit Start Time 14:34 Visit Stop Time 15:18 Visit Number 3 Number of FACULTY MEMBER Visits 1 Evaluation Information Evaluation Date 01/24/24 PT-OP-B Current Condition Start: 01/24/24 15:10 Freq: Status: Active Protocol: Document 01/24/24 14:30 DCW (Rec: 01/27/24 09:41 DCW [id number]) Current Condition History of Current Condition Onset Date 08/17/23 Current Complaints L humeral head/neck fracture History of Current Condition Pt is an 83 year old female presenting five months s/p L humerus fracture. Pt came to be seen for treatment at this facility two months ago, but due so some confusion, was at the same time being seen in PT for the same injury at a different facility. Pt at the time decided to continue with her ongoing appointments at the other facility, and was discharged from therapy here. Since that time, unfortunately , pt was having difficulty getting scheduled at the other clinic, and decided to discharge from them and restart at this facility. Pt's original injury was caused by stepping off a curb and landing on her left shoulder, resuylting in a comminuted, impacted fracture of the left humeral head/neck. Pt reports she saw her ortho shortly before this evaluation, and was released from care, but instructed to continue to work on shoulder mobility with PT. Admits she does have some stuff she can try to do at home, but I want to do it right. Pt notes continued swelling in her left hand. Was sleeping on her couch, but has recently returned to her bed, although still has sleep disturbances due to shoulder pain. Feels continued tenderness and weakness in her biceps, and notes panel assembler weakness in left, although is working with OT to regain. Prior Treatments and Tests Humerus x-ray: IMPRESSION: Comminuted, impacted fracture the left humeral head and neck . per William Crews M.D. on 08/17/2023 PT-OP-C Subjective Start: 01/24/24 15:10 Freq: Status: Active Protocol: Document 01/30/24 13:33 AB (Rec: 01/30/24 16:33 AB [id number]) OP-PT Subjective Patient Comments Patient Comments Patient reports the shoulder is the same, reports she is doing the exercises. AROM 115 deg left shoulder flexion start of session. PT-OP-F Manual Assessment Start: 01/24/24 15:10 Freq: Status: Active Protocol: Document 01/24/24 14:30 DCW (Rec: 01/27/24 10:32 DCW [id number]) Manual Assessments Soft Tissue Assessment Soft Tissue Mobility Assessment Increased parascapular tone with tenderness to palpation 2 /4: Pain with wincing Joint Mobility Assessment Joint Mobility Assessment Restriction of passive and active joint mobility PT-OP-J Posture/Palpation/Skin Start: 01/24/24 15:10 Freq: Status: Active Protocol: Document 01/24/24 14:30 DCW (Rec: 01/27/24 10:32 DCW [id number]) Posture Evaluation Position Sitting Evaluation View Anterior Shoulder Posture (L) Rounded,(L) Forward PT-OP-K Range of Motion Start: 01/24/24 15:10 Freq: Status: Active Protocol: Document 01/24/24 14:30 DCW (Rec: 01/27/24 10:32 DCW [id number]) Shoulder Goniometric Range of Motion Shoulder Right Passive Testing Position Supine Flexion 168 Abduction 180 External Rotation at 0 degrees Abduction 75 Right Active Testing Position Sitting Flexion 162 Abduction 152 External Rotation at 0 degrees Abduction 75 Internal Rotation Behind Back (text) T3 Left Passive Testing Position Supine Flexion 116 Abduction 98 External Rotation at 0 degrees Abduction 41 Left Active Testing Position Sitting Flexion 91 Abduction 74 External Rotation at 0 degrees Abduction 68 Internal Rotation Behind Back (text) L3 PT-OP-M Strength Start: 01/24/24 15:10 Freq: Status: Active Protocol: Document 01/24/24 14:30 DCW (Rec: 01/27/24 13:13 DCW [id number]) Shoulder Strength Shoulder Manual Muscle Testing Right Flexion 4 Good Extension 4 Good Abduction (C5) 4 Good External Rotation 4 Good Internal Rotation 4 Good Left Flexion 3- Fair- Extension 3- Fair- Abduction (C5) 3- Fair- External Rotation 3- Fair- Internal Rotation 3- Fair- PT-OP-Q Treatments Start: 01/24/24 15:10 Freq: Status: Active Protocol: Document 01/30/24 13:33 AB (Rec: 01/30/24 16:33 AB [id number]) Therapeutic Exercises Supine Exercises pec stretch Supine Exercise Name hands behind head ( supine then seated) Reps/Minutes 60 sec each position chest custom grinder Side bilateral Reps/Minutes 2 min Comments verbal cues for breathing from diaphragm Shoulder Flexion Supine Exercise Name AROM with dowel Side bilateral Reps/Minutes X10 with 5-10 sec hold Serratus Punch Supine Exercise Name Serratus Punch /c wand Side bilateral Reps/Minutes X10 Sidelying Exercises AROM ER Side left Reps/Minutes X15 Comments Verbal and tactile cues Sitting Exercises shoulder shrugs Side bilateral Reps/Minutes X10 Comments Verbal and visual cues Shoulder Rolls Sitting Exercise Name Shoulder Rolls Side bilateral Comments Bkwd Scapular Retraction Sitting Exercise Name Scapular Retraction Side bilateral Reps/Minutes X10 Comments verbal and visual cues Standing Exercises stair rail slide flexion Side left Reps/Minutes X10 Comments verbal and visual cues Manual Therapy Treatment Consent Patient gave verbal consent for manual Yes treatment Soft Tissue Mobilization left UE Body Location pec, post cuff, levator scap, UT, periscapular Mobilization Type Cross-Friction,Rolling, Sustained Pressure Intensity/Depth Moderate Body Position Hooklying Comments and sidelying Joint Mobilizations scapula Direction into adduction and depression Grade IV Body Position Sidelying Reps/Duration X10 each GH Joint L GH Direction Inf, AP Grade III Body Position Hooklying PT-OP-T Assessment and Plan Start: 01/24/24 15:10 Freq: Status: Active Protocol: Document 01/30/24 13:33 AB (Rec: 01/30/24 16:33 AB [id number]) Physical Therapy Assessment Goals Two Impairment Left shoulder AROM limited to 91? flexion and 74? abduction Chcf Goal (LTG) Pt to demonstrate improved left shoulder AROM to 120? in both flexion and abduction in order to improve ability to wash hair LTG Duration 03/25/24 One Impairment Pt does not have an appropriate home exercise program Short Term Goal (STG) Pt to be independent and compliant with an appropriate HEP STG Duration 10/20/24 Assessment Summary Assessment 115 deg AROM left shoulder flexion end of sesson rating pain 0/10 end of session. No change within session possibly due to fatigue with stair rail slide performed end of session. Physical Therapy Plan Frequency and Duration Frequency of Treatment 2x/Week Plan of Care Start Date 01/24/24 Plan of Care End Date 03/25/24 Next Visit Focus/Plan Next Note Type Treatment Note Next Visit Plan Pulleys, PROM/AROM, shoulder retraction, shrugs
--- NOTE | 2024-02-03 16:29 | PT.OTN ---
Current Diagnoses Other displaced fracture of upper end of left humerus, subsequent encounter for fracture with routine healing (02/03/24) Physical Therapy Treatment Note PT-OP-A Visit Information Start: 01/24/24 15:10 Freq: Status: Active Protocol: Document 02/03/24 13:00 AB (Rec: 02/03/24 16:29 AB [id number]) Out-Patient Physical Therapy Visit Information Visit Information Visit Type Treatment Note Visit Note Visit [email or web address] Code: [email or web address] Visit Start Time 14:33 Visit Stop Time 15:17 Visit Number [address] SECURITY OFFICER Visits 2 Evaluation Information Evaluation Date 01/24/24 PT-OP-B Current Condition Start: 01/24/24 15:10 Freq: Status: Active Protocol: Document 01/24/24 14:30 DCW (Rec: 01/27/24 09:41 DCW [id number]) Current Condition History of Current Condition Onset Date 08/17/23 Current Complaints L humeral head/neck fracture History of Current Condition Pt is an 83 year old female presenting five months s/p L humerus fracture. Pt came to be seen for treatment at this facility two months ago, but due so some confusion, was at the same time being seen in PT for the same injury at a different facility. Pt at the time decided to continue with her ongoing appointments at the other facility, and was discharged from therapy here. Since that time, unfortunately , pt was having difficulty getting scheduled at the other clinic, and decided to discharge from them and restart at this facility. Pt's original injury was caused by stepping off a curb and landing on her left shoulder, resuylting in a comminuted, impacted fracture of the left humeral head/neck. Pt reports she saw her ortho shortly before this evaluation, and was released from care, but instructed to continue to work on shoulder mobility with PT. Admits she does have some stuff she can try to do at home, but I want to do it right. Pt notes continued swelling in her left hand. Was sleeping on her couch, but has recently returned to her bed, although still has sleep disturbances due to shoulder pain. 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 Prior Treatments and Tests Humerus x-ray: IMPRESSION: Comminuted, impacted fracture the left humeral head and neck . per William Crews M.D. on 08/17/2023 PT-OP-C Subjective Start: 01/24/24 15:10 Freq: Status: Active Protocol: Document 02/03/24 13:00 AB (Rec: 02/03/24 16:29 AB [id number]) OP-PT Subjective Patient Comments Patient Comments Patient reports the shoulder is the same, but has had one incident of increased elbow pain attributes to pillow position when sleeping. PT-OP-F Manual Assessment Start: 01/24/24 15:10 Freq: Status: Active Protocol: Document 01/24/24 14:30 DCW (Rec: 01/27/24 10:32 DCW [id number]) Manual Assessments Soft Tissue Assessment Soft Tissue Mobility Assessment Increased parascapular tone with tenderness to palpation 2 /4: Pain with wincing Joint Mobility Assessment Joint Mobility Assessment Restriction of passive and active joint mobility PT-OP-J Posture/Palpation/Skin Start: 01/24/24 15:10 Freq: Status: Active Protocol: Document 01/24/24 14:30 DCW (Rec: 01/27/24 10:32 DCW [id number]) Posture Evaluation Position Sitting Evaluation View Anterior Shoulder Posture (L) Rounded,(L) Forward PT-OP-K Range of Motion Start: 01/24/24 15:10 Freq: Status: Active Protocol: Document 01/24/24 14:30 DCW (Rec: 01/27/24 10:32 DCW [id number]) Shoulder Goniometric Range of Motion Shoulder Right Passive Testing Position Supine Flexion 168 Abduction 180 External Rotation at 0 degrees Abduction 75 Right Active Testing Position Sitting Flexion 162 Abduction 152 External Rotation at 0 degrees Abduction 75 Internal Rotation Behind Back (text) T3 Left Passive Testing Position Supine Flexion 116 Abduction 98 External Rotation at 0 degrees Abduction 41 Left Active Testing Position Sitting Flexion 91 Abduction 74 External Rotation at 0 degrees Abduction 68 Internal Rotation Behind Back (text) L3 PT-OP-M Strength Start: 01/24/24 15:10 Freq: Status: Active Protocol: Document 01/24/24 14:30 DCW (Rec: 01/27/24 13:13 DCW [id number]) Shoulder Strength Shoulder Manual Muscle Testing Right Flexion 4 Good Extension 4 Good Abduction (C5) 4 Good External Rotation 4 Good Internal Rotation 4 Good Left Flexion 3- Fair- Extension 3- Fair- Abduction (C5) 3- Fair- External Rotation 3- Fair- Internal Rotation 3- Fair- PT-OP-Q Treatments Start: 01/24/24 15:10 Freq: Status: Active Protocol: Document 02/03/24 13:00 AB (Rec: 02/03/24 16:29 AB [id number]) Therapeutic Exercises Supine Exercises pec stretch Supine Exercise Name hands behind head ( supine then seated) Reps/Minutes 60 sec each position Shoulder Flexion Supine Exercise Name AROM with dowel Side bilateral Reps/Minutes X10 with 5-10 sec hold Serratus Punch Supine Exercise Name Serratus Punch /c wand Side bilateral Reps/Minutes X10 Sidelying Exercises shoulder IR Side left Reps/Minutes X15 Comments verbal and tactile cues AROM ER Side left Reps/Minutes X15 Comments Verbal and tactile cues Manual Therapy Treatment Soft Tissue Mobilization left UE Body Location biceps, pec, post cuff, levator scap, UT, periscapular Mobilization Type Cross-Friction,Rolling, Sustained Pressure Intensity/Depth Moderate Body Position Hooklying Comments and sidelying Joint Mobilizations scapula Direction into adduction and depression Grade IV Body Position Sidelying Reps/Duration X10 each GH Joint L GH Direction Inf, AP Grade III Body Position Hooklying Manual Techniques contract relax Type IR and ER left UE Reps/Duration X2 each direction Comments gentle PT-OP-T Assessment and Plan Start: 01/24/24 15:10 Freq: Status: Active Protocol: Document 02/03/24 13:00 AB (Rec: 02/03/24 16:29 AB [id number]) Physical Therapy Assessment Goals Two Impairment Left shoulder AROM limited to 91? flexion and 74? abduction Line Supervisor Goal (LTG) Pt to demonstrate improved left shoulder AROM to 120? in both flexion and abduction in order to improve ability to wash hair LTG Duration 03/25/24 One Impairment Pt does not have an appropriate home exercise program Short Term Goal (STG) Pt to be independent and compliant with an appropriate HEP STG Duration 02/23/24 Assessment Summary Assessment 110 deg AROM left shoulder flexion end of session with patient reporting feeling looser end of session. Physical Therapy Plan Frequency and Duration Frequency of Treatment 2x/Week Plan of Care Start Date 01/24/24 Plan of Care End Date 03/25/24 Next Visit Focus/Plan Next Note Type Treatment Note Next Visit Plan Pulleys, PROM/AROM, shoulder retraction, shrugs
--- NOTE | 2024-02-06 15:15 | PT.OTN ---
Current Diagnoses Other displaced fracture of upper end of left humerus, subsequent encounter for fracture with routine healing (02/06/24) Physical Therapy Treatment Note PT-OP-A Visit Information Start: 01/24/24 15:10 Freq: Status: Active Protocol: Document 02/06/24 14:30 DCW (Rec: 02/06/24 15:14 DCW [id number]) Out-Patient Physical Therapy Visit Information Visit Information Visit Type Treatment Note Visit Start Time 14:30 Visit Stop Time 15:15 Visit Number 5 Number of FARM FIELD MANAGER Visits 0 Evaluation Information Evaluation Date 01/24/24 PT-OP-B Current Condition Start: 01/24/24 15:10 Freq: Status: Active Protocol: Document 01/24/24 14:30 DCW (Rec: 01/27/24 09:41 DCW [id number]) Current Condition History of Current Condition Onset Date 08/17/23 Current Complaints L humeral head/neck fracture History of Current Condition Pt is an 83 year old female presenting five months s/p L humerus fracture. Pt came to be seen for treatment at this facility two months ago, but due so some confusion, was at the same time being seen in PT for the same injury at a different facility. Pt at the time decided to continue with her ongoing appointments at the other facility, and was discharged from therapy here. Since that time, unfortunately , pt was having difficulty getting scheduled at the other clinic, and decided to discharge from them and restart at this facility. Pt's original injury was caused by stepping off a curb and landing on her left shoulder, resuylting in a comminuted, impacted fracture of the left humeral head/neck. Pt reports she saw her ortho shortly before this evaluation, and was released from care, but instructed to continue to work on shoulder mobility with PT. Admits she does have some stuff she can try to do at home, but I want to do it right. Pt notes continued swelling in her left hand. Was sleeping on her couch, but has recently returned to her bed, although still has sleep disturbances due to shoulder pain. Feels continued tenderness and weakness in her biceps, and notes welfare worker weakness in left, although is working with OT to regain. Prior Treatments and Tests Humerus x-ray: IMPRESSION: Comminuted, impacted fracture the left humeral head and neck . per William Crews M.D. on 08/17/2023 PT-OP-C Subjective Start: 01/24/24 15:10 Freq: Status: Active Protocol: Document 02/06/24 14:30 DCW (Rec: 02/06/24 15:14 DCW [id number]) OP-PT Subjective Patient Comments Patient Comments Pt had her OT appointment last week, notes it was a good session, but my hand still hasn't come around. PT-OP-F Manual Assessment Start: 01/24/24 15:10 Freq: Status: Active Protocol: Document 01/24/24 14:30 DCW (Rec: 01/27/24 10:32 DCW [id number]) Manual Assessments Soft Tissue Assessment Soft Tissue Mobility Assessment Increased parascapular tone with tenderness to palpation 2 /4: Pain with wincing Joint Mobility Assessment Joint Mobility Assessment Restriction of passive and active joint mobility PT-OP-J Posture/Palpation/Skin Start: 01/24/24 15:10 Freq: Status: Active Protocol: Document 01/24/24 14:30 DCW (Rec: 01/27/24 10:32 DCW [id number]) Posture Evaluation Position Sitting Evaluation View Anterior Shoulder Posture (L) Rounded,(L) Forward PT-OP-K Range of Motion Start: 01/24/24 15:10 Freq: Status: Active Protocol: Document 01/24/24 14:30 DCW (Rec: 01/27/24 10:32 DCW [id number]) Shoulder Goniometric Range of Motion Shoulder Right Passive Testing Position Supine Flexion 168 Abduction 180 External Rotation at 0 degrees Abduction 75 Right Active Testing Position Sitting Flexion 162 Abduction 152 External Rotation at 0 degrees Abduction 75 Internal Rotation Behind Back (text) T3 Left Passive Testing Position Supine Flexion 116 Abduction 98 External Rotation at 0 degrees Abduction 41 Left Active Testing Position Sitting Flexion 91 Abduction 74 External Rotation at 0 degrees Abduction 68 Internal Rotation Behind Back (text) L3 PT-OP-M Strength Start: 01/24/24 15:10 Freq: Status: Active Protocol: Document 01/24/24 14:30 DCW (Rec: 01/27/24 13:13 DCW [id number]) Shoulder Strength Shoulder Manual Muscle Testing Right Flexion 4 Good Extension 4 Good Abduction (C5) 4 Good External Rotation 4 Good Internal Rotation 4 Good Left Flexion 3- Fair- Extension 3- Fair- Abduction (C5) 3- Fair- External Rotation 3- Fair- Internal Rotation 3- Fair- PT-OP-Q Treatments Start: 01/24/24 15:10 Freq: Status: Active Protocol: Document 02/06/24 14:30 DCW (Rec: 02/06/24 15:14 DCW [id number]) Therapeutic Exercises Sitting Exercises Supination Sitting Exercise Name Supination/Pronation /c hammer Side left Curls Sitting Exercise Name Curls/Reverse Curls Side bilateral Resistance 2# Press Up Sitting Exercise Name Press up /c PVC Side bilateral Pulleys Sitting Exercise Name Sade PROM - Flexion, Abduction Side bilateral Other Exercises Resisted Side-stepping Other Exercise Name Resisted UE side-stepping on rail Resistance Lv 1 loop Manual Therapy Treatment Consent Patient gave verbal consent for manual Yes treatment Soft Tissue Mobilization left UE Body Location pec, post cuff, levator scap, UT, periscapular Mobilization Type Cross-Friction,Rolling, Sustained Pressure Intensity/Depth Moderate Body Position Hooklying Comments and sidelying Joint Mobilizations scapula Direction into adduction and depression Grade III Body Position Sidelying Reps/Duration X10 each GH Joint L GH Direction Inf, AP Grade III Body Position Hooklying PT-OP-T Assessment and Plan Start: 01/24/24 15:10 Freq: Status: Active Protocol: Document 02/06/24 14:30 DCW (Rec: 02/06/24 15:14 DCW [id number]) Physical Therapy Assessment Impairments Impairments Activity Tolerance,Functional Activities,Functional Mobility ,Posture,ROM,Strength,Tone Goals Two Impairment Left shoulder AROM limited to 91? flexion and 74? abduction Fpc Goal (LTG) Pt to demonstrate improved left shoulder AROM to 120? in both flexion and abduction in order to improve ability to wash hair LTG Duration 03/25/24 One Impairment Pt does not have an appropriate home exercise program Short Term Goal (STG) Pt to be independent and compliant with an appropriate HEP STG Duration 02/23/24 Assessment Summary Assessment Pt progressing some with AROM, continues to exhibit limitations with functional activities secondary to weakness and limited ROM. Physical Therapy Plan Frequency and Duration Frequency of Treatment 2x/Week Plan of Care Start Date 01/24/24 Plan of Care End Date 03/25/24 Next Visit Focus/Plan Next Note Type Treatment Note Next Visit Plan Pulleys, PROM/AROM, shoulder retraction, shrugs
--- NOTE | 2024-02-13 14:27 | PT.OTN ---
Current Diagnoses Other displaced fracture of upper end of left humerus, subsequent encounter for fracture with routine healing (02/13/24) Physical Therapy Treatment Note PT-OP-A Visit Information Start: 01/24/24 15:10 Freq: Status: Active Protocol: Document 02/13/24 13:50 DCW (Rec: 02/13/24 14:27 DCW [id number]) Out-Patient Physical Therapy Visit Information Visit Information Visit Type Treatment Note Visit Start Time 13:50 Visit Stop Time 14:30 Visit Number 6 Number of MANAGER TELECOM Visits 0 Evaluation Information Evaluation Date 01/24/24 PT-OP-B Current Condition Start: 01/24/24 15:10 Freq: Status: Active Protocol: Document 01/24/24 14:30 DCW (Rec: 01/27/24 09:41 DCW [id number]) Current Condition History of Current Condition Onset Date 08/17/23 Current Complaints L humeral head/neck fracture History of Current Condition Pt is an 83 year old female presenting five months s/p L humerus fracture. Pt came to be seen for treatment at this facility two months ago, but due so some confusion, was at the same time being seen in PT for the same injury at a different facility. Pt at the time decided to continue with her ongoing appointments at the other facility, and was discharged from therapy here. Since that time, unfortunately , pt was having difficulty getting scheduled at the other clinic, and decided to discharge from them and restart at this facility. Pt's original injury was caused by stepping off a curb and landing on her left shoulder, resuylting in a comminuted, impacted fracture of the left humeral head/neck. Pt reports she saw her ortho shortly before this evaluation, and was released from care, but instructed to continue to work on shoulder mobility with PT. Admits she does have some stuff she can try to do at home, but I want to do it right. Pt notes continued swelling in her left hand. Was sleeping on her couch, but has recently returned to her bed, although still has sleep disturbances due to shoulder pain. Feels continued tenderness and weakness in her biceps, and notes cord maker weakness in left, although is working with OT to regain. Prior Treatments and Tests Humerus x-ray: IMPRESSION: Comminuted, impacted fracture the left humeral head and neck . per William Crews M.D. on 08/17/2023 PT-OP-C Subjective Start: 01/24/24 15:10 Freq: Status: Active Protocol: Document 02/13/24 13:50 DCW (Rec: 02/13/24 14:27 DCW [id number]) OP-PT Subjective Patient Comments Patient Comments I do those arm exercises whenever I find time to do it. Pt notes she fell over a footstool PT-OP-F Manual Assessment Start: 01/24/24 15:10 Freq: Status: Active Protocol: Document 01/24/24 14:30 DCW (Rec: 01/27/24 10:32 DCW [id number]) Manual Assessments Soft Tissue Assessment Soft Tissue Mobility Assessment Increased parascapular tone with tenderness to palpation /4: Pain with wincing Joint Mobility Assessment Joint Mobility Assessment Restriction of passive and active joint mobility PT-OP-J Posture/Palpation/Skin Start: 01/24/24 15:10 Freq: Status: Active Protocol: Document 01/24/24 14:30 DCW (Rec: 01/27/24 10:32 DCW [id number]) Posture Evaluation Position Sitting Evaluation View Anterior Shoulder Posture (L) Rounded,(L) Forward PT-OP-K Range of Motion Start: 01/24/24 15:10 Freq: Status: Active Protocol: Document 01/24/24 14:30 DCW (Rec: 01/27/24 10:32 DCW [id number]) Shoulder Goniometric Range of Motion Shoulder Right Passive Testing Position Supine Flexion 168 Abduction 180 External Rotation at 0 degrees Abduction 75 Right Active Testing Position Sitting Flexion 162 Abduction 152 External Rotation at 0 degrees Abduction 75 Internal Rotation Behind Back (text) T3 Left Passive Testing Position Supine Flexion 116 Abduction 98 External Rotation at 0 degrees Abduction 41 Left Active Testing Position Sitting Flexion 91 Abduction 74 External Rotation at 0 degrees Abduction 68 Internal Rotation Behind Back (text) L3 PT-OP-M Strength Start: 01/24/24 15:10 Freq: Status: Active Protocol: Document 01/24/24 14:30 DCW (Rec: 01/27/24 13:13 DCW [id number]) Shoulder Strength Shoulder Manual Muscle Testing Right Flexion 4 Good Extension 4 Good Abduction (C5) 4 Good External Rotation 4 Good Internal Rotation 4 Good Left Flexion 3- Fair- Extension 3- Fair- Abduction (C5) 3- Fair- External Rotation 3- Fair- Internal Rotation 3- Fair- PT-OP-Q Treatments Start: 01/24/24 15:10 Freq: Status: Active Protocol: Document 02/13/24 13:50 DCW (Rec: 02/13/24 14:27 DCW [id number]) Therapeutic Exercises Supine Exercises Shoulder Flexion Supine Exercise Name AROM with dowel Side bilateral Reps/Minutes X10 with 5-10 sec hold Serratus Punch Supine Exercise Name Serratus Punch /c wand Side bilateral Reps/Minutes X10 Sitting Exercises Supination Sitting Exercise Name Supination/Pronation /c hammer Side left Press Up Sitting Exercise Name Press up /c PVC Side bilateral Pulleys Sitting Exercise Name Sade PROM - Flexion, Abduction Side bilateral Manual Therapy Treatment Consent Patient gave verbal consent for manual Yes treatment Soft Tissue Mobilization left UE Body Location pec, post cuff, levator scap, UT, periscapular Mobilization Type Cross-Friction,Rolling, Sustained Pressure Intensity/Depth Moderate Body Position Hooklying Comments and sidelying Joint Mobilizations scapula Direction into adduction and depression Grade III Body Position Sidelying Reps/Duration X10 each GH Joint L GH Direction Inf, AP Grade III Body Position Hooklying PT-OP-T Assessment and Plan Start: 01/24/24 15:10 Freq: Status: Active Protocol: Document 02/13/24 13:50 DCW (Rec: 02/13/24 14:27 DCW [id number]) Physical Therapy Assessment Assessment Summary Assessment Discussed with pt potential of getting checked out following her fall, agreed to follow-up with [facility] by end of PT session. Continue to focus on improving strength and mobility of left shoulder Physical Therapy Plan Frequency and Duration Frequency of Treatment 2x/Week Plan of Care Start Date 01/24/24 Plan of Care End Date 03/25/24 Next Visit Focus/Plan Next Note Type Treatment Note Next Visit Plan Pulleys, PROM/AROM, shoulder retraction, shrugs
--- NOTE | 2024-02-18 12:24 | PT.OTN ---
Current Diagnoses Other displaced fracture of upper end of left humerus, subsequent encounter for fracture with routine healing (02/18/24) Physical Therapy Treatment Note PT-OP-A Visit Information Start: 01/24/24 15:10 Freq: Status: Active Protocol: Document 02/18/24 10:46 AB (Rec: 02/18/24 12:22 AB [id number]) Out-Patient Physical Therapy Visit Information Visit Information Visit Type Treatment Note Visit Note Access Code: [email or web address] Visit Start Time 11:33 Visit Stop Time 12:17 Visit Number 7 Number of DIRECTOR OF ACQUISITION MARKETING Visits 1 Evaluation Information Evaluation Date 01/24/24 PT-OP-B Current Condition Start: 01/24/24 15:10 Freq: Status: Active Protocol: Document 01/24/24 14:30 DCW (Rec: 01/27/24 09:41 DCW [id number]) Current Condition History of Current Condition Onset Date 08/17/23 Current Complaints L humeral head/neck fracture History of Current Condition Pt is an 83 year old female presenting five months s/p L humerus fracture. Pt came to be seen for treatment at this facility two months ago, but due so some confusion, was at the same time being seen in PT for the same injury at a different facility. Pt at the time decided to continue with her ongoing appointments at the other facility, and was discharged from therapy here. Since that time, unfortunately , pt was having difficulty getting scheduled at the other clinic, and decided to discharge from them and restart at this facility. Pt's original injury was caused by stepping off a curb and landing on her left shoulder, resuylting in a comminuted, impacted fracture of the left humeral head/neck. Pt reports she saw her ortho shortly before this evaluation, and was released from care, but instructed to continue to work on shoulder mobility with PT. Admits she does have some stuff she can try to do at home, but I want to do it right. Pt notes continued swelling in her left hand. Was sleeping on her couch, but has recently returned to her bed, although still has sleep disturbances due to shoulder pain. Feels continued tenderness and weakness in her biceps, and notes orthopedic radiologic technologist weakness in left, although is working with OT to regain. Prior Treatments and Tests Humerus x-ray: IMPRESSION: Comminuted, impacted fracture the left humeral head and neck . per William Crews M.D. on 08/17/2023 PT-OP-C Subjective Start: 01/24/24 15:10 Freq: Status: Active Protocol: Document 02/18/24 10:46 AB (Rec: 02/18/24 12:22 AB [id number]) OP-PT Subjective Patient Comments Patient Comments Patient reports the shoulder is doing better, comments it is nice when she can reach things that she couldn't reach before. AROM 106 deg flexion left shoulder start of session . PT-OP-F Manual Assessment Start: 01/24/24 15:10 Freq: Status: Active Protocol: Document 01/24/24 14:30 DCW (Rec: 01/27/24 10:32 DCW [id number]) Manual Assessments Soft Tissue Assessment Soft Tissue Mobility Assessment Increased parascapular tone with tenderness to palpation 2 /4: Pain with wincing Joint Mobility Assessment Joint Mobility Assessment Restriction of passive and active joint mobility PT-OP-J Posture/Palpation/Skin Start: 01/24/24 15:10 Freq: Status: Active Protocol: Document 01/24/24 14:30 DCW (Rec: 01/27/24 10:32 DCW [id number]) Posture Evaluation Position Sitting Evaluation View Anterior Shoulder Posture (L) Rounded,(L) Forward PT-OP-K Range of Motion Start: 01/24/24 15:10 Freq: Status: Active Protocol: Document 01/24/24 14:30 DCW (Rec: 01/27/24 10:32 DCW [id number]) Shoulder Goniometric Range of Motion Shoulder Right Passive Testing Position Supine Flexion 168 Abduction 180 External Rotation at 0 degrees Abduction 75 Right Active Testing Position Sitting Flexion 162 Abduction 152 External Rotation at 0 degrees Abduction 75 Internal Rotation Behind Back (text) T3 Left Passive Testing Position Supine Flexion 116 Abduction 98 External Rotation at 0 degrees Abduction 41 Left Active Testing Position Sitting Flexion 91 Abduction 74 External Rotation at 0 degrees Abduction 68 Internal Rotation Behind Back (text) L3 PT-OP-M Strength Start: 01/24/24 15:10 Freq: Status: Active Protocol: Document 01/24/24 14:30 DCW (Rec: 01/27/24 13:13 DCW [id number]) Shoulder Strength Shoulder Manual Muscle Testing Right Flexion 4 Good Extension 4 Good Abduction (C5) 4 Good External Rotation 4 Good Internal Rotation 4 Good Left Flexion 3- Fair- Extension 3- Fair- Abduction (C5) 3- Fair- External Rotation 3- Fair- Internal Rotation 3- Fair- PT-OP-Q Treatments Start: 01/24/24 15:10 Freq: Status: Active Protocol: Document 02/18/24 10:46 AB (Rec: 02/18/24 12:22 AB [id number]) Therapeutic Exercises Supine Exercises pec stretch Supine Exercise Name hands behind head ( supine then seated) Reps/Minutes 60 sec each position Shoulder Flexion Supine Exercise Name AROM Side left Reps/Minutes X10 with 5-10 sec hold Serratus Punch Supine Exercise Name Serratus Punch /c wand Side bilateral Reps/Minutes X12 Comments Verbal cues Sitting Exercises shoulder ER and IR Sitting Exercise Name AROM arm resting on slide board resting on pillows on lap Reps/Minutes X15 Curls Sitting Exercise Name Curls/Reverse Curls Side bilateral Resistance 2# Reps/Minutes X20 curls X 10 reverse curls Manual Therapy Treatment Soft Tissue Mobilization left UE Body Location pec, post cuff, levator scap, UT, periscapular Mobilization Type Cross-Friction,Rolling, Sustained Pressure Intensity/Depth Moderate Body Position Hooklying Comments and sidelying Joint Mobilizations scapula Direction into adduction and depression Grade III Body Position Hooklying GH Joint L GH Direction Inf, AP Grade III Body Position Hooklying Manual Techniques contract relax Type IR and ER left UE Reps/Duration X2 each direction Comments gentle PT-OP-T Assessment and Plan Start: 01/24/24 15:10 Freq: Status: Active Protocol: Document 02/18/24 10:46 AB (Rec: 02/18/24 12:22 AB [id number]) Physical Therapy Assessment Goals Two Impairment Left shoulder AROM limited to 91? flexion and 74? abduction Long-Term Goal (LTG) Pt to demonstrate improved left shoulder AROM to 120? 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 Physical Therapy Plan Frequency and Duration Frequency of Treatment 2x/Week Plan of Care Start Date 01/24/24 Plan of Care End Date 03/25/24 Next Visit Focus/Plan Next Note Type Progress Note Next Visit Plan Pulleys, PROM/AROM, shoulder retraction, shrugs
--- NOTE | 2024-02-20 11:31 | PT.OTN ---
Current Diagnoses Other displaced fracture of upper end of left humerus, subsequent encounter for fracture with routine healing (02/20/24) Physical Therapy Treatment Note PT-OP-A Visit Information Start: 01/24/24 15:10 Freq: Status: Active Protocol: Document 02/20/24 10:45 DCW (Rec: 02/20/24 11:31 DCW [id number]) Out-Patient Physical Therapy Visit Information Visit Information Visit Type Treatment Note Visit Start Time 10:45 Visit Stop Time 11:30 Visit Number 8 Number of GLOBAL PRESIDENT Visits 0 Evaluation Information Evaluation Date 01/24/24 PT-OP-B Current Condition Start: 01/24/24 15:10 Freq: Status: Active Protocol: Document 01/24/24 14:30 DCW (Rec: 01/27/24 09:41 DCW [id number]) Current Condition History of Current Condition Onset Date 08/17/23 Current Complaints L humeral head/neck fracture History of Current Condition Pt is an 83 year old female presenting five months s/p L humerus fracture. Pt came to be seen for treatment at this facility two months ago, but due so some confusion, was at the same time being seen in PT for the same injury at a different facility. Pt at the time decided to continue with her ongoing appointments at the other facility, and was discharged from therapy here. Since that time, unfortunately , pt was having difficulty getting scheduled at the other clinic, and decided to discharge from them and restart at this facility. Pt's original injury was caused by stepping off a curb and landing on her left shoulder, resuylting in a comminuted, impacted fracture of the left humeral head/neck. Pt reports she saw her ortho shortly before this evaluation, and was released from care, but instructed to continue to work on shoulder mobility with PT. Admits she does have some stuff she can try to do at home, but I want to do it right. Pt notes continued swelling in her left hand. Was sleeping on her couch, but has recently returned to her bed, although still has sleep disturbances due to shoulder pain. Feels continued tenderness and weakness in her biceps, and notes sewer digger weakness in left, although is working with OT to regain. Prior Treatments and Tests Humerus x-ray: IMPRESSION: Comminuted, impacted fracture the left humeral head and neck . per William Crews M.D. on 08/17/2023 PT-OP-C Subjective Start: 01/24/24 15:10 Freq: Status: Active Protocol: Document 02/20/24 10:45 DCW (Rec: 02/20/24 11:31 DCW [id number]) OP-PT Subjective Patient Comments Patient Comments Pt notes her shoulder is doing well, she has been sleeping much better. PT-OP-F Manual Assessment Start: 01/24/24 15:10 Freq: Status: Active Protocol: Document 01/24/24 14:30 DCW (Rec: 01/27/24 10:32 DCW [id number]) Manual Assessments Soft Tissue Assessment Soft Tissue Mobility Assessment Increased parascapular tone with tenderness to palpation 2 /4: Pain with wincing Joint Mobility Assessment Joint Mobility Assessment Restriction of passive and active joint mobility PT-OP-J Posture/Palpation/Skin Start: 01/24/24 15:10 Freq: Status: Active Protocol: Document 01/24/24 14:30 DCW (Rec: 01/27/24 10:32 DCW [id number]) Posture Evaluation Position Sitting Evaluation View Anterior Shoulder Posture (L) Rounded,(L) Forward PT-OP-K Range of Motion Start: 01/24/24 15:10 Freq: Status: Active Protocol: Document 01/24/24 14:30 DCW (Rec: 01/27/24 10:32 DCW [id number]) Shoulder Goniometric Range of Motion Shoulder Right Passive Testing Position Supine Flexion 168 Abduction 180 External Rotation at 0 degrees Abduction 75 Right Active Testing Position Sitting Flexion 162 Abduction 152 External Rotation at 0 degrees Abduction 75 Internal Rotation Behind Back (text) T3 Left Passive Testing Position Supine Flexion 116 Abduction 98 External Rotation at 0 degrees Abduction 41 Left Active Testing Position Sitting Flexion 91 Abduction 74 External Rotation at 0 degrees Abduction 68 Internal Rotation Behind Back (text) L3 PT-OP-M Strength Start: 01/24/24 15:10 Freq: Status: Active Protocol: Document 01/24/24 14:30 DCW (Rec: 01/27/24 13:13 DCW [id number]) Shoulder Strength Shoulder Manual Muscle Testing Right Flexion 4 Good Extension 4 Good Abduction (C5) 4 Good External Rotation 4 Good Internal Rotation 4 Good Left Flexion 3- Fair- Extension 3- Fair- Abduction (C5) 3- Fair- External Rotation 3- Fair- Internal Rotation 3- Fair- PT-OP-Q Treatments Start: 01/24/24 15:10 Freq: Status: Active Protocol: Document 02/20/24 10:45 DCW (Rec: 02/20/24 11:31 DCW [id number]) Cardio Equipment Upper Body Ergometer (UBE) Duration (Minutes) 5 RPM 60 Seat Position 9 Height 3.5 Therapeutic Exercises Sitting Exercises Press Up Sitting Exercise Name Press up /c PVC Side bilateral Pulleys Sitting Exercise Name Sade PROM - Flexion, Abduction Side bilateral Standing Exercises External Rotation Standing Exercise Name External Rotation Side left Resistance [place] Internal Rotation Standing Exercise Name Internal Rotation Side left Resistance Green Rows Standing Exercise Name Rows Side bilateral Resistance Green Extension Standing Exercise Name Shoulder Extension Side bilateral Resistance Green Shoulder Abduction Standing Exercise Name AAROM /c PVC Side left Manual Therapy Treatment Consent Patient gave verbal consent for manual Yes treatment Soft Tissue Mobilization left UE Body Location pec, post cuff, levator scap, UT, periscapular Mobilization Type Cross-Friction,Rolling, Sustained Pressure Intensity/Depth Moderate Body Position Hooklying Comments and sidelying Joint Mobilizations GH Joint L GH Direction Inf, AP Grade III Body Position Hooklying PT-OP-T Assessment and Plan Start: 01/24/24 15:10 Freq: Status: Active Protocol: Document 02/20/24 10:45 DCW (Rec: 02/20/24 11:31 DCW [id number]) Physical Therapy Assessment Impairments Impairments Activity Tolerance,Functional Activities,Functional Mobility ,Posture,ROM,Strength,Tone Goals Two Impairment Left shoulder AROM limited to 91? flexion and 74? abduction Intermediate Goal (LTG) Pt to demonstrate improved left shoulder AROM to 120? 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 today, abduction at 86?. Continue to focus on shoulder mobility and strengthening. Physical Therapy Plan Frequency and Duration Frequency of Treatment 2x/Week Plan of Care Start Date 01/24/24 Plan of Care End Date 03/25/24 Next Visit Focus/Plan Next Note Type Treatment Note Next Visit Plan Pulleys, PROM/AROM, shoulder retraction, shrugs
--- NOTE | 2024-03-11 13:58 | PT.OTN ---
Current Diagnoses Other displaced fracture of upper end of left humerus, subsequent encounter for fracture with routine healing (03/11/24) Physical Therapy Treatment Note PT-OP-A Visit Information Start: 01/24/24 15:10 Freq: Status: Active Protocol: Document 03/11/24 13:00 AB (Rec: 03/11/24 13:57 AB [id number]) Out-Patient Physical Therapy Visit Information Visit Information Visit Type Treatment Note Visit Note Access Code: [email or web address] Visit Start Time 13:02 Visit Stop Time 13:46 Visit Number 9 Number of MECHANICAL TECHNICAL SERVICE SPECIALIST Visits 1 Evaluation Information Evaluation Date 01/24/24 PT-OP-B Current Condition Start: 01/24/24 15:10 Freq: Status: Active Protocol: Document 01/24/24 14:30 DCW (Rec: 01/27/24 09:41 DCW [id number]) Current Condition History of Current Condition Onset Date 08/17/23 Current Complaints L humeral head/neck fracture History of Current Condition Pt is an 83 year old female presenting five months s/p L humerus fracture. Pt came to be seen for treatment at this facility two months ago, but due so some confusion, was at the same time being seen in PT for the same injury at a different facility. Pt at the time decided to continue with her ongoing appointments at the other facility, and was discharged from therapy here. Since that time, unfortunately , pt was having difficulty getting scheduled at the other clinic, and decided to discharge from them and restart at this facility. Pt's original injury was caused by stepping off a curb and landing on her left shoulder, resuylting in a comminuted, impacted fracture of the left humeral head/neck. Pt reports she saw her ortho shortly before this evaluation, and was released from care, but instructed to continue to work on shoulder mobility with PT. Admits she does have some stuff she can try to do at home, but I want to do it right. Pt notes continued swelling in her left hand. Was sleeping on her couch, but has recently returned to her bed, although still has sleep disturbances due to shoulder pain. Feels continued tenderness and weakness in her biceps, and notes product development weakness in left, although is working with OT to regain. Prior Treatments and Tests Humerus x-ray: IMPRESSION: Comminuted, impacted fracture the left humeral head and neck . per William Crews M.D. on 08/17/2023 PT-OP-C Subjective Start: 01/24/24 15:10 Freq: Status: Active Protocol: Document 03/11/24 13:00 AB (Rec: 03/11/24 13:57 AB [id number]) OP-PT Subjective Patient Comments Patient Comments Patient reports sleeping has been a problem as the pillow falls away from being under her arm. Patient reports having no pain Left shoulder start of session. 114 deg AROM left shoulder flexion start of session. PT-OP-F Manual Assessment Start: 01/24/24 15:10 Freq: Status: Active Protocol: Document 01/24/24 14:30 DCW (Rec: 01/27/24 10:32 DCW [id number]) Manual Assessments Soft Tissue Assessment Soft Tissue Mobility Assessment Increased parascapular tone with tenderness to palpation 2 /4: Pain with wincing Joint Mobility Assessment Joint Mobility Assessment Restriction of passive and active joint mobility PT-OP-J Posture/Palpation/Skin Start: 01/24/24 15:10 Freq: Status: Active Protocol: Document 01/24/24 14:30 DCW (Rec: 01/27/24 10:32 DCW [id number]) Posture Evaluation Position Sitting Evaluation View Anterior Shoulder Posture (L) Rounded,(L) Forward PT-OP-K Range of Motion Start: 01/24/24 15:10 Freq: Status: Active Protocol: Document 01/24/24 14:30 DCW (Rec: 01/27/24 10:32 DCW [id number]) Shoulder Goniometric Range of Motion Shoulder Right Passive Testing Position Supine Flexion 168 Abduction 180 External Rotation at 0 degrees Abduction 75 Right Active Testing Position Sitting Flexion 162 Abduction 152 External Rotation at 0 degrees Abduction 75 Internal Rotation Behind Back (text) T3 Left Passive Testing Position Supine Flexion 116 Abduction 98 External Rotation at 0 degrees Abduction 41 Left Active Testing Position Sitting Flexion 91 Abduction 74 External Rotation at 0 degrees Abduction 68 Internal Rotation Behind Back (text) L3 PT-OP-M Strength Start: 01/24/24 15:10 Freq: Status: Active Protocol: Document 01/24/24 14:30 DCW (Rec: 01/27/24 13:13 DCW [id number]) Shoulder Strength Shoulder Manual Muscle Testing Right Flexion 4 Good Extension 4 Good Abduction (C5) 4 Good External Rotation 4 Good Internal Rotation 4 Good Left Flexion 3- Fair- Extension 3- Fair- Abduction (C5) 3- Fair- External Rotation 3- Fair- Internal Rotation 3- Fair- PT-OP-Q Treatments Start: 01/24/24 15:10 Freq: Status: Active Protocol: Document 03/11/24 13:00 AB (Rec: 03/11/24 13:57 AB [id number]) Therapeutic Exercises Supine Exercises chest sales teacher Side bilateral Reps/Minutes 2 min Comments verbal cues for breathing from diaphragm Shoulder Flexion Supine Exercise Name AROM Side bilateral Reps/Minutes 10 sec X10 Serratus Punch Supine Exercise Name Serratus Punch /c wand Side bilateral Reps/Minutes X15 Sidelying Exercises AROM ER Sidelying Exercise Name HEP Side left Reps/Minutes X15 Comments Verbal and tactile cues Sitting Exercises pec stretch Sitting Exercise Name hands behind head Side bilateral Reps/Minutes 60 sec X 1 shoulder ER and IR Sitting Exercise Name ER with band Side bilateral Resistance Level one band Reps/Minutes x12 Comments limited rom R Therapeutic Activity Therapeutic Activity right sidelying positioning Comments Positioned with pillow behind back, patient ed how to have pillow positioned Manual Therapy Treatment Soft Tissue Mobilization left UE Body Location pec, post cuff, levator scap, UT, periscapular Mobilization Type Cross-Friction,Rolling, Sustained Pressure Intensity/Depth Moderate Body Position Hooklying Comments and sidelying Joint Mobilizations scapula Direction into adduction and depression Grade III Body Position Hooklying GH Joint L GH Direction Inf, AP Grade III Body Position Hooklying Manual Techniques contract relax Type ER left UE Reps/Duration X2 each direction Comments gentle PT-OP-T Assessment and Plan Start: 01/24/24 15:10 Freq: Status: Active Protocol: Document 03/11/24 13:00 AB (Rec: 03/11/24 13:57 [id number]) Physical Therapy Assessment Goals Two Impairment Left shoulder AROM limited to 91? flexion and 74? abduction Mcfp Goal (LTG) Pt to demonstrate improved left shoulder AROM to 120? 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 Physical Therapy Plan Frequency and Duration Frequency of Treatment 2x/Week Plan of Care Start Date 01/24/24 Plan of Care End Date 03/25/24 Next Visit Focus/Plan Next Note Type Treatment Note Next Visit Plan Pulleys, PROM/AROM, shoulder retraction, shrugs
--- NOTE | 2024-03-20 14:28 | PT.OTN ---
Current Diagnoses Other displaced fracture of upper end of left humerus, subsequent encounter for fracture with routine healing (03/20/24) Physical Therapy Treatment Note PT-OP-A Visit Information Start: 01/24/24 15:10 Freq: Status: Active Protocol: Document 03/20/24 13:45 DCW (Rec: 03/20/24 14:28 DCW [id number]) Out-Patient Physical Therapy Visit Information Visit Information Visit Type Progress Note Visit Start Time 13:45 Visit Stop Time 14:30 Visit Number 10 Number of GROUND TRANSPORTATION OPERATOR Visits 0 Evaluation Information Evaluation Date 01/24/24 PT-OP-B Current Condition Start: 01/24/24 15:10 Freq: Status: Active Protocol: Document 01/24/24 14:30 DCW (Rec: 01/27/24 09:41 DCW [id number]) Current Condition History of Current Condition Onset Date 08/17/23 Current Complaints L humeral head/neck fracture History of Current Condition Pt is an 83 year old female presenting five months s/p L humerus fracture. Pt came to be seen for treatment at this facility two months ago, but due so some confusion, was at the same time being seen in PT for the same injury at a different facility. Pt at the time decided to continue with her ongoing appointments at the other facility, and was discharged from therapy here. Since that time, unfortunately , pt was having difficulty getting scheduled at the other clinic, and decided to discharge from them and restart at this facility. Pt's original injury was caused by stepping off a curb and landing on her left shoulder, resuylting in a comminuted, impacted fracture of the left humeral head/neck. Pt reports she saw her ortho shortly before this evaluation, and was released from care, but instructed to continue to work on shoulder mobility with PT. Admits she does have some stuff she can try to do at home, but I want to do it right. Pt notes continued swelling in her left hand. Was sleeping on her couch, but has recently returned to her bed, although still has sleep disturbances due to shoulder pain. Feels continued tenderness and weakness in her biceps, and notes freight flow sales leader weakness in left, although is working with OT to regain. Prior Treatments and Tests Humerus x-ray: IMPRESSION: Comminuted, impacted fracture the left humeral head and neck . per William Crews M.D. on 08/17/2023 PT-OP-C Subjective Start: 01/24/24 15:10 Freq: Status: Active Protocol: Document 03/20/24 13:45 DCW (Rec: 03/20/24 14:28 DCW [id number]) OP-PT Subjective Patient Comments Patient Comments Pt reports she is happy with her HEP, has been pretty consistent with her shoulder retraction, overhead press, shoulder rolls, and wall walk PT-OP-F Manual Assessment Start: 01/24/24 15:10 Freq: Status: Active Protocol: Document 03/20/24 13:45 DCW (Rec: 03/20/24 14:09 DCW [id number]) Manual Assessments Soft Tissue Assessment Soft Tissue Mobility Assessment Increased L parascapular tone with tenderness to palpation 2 /4: Pain with wincing Joint Mobility Assessment Joint Mobility Assessment Mild restrictions in passive and moderate restrictions in active joint mobility PT-OP-J Posture/Palpation/Skin Start: 01/24/24 15:10 Freq: Status: Active Protocol: Document 01/24/24 14:30 DCW (Rec: 01/27/24 10:32 DCW [id number]) Posture Evaluation Position Sitting Evaluation View Anterior Shoulder Posture (L) Rounded,(L) Forward PT-OP-K Range of Motion Start: 01/24/24 15:10 Freq: Status: Active Protocol: Document 03/20/24 13:45 DCW (Rec: 03/20/24 14:09 DCW [id number]) Shoulder Goniometric Range of Motion Shoulder Right Passive Testing Position Supine Flexion 180 Abduction 180 External Rotation at 0 degrees Abduction 80 Right Active Testing Position Sitting Flexion 165 Abduction 171 External Rotation at 0 degrees Abduction 74 Internal Rotation Behind Back (text) T3 Left Passive Testing Position Supine Flexion 124 Abduction 132 External Rotation at 0 degrees Abduction 74 Left Active Testing Position Sitting Flexion 106 Abduction 90 External Rotation at 0 degrees Abduction 67 Internal Rotation Behind Back (text) L1 PT-OP-M Strength Start: 01/24/24 15:10 Freq: Status: Active Protocol: Document 03/20/24 13:45 DCW (Rec: 03/20/24 14:09 DCW [id number]) Shoulder Strength Shoulder Manual Muscle Testing Right Flexion 4+ Good+ Extension 4+ Good+ Abduction (C5) 4+ Good+ External Rotation 4+ Good+ Internal Rotation 4+ Good+ Left Flexion 3+ Fair+ Extension 4 Good Abduction (C5) 3+ Fair+ External Rotation 3+ Fair+ Internal Rotation 4- Good- PT-OP-Q Treatments Start: 01/24/24 15:10 Freq: Status: Active Protocol: Document 03/20/24 13:45 DCW (Rec: 03/20/24 14:28 DCW [id number]) Therapeutic Exercises Sitting Exercises Curls Sitting Exercise Name Curls/Reverse Curls Side bilateral Resistance 3# Press Up Sitting Exercise Name Press up /c PVC Side bilateral Pulleys Sitting Exercise Name Sade PROM - Flexion, Abduction Side bilateral Manual Therapy Treatment Consent Patient gave verbal consent for manual Yes treatment Soft Tissue Mobilization left UE Body Location pec, post cuff, levator scap, UT, periscapular Mobilization Type Cross-Friction,Rolling, Sustained Pressure Intensity/Depth Moderate Body Position Hooklying Comments and sidelying Joint Mobilizations GH Joint L GH Direction Inf, AP Grade III Body Position Hooklying PT-OP-T Assessment and Plan Start: 01/24/24 15:10 Freq: Status: Active Protocol: Document 03/20/24 13:45 DCW (Rec: 03/20/24 14:28 DCW [id number]) Physical Therapy Assessment Impairments Impairments Activity Tolerance,Functional Activities,Functional Mobility ,Posture,ROM,Strength,Tone Goals Two Impairment Left shoulder AROM limited to 91? flexion and 74? abduction Retirement Goal (LTG) Pt to demonstrate improved left shoulder AROM to 120? in both flexion and abduction in order to improve ability to wash hair LTG Duration 05/20/24 - Improving One Impairment Pt does not have an appropriate home exercise program Short Term Goal (STG) Pt to be independent and compliant with an appropriate HEP STG Duration Met Assessment Summary Assessment Pt showing good improvement overall, since initial evaluation, L AROM has improved by 15? in flexion and 16? in abduction, L PROM showing additional improvements, with 8? flexion and 34? abduction. Pt progressing with participation in HEP, and is making good progress toward goals. Continue to focus on shoulder stretching and strengthening, functional mobility, and decreasing pain. Physical Therapy Plan Frequency and Duration Frequency of Treatment 2x/Week Plan of Care Start Date 03/20/24 Plan of Care End Date 05/20/24 Therapeutic Interventions Therapeutic Interventions Home Exercise Program,Joint Mobilizations,Manual Therapy, Neuromuscular Re-education, Patient/Caregiver Education, Self-Care/Home Management,Soft Tissue Mobilization, Therapeutic Activities, Therapeutic Exercises Next Visit Focus/Plan Next Note Type Treatment Note Next Visit Plan Pulleys, PROM/AROM, shoulder retraction, shrugs
--- NOTE | 2024-03-20 14:28 | PT.OPPOC ---
Physical, Occupational & Speech Therapy At [facility] Current Diagnoses Other displaced fracture of upper end of left humerus, subsequent encounter for fracture with routine healing (03/20/24) Visit Care Team Role Provider Type Grant Phillips MD Family Provider Physician Primary Care Provider Specialty: Internal Medicine Address: [address] [place] [address], [phone] Email: [email or web address] Guilherme Fung MD Attending Provider Non-Staff Referring Provider Specialty: Orthopedic Surgery Address: [address] [place] [address], [place], [address] Email: Plan Of Care PT-OP-B Current Condition Start: 01/24/24 15:10 Freq: Status: Active Protocol: Document 01/24/24 14:30 DCW (Rec: 01/27/24 09:41 DCW [id number]) Current Condition History of Current Condition Onset Date 08/17/23 Current Complaints L humeral head/neck fracture History of Current Condition Pt is an 83 year old female presenting five months s/p L humerus fracture. Pt came to be seen for treatment at this facility two months ago, but due so some confusion, was at the same time being seen in PT for the same injury at a different facility. Pt at the time decided to continue with her ongoing appointments at the other facility, and was discharged from therapy here. Since that time, unfortunately , pt was having difficulty getting scheduled at the other clinic, and decided to discharge from them and restart at this facility. Pt's original injury was caused by stepping off a curb and landing on her left shoulder, resuylting in a comminuted, impacted fracture of the left humeral head/neck. Pt reports she saw her ortho shortly before this evaluation, and was released from care, but instructed to continue to work on shoulder mobility with PT. Admits she does have some stuff she can try to do at home, but I want to do it right. Pt notes continued swelling in her left hand. Was sleeping on her couch, but has recently returned to her bed, although still has sleep disturbances due to shoulder pain. Feels continued tenderness and weakness in her biceps, and notes chicken hanger weakness in left, although is working with OT to regain. Prior Treatments and Tests Humerus x-ray: IMPRESSION: Comminuted, impacted fracture the left humeral head and neck . per William Crews M.D. on 08/17/2023 PT-OP-T Assessment and Plan Start: 01/24/24 15:10 Freq: Status: Active Protocol: Document 03/20/24 13:45 DCW (Rec: 03/20/24 14:28 DCW [id number]) Physical Therapy Assessment Impairments Impairments Activity Tolerance,Functional Activities,Functional Mobility ,Posture,ROM,Strength,Tone Goals Two Impairment Left shoulder AROM limited to 91? flexion and 74? abduction Skilled Nursing Goal (LTG) Pt to demonstrate improved left shoulder AROM to 120? in both flexion and abduction in order to improve ability to wash hair LTG Duration 05/20/24 - Improving One Impairment Pt does not have an appropriate home exercise program Short Term Goal (STG) Pt to be independent and compliant with an appropriate HEP STG Duration Met Assessment Summary Assessment Pt showing good improvement overall, since initial evaluation, L AROM has improved by 15? in flexion and 16? in abduction, L PROM showing additional improvements, with 8? flexion and 34? abduction. Pt progressing with participation in HEP, and is making good progress toward goals. Continue to focus on shoulder stretching and strengthening, functional mobility, and decreasing pain. Physical Therapy Plan Frequency and Duration Frequency of Treatment 2x/Week Plan of Care Start Date 03/20/24 Plan of Care End Date 05/20/24 Therapeutic Interventions Therapeutic Interventions Home Exercise Program,Joint Mobilizations,Manual Therapy, Neuromuscular Re-education, Patient/Caregiver Education, Self-Care/Home Management,Soft Tissue Mobilization, Therapeutic Activities, Therapeutic Exercises Next Visit Focus/Plan Next Note Type Treatment Note Next Visit Plan Pulleys, PROM/AROM, shoulder retraction, shrugs Plan of Care Dates Plan of Care Start Date 03/20/24 Plan of Care End Date 05/20/24 Electronically Signed by: Nguyễn Gonzalez, PT 03/20/24 2054 If you are in agreement with this Plan of Care, please return a signed and dated copy. I have reviewed this Plan of Care and certify that the skilled therapy services above are required to meet the patient?s needs. Physician Signature Date Printed Name and Credentials Clinical Instructor Signature Printed Name and Credentials
--- NOTE | 2024-03-25 16:16 | PT.OTN ---
Current Diagnoses Other displaced fracture of upper end of left humerus, subsequent encounter for fracture with routine healing (03/25/24) Physical Therapy Treatment Note PT-OP-A Visit Information Start: 01/24/24 15:10 Freq: Status: Active Protocol: Document 03/25/24 12:55 AB (Rec: 03/25/24 16:16 AB [id number]) Out-Patient Physical Therapy Visit Information Visit Information Visit Type Treatment Note Visit Note Access Code: [email or web address] Visit Start Time 12:48 Visit Stop Time 14:32 Visit Number 11 Number of SCRAP MATERIALS BUYER Visits 1 Evaluation Information Evaluation Date 01/24/24 PT-OP-B Current Condition Start: 01/24/24 15:10 Freq: Status: Active Protocol: Document 01/24/24 14:30 DCW (Rec: 01/27/24 09:41 DCW [id number]) Current Condition History of Current Condition Onset Date 08/17/23 Current Complaints L humeral head/neck fracture History of Current Condition Pt is an 83 year old female presenting five months s/p L humerus fracture. Pt came to be seen for treatment at this facility two months ago, but due so some confusion, was at the same time being seen in PT for the same injury at a different facility. Pt at the time decided to continue with her ongoing appointments at the other facility, and was discharged from therapy here. Since that time, unfortunately , pt was having difficulty getting scheduled at the other clinic, and decided to discharge from them and restart at this facility. Pt's original injury was caused by stepping off a curb and landing on her left shoulder, resuylting in a comminuted, impacted fracture of the left humeral head/neck. Pt reports she saw her ortho shortly before this evaluation, and was released from care, but instructed to continue to work on shoulder mobility with PT. Admits she does have some stuff she can try to do at home, but I want to do it right. Pt notes continued swelling in her left hand. Was sleeping on her couch, but has recently returned to her bed, although still has sleep disturbances due to shoulder pain. 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 Prior Treatments and Tests Humerus x-ray: IMPRESSION: Comminuted, impacted fracture the left humeral head and neck . per William Crews M.D. on 08/17/2023 PT-OP-C Subjective Start: 01/24/24 15:10 Freq: Status: Active Protocol: Document 03/25/24 12:55 AB (Rec: 03/25/24 16:16 AB [id number]) OP-PT Subjective Patient Comments Patient Comments Patient reports she continues to have difficulty reaching behind back. Comments the other day she was able to yaneth coat without donning the left UE first. Patient rates pain 0/10 start of session. AROM left shoulder flexion. AROM left shoulder flexion 120 deg. PT-OP-F Manual Assessment Start: 01/24/24 15:10 Freq: Status: Active Protocol: Document 03/20/24 13:45 DCW (Rec: 03/20/24 14:09 DCW [id number]) Manual Assessments Soft Tissue Assessment Soft Tissue Mobility Assessment Increased L parascapular tone with tenderness to palpation 2 /4: Pain with wincing Joint Mobility Assessment Joint Mobility Assessment Mild restrictions in passive and moderate restrictions in active joint mobility PT-OP-J Posture/Palpation/Skin Start: 01/24/24 15:10 Freq: Status: Active Protocol: Document 01/24/24 14:30 DCW (Rec: 01/27/24 10:32 DCW [id number]) Posture Evaluation Position Sitting Evaluation View Anterior Shoulder Posture (L) Rounded,(L) Forward PT-OP-K Range of Motion Start: 01/24/24 15:10 Freq: Status: Active Protocol: Document 03/20/24 13:45 DCW (Rec: 03/20/24 14:09 DCW [id number]) Shoulder Goniometric Range of Motion Shoulder Right Passive Testing Position Supine Flexion 180 Abduction 180 External Rotation at 0 degrees Abduction 80 Right Active Testing Position Sitting Flexion 165 Abduction 171 External Rotation at 0 degrees Abduction 74 Internal Rotation Behind Back (text) T3 Left Passive Testing Position Supine Flexion 124 Abduction 132 External Rotation at 0 degrees Abduction 74 Left Active Testing Position Sitting Flexion 106 Abduction 90 External Rotation at 0 degrees Abduction 67 Internal Rotation Behind Back (text) L1 PT-OP-M Strength Start: 01/24/24 15:10 Freq: Status: Active Protocol: Document 03/20/24 13:45 DCW (Rec: 03/20/24 14:09 DCW [id number]) Shoulder Strength Shoulder Manual Muscle Testing Right Flexion 4+ Good+ Extension 4+ Good+ Abduction (C5) 4+ Good+ External Rotation 4+ Good+ Internal Rotation 4+ Good+ Left Flexion 3+ Fair+ Extension 4 Good Abduction (C5) 3+ Fair+ External Rotation 3+ Fair+ Internal Rotation 4- Good- PT-OP-Q Treatments Start: 01/24/24 15:10 Freq: Status: Active Protocol: Document 03/25/24 12:55 AB (Rec: 03/25/24 16:16 AB [id number]) Therapeutic Exercises Supine Exercises pec stretch Supine Exercise Name hands behind head ( supine then seated) Reps/Minutes 60 sec each position Shoulder Flexion Supine Exercise Name AROM Side bilateral Reps/Minutes 10 sec X10 Sidelying Exercises shoulder IR Sidelying Exercise Name HEP Side left Reps/Minutes X15 Comments verbal and tactile cues AROM ER Sidelying Exercise Name HEP Side left Reps/Minutes X15 Comments Verbal and tactile cues Standing Exercises Rows Standing Exercise Name Rows Side bilateral Resistance Green Reps/Minutes X10 Comments Close supervision Manual Therapy Treatment Consent Patient gave verbal consent for manual Yes treatment Soft Tissue Mobilization left UE Body Location pec, post cuff, levator scap, UT, periscapular Mobilization Type Cross-Friction,Rolling, Sustained Pressure Intensity/Depth Moderate Body Position Hooklying Comments and sidelying Joint Mobilizations scapula Direction into adduction and depression Grade III Body Position Hooklying GH Joint L GH Direction Inf, AP Grade III Body Position Hooklying Reps/Duration X10 X 3 each Manual Techniques contract relax Type ER left UE Reps/Duration X2 each direction Comments gentle PT-OP-T Assessment and Plan Start: 01/24/24 15:10 Freq: Status: Active Protocol: Document 03/25/24 12:55 AB (Rec: 03/25/24 16:16 AB [id number]) Physical Therapy Assessment Goals Two Impairment Left shoulder AROM limited to 91? flexion and 74? abduction Halfway Goal (LTG) Pt to demonstrate improved left shoulder AROM to 120? 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 ROM and strength limitations left shoulder continue to impact functional mobility. Physical Therapy Plan Frequency and Duration Frequency of Treatment 2x/Week Plan of Care Start Date 03/20/24 Plan of Care End Date 05/20/24 Next Visit Focus/Plan Next Note Type Treatment Note Next Visit Plan Pulleys, PROM/AROM, shoulder retraction, shrugs
--- NOTE | 2024-04-07 16:02 | PT.OTN ---
Current Diagnoses Other displaced fracture of upper end of left humerus, subsequent encounter for fracture with routine healing (04/07/24) Physical Therapy Treatment Note PT-OP-A Visit Information Start: 01/24/24 15:10 Freq: Status: Active Protocol: Document 04/07/24 15:15 DCW (Rec: 04/07/24 16:02 DCW [id number]) Out-Patient Physical Therapy Visit Information Visit Information Visit Type Treatment Note Visit Start Time 15:15 Visit Stop Time 16:00 Visit Number 12 Number of WATCH PARTS GRINDER Visits 0 PT-OP-B Current Condition Start: 01/24/24 15:10 Freq: Status: Active Protocol: Document 01/24/24 14:30 DCW (Rec: 01/27/24 09:41 DCW [id number]) Current Condition History of Current Condition Onset Date 08/17/23 Current Complaints L humeral head/neck fracture History of Current Condition Pt is an 83 year old female presenting five months s/p L humerus fracture. Pt came to be seen for treatment at this facility two months ago, but due so some confusion, was at the same time being seen in PT for the same injury at a different facility. Pt at the time decided to continue with her ongoing appointments at the other facility, and was discharged from therapy here. Since that time, unfortunately , pt was having difficulty getting scheduled at the other clinic, and decided to discharge from them and restart at this facility. Pt's original injury was caused by stepping off a curb and landing on her left shoulder, resuylting in a comminuted, impacted fracture of the left humeral head/neck. Pt reports she saw her ortho shortly before this evaluation, and was released from care, but instructed to continue to work on shoulder mobility with PT. Admits she does have some stuff she can try to do at home, but I want to do it right. Pt notes continued swelling in her left hand. Was sleeping on her couch, but has recently returned to her bed, although still has sleep disturbances due to shoulder pain. Feels continued tenderness and weakness in her biceps, and notes calenderer weakness in left, although is working with OT to regain. Prior Treatments and Tests Humerus x-ray: IMPRESSION: Comminuted, impacted fracture the left humeral head and neck . per William Crews M.D. on 08/17/2023 PT-OP-C Subjective Start: 01/24/24 15:10 Freq: Status: Active Protocol: Document 04/07/24 15:15 DCW (Rec: 04/07/24 16:02 DCW [id number]) OP-PT Subjective Patient Comments Patient Comments Pt notes biggest continued limitation is reaching behind her back. Also struggles lifing anything with weight up into or down from a cabinet. PT-OP-F Manual Assessment Start: 01/24/24 15:10 Freq: Status: Active Protocol: Document 03/20/24 13:45 DCW (Rec: 03/20/24 14:09 DCW [id number]) Manual Assessments Soft Tissue Assessment Soft Tissue Mobility Assessment Increased L parascapular tone with tenderness to palpation 2 /4: Pain with wincing Joint Mobility Assessment Joint Mobility Assessment Mild restrictions in passive and moderate restrictions in active joint mobility PT-OP-J Posture/Palpation/Skin Start: 01/24/24 15:10 Freq: Status: Active Protocol: Document 01/24/24 14:30 DCW (Rec: 01/27/24 10:32 DCW [id number]) Posture Evaluation Position Sitting Evaluation View Anterior Shoulder Posture (L) Rounded,(L) Forward PT-OP-K Range of Motion Start: 01/24/24 15:10 Freq: Status: Active Protocol: Document 03/20/24 13:45 DCW (Rec: 03/20/24 14:09 DCW [id number]) Shoulder Goniometric Range of Motion Shoulder Right Passive Testing Position Supine Flexion 180 Abduction 180 External Rotation at 0 degrees Abduction 80 Right Active Testing Position Sitting Flexion 165 Abduction 171 External Rotation at 0 degrees Abduction 74 Internal Rotation Behind Back (text) T3 Left Passive Testing Position Supine Flexion 124 Abduction 132 External Rotation at 0 degrees Abduction 74 Left Active Testing Position Sitting Flexion 106 Abduction 90 External Rotation at 0 degrees Abduction 67 Internal Rotation Behind Back (text) L1 PT-OP-M Strength Start: 01/24/24 15:10 Freq: Status: Active Protocol: Document 03/20/24 13:45 DCW (Rec: 03/20/24 14:09 DCW [id number]) Shoulder Strength Shoulder Manual Muscle Testing Right Flexion 4+ Good+ Extension 4+ Good+ Abduction (C5) 4+ Good+ External Rotation 4+ Good+ Internal Rotation 4+ Good+ Left Flexion 3+ Fair+ Extension 4 Good Abduction (C5) 3+ Fair+ External Rotation 3+ Fair+ Internal Rotation 4- Good- PT-OP-Q Treatments Start: 01/24/24 15:10 Freq: Status: Active Protocol: Document 04/07/24 15:15 DCW (Rec: 04/07/24 16:02 DCW [id number]) Therapeutic Exercises Sitting Exercises Pulleys Sitting Exercise Name Sade PROM - Flexion, Abduction Side bilateral Standing Exercises Wall ball Standing Exercise Name Finger walk ball up wall Side left Resistance 1# Comments L shoulder flexion to 137? Rows Standing Exercise Name Rows Side bilateral Resistance Green Extension Standing Exercise Name Shoulder Extension Side bilateral Resistance Green Shoulder Abduction Standing Exercise Name AAROM /c PVC Side left Manual Therapy Treatment Consent Patient gave verbal consent for manual Yes treatment Soft Tissue Mobilization left UE Body Location pec, post cuff, levator scap, UT, periscapular Mobilization Type Cross-Friction,Rolling, Sustained Pressure Intensity/Depth Moderate Body Position Hooklying Joint Mobilizations scapula Joint L Scapula Direction lateral Grade III Body Position Hooklying GH Joint L GH Direction Inf, AP Grade III Body Position Hooklying PT-OP-T Assessment and Plan Start: 01/24/24 15:10 Freq: Status: Active Protocol: Document 04/07/24 15:15 DCW (Rec: 04/07/24 16:02 DCW [id number]) Physical Therapy Assessment Impairments Impairments Activity Tolerance,Functional Activities,Functional Mobility ,Posture,ROM,Strength,Tone Goals Two Impairment Left shoulder AROM limited to 91? flexion and 74? abduction Gerontology Aide Goal (LTG) Pt to demonstrate improved left shoulder AROM to 120? in both flexion and abduction in order to improve ability to wash hair LTG Duration 05/20/24 - Improving One Impairment Pt does not have an appropriate home exercise program Short Term Goal (STG) Pt to be independent and compliant with an appropriate HEP STG Duration Met Assessment Summary Assessment Pt tolerated well, good response to joint mobs. Added weighted wall walks today, trying to get strength in more end-range motions. Physical Therapy Plan Frequency and Duration Frequency of Treatment 2x/Week Plan of Care Start Date 03/20/24 Plan of Care End Date 05/20/24 Therapeutic Interventions Therapeutic Interventions Home Exercise Program,Joint Mobilizations,Manual Therapy, Neuromuscular Re-education, Patient/Caregiver Education, Self-Care/Home Management,Soft Tissue Mobilization, Therapeutic Activities, Therapeutic Exercises Next Visit Focus/Plan Next Note Type Treatment Note Next Visit Plan Pulleys, PROM/AROM, shoulder retraction, shrugs
--- NOTE | 2024-04-10 11:33 | PT.OTN ---
Current Diagnoses Other displaced fracture of upper end of left humerus, subsequent encounter for fracture with routine healing (04/10/24) Physical Therapy Treatment Note PT-OP-A Visit Information Start: 01/24/24 15:10 Freq: Status: Active Protocol: Document 04/10/24 10:45 DCW (Rec: 04/10/24 11:33 DCW [id number]) Out-Patient Physical Therapy Visit Information Visit Information Visit Type Treatment Note Visit Start Time 10:45 Visit Stop Time 11:30 Visit Number 13 Number of CRIPPLE CUTTER Visits 0 PT-OP-B Current Condition Start: 01/24/24 15:10 Freq: Status: Active Protocol: Document 01/24/24 14:30 DCW (Rec: 01/27/24 09:41 DCW [id number]) Current Condition History of Current Condition Onset Date 08/17/23 Current Complaints L humeral head/neck fracture History of Current Condition Pt is an 83 year old female presenting five months s/p L humerus fracture. Pt came to be seen for treatment at this facility two months ago, but due so some confusion, was at the same time being seen in PT for the same injury at a different facility. Pt at the time decided to continue with her ongoing appointments at the other facility, and was discharged from therapy here. Since that time, unfortunately , pt was having difficulty getting scheduled at the other clinic, and decided to discharge from them and restart at this facility. Pt's original injury was caused by stepping off a curb and landing on her left shoulder, resuylting in a comminuted, impacted fracture of the left humeral head/neck. Pt reports she saw her ortho shortly before this evaluation, and was released from care, but instructed to continue to work on shoulder mobility with PT. Admits she does have some stuff she can try to do at home, but I want to do it right. Pt notes continued swelling in her left hand. Was sleeping on her couch, but has recently returned to her bed, although still has sleep disturbances due to shoulder pain. Feels continued tenderness and weakness in her biceps, and notes process steward weakness in left, although is working with OT to regain. Prior Treatments and Tests Humerus x-ray: IMPRESSION: Comminuted, impacted fracture the left humeral head and neck . per William Crews M.D. on 08/17/2023 PT-OP-C Subjective Start: 01/24/24 15:10 Freq: Status: Active Protocol: Document 04/10/24 10:45 DCW (Rec: 04/10/24 11:33 DCW [id number]) OP-PT Subjective Patient Comments Patient Comments Pt admits her arm is a little sore. PT-OP-F Manual Assessment Start: 01/24/24 15:10 Freq: Status: Active Protocol: Document 03/20/24 13:45 DCW (Rec: 03/20/24 14:09 DCW [id number]) Manual Assessments Soft Tissue Assessment Soft Tissue Mobility Assessment Increased L parascapular tone with tenderness to palpation 2 /4: Pain with wincing Joint Mobility Assessment Joint Mobility Assessment Mild restrictions in passive and moderate restrictions in active joint mobility PT-OP-J Posture/Palpation/Skin Start: 01/24/24 15:10 Freq: Status: Active Protocol: Document 01/24/24 14:30 DCW (Rec: 01/27/24 10:32 DCW [id number]) Posture Evaluation Position Sitting Evaluation View Anterior Shoulder Posture (L) Rounded,(L) Forward PT-OP-K Range of Motion Start: 01/24/24 15:10 Freq: Status: Active Protocol: Document 03/20/24 13:45 DCW (Rec: 03/20/24 14:09 DCW [id number]) Shoulder Goniometric Range of Motion Shoulder Right Passive Testing Position Supine Flexion 180 Abduction 180 External Rotation at 0 degrees Abduction 80 Right Active Testing Position Sitting Flexion 165 Abduction 171 External Rotation at 0 degrees Abduction 74 Internal Rotation Behind Back (text) T3 Left Passive Testing Position Supine Flexion 124 Abduction 132 External Rotation at 0 degrees Abduction 74 Left Active Testing Position Sitting Flexion 106 Abduction 90 External Rotation at 0 degrees Abduction 67 Internal Rotation Behind Back (text) L1 PT-OP-M Strength Start: 01/24/24 15:10 Freq: Status: Active Protocol: Document 03/20/24 13:45 DCW (Rec: 03/20/24 14:09 DCW [id number]) Shoulder Strength Shoulder Manual Muscle Testing Right Flexion 4+ Good+ Extension 4+ Good+ Abduction (C5) 4+ Good+ External Rotation 4+ Good+ Internal Rotation 4+ Good+ Left Flexion 3+ Fair+ Extension 4 Good Abduction (C5) 3+ Fair+ External Rotation 3+ Fair+ Internal Rotation 4- Good- PT-OP-Q Treatments Start: 01/24/24 15:10 Freq: Status: Active Protocol: Document 04/10/24 10:45 DCW (Rec: 04/10/24 11:33 DCW [id number]) Therapeutic Exercises Sitting Exercises Pulleys Sitting Exercise Name Sade PROM - Flexion, Abduction Side bilateral Standing Exercises Pec Stretch Standing Exercise Name Corner pec stretch Side bilateral Wall ball Standing Exercise Name Finger walk up wall Side left Resistance 2# Comments L shoulder flexion to 134? Manual Therapy Treatment Consent Patient gave verbal consent for manual Yes treatment Soft Tissue Mobilization left UE Body Location pec, post cuff, levator scap, UT, periscapular Mobilization Type Cross-Friction,Rolling, Sustained Pressure Intensity/Depth Moderate Body Position Hooklying Joint Mobilizations scapula Joint L Scapula Direction lateral Grade III Body Position Hooklying GH Joint L GH Direction Inf, AP Grade III Body Position Hooklying PT-OP-T Assessment and Plan Start: 01/24/24 15:10 Freq: Status: Active Protocol: Document 04/10/24 10:45 DCW (Rec: 04/10/24 11:33 DC [id number]) Physical Therapy Assessment Impairments Impairments Activity Tolerance,Functional Activities,Functional Mobility ,Posture,ROM,Strength,Tone Goals Two Impairment Left shoulder AROM limited to 91? flexion and 74? abduction Twisting Operator Goal (LTG) Pt to demonstrate improved left shoulder AROM to 120? in both flexion and abduction in order to improve ability to wash hair LTG Duration 05/20/24 - Improving One Impairment Pt does not have an appropriate home exercise program Short Term Goal (STG) Pt to be independent and compliant with an appropriate HEP STG Duration Met Assessment Summary Assessment Pt feeling a little frustrated that she feels like she is plateauing, however notes she wants to focus on doing even more at home. Provided handout for pec stretch today, pt noted it felt good. Physical Therapy Plan Frequency and Duration Frequency of Treatment 2x/Week Plan of Care Start Date 03/20/24 Plan of Care End Date 05/20/24 Therapeutic Interventions Therapeutic Interventions Home Exercise Program,Joint Mobilizations,Manual Therapy, Neuromuscular Re-education, Patient/Caregiver Education, Self-Care/Home Management,Soft Tissue Mobilization, Therapeutic Activities, Therapeutic Exercises Next Visit Focus/Plan Next Note Type Treatment Note Next Visit Plan Pulleys, PROM/AROM, shoulder retraction, shrugs
--- NOTE | 2024-04-15 13:50 | PT.OTN ---
Current Diagnoses Other displaced fracture of upper end of left humerus, subsequent encounter for fracture with routine healing (04/15/24) Physical Therapy Treatment Note PT-OP-A Visit Information Start: 01/24/24 15:10 Freq: Status: Active Protocol: Document 04/15/24 13:00 SP (Rec: 04/15/24 13:52 SP [id number]) Out-Patient Physical Therapy Visit Information Visit Information Visit Type Treatment Note Visit Start Time 13:00 Visit Stop Time 13:50 Visit Number 14 (09/12 with PN) Number of GEOCHEMIST Visits 1 Evaluation Information Evaluation Date 01/24/24 PT-OP-B Current Condition Start: 01/24/24 15:10 Freq: Status: Active Protocol: Document 01/24/24 14:30 DCW (Rec: 01/27/24 09:41 DCW [id number]) Current Condition History of Current Condition Onset Date 08/17/23 Current Complaints L humeral head/neck fracture History of Current Condition Pt is an 83 year old female presenting five months s/p L humerus fracture. Pt came to be seen for treatment at this facility two months ago, but due so some confusion, was at the same time being seen in PT for the same injury at a different facility. Pt at the time decided to continue with her ongoing appointments at the other facility, and was discharged from therapy here. Since that time, unfortunately , pt was having difficulty getting scheduled at the other clinic, and decided to discharge from them and restart at this facility. Pt's original injury was caused by stepping off a curb and landing on her left shoulder, resuylting in a comminuted, impacted fracture of the left humeral head/neck. Pt reports she saw her ortho shortly before this evaluation, and was released from care, but instructed to continue to work on shoulder mobility with PT. Admits she does have some stuff she can try to do at home, but I want to do it right. Pt notes continued swelling in her left hand. Was sleeping on her couch, but has recently returned to her bed, although still has sleep disturbances due to shoulder pain. 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 Prior Treatments and Tests Humerus x-ray: IMPRESSION: Comminuted, impacted fracture the left humeral head and neck . per William Crews M.D. on 08/17/2023 PT-OP-C Subjective Start: 01/24/24 15:10 Freq: Status: Active Protocol: Document 04/15/24 13:00 SP (Rec: 04/15/24 13:52 SP [id number]) OP-PT Subjective Patient Comments Patient Comments Pt reports pec stretch is really hard. PT-OP-F Manual Assessment Start: 01/24/24 15:10 Freq: Status: Active Protocol: Document 03/20/24 13:45 DCW (Rec: 03/20/24 14:09 DCW [id number]) Manual Assessments Soft Tissue Assessment Soft Tissue Mobility Assessment Increased L parascapular tone with tenderness to palpation 2 /4: Pain with wincing Joint Mobility Assessment Joint Mobility Assessment Mild restrictions in passive and moderate restrictions in active joint mobility PT-OP-J Posture/Palpation/Skin Start: 01/24/24 15:10 Freq: Status: Active Protocol: Document 01/24/24 14:30 DCW (Rec: 01/27/24 10:32 DCW [id number]) Posture Evaluation Position Sitting Evaluation View Anterior Shoulder Posture (L) Rounded,(L) Forward PT-OP-K Range of Motion Start: 01/24/24 15:10 Freq: Status: Active Protocol: Document 03/20/24 13:45 DCW (Rec: 03/20/24 14:09 DCW [id number]) Shoulder Goniometric Range of Motion Shoulder Right Passive Testing Position Supine Flexion 180 Abduction 180 External Rotation at 0 degrees Abduction 80 Right Active Testing Position Sitting Flexion 165 Abduction 171 External Rotation at 0 degrees Abduction 74 Internal Rotation Behind Back (text) T3 Left Passive Testing Position Supine Flexion 124 Abduction 132 External Rotation at 0 degrees Abduction 74 Left Active Testing Position Sitting Flexion 106 Abduction 90 External Rotation at 0 degrees Abduction 67 Internal Rotation Behind Back (text) L1 PT-OP-M Strength Start: 01/24/24 15:10 Freq: Status: Active Protocol: Document 03/20/24 13:45 DCW (Rec: 03/20/24 14:09 DCW [id number]) Shoulder Strength Shoulder Manual Muscle Testing Right Flexion 4+ Good+ Extension 4+ Good+ Abduction (C5) 4+ Good+ External Rotation 4+ Good+ Internal Rotation 4+ Good+ Left Flexion 3+ Fair+ Extension 4 Good Abduction (C5) 3+ Fair+ External Rotation 3+ Fair+ Internal Rotation 4- Good- PT-OP-Q Treatments Start: 01/24/24 15:10 Freq: Status: Active Protocol: Document 04/15/24 13:00 SP (Rec: 04/15/24 13:52 SP [id number]) Therapeutic Exercises Sidelying Exercises shoulder trio Sidelying Exercise Name abd 120* slight fwd, HABD, FF 125 deg Side left Resistance AROM Reps/Minutes several reps Comments VCs, tactile cues LT, elbow ext into range, ER as needed, support UT reduc AROM ER Sidelying Exercise Name HEP Side left Reps/Minutes X15 Comments Verbal and tactile cues scap LT fac Standing Exercises Pec Stretch Standing Exercise Name Corner pec stretch Side bilateral Reps/Minutes bid, 5 sets of 30 sec Wall ball Standing Exercise Name Finger walk up wall Side left Resistance 2# Comments L shoulder flexion to 134? Manual Therapy Treatment Consent Patient gave verbal consent for manual Yes treatment Soft Tissue Mobilization left UE Body Location pec, post cuff, levator scap, UT, periscapular Mobilization Type Cross-Friction,Rolling, Sustained Pressure Intensity/Depth Moderate Body Position Hooklying Joint Mobilizations scapula Joint L Scapula Direction lateral Grade III Body Position Hooklying GH Joint L GH Direction Inf, AP Grade III Body Position Hooklying PT-OP-T Assessment and Plan Start: 01/24/24 15:10 Freq: Status: Active Protocol: Document 04/15/24 13:00 SP (Rec: 04/15/24 13:52 SP [id number]) Physical Therapy Assessment Goals Two Impairment Left shoulder AROM limited to 91? flexion and 74? abduction Custodial Goal (LTG) Pt to demonstrate improved left shoulder AROM to 120? in both flexion and abduction in order to improve ability to wash hair LTG Duration 05/20/24 - Improving One Impairment Pt does not have an appropriate home exercise program Short Term Goal (STG) Pt to be independent and compliant with an appropriate HEP STG Duration Met Assessment Summary Assessment Pt responded well to manual with demonstration of increased AROM in sidelying today, verbal and tactile cues for rhomboid and low trap activation with improved awareness of decreased UT compensatory recruitment. Education for arm positioning standing pec stretch that gets the most benefits for increased ROM with good feedback response. Physical Therapy Plan Frequency and Duration Frequency of Treatment 2x/Week Plan of Care Start Date 03/20/24 Plan of Care End Date 05/20/24 Therapeutic Interventions Therapeutic Interventions Home Exercise Program,Joint Mobilizations,Manual Therapy, Neuromuscular Re-education, Patient/Caregiver Education, Self-Care/Home Management,Soft Tissue Mobilization, Therapeutic Activities, Therapeutic Exercises Next Visit Focus/Plan Next Note Type Treatment Note Next Visit Plan Assess SL AROM for progression home HEP. Next trial standing FF/Lat/sink stretch for AAROM . POC: Pulleys, PROM/AROM, shoulder retraction, shrugs
--- NOTE | 2024-04-17 12:58 | PT.OTN ---
Current Diagnoses Other displaced fracture of upper end of left humerus, subsequent encounter for fracture with routine healing (04/17/24) Physical Therapy Treatment Note PT-OP-A Visit Information Start: 01/24/24 15:10 Freq: Status: Active Protocol: Document 04/17/24 12:15 DCW (Rec: 04/17/24 12:57 DCW [id number]) Out-Patient Physical Therapy Visit Information Visit Information Visit Type Treatment Note Visit Start Time 12:15 Visit Stop Time 13:00 Visit Number 15 (10/13 with PN) Number of SENIOR PROCESS ENGINEER Visits 0 Evaluation Information Evaluation Date 01/24/24 PT-OP-B Current Condition Start: 01/24/24 15:10 Freq: Status: Active Protocol: Document 01/24/24 14:30 DCW (Rec: 01/27/24 09:41 DCW [id number]) Current Condition History of Current Condition Onset Date 08/17/23 Current Complaints L humeral head/neck fracture History of Current Condition Pt is an 83 year old female presenting five months s/p L humerus fracture. Pt came to be seen for treatment at this facility two months ago, but due so some confusion, was at the same time being seen in PT for the same injury at a different facility. Pt at the time decided to continue with her ongoing appointments at the other facility, and was discharged from therapy here. Since that time, unfortunately , pt was having difficulty getting scheduled at the other clinic, and decided to discharge from them and restart at this facility. Pt's original injury was caused by stepping off a curb and landing on her left shoulder, resuylting in a comminuted, impacted fracture of the left humeral head/neck. Pt reports she saw her ortho shortly before this evaluation, and was released from care, but instructed to continue to work on shoulder mobility with PT. Admits she does have some stuff she can try to do at home, but I want to do it right. Pt notes continued swelling in her left hand. Was sleeping on her couch, but has recently returned to her bed, although still has sleep disturbances due to shoulder pain. Feels continued tenderness and weakness in her biceps, and notes blending kettle tender weakness in left, although is working with OT to regain. Prior Treatments and Tests Humerus x-ray: IMPRESSION: Comminuted, impacted fracture the left humeral head and neck . per William Crews M.D. on 08/17/2023 PT-OP-C Subjective Start: 01/24/24 15:10 Freq: Status: Active Protocol: Document 04/17/24 12:15 DCW (Rec: 04/17/24 12:57 DCW [id number]) OP-PT Subjective Patient Comments Patient Comments Pt feeling like she's seeing continued improvement, finds she is able to do much activities without her shoulder limiting her. PT-OP-F Manual Assessment Start: 01/24/24 15:10 Freq: Status: Active Protocol: Document 03/20/24 13:45 DCW (Rec: 03/20/24 14:09 DCW [id number]) Manual Assessments Soft Tissue Assessment Soft Tissue Mobility Assessment Increased L parascapular tone with tenderness to palpation 2 /4: Pain with wincing Joint Mobility Assessment Joint Mobility Assessment Mild restrictions in passive and moderate restrictions in active joint mobility PT-OP-J Posture/Palpation/Skin Start: 01/24/24 15:10 Freq: Status: Active Protocol: Document 01/24/24 14:30 DCW (Rec: 01/27/24 10:32 DCW [id number]) Posture Evaluation Position Sitting Evaluation View Anterior Shoulder Posture (L) Rounded,(L) Forward PT-OP-K Range of Motion Start: 01/24/24 15:10 Freq: Status: Active Protocol: Document 03/20/24 13:45 DCW (Rec: 03/20/24 14:09 DCW [id number]) Shoulder Goniometric Range of Motion Shoulder Right Passive Testing Position Supine Flexion 180 Abduction 180 External Rotation at 0 degrees Abduction 80 Right Active Testing Position Sitting Flexion 165 Abduction 171 External Rotation at 0 degrees Abduction 74 Internal Rotation Behind Back (text) T3 Left Passive Testing Position Supine Flexion 124 Abduction 132 External Rotation at 0 degrees Abduction 74 Left Active Testing Position Sitting Flexion 106 Abduction 90 External Rotation at 0 degrees Abduction 67 Internal Rotation Behind Back (text) L1 PT-OP-M Strength Start: 01/24/24 15:10 Freq: Status: Active Protocol: Document 03/20/24 13:45 DCW (Rec: 03/20/24 14:09 DCW [id number]) Shoulder Strength Shoulder Manual Muscle Testing Right Flexion 4+ Good+ Extension 4+ Good+ Abduction (C5) 4+ Good+ External Rotation 4+ Good+ Internal Rotation 4+ Good+ Left Flexion 3+ Fair+ Extension 4 Good Abduction (C5) 3+ Fair+ External Rotation 3+ Fair+ Internal Rotation 4- Good- PT-OP-Q Treatments Start: 01/24/24 15:10 Freq: Status: Active Protocol: Document 04/17/24 12:15 DCW (Rec: 04/17/24 12:57 DCW [id number]) Therapeutic Exercises Sitting Exercises Pulleys Sitting Exercise Name Sade PROM - Flexion, Abduction Side bilateral Standing Exercises Chest Press Standing Exercise Name Chest Press /c PVC Side bilateral Resistance 4# Wall ball Standing Exercise Name Finger walk up wall Side left Resistance 2# Comments L shoulder flexion to 137? Other Exercises Resisted Side-stepping Other Exercise Name Resisted UE side-stepping on rail Resistance Lv 1 loop Manual Therapy Treatment Consent Patient gave verbal consent for manual Yes treatment Soft Tissue Mobilization left UE Body Location pec, post cuff, levator scap, UT, periscapular Mobilization Type Cross-Friction,Rolling, Sustained Pressure Intensity/Depth Moderate Body Position Hooklying Joint Mobilizations scapula Joint L Scapula Direction lateral Grade III Body Position Hooklying GH Joint L GH Direction Inf, AP Grade III Body Position Hooklying PT-OP-T Assessment and Plan Start: 01/24/24 15:10 Freq: Status: Active Protocol: Document 04/17/24 12:15 DCW (Rec: 04/17/24 12:57 [facility] [id number]) Physical Therapy Assessment Impairments Impairments Activity Tolerance,Functional Activities,Functional Mobility ,Posture,ROM,Strength,Tone Goals Two Impairment Left shoulder AROM limited to 91? flexion and 74? abduction Snf Goal (LTG) Pt to demonstrate improved left shoulder AROM to 120? 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 Physical Therapy Plan Frequency and Duration Frequency of Treatment 2x/Week Plan of Care Start Date 03/20/24 Plan of Care End Date 05/20/24 Therapeutic Interventions Therapeutic Interventions Home Exercise Program,Joint Mobilizations,Manual Therapy, Neuromuscular Re-education, Patient/Caregiver Education, Self-Care/Home Management,Soft Tissue Mobilization, Therapeutic Activities, Therapeutic Exercises Next Visit Focus/Plan Next Note Type Treatment Note Next Visit Plan Assess SL AROM for progression home HEP. Next trial standing FF/Lat/sink stretch for AAROM . POC: Pulleys, PROM/AROM, shoulder retraction, shrugs
--- NOTE | 2024-04-20 14:29 | PT.OTN ---
Current Diagnoses Other displaced fracture of upper end of left humerus, subsequent encounter for fracture with routine healing (04/20/24) Physical Therapy Treatment Note PT-OP-A Visit Information Start: 01/24/24 15:10 Freq: Status: Active Protocol: Document 04/20/24 13:45 DCW (Rec: 04/20/24 14:29 DCW [id number]) Out-Patient Physical Therapy Visit Information Visit Information Visit Type Treatment Note Visit Start Time 13:45 Visit Stop Time 14:30 Visit Number 16 (11/12) Number of BIOTECH PRODUCTION SPECIALIST Visits 0 Evaluation Information Evaluation Date 01/24/24 PT-OP-B Current Condition Start: 01/24/24 15:10 Freq: Status: Active Protocol: Document 01/24/24 14:30 DCW (Rec: 01/27/24 09:41 DCW [id number]) Current Condition History of Current Condition Onset Date 08/17/23 Current Complaints L humeral head/neck fracture History of Current Condition Pt is an 83 year old female presenting five months s/p L humerus fracture. Pt came to be seen for treatment at this facility two months ago, but due so some confusion, was at the same time being seen in PT for the same injury at a different facility. Pt at the time decided to continue with her ongoing appointments at the other facility, and was discharged from therapy here. Since that time, unfortunately , pt was having difficulty getting scheduled at the other clinic, and decided to discharge from them and restart at this facility. Pt's original injury was caused by stepping off a curb and landing on her left shoulder, resuylting in a comminuted, impacted fracture of the left humeral head/neck. Pt reports she saw her ortho shortly before this evaluation, and was released from care, but instructed to continue to work on shoulder mobility with PT. Admits she does have some stuff she can try to do at home, but I want to do it right. Pt notes continued swelling in her left hand. Was sleeping on her couch, but has recently returned to her bed, although still has sleep disturbances due to shoulder pain. Feels continued tenderness and weakness in her biceps, and notes family physician weakness in left, although is working with OT to regain. Prior Treatments and Tests Humerus x-ray: IMPRESSION: Comminuted, impacted fracture the left humeral head and neck . per William Crews M.D. on 08/17/2023 PT-OP-C Subjective Start: 01/24/24 15:10 Freq: Status: Active Protocol: Document 04/20/24 13:45 DCW (Rec: 04/20/24 14:29 DCW [id number]) OP-PT Subjective Patient Comments Patient Comments Pt feeling pretty good today. PT-OP-F Manual Assessment Start: 01/24/24 15:10 Freq: Status: Active Protocol: Document 03/20/24 13:45 DCW (Rec: 03/20/24 14:09 DCW [id number]) Manual Assessments Soft Tissue Assessment Soft Tissue Mobility Assessment Increased L parascapular tone with tenderness to palpation 2 /4: Pain with wincing Joint Mobility Assessment Joint Mobility Assessment Mild restrictions in passive and moderate restrictions in active joint mobility PT-OP-J Posture/Palpation/Skin Start: 01/24/24 15:10 Freq: Status: Active Protocol: Document 01/24/24 14:30 DCW (Rec: 01/27/24 10:32 DCW [id number]) Posture Evaluation Position Sitting Evaluation View Anterior Shoulder Posture (L) Rounded,(L) Forward PT-OP-K Range of Motion Start: 01/24/24 15:10 Freq: Status: Active Protocol: Document 03/20/24 13:45 DCW (Rec: 03/20/24 14:09 DCW [id number]) Shoulder Goniometric Range of Motion Shoulder Right Passive Testing Position Supine Flexion 180 Abduction 180 External Rotation at 0 degrees Abduction 80 Right Active Testing Position Sitting Flexion 165 Abduction 171 External Rotation at 0 degrees Abduction 74 Internal Rotation Behind Back (text) T3 Left Passive Testing Position Supine Flexion 124 Abduction 132 External Rotation at 0 degrees Abduction 74 Left Active Testing Position Sitting Flexion 106 Abduction 90 External Rotation at 0 degrees Abduction 67 Internal Rotation Behind Back (text) L1 PT-OP-M Strength Start: 01/24/24 15:10 Freq: Status: Active Protocol: Document 03/20/24 13:45 DCW (Rec: 03/20/24 14:09 DCW [id number]) Shoulder Strength Shoulder Manual Muscle Testing Right Flexion 4+ Good+ Extension 4+ Good+ Abduction (C5) 4+ Good+ External Rotation 4+ Good+ Internal Rotation 4+ Good+ Left Flexion 3+ Fair+ Extension 4 Good Abduction (C5) 3+ Fair+ External Rotation 3+ Fair+ Internal Rotation 4- Good- PT-OP-Q Treatments Start: 01/24/24 15:10 Freq: Status: Active Protocol: Document 04/20/24 13:45 DCW (Rec: 04/20/24 14:29 DCW [id number]) Therapeutic Exercises Sitting Exercises Pulleys Sitting Exercise Name Sade PROM - Flexion, Abduction Side bilateral Standing Exercises Shoulder Flexion Standing Exercise Name Shoulder Flexion Side left Resistance Lv 2 Chest Press Standing Exercise Name Chest Press /c PVC Side bilateral Resistance 4# Wall ball Standing Exercise Name Finger walk up wall Side left Resistance 2# Comments L shoulder flexion to 137? Shoulder Abduction Standing Exercise Name Shoulder Abduction Side left Resistance Lv 2 Manual Therapy Treatment Consent Patient gave verbal consent for manual Yes treatment Soft Tissue Mobilization left UE Body Location pec, post cuff, levator scap, UT, periscapular Mobilization Type Cross-Friction,Rolling, Sustained Pressure Intensity/Depth Moderate Body Position Hooklying Joint Mobilizations scapula Joint L Scapula Direction lateral Grade III Body Position Hooklying GH Joint L GH Direction Inf, AP Grade III Body Position Hooklying PT-OP-T Assessment and Plan Start: 01/24/24 15:10 Freq: Status: Active Protocol: Document 04/20/24 13:45 DCW (Rec: 04/20/24 14:29 DCW [id number]) Physical Therapy Assessment Impairments Impairments Activity Tolerance,Functional Activities,Functional Mobility ,Posture,ROM,Strength,Tone Goals Two Impairment Left shoulder AROM limited to 91? flexion and 74? abduction Floating Operator Goal (LTG) Pt to demonstrate improved left shoulder AROM to 120? 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 Working on some strengthening in left shoulder. Physical Therapy Plan Frequency and Duration Frequency of Treatment 2x/Week Plan of Care Start Date 03/20/24 Plan of Care End Date 05/20/24 Therapeutic Interventions Therapeutic Interventions Home Exercise Program,Joint Mobilizations,Manual Therapy, Neuromuscular Re-education, Patient/Caregiver Education, Self-Care/Home Management,Soft Tissue Mobilization, Therapeutic Activities, Therapeutic Exercises Next Visit Focus/Plan Next Note Type Treatment Note Next Visit Plan Assess SL AROM for progression home HEP. Next trial standing FF/Lat/sink stretch for AAROM . POC: Pulleys, PROM/AROM, shoulder retraction, shrugs
--- NOTE | 2024-05-01 15:16 | PT.OTN ---
Current Diagnoses Other displaced fracture of upper end of left humerus, subsequent encounter for fracture with routine healing (05/01/24) Physical Therapy Treatment Note PT-OP-A Visit Information Start: 01/24/24 15:10 Freq: Status: Active Protocol: Document 05/01/24 14:36 SP (Rec: 05/01/24 15:41 SP [id number]) Out-Patient Physical Therapy Visit Information Visit Information Visit Type Treatment Note Visit Start Time 14:36 Visit Stop Time 15:16 Visit Number 17 (12/13 with PN) Number of DIRECTOR OF CARDIAC CATH LAB Visits 1 Evaluation Information Evaluation Date 01/24/24 PT-OP-B Current Condition Start: 01/24/24 15:10 Freq: Status: Active Protocol: Document 01/24/24 14:30 DCW (Rec: 01/27/24 09:41 DCW [id number]) Current Condition History of Current Condition Onset Date 08/17/23 Current Complaints L humeral head/neck fracture History of Current Condition Pt is an 83 year old female presenting five months s/p L humerus fracture. Pt came to be seen for treatment at this facility two months ago, but due so some confusion, was at the same time being seen in PT for the same injury at a different facility. Pt at the time decided to continue with her ongoing appointments at the other facility, and was discharged from therapy here. Since that time, unfortunately , pt was having difficulty getting scheduled at the other clinic, and decided to discharge from them and restart at this facility. Pt's original injury was caused by stepping off a curb and landing on her left shoulder, resuylting in a comminuted, impacted fracture of the left humeral head/neck. Pt reports she saw her ortho shortly before this evaluation, and was released from care, but instructed to continue to work on shoulder mobility with PT. Admits she does have some stuff she can try to do at home, but I want to do it right. Pt notes continued swelling in her left hand. Was sleeping on her couch, but has recently returned to her bed, although still has sleep disturbances due to shoulder pain. Feels continued tenderness and weakness in her biceps, and notes scrap drop engineer weakness in left, although is working with OT to regain. Prior Treatments and Tests Humerus x-ray: IMPRESSION: Comminuted, impacted fracture the left humeral head and neck . per William Crews M.D. on 08/17/2023 PT-OP-C Subjective Start: 01/24/24 15:10 Freq: Status: Active Protocol: Document 05/01/24 14:36 SP (Rec: 05/01/24 15:41 SP [id number]) OP-PT Subjective Patient Comments Patient Comments Pt reports always feels good after PT, slight soreness but goes away and move better. Pt had back injection 2 weeks ago and only taking Tylenol for pain support now. PT-OP-F Manual Assessment Start: 01/24/24 15:10 Freq: Status: Active Protocol: Document 03/20/24 13:45 DCW (Rec: 03/20/24 14:09 DCW [id number]) Manual Assessments Soft Tissue Assessment Soft Tissue Mobility Assessment Increased L parascapular tone with tenderness to palpation 2 /4: Pain with wincing Joint Mobility Assessment Joint Mobility Assessment Mild restrictions in passive and moderate restrictions in active joint mobility PT-OP-J Posture/Palpation/Skin Start: 01/24/24 15:10 Freq: Status: Active Protocol: Document 01/24/24 14:30 DCW (Rec: 01/27/24 10:32 DCW [id number]) Posture Evaluation Position Sitting Evaluation View Anterior Shoulder Posture (L) Rounded,(L) Forward PT-OP-K Range of Motion Start: 01/24/24 15:10 Freq: Status: Active Protocol: Document 03/20/24 13:45 DCW (Rec: 03/20/24 14:09 DCW [id number]) Shoulder Goniometric Range of Motion Shoulder Right Passive Testing Position Supine Flexion 180 Abduction 180 External Rotation at 0 degrees Abduction 80 Right Active Testing Position Sitting Flexion 165 Abduction 171 External Rotation at 0 degrees Abduction 74 Internal Rotation Behind Back (text) T3 Left Passive Testing Position Supine Flexion 124 Abduction 132 External Rotation at 0 degrees Abduction 74 Left Active Testing Position Sitting Flexion 106 Abduction 90 External Rotation at 0 degrees Abduction 67 Internal Rotation Behind Back (text) L1 PT-OP-M Strength Start: 01/24/24 15:10 Freq: Status: Active Protocol: Document 03/20/24 13:45 DCW (Rec: 03/20/24 14:09 DCW [id number]) Shoulder Strength Shoulder Manual Muscle Testing Right Flexion 4+ Good+ Extension 4+ Good+ Abduction (C5) 4+ Good+ External Rotation 4+ Good+ Internal Rotation 4+ Good+ Left Flexion 3+ Fair+ Extension 4 Good Abduction (C5) 3+ Fair+ External Rotation 3+ Fair+ Internal Rotation 4- Good- PT-OP-Q Treatments Start: 01/24/24 15:10 Freq: Status: Active Protocol: Document 05/01/24 14:36 SP (Rec: 05/01/24 15:41 SP [id number]) Therapeutic Exercises Sidelying Exercises shoulder trio Sidelying Exercise Name HABD slight fwd, HABD little beyond 90*, FF approx 135*, ABD 160* Side left Resistance AROM HABD & FF, 1#DB ABD Equipment Used provided HO for HEP 05/01/24 Reps/Minutes 10 reps each Comments VCs, tactile cues proper arc form, elbow straight Sitting Exercises Pulleys Sitting Exercise Name Sade PROM - Flexion, Abduction Side bilateral Resistance RUE help LUE Equipment Used mirror front Reps/Minutes 15 reps each direction Comments cues for elbow ext, no UT, CS neutral fwd Standing Exercises Shoulder Flexion Standing Exercise Name Shoulder Flexion Side bilateral Resistance Lv 2 L, Lv1 R- under same side foot Equipment Used opp UE contact chair stability , front mirror posture/form Reps/Minutes x10 Comments cues for no UT recruitment, challenging on L Wall ball Standing Exercise Name slide wt ball up wall Side left Resistance 2.2 wt ball on wall Equipment Used (therapist finger under ball support glide up) Reps/Minutes 12 Comments active flexion, slide support asc, self eccentric glide lower PT-OP-T Assessment and Plan Start: 01/24/24 15:10 Freq: Status: Active Protocol: Document 05/01/24 14:36 SP (Rec: 05/01/24 15:41 SP [id number]) Physical Therapy Assessment Goals Two Impairment Left shoulder AROM limited to 91? flexion and 74? abduction Correction Goal (LTG) Pt to demonstrate improved left shoulder AROM to 120? in both flexion and abduction in order to improve ability to wash hair LTG Duration 05/20/24 - Improving One Impairment Pt does not have an appropriate home exercise program Short Term Goal (STG) Pt to be independent and compliant with an appropriate HEP STG Duration Met Assessment Summary Assessment Pt tolerated progression overhead reaching standing 2.2 lb ball up wall support for slide and R sidelying ABD 1lb DB to support reaching up in her cupboards. Cues for arm alignment in frontal plane during FF R SL, improved understanding not crossing midline keep above imaginary glass table height of hip up to ear. Physical Therapy Plan Frequency and Duration Frequency of Treatment 2x/Week Plan of Care Start Date 03/20/24 Plan of Care End Date 05/20/24 Therapeutic Interventions Therapeutic Interventions Home Exercise Program,Joint Mobilizations,Manual Therapy, Neuromuscular Re-education, Patient/Caregiver Education, Self-Care/Home Management,Soft Tissue Mobilization, Therapeutic Activities, Therapeutic Exercises Next Visit Focus/Plan Next Note Type Treatment Note Next Visit Plan Update POC 2 visits. POC: Assess R SL AROM for progression home HEP. Next trial standing FF/Lat/sink stretch for AAROM. POC: Pulleys, PROM/AROM, shoulder retraction, shrugs
--- NOTE | 2024-05-08 12:59 | PT.OTN ---
Current Diagnoses Other displaced fracture of upper end of left humerus, subsequent encounter for fracture with routine healing (05/08/24) Physical Therapy Treatment Note PT-OP-A Visit Information Start: 01/24/24 15:10 Freq: Status: Active Protocol: Document 05/08/24 12:15 DCW (Rec: 05/08/24 12:59 DCW [id number]) Out-Patient Physical Therapy Visit Information Visit Information Visit Type Treatment Note Visit Start Time 12:15 Visit Stop Time 13:00 Visit Number 18 (01/13 with PN) Number of JOB CHECKER Visits 0 Evaluation Information Evaluation Date 01/24/24 PT-OP-B Current Condition Start: 01/24/24 15:10 Freq: Status: Active Protocol: Document 01/24/24 14:30 DCW (Rec: 01/27/24 09:41 DCW [id number]) Current Condition History of Current Condition Onset Date 08/17/23 Current Complaints L humeral head/neck fracture History of Current Condition Pt is an 83 year old female presenting five months s/p L humerus fracture. Pt came to be seen for treatment at this facility two months ago, but due so some confusion, was at the same time being seen in PT for the same injury at a different facility. Pt at the time decided to continue with her ongoing appointments at the other facility, and was discharged from therapy here. Since that time, unfortunately , pt was having difficulty getting scheduled at the other clinic, and decided to discharge from them and restart at this facility. Pt's original injury was caused by stepping off a curb and landing on her left shoulder, resuylting in a comminuted, impacted fracture of the left humeral head/neck. Pt reports she saw her ortho shortly before this evaluation, and was released from care, but instructed to continue to work on shoulder mobility with PT. Admits she does have some stuff she can try to do at home, but I want to do it right. Pt notes continued swelling in her left hand. Was sleeping on her couch, but has recently returned to her bed, although still has sleep disturbances due to shoulder pain. Feels continued tenderness and weakness in her biceps, and notes liquid loader weakness in left, although is working with OT to regain. Prior Treatments and Tests Humerus x-ray: IMPRESSION: Comminuted, impacted fracture the left humeral head and neck . per William Crews M.D. on 08/17/2023 PT-OP-C Subjective Start: 01/24/24 15:10 Freq: Status: Active Protocol: Document 05/08/24 12:15 DCW (Rec: 05/08/24 12:59 DCW [id number]) OP-PT Subjective Patient Comments Patient Comments Pt feeling okie-dokie today. PT-OP-F Manual Assessment Start: 01/24/24 15:10 Freq: Status: Active Protocol: Document 03/20/24 13:45 DCW (Rec: 03/20/24 14:09 DCW [id number]) Manual Assessments Soft Tissue Assessment Soft Tissue Mobility Assessment Increased L parascapular tone with tenderness to palpation 2 /4: Pain with wincing Joint Mobility Assessment Joint Mobility Assessment Mild restrictions in passive and moderate restrictions in active joint mobility PT-OP-J Posture/Palpation/Skin Start: 01/24/24 15:10 Freq: Status: Active Protocol: Document 01/24/24 14:30 DCW (Rec: 01/27/24 10:32 DCW [id number]) Posture Evaluation Position Sitting Evaluation View Anterior Shoulder Posture (L) Rounded,(L) Forward PT-OP-K Range of Motion Start: 01/24/24 15:10 Freq: Status: Active Protocol: Document 03/20/24 13:45 DCW (Rec: 03/20/24 14:09 DCW [id number]) Shoulder Goniometric Range of Motion Shoulder Right Passive Testing Position Supine Flexion 180 Abduction 180 External Rotation at 0 degrees Abduction 80 Right Active Testing Position Sitting Flexion 165 Abduction 171 External Rotation at 0 degrees Abduction 74 Internal Rotation Behind Back (text) T3 Left Passive Testing Position Supine Flexion 124 Abduction 132 External Rotation at 0 degrees Abduction 74 Left Active Testing Position Sitting Flexion 106 Abduction 90 External Rotation at 0 degrees Abduction 67 Internal Rotation Behind Back (text) L1 PT-OP-M Strength Start: 01/24/24 15:10 Freq: Status: Active Protocol: Document 03/20/24 13:45 DCW (Rec: 03/20/24 14:09 DCW [id number]) Shoulder Strength Shoulder Manual Muscle Testing Right Flexion 4+ Good+ Extension 4+ Good+ Abduction (C5) 4+ Good+ External Rotation 4+ Good+ Internal Rotation 4+ Good+ Left Flexion 3+ Fair+ Extension 4 Good Abduction (C5) 3+ Fair+ External Rotation 3+ Fair+ Internal Rotation 4- Good- PT-OP-Q Treatments Start: 01/24/24 15:10 Freq: Status: Active Protocol: Document 05/08/24 12:15 DCW (Rec: 05/08/24 12:59 DCW [id number]) Therapeutic Exercises Sitting Exercises Pulleys Sitting Exercise Name Sade PROM - Flexion, Abduction Side bilateral Standing Exercises Shoulder Flexion Standing Exercise Name Shoulder Flexion Side left Resistance Lv 2 Chest Press Standing Exercise Name Chest Press /c PVC Side bilateral Resistance 5# Wall ball Standing Exercise Name Finger walk up wall Side left Resistance 2# Comments L shoulder flexion to 137? Shoulder Abduction Standing Exercise Name Shoulder Abduction Side left Resistance Lv 2 Other Exercises Resisted Side-stepping Other Exercise Name Resisted UE side-stepping on rail Resistance Lv 1 loop Manual Therapy Treatment Consent Patient gave verbal consent for manual Yes treatment Soft Tissue Mobilization left UE Body Location pec, post cuff, levator scap, UT, periscapular Mobilization Type Cross-Friction,Rolling, Sustained Pressure Intensity/Depth Moderate Body Position Hooklying Joint Mobilizations scapula Joint L Scapula Direction lateral Grade III Body Position Hooklying GH Joint L GH Direction Inf, AP Grade III Body Position Hooklying PT-OP-T Assessment and Plan Start: 01/24/24 15:10 Freq: Status: Active Protocol: Document 05/08/24 12:15 DCW (Rec: 05/08/24 12:59 DCW [id number]) Physical Therapy Assessment Impairments Impairments Activity Tolerance,Functional Activities,Functional Mobility ,Posture,ROM,Strength,Tone Goals Two Impairment Left shoulder AROM limited to 91? flexion and 74? abduction Long-Term Goal (LTG) Pt to demonstrate improved left shoulder AROM to 120? in both flexion and abduction in order to improve ability to wash hair LTG Duration 05/20/24 - Improving One Impairment Pt does not have an appropriate home exercise program Short Term Goal (STG) Pt to be independent and compliant with an appropriate HEP STG Duration Met Assessment Summary Assessment Focus on retesting next visit for prog note. Pt may be approaching discharge secondary to progress plateau. Physical Therapy Plan Frequency and Duration Frequency of Treatment 2x/Week Plan of Care Start Date 03/20/24 Plan of Care End Date 05/20/24 Therapeutic Interventions Therapeutic Interventions Home Exercise Program,Joint Mobilizations,Manual Therapy, Neuromuscular Re-education, Patient/Caregiver Education, Self-Care/Home Management,Soft Tissue Mobilization, Therapeutic Activities, Therapeutic Exercises Next Visit Focus/Plan Next Note Type Progress Note Next Visit Plan Update POC next visit POC: Assess R SL AROM for progression home HEP. Next trial standing FF/Lat/sink stretch for AAROM. POC: Pulleys, PROM/AROM, shoulder retraction, shrugs
--- NOTE | 2024-05-15 12:02 | PT.OTN ---
Current Diagnoses Other displaced fracture of upper end of left humerus, subsequent encounter for fracture with routine healing (05/15/24) Physical Therapy Treatment Note PT-OP-A Visit Information Start: 01/24/24 15:10 Freq: Status: Active Protocol: Document 05/15/24 11:30 DCW (Rec: 05/15/24 12:02 DCW [id number]) Out-Patient Physical Therapy Visit Information Visit Information Visit Type Discharge Summary Visit Start Time 11:30 Visit Stop Time 12:15 Visit Number 19 Number of COLLECTIONS AGENT Visits 0 Evaluation Information Evaluation Date 01/24/24 PT-OP-B Current Condition Start: 01/24/24 15:10 Freq: Status: Active Protocol: Document 01/24/24 14:30 DCW (Rec: 01/27/24 09:41 DCW [id number]) Current Condition History of Current Condition Onset Date 08/17/23 Current Complaints L humeral head/neck fracture History of Current Condition Pt is an 83 year old female presenting five months s/p L humerus fracture. Pt came to be seen for treatment at this facility two months ago, but due so some confusion, was at the same time being seen in PT for the same injury at a different facility. Pt at the time decided to continue with her ongoing appointments at the other facility, and was discharged from therapy here. Since that time, unfortunately , pt was having difficulty getting scheduled at the other clinic, and decided to discharge from them and restart at this facility. Pt's original injury was caused by stepping off a curb and landing on her left shoulder, resuylting in a comminuted, impacted fracture of the left humeral head/neck. Pt reports she saw her ortho shortly before this evaluation, and was released from care, but instructed to continue to work on shoulder mobility with PT. Admits she does have some stuff she can try to do at home, but I want to do it right. Pt notes continued swelling in her left hand. Was sleeping on her couch, but has recently returned to her bed, although still has sleep disturbances due to shoulder pain. 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 Prior Treatments and Tests Humerus x-ray: IMPRESSION: Comminuted, impacted fracture the left humeral head and neck . per William Crews M.D. on 08/17/2023 PT-OP-C Subjective Start: 01/24/24 15:10 Freq: Status: Active Protocol: Document 05/15/24 11:30 DCW (Rec: 05/15/24 12:02 DCW [id number]) OP-PT Subjective Patient Comments Patient Comments Pt feeling okay today. PT-OP-F Manual Assessment Start: 01/24/24 15:10 Freq: Status: Active Protocol: Document 05/15/24 11:30 DCW (Rec: 05/15/24 11:45 DCW [id number]) Manual Assessments Soft Tissue Assessment Soft Tissue Mobility Assessment Increased L parascapular tone with tenderness to palpation 2 /4: Pain with wincing Joint Mobility Assessment Joint Mobility Assessment Mild restrictions in passive and moderate restrictions in active joint mobility PT-OP-J Posture/Palpation/Skin Start: 01/24/24 15:10 Freq: Status: Active Protocol: Document 01/24/24 14:30 DCW (Rec: 01/27/24 10:32 DCW [id number]) Posture Evaluation Position Sitting Evaluation View Anterior Shoulder Posture (L) Rounded,(L) Forward PT-OP-K Range of Motion Start: 01/24/24 15:10 Freq: Status: Active Protocol: Document 05/15/24 11:30 DCW (Rec: 05/15/24 11:42 DCW [id number]) Shoulder Goniometric Range of Motion Shoulder Right Passive Testing Position Sitting Flexion 180 Abduction 180 External Rotation at 0 degrees Abduction 80 Right Active Testing Position Sitting Flexion 173 Abduction 180 External Rotation at 0 degrees Abduction 79 Internal Rotation Behind Back (text) T3 Left Passive Testing Position Sitting Flexion 127 Abduction 128 External Rotation at 0 degrees Abduction 75 Left Active Testing Position Sitting Flexion 105 Abduction 96 External Rotation at 0 degrees Abduction 70 Internal Rotation Behind Back (text) T12 PT-OP-M Strength Start: 01/24/24 15:10 Freq: Status: Active Protocol: Document 05/15/24 11:30 DCW (Rec: 05/15/24 11:42 DCW [id number]) Shoulder Strength Shoulder Manual Muscle Testing Right Flexion 4+ Good+ Extension 4+ Good+ Abduction (C5) 4+ Good+ External Rotation 4+ Good+ Internal Rotation 4+ Good+ Left Flexion 3+ Fair+ Extension 4 Good Abduction (C5) 3+ Fair+ External Rotation 3+ Fair+ Internal Rotation 4- Good- PT-OP-Q Treatments Start: 01/24/24 15:10 Freq: Status: Active Protocol: Document 05/15/24 11:30 DCW (Rec: 05/15/24 12:02 [facility] [id number]) Manual Therapy Treatment Consent Patient gave verbal consent for manual Yes treatment Soft Tissue Mobilization left UE Body Location pec, post cuff, levator scap, UT, periscapular Mobilization Type Cross-Friction,Rolling, Sustained Pressure Intensity/Depth Moderate Body Position Hooklying Joint Mobilizations scapula Joint L Scapula Direction lateral Grade III Body Position Hooklying GH Joint L GH Direction Inf, AP Grade III Body Position Hooklying PT-OP-T Assessment and Plan Start: 01/24/24 15:10 Freq: Status: Active Protocol: Document 05/15/24 11:30 DCW (Rec: 05/15/24 12:02 [facility] [id number]) Physical Therapy Assessment Assessment Summary Assessment Pt has largely plateaued with progress overall, minimal to no change since last prog note with shoulder ROM or strengthening. Pt will be discharged from skilled therapy at this time. Pt notes understanding. Physical Therapy Plan Frequency and Duration Frequency of Treatment 2x/Week Plan of Care Start Date 03/20/24 Plan of Care End Date 05/20/24 Therapeutic Interventions Therapeutic Interventions Home Exercise Program,Joint Mobilizations,Manual Therapy, Neuromuscular Re-education, Patient/Caregiver Education, Self-Care/Home Management,Soft Tissue Mobilization, Therapeutic Activities, Therapeutic Exercises Discharge Physical Therapy Discharge Reasons Plateau in Progress Next Visit Focus/Plan Next Note Type Discharge Summary
== END 2024-05-21 11:09 | disposition home or self-care (01) ==
LOC: PHYS 11:30
PROVIDERS: Family Provider Internal Medicine; PCP Internal Medicine; Referring Provider Orthopaedic Surgery; Visit Provider Orthopaedic Surgery
DX: S42.292D Other displaced fracture of upper end of left humerus, subsequent encounter for fracture with routine healing (principal)
CPT/HCPCS: 97110; 97140; 97162

== ENCOUNTER 2024-08-20 13:31 | Outpatient (CLI) | payer MEDICARE, OTHER, SELFPAY ==
[2024-05-05 10:08] VITALS: BMI 21.1
[2024-08-20] VITALS (9 sets, daily range): BP systolic 172–216; BP diastolic 77–99; PULSE 64–74; RESP 12–16; TEMP 36.1; O2SAT 95–99
[2024-08-20] MEDS: MIDAZOLAM 2 MG/2 ML VIAL 1 MG IV (14:46)
[2024-08-20] MEDS: BUPIVACAINE 0.25% (PF) VIAL 2 ML INJ (14:53)
[2024-08-20] MEDS: DEXAMETHASONE 10 MG/ML VIAL INJ (14:53)
[2024-08-20] MEDS: iopamidoL 15 ML VIAL 3 ML INJ (14:54)
[2024-08-20] MEDS: BETAMETHASONE 30 MG/5 ML MDV 12 MG INJ (14:54)
--- NOTE | 2024-08-20 15:05 | P.PCN_ITS ---
Date/Time/Diagnoses Date of procedure: 08/20/24 Time of procedure: 15:05 Pre-procedure diagnosis: 1. HNP WITH RADICULAR FEATURES, 2. MULTILEVEL CENTRAL STENOSIS, Post-procedure diagnosis: same Procedure Notes Procedure: 1. FLUOROSCOPICALLY GUIDED CONTRAST CONTROLLED INTERLAMINAR EPIDURAL STEROID INJECTION -L4/5 Indications: Ruth is referred by Dr. Phillips for treatment of Bilateral Foraminal Stenosis R>L LE symptoms. Physician: Chuy Mario Total Fluoroscopy time (seconds): 7 Total sedation minutes: 15 Complications: none Procedure in detail & Post-procedure care: FINDINGS Multilevel Central Spinal Stenosis with Nerve Root Compression DESCRIPTION OF PROCEDURE Fluoroscopically guided, contrast-controlled L4/5 translaminar epidural steroid injection. Following review of allergy and review of potential side effects and complications, including, but not necessarily limited to, infection, allergic reaction, local tissue breakdown, temporary as well as permanent nerve injury, paralysis, stroke and possible , the patient indicated that the patient understood and agreed to proceed. An informed consent document was signed by the patient, witnessed by a nurse, and placed in the patient's chart. Additionally, other treatment options including modalities, medications, and physical therapy were reviewed with the patient. After review of previous anaesthesic history and IV conscious sedation the patient was deemed safe to proceed with today?s procedure with IV conscious sedation as ASA class II designation. Safety time-out was performed to confirm patient ID, procedure to be performed and site of procedure. IV sedation was accomplished with a combination of 1mg of Versed was administered by the RN after DO order, titrated to patient comfort during the course of the procedure while the patient remained responsive to all verbal commands In the prone position, following sterile prep and drape of the lumbar region, the L4/5 translaminar space was identified fluoroscopically. The skin was anesthetized via a 25-gauge, 1.5inch needle with 1% lidocaine solution. At this point, a 22-gauge short bevel spinal needle was atraumatically introduced and advanced under fluoroscopic guidance into the region of the L4/5 translaminar space. Depth was confirmed on lateral view. Radiological data, including multiple fluoroscopic views of the lumbar spine, reveal a spinal needle at the L4/5 translaminar space. Lateral views then show placement of the needle in the epidural space. Subsequent views show contrast material flowing superiorly and inferiorly in the epidural space. No vascular or intrathecal uptake is observed. At this point, using loss of resistance technique with saline and air, the epidural space was entered. This was confirmed following negative aspiration with injection of approximately 1.5cc of Isovue 200, showing excellent epidural flow without vascular or intrathecal uptake. At this point, 1cc of 1% lidocaine solution combined with 2cc or 10mg of dexamethasone and 6mg betamethasone was injected without incident. The patient tolerated the procedure well without signs or symptoms of complications prior to transfer to the recovery area continued monitoring without incident. The patient was then transferred to the recovery area where they were observed for an appropriate period of time after the injection. The patient reported a VAS score of 6 prior to the procedure and a post- procedure VAS of 0. POST OP INSTRUCTIONS The patient was provided a Pain Log to continue to record their response to the target-specific procedure prior to follow-up visit with their referring physician. Additionally, specific post-injection care instructions and a contact number to our office were provided if concerns arise regarding possible complications associated with the procedure are suspected.
== END 2024-08-20 15:19 | disposition home or self-care (01) ==
PROVIDERS: Family Provider Internal Medicine; PCP Internal Medicine; Referring Provider Physical Medicine & Rehabilitation; Visit Provider Physical Medicine & Rehabilitation
DX: M51.16 Intervertebral disc disorders with radiculopathy, lumbar region (principal); M48.062 Spinal stenosis, lumbar region with neurogenic claudication
CPT/HCPCS: 62323; 99152; J0702; J1100; J2250; J3490

== ENCOUNTER → 2024-08-31 15:25 | Outpatient (CLI) | payer MEDICARE, OTHER, SELFPAY ==
[2024-05-05 10:08] VITALS: BMI 21.1
[2024-08-31 16:21] LABS: BUN Creatinine Ratio 22.1 (6-22); Blood Urea Nitrogen 19 mg/dL (7-17); Calcium 9.1 mg/dL (8.4-10.2); Carbon Dioxide 30 mmol/L (22-32); Chloride 97 mmol/L (98-107); Estimated Glomerular Filt Rate > 60 mL/min (>60); Glucose 93 mg/dL (70-99); HEMOLYSIS < 15 (0-50); Potassium 3.6 mmol/L (3.4-5.1); Sodium 134 mmol/L (137-145)
== END ==
PROVIDERS: Family Provider Internal Medicine; PCP Internal Medicine; Referring Provider Internal Medicine; Visit Provider Internal Medicine
DX: I10 Essential (primary) hypertension (principal)
CPT/HCPCS: 36415; 80048

== ENCOUNTER 2024-09-21 11:30 | Outpatient (RCR) | payer MEDICARE, OTHER, SELFPAY ==
[2024-05-05 10:08] VITALS: BMI 21.1
--- NOTE | 2024-08-24 14:06 | OT.OPPOC ---
Physical, Occupational & Speech Therapy At [facility] Ruth Cornelius [id number] Visit Care Team Role Provider Type Grant Phillips MD Attending Provider Physician Family Provider Primary Care Provider Referring Provider Address: [address] [place] [address], [address] Occupational Therapy Plan of Care OT Outpatient Adult Evaluation Start: 08/24/24 09:45 Freq: Status: Active Protocol: Document 08/24/24 13:21 SHEEBALESLIE (Rec: 08/24/24 14:06 [facility] [id number][facility] General Information - Adult Visit Information Visit Number 05/13 Plan of Care Dates 08/24/24 - 10/19/24 Insurance Information Medicare, KX modifier after visit Session Time Visit Start Date 08/24/24 Visit Start Time 09:45 Visit Stop Time 10:30 Setting Treatment Setting Outpatient Care Visit Type Note Type Initial Evaluation Referral Referring Physician Grant Phillips Reason for Referral chronic p!, p! in L fingers, wrist stiffness Identification Identification Confirmed Yes Identification Confirmed By Name, EMR Patient Questionnaires Quick Dash- Upper Extremity Quick Dash UE Score 47.7 Quick Dash UE Impairment 40 to 59% Impaired (Score 40- 59) Goals Objective Measurements Objective Measurements AROM wrist: L flex 45 (R 65), L ext 50 (R 50), L RD 10 (R 15 ), L UD 15 (R 15) AROM thumb: CMC L RA 20 (R 30) , CMC PA L 30 (R 35), MP L +25 to 50 (R +20 to 52) AROM 3rd digit PIP +20 ext ( otherwise digits are WFL) Kapandji Opposition: 10/10 B Kapandji Retroposition: 2.5/4 B MMT: R wrist 5/5 grossly, L wrist 4/5 grossly Locomotive Driver: L 18, 18, 17 (avg 17.7#) , R 27, 25, 20 (24# avg) Pinch: lateral L 4.5#, R 6/5#; pincer L 2#, R 2.25#; 3 jaw L 3.5#, R 5.5# 9 hole peg test L 45 seconds, R 32 seconds Short Term Goals Short Term Goals 1. Pt will be I with HEP. 2. 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 3. Pt will demonstrate 20# or better computed tomography technician strength on L 4. Pt will report p! at 2/10 or less during tx. Assisted Goals Assisted Goals 1. Pt will be I with advanced HEP. 2. Pt will demonstrate AROM L CMC RA of 25 or better. 3. Pt will increase L wrist strength to 4+/5 for improved IADLs. 4. Pt will demonstrate improved FMC, as evidenced by 9 HPT in 35 seconds or better. 5. Pt will report improved perceived function with respect to QuickDash, with a score of 37 or better. Assessment/Plan Assessment Patient Response Good Rehabilitation Potential Good Impairments Identified ADLs,Body Mechanics, Coordination/Dexterity, Flexibility,Functional Activities,Motor Function,Pain ,Weakness,Range of Motion, Meaningful Activities Treatment Assessment Pt is an 84 yo F referred by due to c/o chronic L wrist/ finger p!. Pt had a fall just over a year ago resulting in a L shoulder fx and swelling and stiffness in L hand/wrist. Pt had therapy for both for a period of time. Pt returns to therapy with the c/o her L wrist feeling ?weak? and as if it will ?give out?, p! in L 3rd at PIP, and p! in L thumb at CMC. Pt reports that these impact her daily function. The middle digit often causes her to stop mid activity due to pain and needing to manual ?unlock? her digit. Pt reports significant limitation in opening jars and doing FM tasks such as buttons. Pt reports that her p! can be as much as 4/10. Pt?s Pmhx is significant for falls, osteopenia, TIA, L shoulder fx , essential tremors, HTN. Pt says she was recently diagnosed with Parkinson?s. Pt reports that her goal is to have less thumb p!, to increase her wrist strength, and to have decreased hyperextension at 3rd digit PIP. OT notes shoulder deformity of L thumb at CMC and significantly limited web space. See objective section for specifics regarding pt?s ROM, strength and FMC. When comparing pt?s L to her non- involved dominant side, pt has most notable limitation in L wrist flexion and L CMC RA actively, and hyperextension of 3rd PIP. OT notes, that 3rd digit keeps sliding into swan neck deformity, pt has to manually bring her finger out of this position and expresses that this is very painful. Pt presents with a functional deficit in her L computed tomography technician strength as 20# of computed tomography technician strength is considered necessary to performing BADLs. Pt presents with decreased FMC, as evidenced by 9 HPT. Pt performs this in 45 seconds with her L (age/gender norms 24.11 seconds with SD of +/- 5 .66 seconds) which is 13 seconds slower than her dominant side. Pt would benefit from skilled OT services to address education on splint/brace/tape options for swan neck deformity, joint protection strategies for OA changes of thumb/digits, FMC, computed tomography technician/pinch strengthening, AROM, p! mgmt., and improved functional use with BADL/IADL. Reviewed with Patient Goals,Home Exercise Program Plan Length of treatment (weeks) 8 Plan of Care Start Date 08/24/24 Plan of Care End Date 10/19/24 Treatment Frequency Once a Week Treatment Duration 45 Minutes Therapeutic Contents Active Range of Motion, Functional Activities,Home Exercise Program,Joint Protection,Manual Therapy, Education,Neuromuscular Re- Education,Self-Care,Splinting, Stretching/Flexibility Activities,Therapeutic Activities,Therapeutic Exercises Patient Instruction Home Exercise Program,Plan of Care,Questions/Concerns Functional Wrist/Hand Scan Hand Side Sensory Assessment Sensory Profile2 Electronically Signed by: Mona Hays OT 08/24/24 [id number] If you are in agreement with this Plan of Care, please return a signed and dated copy. I have reviewed this Plan of Care and certify that the skilled therapy services above are required to meet the patient?s needs. Physician Signature Date Printed Name and Credentials Clinical Instructor Signature Printed Name and Credentials
--- NOTE | 2024-09-07 13:49 | OT.OP.TRT ---
Visit Care Team Role Provider Type Grant Phillips MD Attending Provider Physician Family Provider Primary Care Provider Referring Provider Specialty: Internal Medicine Address: [address] [place] [address], [address] Email: [email or web address] Occupational Therapy Treatment Note OT Outpatient Treatment Note - Adult Start: 08/24/24 09:45 Freq: Status: Active Protocol: Document 09/07/24 13:36 SAM (Rec: 09/07/24 13:49 SAM [id number]) OT Outpatient Adult Treatment Note Session Time Visit Start Date 09/07/24 Visit Start Time 11:30 Visit Stop Time 12:15 Visit Information Visit Number 06/13 Plan of Care Dates 08/24/24 - 10/19/24 Insurance Information Medicare, KX modifier after visit Setting Treatment Setting Outpatient Care Visit Type Note Type Treatment Note - Subjective Identification Type Name Identification Reconciled With Medical Record Observations Pt reports that she received the email about the oval 8 splints but she hasn't ordered them. Pt continues to c/o finger locking and reports feeling weak in her L wrist and hand. Pt reports she has unexpected p! at times in her thumb and middle finger. Chief Complaint(s) Loss of Motion/Stiffness Patient/Caregiver Compliance with Home Good Exercise Program - Objective Short Term Goals 1. Pt will be I with HEP. 2. 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 3. Pt will demonstrate 20# or better supervising broker strength on L 4. Pt will report p! at 2/10 or less during tx. Shelter Goals 1. Pt will be I with advanced HEP. 2. Pt will demonstrate AROM L CMC RA of 25 or better. 3. Pt will increase L wrist strength to 4+/5 for improved IADLs. 4. Pt will demonstrate improved FMC, as evidenced by 9 HPT in 35 seconds or better. 5. Pt will report improved perceived function with respect to QuickDash, with a score of 37 or better. - Treatment 3 Descriptor Inhand manipulation: picking up porcupine balls, holding max in hand, and placing in bucket 10x2 in hand translation picking up porcupine ball in palm, working toward tip of fingers, and placing in bucket 10x2 pencil walks x4 2 Descriptor Finger Isolation/Coordination: finger taping alternating 10x2 finger abd/add alternating x10 finger pen hurdles alternating x 10 1 Descriptor Education: OT educated pt on purpose of Oval-8 splint. OT measures pt using Oval-8 guidelines and recommends that pt order the 6, 7, 8 package as pt is between sizes and this would accommodate if pt has swelling in her hands. OT provided ordering information for pt. Exercises 1 Descriptor Strengthening: flex bar, yellow: wrist flexion and extension 10x2 isometric wrist flexion and extension x10 Manual Therapy Manual Therapy STM to L thumb adductor for improved web space - Assessment Patient Response to Treatment Good Impairments Identified ADLs,Body Mechanics, Coordination/Dexterity, Flexibility,Functional Activities,Motor Function,Pain ,Weakness,Range of Motion, Meaningful Activities Progress Towards Goals Good Progress Assessment of Overall Progress Improving Assessment of Improvement Pt confirmed that she had received OTs email with recommended oval-8 splint but had not ordered it. 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 OT measured pt and provided her with ordering information. Pt reports that she will place the order. OT reviewed pt's web space HEP exercise as well as new HEP exercises (finger tapping, finger pen hurdles, finger abd /add, and isometric wrist flex /ext). Pt performs these exercises well with occasional vcs for form. OT will continue to review these with pt. Overall, pt tolerated treatment well. Pt continues to be appropriate for skilled OT services per established POC. Cont per POC. Reviewed with Patient/Caregiver Goals,Progress Being Made,Home Exercise Program Patient/Caregiver Understanding Good - Plan Therapy Recommendations Continue with Current Program Amount of Therapy Recommended 2 Months Frequency of Treatment Once a Week Length of Session 45 Minutes Therapeutic Contents Active Range of Motion, Functional Activities,Home Exercise Program,Joint Protection,Manual Therapy, Neuromuscular Re-Education, Self-Care,Splinting,Stretching /Flexibility Activities, Therapeutic Activities, Therapeutic Exercises
--- NOTE | 2024-09-14 12:24 | OT.OP.TRT ---
Visit Care Team Role Provider Type Grant Phillips MD Attending Provider Physician Family Provider Primary Care Provider Referring Provider Specialty: Internal Medicine Address: [address] [place] [address], [id number] Email: [email or web address] Occupational Therapy Treatment Note OT Outpatient Treatment Note - Adult Start: 08/24/24 09:45 Freq: Status: Active Protocol: Document 09/14/24 11:38 SAM (Rec: 09/14/24 11:40 SAM [id number]) OT Outpatient Adult Treatment Note Session Time Visit Start Date 09/14/24 Visit Start Time 11:35 Visit Stop Time 12:15 Visit Information Visit Number 3/ Plan of Care Dates 08/24/24 - 10/19/24 Insurance Information Medicare, KX modifier after visit Setting Treatment Setting Outpatient Care Visit Type Note Type Treatment Note - Subjective Identification Type Name Identification Reconciled With Medical Record Observations Pt reports she wasn't able to get downstairs to the computer to order her oval 8s. The wrist has been giving me trouble. The wrist gets weak and it wears out. Opening things is still a problem. With coin task, pt says It felt good maneuvering the hand like that, it was challenging Chief Complaint(s) Loss of Motion/Stiffness Patient/Caregiver Compliance with Home Good Exercise Program - Objective Objective Measurements Voice Pathologist: R 21#, 20#, 21# (Avg 20. 6#); L 15#, 14#, 12# (Avg 13.7 #) Short Term Goals 1. Pt will be I with HEP. 2. 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 3. Pt will demonstrate 20# or better civil cadd technician strength on L 4. Pt will report p! at 2/10 or less during tx. Senior Project Leader/Team Lead Goals 1. Pt will be I with advanced HEP. 2. Pt will demonstrate AROM L CMC RA of 25 or better. 3. Pt will increase L wrist strength to 4+/5 for improved IADLs. 4. Pt will demonstrate improved FMC, as evidenced by 9 HPT in 35 seconds or better. 5. Pt will report improved perceived function with respect to QuickDash, with a score of 37 or better. - Treatment 4 Descriptor opening and closing jar lid x10 opening and closing twist top medicine container x 10 3 Descriptor Inhand manipulation: 2 small golf ball CW in palm x10 in hand translation picking up coins in palm, working toward tip of fingers, and placing in bank x25 coins pencil walks x 2 Descriptor Finger Isolation/Coordination: finger taping alternating 10x2 finger abd/add alternating x10 finger pen hurdles alternating x 0 1 Descriptor Education: Exercises 1 Descriptor Strengthening: flex bar, yellow: wrist flexion and extension x30, pronation 10x2, supination 10x2 isometric wrist flexion and extension x10 (demonstrating I with this from HEP) Manual Therapy Manual Therapy STM to L thumb adductor for improved web space - Assessment Patient Response to Treatment Good Impairments Identified ADLs,Body Mechanics, Coordination/Dexterity, Flexibility,Functional Activities,Motor Function,Pain ,Weakness,Range of Motion, Meaningful Activities Progress Towards Goals Good Progress Assessment of Overall Progress Improving Assessment of Improvement OT continues to encourage pt to order oval-8 splint to help support swan neck deformity. Pt reports she intends to order them. Pt reports that she performed her HEP except for the pen hurdles. OT reviewed HEP, pt needs min vcs for correct form/position. OT will continue to assess pt's I with these. Pt tolerated tx really well, tolerating increased reps and exercises with flex bar. Pt tolerates FMC, dexterity, and in hand manipulation tasks well with vcs for form/correct position. Overall, pt tolerated treatment well and expresses satisfaction at the work she performed. Pt continues to be appropriate for skilled OT services per established POC. Cont per POC. Reviewed with Patient/Caregiver Goals,Progress Being Made,Home Exercise Program Patient/Caregiver Understanding Good - Plan Therapy Recommendations Continue with Current Program Amount of Therapy Recommended 2 Months Frequency of Treatment Once a Week Length of Session 45 Minutes Therapeutic Contents Active Range of Motion, Functional Activities,Home Exercise Program,Joint Protection,Manual Therapy, Neuromuscular Re-Education, Self-Care,Splinting,Stretching /Flexibility Activities, Therapeutic Activities, Therapeutic Exercises
--- NOTE | 2024-09-21 13:05 | OT.OP.TRT ---
Visit Care Team Role Provider Type Grant Phillips MD Attending Provider Physician Family Provider Primary Care Provider Referring Provider Specialty: Internal Medicine Address: [address] [place] [address], [id number] Email: [email or web address] Occupational Therapy Treatment Note OT Outpatient Treatment Note - Adult Start: 08/24/24 09:45 Freq: Status: Active Protocol: Document 09/21/24 11:37 SAM (Rec: 09/21/24 12:21 SAM [id number]) OT Outpatient Adult Treatment Note Session Time Visit Start Date 09/21/24 Visit Start Time 11:35 Visit Stop Time 12:15 Visit Information Visit Number 08/11 Plan of Care Dates 08/24/24 - 10/19/24 Insurance Information Medicare, KX modifier after visit Setting Treatment Setting Outpatient Care Visit Type Note Type Treatment Note - Subjective Identification Type Name Identification Reconciled With Medical Record Observations This thumb is the one that gives me trouble. It isn't strong. Pt reports that she tried to order the oval 8 on [employer] but could not find the correct size. Pt reports that she's been doing some of her HEP exercises. Chief Complaint(s) Loss of Motion/Stiffness Patient/Caregiver Compliance with Home Good Exercise Program - Objective Objective Measurements 9 HPT L 45 seconds; 40 seconds Statistical Technician: 19, 19, 15 (avg 17.7#) Short Term Goals 1. Pt will be I with HEP. 2. 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 3. Pt will demonstrate 20# or better gift wrapper strength on L 4. Pt will report p! at 2/10 or less during tx. Relationship Management Lead Goals 1. Pt will be I with advanced HEP. 2. Pt will demonstrate AROM L CMC RA of 25 or better. 3. Pt will increase L wrist strength to 4+/5 for improved IADLs. 4. Pt will demonstrate improved FMC, as evidenced by 9 HPT in 35 seconds or better. 5. Pt will report improved perceived function with respect to QuickDash, with a score of 37 or better. - Treatment 4 Descriptor FMC: -opening and closing twist top medicine container x 10 -9 hole peg test assessment x 2 2 Descriptor Finger Isolation/Coordination: -finger pen hurdles alternating 10x2 -finger taping alternating 0 -finger abd/add alternating 0 1 Descriptor Education: reviewed pt's HEP, re-ed on performing isometric wrist flex and ext. Pt reports that she hasn't been performing these and needs min cues. Pt was I with these at last tx. OT will continue to review. OT provided ordering links for oval 8 (size 6,7,8) and a link to off brand option and emailed the links to pt so that she can order for support of her swan neck deformity. Exercises 6 Descriptor digi flex, red, x 2 min 5 Descriptor thumb health: -web space to web space warming followed by active stretching (per HEP) for improved web space -web space stretch using table edge 1 Descriptor Strengthening: -flex bar, yellow: wrist flexion and extension x30, pronation 10x3, supination 10x3 Manual Therapy Manual Therapy STM to L thumb adductor for improved web space - Assessment Patient Response to Treatment Good Rehabilitation Potential Good Impairments Identified ADLs,Body Mechanics, Coordination/Dexterity, Flexibility,Functional Activities,Motor Function,Pain ,Weakness,Range of Motion, Meaningful Activities Progress Towards Goals Good Progress Assessment of Overall Progress Improving Assessment of Improvement Pt reported that she could not find the oval 8 on [employer] to order, OT provides pt with email of links to order name brand and off brand correct sizes and encourages pt to order to help support swan neck deformity. Pt reports that she is performing some of her HEP, OT reviewed HEP, pt needs min vcs for correct form/position, and OT encourages pt to perform all of these regularly. Consistent HEP use is necessary for improved carry over and overall gains. OT will continue to assess pt's I with these. Pt improved on her 9 HPT by 5 seconds on second trial, requiring vcs to follow rules to perform correctly. Pt with no significant change in gift wrapper strength. Pt reports enjoying the exercises and says she feel like they are helping. Overall, pt tolerates tx well, with up to min cues. Pt continues to be appropriate for skilled OT services per established POC. Cont per POC. Reviewed with Patient/Caregiver Goals,Progress Being Made,Home Exercise Program Patient/Caregiver Understanding Good - Plan Therapy Recommendations Continue with Current Program Amount of Therapy Recommended 2 Months Frequency of Treatment Once a Week Length of Session 45 Minutes Therapeutic Contents Active Range of Motion, Functional Activities,Home Exercise Program,Joint Protection,Manual Therapy, Neuromuscular Re-Education, Self-Care,Splinting,Stretching /Flexibility Activities, Therapeutic Activities, Therapeutic Exercises
--- NOTE | 2024-10-07 11:37 | OT.OP.TRT ---
Visit Care Team Role Provider Type Grant Phillips MD Attending Provider Physician Family Provider Primary Care Provider Referring Provider Specialty: Internal Medicine Address: [address] [place] [address], [id number] Email: [email or web address] Occupational Therapy Treatment Note OT Outpatient Treatment Note - Adult Start: 08/24/24 09:45 Freq: Status: Active Protocol: Document 10/07/24 11:36 SAM (Rec: 10/07/24 11:37 SAM [id number]) OT Outpatient Adult Treatment Note Visit Type Note Type Administrative Note General Information General Information Pt no showed for scheduled appoint. OT called and left message with pt. No other visits scheduled, asked pt to call back and schedule. - - - - -
--- NOTE | 2024-10-14 09:04 | OT.OP.DC ---
Visit Care Team Role Provider Type Grant Phillips MD Attending Provider Physician Family Provider Primary Care Provider Referring Provider Address: [address] [place] [address], [id number] Email: [email or web address] OT Outpatient OT Outpatient Adult Evaluation Start: 08/24/24 09:45 Freq: Status: Active Protocol: Document 08/24/24 13:21 SAM (Rec: 08/24/24 14:06 SAM [id number]) General Information - Adult Visit Information Visit Number 05/13 Plan of Care Dates 08/24/24 - 10/19/24 Insurance Medicare, KX modifier after visit Information Session Time Visit Start Date 08/24/24 Visit Start Time 09:45 Visit Stop Time 10:30 Setting Treatment Setting Outpatient Care Visit Type Note Type Initial Evaluation Referral Referring Physician Grant Phillips Reason for Referral chronic p!, p! in L fingers, wrist stiffness Identification Identification Yes Confirmed Identification Name, EMR Confirmed By Patient Questionnaires Quick Dash- Upper Extremity Quick Dash UE Score 47.7 Quick Dash UE 40 to 59% Impaired (Score 40-59) Impairment Goals Objective Measurements Objective AROM wrist: L flex 45 (R 65), L ext 50 (R 50), L RD 10 Measurements (R 15), L UD 15 (R 15) AROM thumb: CMC L RA 20 (R 30), CMC PA L 30 (R 35), MP L +25 to 50 (R +20 to 52) AROM 3rd digit PIP +20 ext (otherwise digits are WFL) Kapandji Opposition: 10/10 B Kapandji Retroposition: 2.5/4 B MMT: R wrist 5/5 grossly, L wrist 4/5 grossly Permanent Waver: L 18, 18, 17 (avg 17.7#), R 27, 25, 20 (24# avg) Pinch: lateral L 4.5#, R 6/5#; pincer L 2#, R 2.25#; 3 jaw L 3.5#, R 5.5# 9 hole peg test L 45 seconds, R 32 seconds Short Term Goals Short Term Goals 1. Pt will be I with HEP. 2. Pt will select/order splint/brace/taping strategy for swan neck deformity after OT discusses benefits of each. 3. Pt will demonstrate 20# or better broom worker strength on L 4. Pt will report p! at 2/10 or less during tx. Senior Care Goals Senior Care Goals 1. Pt will be I with advanced HEP. 2. Pt will demonstrate AROM L CMC RA of 25 or better. 3. Pt will increase L wrist strength to 4+/5 for improved IADLs. 4. Pt will demonstrate improved FMC, as evidenced by 9 HPT in 35 seconds or better. 5. Pt will report improved perceived function with respect to QuickDash, with a score of 37 or better. Assessment/Plan Assessment Patient Response Good Rehabilitation Good Potential Impairments ADLs,Body Mechanics,Coordination/Dexterity,Flexibility, Identified Functional Activities,Motor Function,Pain,Weakness, Range of Motion,Meaningful Activities Treatment Assessment Pt is an 84 yo F referred by due to c/o chronic L wrist/finger p!. Pt had a fall just over a year ago resulting in a L shoulder fx and swelling and stiffness in L hand/wrist. Pt had therapy for both for a period of time. Pt returns to therapy with the c/o her L wrist feeling ?weak? and as if it will ?give out?, p! in L 3rd at PIP, and p! in L thumb at CMC. Pt reports that these impact her daily function. The middle digit often causes her to stop mid activity due to pain and needing to manual ?unlock? her digit. Pt reports significant limitation in opening jars and doing FM tasks such as buttons. Pt reports that her p! can be as much as 4/10. Pt?s Pmhx is significant for falls, osteopenia, TIA, L shoulder fx, essential tremors, HTN. Pt says she was recently diagnosed with Parkinson?s. Pt reports that her goal is to have less thumb p!, to increase her wrist strength, and to have decreased hyperextension at 3rd digit PIP. OT notes shoulder deformity of L thumb at CMC and significantly limited web space. See objective section for specifics regarding pt?s ROM, strength and FMC. When comparing pt?s L to her non-involved dominant side , pt has most notable limitation in L wrist flexion and L CMC RA actively, and hyperextension of 3rd PIP. OT notes, that 3rd digit keeps sliding into swan neck deformity, pt has to manually bring her finger out of this position and expresses that this is very painful. Pt presents with a functional deficit in her L broom worker strength as 20# of broom worker strength is considered necessary to performing BADLs. Pt presents with decreased FMC, as evidenced by 9 HPT. Pt performs this in 45 seconds with her L (age/gender norms 24.11 seconds with SD of +/- 5.66 seconds) which is 13 seconds slower than her dominant side. Pt would benefit from skilled OT services to address education on splint/brace/tape options for swan neck deformity, joint protection strategies for OA changes of thumb/digits, FMC, broom worker/pinch strengthening, AROM, p ! mgmt., and improved functional use with BADL/IADL. Reviewed with Goals,Home Exercise Program Patient Plan Length of treatment 8 (weeks) Plan of Care Start 08/24/24 Date Plan of Care End 10/19/24 Date Treatment Frequency Once a Week Treatment Duration 45 Minutes Therapeutic Contents Active Range of Motion,Functional Activities,Home Exercise Program,Joint Protection,Manual Therapy, Education,Neuromuscular Re-Education,Self-Care, Splinting,Stretching/Flexibility Activities,Therapeutic Activities,Therapeutic Exercises Patient Instruction Home Exercise Program,Plan of Care,Questions/Concerns Functional Wrist/Hand Scan Hand Side Sensory Assessment Sensory Profile2 OT Outpatient Treatment Note - Adult Start: 08/24/24 09:45 Freq: Status: Active Protocol: Document 10/14/24 08:56 SAM (Rec: 10/14/24 09:04 SAM [id number]) OT Outpatient Adult Treatment Note Visit Information Plan of Care Dates 08/24/24 - 10/19/24 Insurance Medicare, KX modifier after visit Information Visit Type Note Type Discharge Summary General Information General Information Pt has cancelled or no-showed for last several visits. OT has called and left multiple messages. Today OT spoke with pt and pt has asked to d/c. - - - - Assessment Impairments ADLs,Body Mechanics,Coordination/Dexterity,Flexibility, Identified Functional Activities,Motor Function,Pain,Weakness, Range of Motion,Meaningful Activities Assessment of Pt was seen by skilled OT services for eval and three Improvement treatments. AT the time of eval, pt expressed the goal of to have less thumb p!, to increase her wrist strength, and to have decreased hyperextension at 4rd digit PIP. OT sized and provided order information for oval-8 and generic products to assist with the hyperextension. To date, pt has not ordered these. Pt' s tx included education on and treatment for improved thumb health, especially working on increasing web space, FMC and in hand manipulation, and strengthening tasks. Pt no-showed for her last appointment and has cancelled the remaining tx on her current POC. OT spoke with pt today, pt has asked to be d/c from OT stating I have so many other appointments right now and I have foot sx pretty soon. D/C pt per pt request. - Plan Therapy Discharge to Home Exercise Program,Discharge from Recommendations Occupational Therapy
== END 2024-10-16 12:40 | disposition home or self-care (01) ==
LOC: OT 11:30
PROVIDERS: Family Provider Internal Medicine; PCP Internal Medicine; Referring Provider Internal Medicine; Visit Provider Internal Medicine
DX: M79.645 Pain in left finger(s) (principal); G89.29 Other chronic pain; M25.639 Stiffness of unspecified wrist, not elsewhere classified
CPT/HCPCS: 97110; 97140; 97166; 97530

== ENCOUNTER → 2024-10-06 15:56 | Outpatient (CLI) | payer MEDICARE, OTHER, SELFPAY ==
[2024-05-05 10:08] VITALS: BMI 21.1
== END ==
PROVIDERS: Family Provider Internal Medicine; PCP Internal Medicine; Referring Provider Registered Nurse; Visit Provider Registered Nurse
DX: G62.9 Polyneuropathy, unspecified (principal)
CPT/HCPCS: 36415; 82784; 84155; 84165; 86334

== ENCOUNTER → 2024-10-31 11:41 | Outpatient (CLI) | payer MEDICARE, OTHER, SELFPAY ==
[2024-05-05 10:08] VITALS: BMI 21.1
[2024-10-31 13:18] LABS: Influenza A - CEPHEID Flu A NEGATIVE (NEGATIVE); Influenza B - CEPHEID Flu B NEGATIVE (NEGATIVE); Respiratory Syncytial Virus Negative (Negative)
[2024-10-31 13:25] LABS: COVID-19 CEPHEID 4-PLEX PCR Negative (Negative)
== END ==
PROVIDERS: Family Provider Internal Medicine; PCP Internal Medicine; Visit Provider Chiropractor
DX: R05.1 Acute cough (principal)
CPT/HCPCS: 0241U

== ENCOUNTER → 2024-10-31 12:08 | Outpatient (CLI) | payer MEDICARE, OTHER, SELFPAY ==
[2024-05-05 10:08] VITALS: BMI 21.1
--- NOTE | 2024-10-31 12:10 | DI.RAD.S_ITS ---
PROCEDURE: XR CHEST 2V INDICATIONS: r/o CAP TECHNIQUE: 2 views of the chest were acquired. COMPARISON: [facility], CR, XR CHEST 1V, 05/17/2022, 14:24. [facility], CR, XR CHEST 1V, 04/23/2022, 14:06. FINDINGS AND IMPRESSION: A mild opacity is seen at the left costophrenic angle which could represent atelectasis, aspiration, or early airspace disease. Mild diffuse bronchial wall thickening possibly bronchitis. No drainable effusions. Consider future imaging surveillance to assess for resolution. Normal heart size. Degenerative osseous changes. Dictated by: Mark Rinaldi M.D. on 10/31/2024 at 11:51 Approved by: Mark Rinaldi M.D. on 10/31/2024 at 11:51
== END ==
PROVIDERS: Family Provider Internal Medicine; PCP Internal Medicine; Referring Provider Chiropractor; Visit Provider Chiropractor
DX: R05.1 Acute cough (principal)
CPT/HCPCS: 0241U; 71046

== ENCOUNTER 2024-11-19 14:42 | Emergency (ER) | payer MEDICARE, OTHER, SELFPAY ==
[2024-05-05 10:08] VITALS: BMI 21.1
[2024-11-19 15:01] VITALS: BP 120/67; PULSE 73; RESP 18; TEMP 36.4; O2SAT 98; BMI 18.8
--- NOTE | 2024-11-19 15:07 | DI.CT.S_ITS ---
PROCEDURE: CT CERVICAL SPINE WO CON INDICATIONS: fall TECHNIQUE: Noncontrast 3 mm thick sections acquired from the skull base to the T4 level. Sagittal and coronal reformats were then constructed. For radiation dose reduction, the following was used: automated exposure control, adjustment of mA and/or kV according to patient size. COMPARISON: [facility], CT, CT CERVICAL SPINE WO CON, 08/17/2023, 16:21. FINDINGS: Image quality: Excellent. Bones: No fractures or dislocations. Multilevel degenerative changes of the spine. Straightening of the normal cervical lordosis. Visualized superior ribs are intact. Soft tissues: Prevertebral soft tissues are normal in thickness. No paravertebral hematomas. No apical pneumothoraces. Stable scarring/fibrotic changes of the lung apices. IMPRESSION: No displaced fracture or traumatic subluxation. Dictated by: Horace Magana M.D. on 11/19/2024 at 15:36 Approved by: Horace Magana M.D. on 11/19/2024 at 15:38
--- NOTE | 2024-11-19 15:07 | DI.CT.S_ITS ---
PROCEDURE: CT HEAD/BRAIN WO CON INDICATIONS: fall TECHNIQUE: Noncontrast 4.5 mm thick angled axial sections acquired from the foramen magnum to the vertex, with coronal and sagittal reformats. For radiation dose reduction, the following was used: automated exposure control, adjustment of mA and/or kV according to patient size. COMPARISON: [facility], CT, CT HEAD/BRAIN WO CON, 08/17/2023, 16:21. FINDINGS: Image quality: Diagnostic. CSF spaces: Basal cisterns are patent. No extra-axial fluid collections. The ventricles are symmetric in size and shape. Brain: No intracranial bleeds or mass effect. There is cerebral volume loss, with resultant ventricular and sulcal prominence. There are periventricular and deep white matter chronic small vessel ischemic changes. There is intracranial internal carotid artery atherosclerosis. Skull and face: Calvarium and visualized facial bones appear intact, without suspicious lesions. Sinuses: Visualized sinuses and mastoids are clear. IMPRESSION: No acute intracranial pathology. Dictated by: Horace Magana M.D. on 11/19/2024 at 15:35 Approved by: Horace Magana M.D. on 11/19/2024 at 15:36
[2024-11-19 17:30] VITALS: BP 119/60
[2024-11-19 17:31] VITALS: PULSE 65; O2SAT 99
[2024-11-19 18:00] VITALS: BP 125/58; PULSE 63; O2SAT 99
[2024-11-19 18:30] VITALS: BP 124/60; PULSE 66; O2SAT 99
--- NOTE | 2024-11-19 18:59 | ED.HEATRA ---
HPI - Head Injury General Chief complaint: Head Injury Stated complaint: fell on the 10th and hit head, been feeling off Time Seen by Provider: 11/19/24 18:09 Source: patient Mode of arrival: Wheelchair History of Present Illness HPI Narrative: Pleasant 84-year-old woman with a history of Parkinson's who was on treatment comes to the ER 8 days after a mechanical fall where she was crouching down to tie her shoe and then fell backwards and hit her head. She denies any loss of consciousness before or after the fall and she is adamant that she remembers every moment of the occurrence. She reports that she does fall every so often because of abnormal movements and inability to move secondary to her Parkinson's. However, she comes in today because of ongoing headaches, blurry vision, intermittent mild confusion for . She denies any numbness tingling or weakness of any part of her body that is new. She denies any increased difficulty speaking swallowing listening or seeing. She also denies any other injuries. She has no other concerns or complaints at this time. The patient notes that she has been going to physical therapy and ongoing basis to maintain her strength and balance. However, she does not currently have a neurologist because there was not any left in town and she is having her Parkinson's managed by her PCP. Related Data Home Medications ?Medication ?Instructions ?Recorded ?Confirmed cholecalciferol (vitamin D3) 50 2,000 unit PO DAILY 03/09/19 11/05/24 mcg (2,000 unit) capsule ascorbic acid (vitamin C) 1,000 mg 1,000 mg PO DAILY 11/29/21 11/05/24 tablet topiramate 100 mg tablet 100 mg PO BID 05/23/22 11/05/24 timolol maleate 0.5 % eye drops 1 drp EYE-BOTH DAILY 07/11/22 11/05/24 solifenacin 10 mg tablet 10 mg PO DAILY 10/03/22 11/05/24 acetaminophen 500 mg tablet 1,000 mg PO DAILY PRN 10/11/22 11/05/24 (Tylenol Extra Strength) calcium carbonate 500 mg PO BID 10/11/22 11/05/24 primidone 250 mg tablet 250 mg PO BID 02/04/24 11/05/24 Previous Rx's ?Medication ?Instructions ?Recorded clobetasol 0.05 % topical cream 1 applic topical DAILY PRN 04/25/23 occasional shingles attack #30 grams amlodipine 5 mg tablet 5 mg PO DAILY #90 tabs 02/27/24 sertraline 50 mg tablet 50 mg PO DAILY #90 tabs 03/26/24 atorvastatin 20 mg tablet 20 mg PO BEDTIME #90 tabs 04/30/24 gabapentin 100 mg capsule 100 mg PO DAILY #90 caps 08/05/24 fluticasone propionate 50 1 spray intranasal BID PRN allergy 09/29/24 mcg/actuation nasal symptoms #16 grams spray,suspension gabapentin 300 mg capsule 300 mg PO BEDTIME #90 caps 10/12/24 losartan 50 mg-hydrochlorothiazide 1.5 tab PO DAILY #135 tabs 10/12/24 12.5 mg tablet azithromycin 250 mg tablet See Rx Instructions PO .COMPLEX #6 10/31/24 tabs Allergies Allergy/AdvReac Type Severity Reaction Status Date / Time propranolol (PROPRANOLOL) Allergy Mild TONGUE Verified 11/19/24 15:05 SWELLING Patient History Medical History Alcohol use disorder Atherosclerosis of aorta Cerebrovascular disease Depression, recurrent DJD of left shoulder Do not resuscitate Essential hypertension Facet arthropathy, lumbar Gait instability Generalized anxiety disorder Hereditary and idiopathic neuropathy, unspecified Impingement syndrome of left shoulder Irritable bowel syndrome with diarrhea Left cervical radiculopathy Left supraspinatus tendonitis Lumbar stenosis with neurogenic claudication Lymphocytic colitis Mixed hyperlipidemia Mixed incontinence urge and stress Osteopenia Scoliosis 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 Shingles Venous insufficiency Surgical History History of knee replacement History of salpingo-oophorectomy (08/19/17) History of third molar tooth extraction Status post appendectomy Status post hysterectomy Status post tonsillectomy and adenoidectomy Family History Mother Cancer Father Cancer Social History household members: spouse alcohol intake: current alcohol intake frequency: 0-2 drinks per day Alcohol type: wine Exam Initial Vital Signs Initial Vital Signs: Vital Signs Temperature 97.6 F 11/19/24 15:01 Pulse Rate 73 11/19/24 15:01 Respiratory Rate 18 11/19/24 15:01 Blood Pressure 120/67 11/19/24 15:01 Pulse Oximetry 98 11/19/24 15:01 Oxygen Delivery Method Room Air 11/19/24 15:01 Const General: cooperative, comfortable, No acute distress, No diaphoretic, frail appearing and No ill appearing Limitations: mental status not altered [facility] Head: normal to inspection, normocephalic, atraumatic, No abrasion, No Velez's sign, No contusion, No hematoma, No laceration, No palpable skull fracture, No raccoon eyes and No scalp lesion Ears: hearing grossly normal bilaterally, TM's normal bilaterally and EAC's normal Nose: external nose normal Face and sinus: normal facial exam and no tenderness Mouth: No mouth trauma Eyes General: Yes appearance normal, both eyes and all related structures Pupils: PERRL EOM: EOM intact bilaterally Neck Neck: normal visual inspection Resp Effort & Inspection: normal respiratory effort Auscultation: clear to auscultation bilaterally Cardio Rate: regular rate Rhythm: regular rhythm Heart Sounds: S1 normal and S2 normal GI Inspection: normal to inspection Palpation: soft and No tender Auscultation: normal bowel sounds General: No CVA tenderness Back/Spine/Pelvis Back: No back tenderness Skin General: no rashes or lesions noted Neuro General: patient alert, patient awake, patient oriented x3 and moves all extremities Course Course Course Narrative: Patient seen and examined by myself. She likely fell as secondary result of her Parkinson's and her symptoms now being 8 days out from her fall are consistent with a concussion or postconcussive syndrome. I offered the patient admission for PT OT and possible SNF placement but in shared decision-making with her, her and myself she elected to go home as she is already doing ongoing physical therapy specifically for her Parkinson's related difficulties. I advised them that if they ever feel that her condition is unable to be managed at home or they do not feel safe doing so then they should return to the ER immediately so that we can help with the placement process. I advised her to return to [place] her PCP as soon as possible as he can neurology referral for Parkinson's. I advised her to call 911 or return to the ER immediately for any future falls and her and her were in agreement with this plan. Orders Ordered: ED Orders 11/19/24 15:07 CT cervical spine wo con Stat CT head/brain wo con Stat Vital Signs Vital signs: Vital Signs - 8 hr 11/19/24 15:01 11/19/24 17:30 11/19/24 17:31 Temperature 97.6 F Pulse Rate 73 65 Respiratory Rate 18 Blood Pressure 120/67 119/60 Pulse Oximetry 98 99 Oxygen Delivery Method Room Air MDM - Head Injury Differential Diagnosis Differential diagnosis: Likely concussion without loss of consciousness, epidural hematoma, closed head injury, subarachnoid hematoma, postconcussion syndrome, subdural hematoma and concussion with loss of consciousness Discharge Plan Departure Patient Disposition: Home Clinical Impression: Concussion Qualifiers: Encounter type: initial encounter Loss of consciousness presence/duration: without LOC Qualified Code(s): S06.0X0A - Concussion without loss of consciousness, initial encounter Instructions: Concussion Activity Restrictions/Additional Instructions: If there is any change or worsening in her condition especially out of control headaches, nausea, vomiting or any other concerns or if you do not feel safe caring for herself at home then please return to the ER right away for further evaluation. Also, please follow-up with your doctor and seek a neurology referral as soon as possible to hopefully achieve better control of her Parkinson's. Your primary care should also hopefully refer you to physical therapy again so you can continue to stay as strong and well-balanced as possible as your Parkinson's progresses over time. Prescriptions: No Action azithromycin 250 mg tablet See Rx Instructions PO .COMPLEX Qty: 6 0RF Rx Instructions: For 250 mg dose pack: take 500 mg today (day 1), then 250 mg for 4 days (days 2-5) PO clobetasol 0.05 % cream 1 applic topical DAILY PRN (Reason: occasional shingles attack) Qty: 30 0RF sertraline 50 mg tablet 50 mg PO DAILY Qty: 90 3RF atorvastatin 20 mg tablet 20 mg PO BEDTIME Qty: 90 3RF fluticasone propionate 50 mcg/actuation spray,suspension 1 spray intranasal BID PRN (Reason: allergy symptoms) Qty: 16 3RF timolol maleate 0.5 % drops 1 drp EYE-BOTH DAILY gabapentin 300 mg capsule 300 mg PO BEDTIME Qty: 90 3RF losartan-hydrochlorothiazide 50-12.5 mg tablet 1.5 tab PO DAILY Qty: 135 3RF ascorbic acid (vitamin C) 1,000 mg tablet 1,000 mg PO DAILY topiramate 100 mg tablet 100 mg PO BID acetaminophen [Tylenol Extra Strength] 500 mg tablet 1,000 mg PO DAILY PRN calcium carbonate 500 mg calcium (1,250 mg) tablet 500 mg PO BID primidone 250 mg tablet 250 mg PO BID amlodipine 5 mg tablet 5 mg PO DAILY Qty: 90 3RF gabapentin 100 mg capsule 100 mg PO DAILY Qty: 90 2RF cholecalciferol (vitamin D3) 2,000 unit capsule 2,000 unit PO DAILY solifenacin 10 mg tablet 10 mg PO DAILY Referrals: Grant Phillips MD [Primary Care Provider, Internal Medicine] - As soon as possible Stand Alone Forms: Patient Portal/API
[2024-11-19 19:00] VITALS: BP 138/62; PULSE 61; O2SAT 99
== END 2024-11-19 19:19 | disposition home or self-care (01) ==
PROVIDERS: Emergency Provider Emergency Medicine; Family Provider Internal Medicine; PCP Internal Medicine
DX: S06.0X0A Concussion without loss of consciousness, initial encounter (principal); R41.0 Disorientation, unspecified; W18.30XA Fall on same level, unspecified, initial encounter
CPT/HCPCS: 70450; 72125; 99281; 99284

== ENCOUNTER → 2024-12-02 12:14 | Outpatient (CLI) | payer MEDICARE, OTHER, SELFPAY ==
[2024-05-05 10:08] VITALS: BMI 21.1
[2024-12-02 12:54] LABS: Hematocrit 37.6 % (36-46); Hemoglobin 13.1 g/dL (12.0-16.0); Mean Corpuscular HGB Conc 34.8 % (30-36); Mean Corpuscular Hemoglobin 34.8 PG (26-34); Mean Corpuscular Volume 99.8 fL (80-100); Platelet Count 205 X10^3/uL (150-400)
[2024-12-02 13:18] LABS: Alanine Aminotransferase 16 IU/L (<35); Albumin 3.8 g/dL (3.5-5.0); Albumin Globulin Ratio 1.0 (1.0-2.8); Alkaline Phosphatase 131 U/L (38-126); Blood Urea Nitrogen 11 mg/dL (7-17); Calcium 9.3 mg/dL (8.4-10.2); Carbon Dioxide 28 mmol/L (22-32); Chloride 99 mmol/L (98-107); Estimated Glomerular Filt Rate > 60 mL/min (>60); Globulin 3.7 g/dL (1.7-4.1); Glucose 100 mg/dL (70-99); HEMOLYSIS 20 (0-50); Potassium 3.5 mmol/L (3.4-5.1); Sodium 135 mmol/L (137-145); Total Protein 7.5 g/dL (6.3-8.2)
[2024-12-02 13:46] LABS: TSH w/ Reflex to FT4 1.47 uIU/mL (0.47-4.68)
== END ==
PROVIDERS: Family Provider Internal Medicine; PCP Internal Medicine; Referring Provider Internal Medicine; Visit Provider Internal Medicine
DX: R53.83 Other fatigue (principal)
CPT/HCPCS: 36415; 80053; 84443; 85027

== ENCOUNTER → 2025-02-03 16:13 | Outpatient (CLI) | payer MEDICARE, OTHER, SELFPAY ==
[2024-05-05 10:08] VITALS: BMI 21.1
[2025-02-03 18:10] LABS: Hematocrit 36.5 % (36-46); Hemoglobin 12.4 g/dL (12.0-16.0); Mean Corpuscular HGB Conc 33.9 % (30-36); Mean Corpuscular Hemoglobin 33.8 PG (26-34); Mean Corpuscular Volume 99.8 fL (80-100); Platelet Count 210 X10^3/uL (150-400)
[2025-02-03 19:02] LABS: Alanine Aminotransferase 4 IU/L (<35); Albumin 4.0 g/dL (3.5-5.0); Albumin Globulin Ratio 1.3 (1.0-2.8); Alkaline Phosphatase 86 U/L (38-126); Blood Urea Nitrogen 19 mg/dL (7-17); Calcium 9.3 mg/dL (8.4-10.2); Carbon Dioxide 31 mmol/L (22-32); Chloride 99 mmol/L (98-107); Estimated Glomerular Filt Rate > 60 mL/min (>60); Globulin 3.2 g/dL (1.7-4.1); Glucose 75 mg/dL (70-99); HEMOLYSIS < 15 (0-50); Potassium 4.1 mmol/L (3.4-5.1); Sodium 136 mmol/L (137-145); Total Protein 7.2 g/dL (6.3-8.2)
== END ==
PROVIDERS: Family Provider Internal Medicine; PCP Internal Medicine; Referring Provider Internal Medicine; Visit Provider Internal Medicine
DX: I67.9 Cerebrovascular disease, unspecified (principal)
CPT/HCPCS: 36415; 80053; 85027

== ENCOUNTER → 2025-02-10 13:59 | Outpatient (CLI) | payer MEDICARE, OTHER, SELFPAY ==
[2024-05-05 10:08] VITALS: BMI 21.1
== END ==
LOC: NUCM 02-11 10:40
PROVIDERS: Family Provider Internal Medicine; PCP Internal Medicine; Referring Provider Internal Medicine; Visit Provider Internal Medicine
DX: R94.31 Abnormal electrocardiogram [ECG] [EKG] (principal)
CPT/HCPCS: 78452; 93017; A9502; J2785

== ENCOUNTER → 2025-04-12 14:39 | Outpatient (CLI) | payer MEDICARE, OTHER, SELFPAY ==
[2024-05-05 10:08] VITALS: BMI 21.1
--- NOTE | 2025-04-12 14:40 | DI.MG.S_ITS ---
MM screening mammo BI: 04/12/2025. BI-RADS: 2 CLINICAL: 84-year old female for bilateral screening mammogram. No Tyrer-Cuzick risk score calculation due to patient's age being over 85 years old. Current reported family history of breast cancer: sister. PRIOR EXAMS 03/21/2024, 10/23/2022, 11/16/2021, 11/14/2020. MAMMOGRAPHY TECHNIQUE: 2D and 3D (tomosynthesis) digital mammographic views obtained, with additional images as needed for full coverage. Current study was also evaluated with a Computer Aided Detection (CAD) system. DENSITY C. The breasts are heterogeneously dense, which may obscure small masses. MAMMOGRAPHY FINDINGS Bilateral: Benign-appearing calcifications noted. There are no suspicious masses, calcifications, or other findings in the breast. IMPRESSION: * No evidence of malignancy with benign findings. RECOMMENDATIONS Bilateral * Annual screening mammography. OVERALL ASSESSMENT CATEGORY BI-RADS-2: Benign. [employer] recommends annual screening mammography beginning at age 40 for women with average risk of breast cancer. ELECTRONICALLY SIGNED: Gerard Dyer M.D. on 04/13/2025 at 12:17:50 PM PT Interpreting Station ID: [id number]
== END ==
LOC: MAMMO 14:39
PROVIDERS: PCP Internal Medicine; Referring Provider Internal Medicine; Visit Provider Internal Medicine
DX: Z12.31 Encounter for screening mammogram for malignant neoplasm of breast (principal); R92.333 Mammographic heterogeneous density, bilateral breasts; Z80.3 Family history of malignant neoplasm of breast
CPT/HCPCS: 77063; 77067

== ENCOUNTER 2025-04-15 12:40 | Outpatient (CLI) | payer MEDICARE, OTHER, SELFPAY ==
[2024-05-05 10:08] VITALS: BMI 21.1
[2025-04-15] VITALS (7 sets, daily range): BP systolic 125–172; BP diastolic 62–74; PULSE 69–86; RESP 16–20; TEMP 37; O2SAT 80–100
[2025-04-15] MEDS: MIDAZOLAM 2 MG/2 ML VIAL 1 MG IV (14:29)
[2025-04-15] MEDS: BETAMETHASONE 30 MG/5 ML MDV 12 MG INJ (14:33)
--- NOTE | 2025-04-15 14:44 | P.PCN_ITS ---
Date/Time/Diagnoses Date of procedure: 04/15/25 Time of procedure: 14:44 Pre-procedure diagnosis: 1. HNP WITH RADICULAR FEATURES, 2. MULTILEVEL CENTRAL STENOSIS, Post-procedure diagnosis: same Procedure Notes Procedure: 1. FLUOROSCOPICALLY GUIDED CONTRAST CONTROLLED INTERLAMINAR EPIDURAL STEROID INJECTION - L5/S1 Indications: Ruth is referred by Dr. Phillips for treatment of Bilateral Foraminal Stenosis L>R LE symptoms. Physician: Chuy Mario Total Fluoroscopy time (seconds): 5 Total sedation minutes: 10 Complications: none Procedure in detail & Post-procedure care: FINDINGS Multilevel Central Spinal Stenosis with Nerve Root Compression DESCRIPTION OF PROCEDURE Fluoroscopically guided, contrast-controlled L5/S1 translaminar epidural steroid injection. Following review of allergy and review of potential side effects and complications, including, but not necessarily limited to, infection, allergic reaction, local tissue breakdown, temporary as well as permanent nerve injury, paralysis, stroke and possible , the patient indicated that the patient understood and agreed to proceed. An informed consent document was signed by the patient, witnessed by a nurse, and placed in the patient's chart. Additionally, other treatment options including modalities, medications, and physical therapy were reviewed with the patient. After review of previous anaesthesic history and IV conscious sedation the patient was deemed safe to proceed with today?s procedure with IV conscious sedation as ASA class II designation. Safety time-out was performed to confirm patient ID, procedure to be performed and site of procedure. IV sedation was accomplished with a combination of 1mg of Versed administered by the RN after DO order, titrated to patient comfort during the course of the procedure while the patient remained responsive to all verbal commands. In the prone position, following sterile prep and drape of the lumbar region, the L5/S1 translaminar space was identified fluoroscopically. The skin was anesthetized via a 25-gauge, 1.5-inch needle with 1% lidocaine solution. At this point, a 22-gauge short bevel spinal needle was atraumatically introduced a nd advanced under fluoroscopic guidance into the region of the L5/S1 translaminar space. Depth was confirmed on lateral view. Radiological data, including multiple fluoroscopic views of the lumbar spine, reveal a spinal needle at the L5/S1 translaminar space. Lateral views then show placement of the needle in the epidural space. Subsequent views show contrast material flowing superiorly and inferiorly in the epidural space. No vascular or intrathecal uptake is observed. At this point, using loss of resistance technique with saline and air, the epidural space was entered. This was confirmed following negative aspiration with injection of approximately 1.5cc of Isovue 200, showing excellent epidural flow without vascular or intrathecal uptake. At this point, 1cc of 0.25% marcaine solution combined with 3cc or 10mg of dexamethasone and 12mg of betamethasone was injected without incident. The patent tolerated the procedure without signs of symptoms of complications prior to transfer to the recovery area for further monitoring. The patient was then transferred to the recovery area where they were observed for an appropriate period of time after the injection. The patient reported a VAS score of 6 prior to the procedure and a post-procedure VAS of 0. POST OP INSTRUCTIONS The patient was provided a Pain Log to continue to record their response to the target-specific procedure prior to follow-up visit with their referring physician. Additionally, specific post-injection care instructions and a contact number to our office were provided if concerns arise regarding possible complications associated with the procedure are suspected.
== END 2025-04-15 15:59 | disposition home or self-care (01) ==
PROVIDERS: PCP Internal Medicine; Referring Provider Physical Medicine & Rehabilitation; Visit Provider Physical Medicine & Rehabilitation
DX: M51.17 Intervertebral disc disorders with radiculopathy, lumbosacral region (principal); M48.07 Spinal stenosis, lumbosacral region
CPT/HCPCS: 62323; 99152; J0702; J1100; J2250

== ENCOUNTER → 2025-04-23 11:03 | Outpatient (CLI) | payer MEDICARE, OTHER, SELFPAY ==
[2024-05-05 10:08] VITALS: BMI 21.1
== END ==
PROVIDERS: PCP Internal Medicine; Visit Provider Obstetrics & Gynecology
DX: R32 Unspecified urinary incontinence (principal)
CPT/HCPCS: 87077; 87086; 87186